=== PATIENT | female | born 1940 | race Caucasian/White ===

== ENCOUNTER → 2016-07-27 | Outpatient (CLI) | payer OTHER ==
[~2016-07-27] MED LIST: AMR2 PO; CHOL100010 PO; CYAN10002 IM; CYAN10005 PO; DICL1GEL28 TOP; GLC/500 PO; GLCSR500 PO; GLIM2TAB2 PO; INSDGI SC; INSDGIPEN SC; MULT-190 PO; SPIR25TA89 PO; VNTHFA/IN INH
[2016-07-27 13:37] LABS: BASO % 0.6 %; BASO ABS # 0.04 K/uL (0-0.2); COMPLETE YES; EOS % 1.6 %; HEMATOCRIT 38.7 % (37-47); IG% 0.1 %; LYMPH % 33.4 %; LYMPH ABS # 2.27 K/uL (1.2-3.4); MEAN CELL VOLUME 86.8 fL (80-100); MEAN CORPUSCULAR HEMOGLOBIN 29.1 pg (25-34); MEAN CORPUSCULAR HGB CONC 33.6 g/dl (32-36); MEAN PLATELET VOLUME 10.5 fL (7.4-10.4); MONO % 10.7 %; NEUT % 53.6 %; PLATELET COUNT 321 K/uL (130-400); RED BLOOD COUNT 4.46 M/uL (4.2-5.4)
[2016-07-27 14:13] LABS: ESTIMATED AVERAGE GLUCOSE 189 mg/dl; HA1C FLAG Normal (Normal)
[2016-07-27 17:47] LABS: BLOOD UREA NITROGEN 14 mg/dl (7-18); BUN/CREATININE RATIO 19.8 (10-20); CALCIUM 9.8 mg/dl (8.5-10.1); CARBON DIOXIDE 28 mmol/L (21-32); CHLORIDE 102 mmol/L (98-107); CREATININE 0.72 mg/dl (0.60-1.20); GLUCOSE 159 mg/dl (70-99); POTASSIUM 4.4 mmol/L (3.5-5.1); SODIUM 138 mmol/L (136-145)
[2016-07-27 18:03] LABS: ALB/GLOB RATIO 1.1 (0.9-2); ALKALINE PHOSPHATASE 77 U/L (45-117); ALT/SGPT 53 U/L (12-78); AST/SGOT 32 U/L (15-37); CHOLESTEROL 204 mg/dl (0-200); CHOLESTEROL/HDL RATIO 3.5; HDL CHOLESTEROL 59 mg/dl; LDL CHOLESTEROL CALCULATED 105 mg/dl; TRIGLYCERIDES 199 mg/dl (0-150); VERY LOW DENSITY LIPOPROT CALC 40 mg/dl
== END | disposition home or self-care (01) ==
LOC: C.LABBC 10:37
PROVIDERS: ATTEND Internal Medicine Geriatric Medicine
DX: I10 Essential (primary) hypertension (principal); E55.9 Vitamin D deficiency, unspecified; E78.5 Hyperlipidemia, unspecified; E11.9 Type 2 diabetes mellitus without complications; K74.60 Unspecified cirrhosis of liver; E53.8 Deficiency of other specified B group vitamins; E83.52 Hypercalcemia

== ENCOUNTER → 2016-09-18 | Outpatient (CLI) | payer OTHER | END | disposition home or self-care (01) | LOC: C.MAMM 10:38 | PROVIDERS: ATTEND Internal Medicine Geriatric Medicine | DX: M85.89 Other specified disorders of bone density and structure, multiple sites (principal) ==

== ENCOUNTER → 2016-11-30 | Outpatient (CLI) | payer OTHER ==
[2016-11-30 14:11] LABS: BLOOD UREA NITROGEN 7 mg/dl (7-18); BUN/CREATININE RATIO 11.1 (10-20); CALCIUM 9.3 mg/dl (8.5-10.1); CARBON DIOXIDE 28 mmol/L (21-32); CHLORIDE 107 mmol/L (98-107); CREATININE 0.64 mg/dl (0.60-1.20); GLUCOSE 150 mg/dl (70-99); POTASSIUM 4.6 mmol/L (3.5-5.1); SODIUM 141 mmol/L (136-145)
[2016-11-30 14:29] LABS: ESTIMATED AVERAGE GLUCOSE 209 mg/dl; HA1C FLAG Normal (Normal)
== END | disposition home or self-care (01) ==
LOC: C.LABBC 10:11
PROVIDERS: ATTEND Physician Assistant
DX: E11.9 Type 2 diabetes mellitus without complications (principal)

== ENCOUNTER → 2016-12-07 | Outpatient (CLI) | payer OTHER ==
[~2016-12-07] MED LIST changes: -AMR2 PO; -GLCSR500 PO; -INSDGIPEN SC
--- NOTE | 2016-12-07 14:07 | MAMMOGRAPHY REPORT ---
BILATERAL DIGITAL SCREENING MAMMOGRAM WITH CAD: 12/07/2016 CLINICAL HISTORY: Routine screening. Patient has no complaints. TECHNIQUE: Current study was also evaluated with a Computer Aided Detection (CAD) system. Bilatera l CC and MLO views were obtained. COMPARISON: Comparison is made to exams dated: 10/27/2014 mammogram, 05/21/2014 mammogram, 10/13/2013 mammogram, 10/07/2013 mammogram, 08/06/2012 mammogram, and 07/25/2011 mammogram - [facility]. BREAST COMPOSITION: There are scattered areas of fibroglandular density in both breasts. FINDINGS: No suspicious masses, calcifications, or areas of architectural distortion are noted in e ither breast. There has been no significant interval change compared to prior exams. A biopsy mar ker clip is again noted in the right upper outer quadrant. Scattered bilateral benign-appearing chloe cifications, predominantly rodlike secretory calcifications, are not significantly changed. Asymmet ry in the left superior breast on the MLO view is stable compared to prior exams including the 2011 and 2012 exams. IMPRESSION: ACR BI-RADS CATEGORY 2: BENIGN There is no mammographic evidence of malignancy. A 1 year screening mammogram is recommended. The p atient will receive written notification of the results. Approximately 10% of breast cancers are not detected with mammography. A negative mammographic repor t should not delay biopsy if a clinically suggestive mass is present. Harriet Rivero M.D. /:12/07/2016 13:29:23 Print Line Operator: Qian DIAZ(Gianna)(Angela), [facility] letter sent: Normal 1/2 BI-RADS Code: ACR BI-RADS Category 2: Benign
== END | disposition home or self-care (01) ==
LOC: C.MAMM 10:18
PROVIDERS: ATTEND Internal Medicine Geriatric Medicine
DX: Z12.31 Encounter for screening mammogram for malignant neoplasm of breast (principal)

== ENCOUNTER → 2016-12-08 | Day surgery (SDC) | payer OTHER ==
[2016-12-06 08:56] VITALS: Ht 167.6 cm; Wt 86.4 kg
[~2016-12-08] VITALS: Ht 167.6 cm; Wt 86.4 kg
[~2016-12-08] MED LIST changes: +LIDOCAINE HCL 2% 2 ML VIAL (20MG/ML) ONE; +MIDAZOLAM HCL 1 MG/ML 2ML VIAL ONE; +ONDANSETRON INJ 2 MG/ML 2 ML VIAL ONE; +PROPOFOL IV EMULSION 10 MG/ML 20 ML VIAL IV ONE; +SODIUM CHLORIDE 0.9% 500ML 500 ML IV ONE
[2016-12-08 10:46] VITALS: TEMP 36.9
--- NOTE | 2016-12-08 11:54 | Endo History and Physical ---
History & Physical Date of Service: December 08, 2016. Chief Complaint: screening,family history of colon cancer Referring Physician: Dr. Dylon Mcguire History of Present Illness 76 yo CF who presents for colonoscopy secondary to family history of colon cancer. Past Medical History Diabetes, Osteoporosis, High Cholesterol, Hypertension, Liver Disease Past Surgical History Hx Cardiac Surgery: No Hx Internal Defibrillator: No Hx Pacemaker: No Hx Abdominal Surgery: Yes (CHOLECYSTECTOMY, LIVER SHUNT FOR CIRRHOSIS) Hx of Implantable Prosthesis: No Hx Post-Op Nausea and Vomiting: No Hx Cancer Surgery: No Hx Thoracic Surgery: No Hx Orthopedic: No Hx Urinary Tract Surgery: No Family History Colon CA Social History Smoking Status: Former Smoker Hx Substance Use: No Hx Alcohol Use: Yes (HX ALCOHOL ABUSE) Allergies Coded Allergies: Penicillins (Verified Allergy, Unknown, GI UPSET, 12/06/16) Current Medications Reported Home Medications Medications Dose Route/Sig Max Daily Dose Days Date Category Dose Instructions Glimepiride 2 Mg Tab 1 Tab PO BID 12/06/16 Reported Lantus (Insulin Glargine) 100 Unit/Ml Inj 30 Units SC QAM 12/06/16 Reported Glucophage (Metformin Hcl) 500 Mg Tab 500 Mg PO BID 12/06/16 Reported Aldactone (Spironolactone) 25 Mg Tab 25 Mg PO BID 04/07/16 Reported Ventolin Hfa (Albuterol) 200 Puffs/36995 Mcg Aers 2 Puffs INH Q4H PRN 04/07/16 Reported Ocuvite Preservision (Multivitamins/Minerals) 1 Tab Tab 1 Tab PO QAM 01/05/16 Reported Voltaren 1% Top Gel (Diclofenac Sodium) Gel 1 Appln TOP UD 01/05/16 Reported APPLY AND RUB FOR ABOUT 2 MINUTES. Vitamin B-12 Inj (Cyanocobalamin) 1,000 Mcg/ Inj 1,000 Mcg IM MONTHLY 01/05/16 Reported Vitamin B-12 (Cyanocobalamin) 1,000 Mcg Tab 1,000 Mcg PO QAM 08/16/15 Reported Vitamin D (Cholecalciferol) 1,000 Inter.unit Tab 2,000 Inter.unit PO BID 08/16/15 Reported Vital Signs Weight (Kilograms): 86.36 Height (Feet): 5 Height (Inches): 6 Date Time Temp Pulse Resp B/P Pulse Ox O2 Delivery O2 Flow Rate FiO2 12/08/16 10:46 36.9 80 20 138/58 95 Room Air Physical Exam General Appearance: WD/WN, no apparent distress Respiratory/Chest: Auscultation: breath sounds normal Cardiovascular: Heart Auscultation: RRR Abdomen: Bowel Sounds: normal Inspection & Palpation: soft, non-distended, no tenderness, guarding & rebound Assessment and Plan Assessment: 76 yo CF who presents for colonoscopy secondary to family history of colon cancer. Plan: Proceed with colonoscopy.
--- NOTE | 2016-12-08 12:21 | Discharge Instructions ---
Endoscopy Patient Instructions Date / Procedure(s) Performed December 08, 2016. Colonoscopy Allergy Information Coded Allergies: Penicillins (Verified Allergy, Unknown, GI UPSET, 12/06/16) Discharge Date / Findings December 08, 2016. Diverticulosis Internal hemorrhoids Medication Instructions Stopped Medication(s): stopped Glimepiride,Lantus and Glucophage Sunday OK to resume all medications today as prescribed Reported Home Medications Medications Dose Route/Sig Max Daily Dose Days Date Category Dose Instructions Glimepiride 2 Mg Tab 1 Tab PO BID 12/06/16 Reported Lantus (Insulin Glargine) 100 Unit/Ml Inj 30 Units SC QAM 12/06/16 Reported Glucophage (Metformin Hcl) 500 Mg Tab 500 Mg PO BID 12/06/16 Reported Aldactone (Spironolactone) 25 Mg Tab 25 Mg PO BID 04/07/16 Reported Ventolin Hfa (Albuterol) 200 Puffs/92183 Mcg Aers 2 Puffs INH Q4H PRN 04/07/16 Reported Ocuvite Preservision (Multivitamins/Minerals) 1 Tab Tab 1 Tab PO QAM 01/05/16 Reported Voltaren 1% Top Gel (Diclofenac Sodium) Gel 1 Appln TOP UD 01/05/16 Reported APPLY AND RUB FOR ABOUT 2 MINUTES. Vitamin B-12 Inj (Cyanocobalamin) 1,000 Mcg/ Inj 1,000 Mcg IM MONTHLY 01/05/16 Reported Vitamin B-12 (Cyanocobalamin) 1,000 Mcg Tab 1,000 Mcg PO QAM 08/16/15 Reported Vitamin D (Cholecalciferol) 1,000 Inter.unit Tab 2,000 Inter.unit PO BID 08/16/15 Reported Provider Instructions Activity Restrictions - No exercising or heavy lifting for 24 hours. - Do not drink alcohol the day of the procedure. - Do not drive a car or operate machinery until the day after the procedure. - Do not make any important decisions or sign important papers in 24 hours after the procedure. Following Day: - Return to full activity which may include returning to work/school. Diet Start your diet with liquids and light foods (jello, soup, juice, toast). Then eat your usual diet if not nauseated. Treatment For Common After Affects For mild abdominal pain, bloating, or excessive gas: - Rest - Eat lightly - Lie on right side Follow-Up Information Follow-up with Dr. Dylon Mcguire as scheduled Anesthesia Information What You Should Know You have had a procedure that required some medicine to reduce anxiety and discomfort. This treatment is called moderate sedation. After receiving the treatment, you may be sleepy, but you will be able to breathe on your own. The effects of the treatment may last for several hours. Follow these instructions along with Activity/Diet recommendations noted above: * Do NOT do anything where dizziness or clumsiness would be dangerous. * Rest quietly at home today, then you can be up and about tomorrow. * Have a responsible person stay with you the rest of today. * You may have had an I.V. today. If so, you may take the dressing off later today. Recommendations Call your doctor if: * Trouble breathing * Continuous vomiting for more than 24 hours * Temperature above 101 degrees * Severe abdominal pain or bloating * Pain not relieved by pain medicine ordered * There is increased drainage or redness from any incision * A large amount of rectal bleeding greater than 2-3 tablespoons. (If you had a polyp/s removed or have hemorrhoids, a small amount of blood - from the rectum is to be expected.) * You have any unanswered questions or concerns. IN THE EVENT OF A SERIOUS EMERGENCY, GO TO THE NEAREST EMERGENCY ROOM Your discharge instructions were prepared by provider Jose Vences. Patient Instructions Signature Page Fred Lewis Patient (or Guardian) Signature/Date: I have read and understand the instructions given to me by my caregivers. Caregiver/RN/Doctor Signature/Date: The above-named patient and/or guardian has received patient instructions on this date. + Original Patient Signature Page (only) stays with chart. Please make copy for patient.
--- NOTE | 2016-12-08 12:24 | GI REPORT ---
Procedure Date: 12/08/2016 11:45 AM THIS REPORT HAS BEEN AMENDED Addendum Number: 1 Addendum Date: 12/25/2016 8:05:04 AM No specimens were collected during this exam, and therefore, no pathology is pending. Repeat colonoscopy in 5 years. Procedure: Colonoscopy Indications: Family history of colon cancer in a first-degree relative Medicines: Monitored Anesthesia Care Complications: No immediate complications. Estimated Blood Loss: Estimated blood loss: none. Procedure: Pre-Anesthesia Assessment: - Prior to the procedure, a History and Physical was performed, and patient medications and allergies were reviewed. The patient's tolerance of previous anesthesia was also reviewed. The risks and benefits of the procedure and the sedation options and risks were discussed with the patient. All questions were answered, and informed consent was obtained. Prior Anticoagulants: The patient has taken no previous anticoagulant or antiplatelet agents. ASA Grade Assessment: III - A patient with severe systemic disease. After reviewing the risks and benefits, the patient was deemed in satisfactory condition to undergo the procedure. After I obtained informed consent, the scope was passed under direct vision. Throughout the procedure, the patient's blood pressure, pulse, and oxygen saturations were monitored continuously. The scope was introduced through the anus and advanced to the terminal ileum. The colonoscopy was performed without difficulty. The patient tolerated the procedure well. The quality of the bowel preparation was good. The terminal ileum, ileocecal valve, appendiceal orifice, and rectum were photographed. Findings: Multiple small-mouthed diverticula were found in the sigmoid colon. Non-bleeding internal hemorrhoids were found during retroflexion. The hemorrhoids were small. Impression: - Diverticulosis in the sigmoid colon. - Non-bleeding internal hemorrhoids. - No specimens collected. Recommendation: - Resume previous diet. - Continue present medications. - Repeat colonoscopy for surveillance based on pathology results. - Return to primary care physician as previously scheduled. Jose Toño Vences, DO 12/08/2016 12:23:09 PM This report has been signed electronically. Note Initiated On: 12/08/2016 11:45 AM I attest to the content of the Intraoperative Record and orders documented therein, exceptions below Jose Lundberg Ru, DO 12/25/2016 8:06:09 AM This report has been signed electronically.
[2016-12-08 12:45] VITALS: BP 123/73; PULSE 78; O2SAT 94
--- NOTE | 2016-12-08 12:47 | Anesthesiology Progress Note ---
Anesthesia Post Op Note Date & Time December 08, 2016 at 12:47 Vital Signs Pain Intensity: 0 Vital Signs Past 12 Hours Date Time Temp Pulse Resp B/P Pulse Ox O2 Delivery O2 Flow Rate FiO2 12/08/16 12:45 78 20 123/73 94 Room Air 12/08/16 12:37 84 20 146/65 95 Room Air 12/08/16 12:30 87 20 121/71 94 Room Air 12/08/16 12:22 88 20 90/55 94 Room Air 12/08/16 10:46 36.9 80 20 138/58 95 Room Air Notes Mental Status: alert / awake / arousable, participated in evaluation Pt Amnestic to Procedure: Yes Nausea / Vomiting: adequately controlled Pain: adequately controlled Airway Patency, RR, SpO2: stable & adequate BP & HR: stable & adequate Hydration State: stable & adequate Anesthetic Complications: no major complications apparent
== END | disposition home or self-care (01) ==
LOC: C.GI 10:20
PROVIDERS: ATTEND Internal Medicine
DX: Z12.11 Encounter for screening for malignant neoplasm of colon (principal); K57.30 Diverticulosis of large intestine without perforation or abscess without bleeding; K64.8 Other hemorrhoids; I10 Essential (primary) hypertension; E11.9 Type 2 diabetes mellitus without complications; Z68.31 Body mass index [BMI] 31.0-31.9, adult; E66.9 Obesity, unspecified; Z88.0 Allergy status to penicillin; Z79.4 Long term (current) use of insulin; Z80.0 Family history of malignant neoplasm of digestive organs

== ENCOUNTER → 2017-03-07 | Outpatient (CLI) | payer OTHER ==
[~2017-03-07] MED LIST changes: -LIDOCAINE HCL 2% 2 ML VIAL (20MG/ML) ONE; -MIDAZOLAM HCL 1 MG/ML 2ML VIAL ONE; -ONDANSETRON INJ 2 MG/ML 2 ML VIAL ONE; -PROPOFOL IV EMULSION 10 MG/ML 20 ML VIAL IV ONE; -SODIUM CHLORIDE 0.9% 500ML 500 ML IV ONE
[2017-03-07 10:08] LABS: ESTIMATED AVERAGE GLUCOSE 235 mg/dl; HA1C FLAG Normal (Normal)
[2017-03-07 10:15] LABS: RATIO 25.5 mcg/mg (0-30.0)
== END | disposition home or self-care (01) ==
LOC: C.LAB1850 07:39
PROVIDERS: ATTEND Nurse Practitioner Family
DX: E11.9 Type 2 diabetes mellitus without complications (principal)

== ENCOUNTER → 2017-04-11 | Outpatient (CLI) | payer OTHER ==
--- NOTE | 2017-04-11 10:56 | DIAGNOSTIC IMAGING REPORT ---
(LIVER) ABDOMEN LIMITED HISTORY: 76 years-old Female K74.60 Hepatic [id number] cirrhosis follow-up study. COMPARISON: Ultrasound of the right upper quadrant 09/09/2015, CTA 04/04/2012 TECHNIQUE: Multiple real-time sonographic images of the abdominal right upper quadrant were obtained assessing grayscale appearance and color flow. FINDINGS: Pancreas appears somewhat heterogeneous with distal body and tail obscured by bowel gas. No focal pancreatic mass lesion identified. There is a hypoechoic complex irregular focus abutting the anterior capsule of the left hepatic lobe, 5.0 x 0.7 x 1.7 cm which appears unchanged from comparison ultrasound and CT suggesting chronic subcapsular collection. The hepatic parenchyma is heterogeneous with lobular margins. No focal hepatic mass lesions are identified. Liver measures up to 16 centimeters in length. The common bile duct measures 0.5 cm. Gallbladder is absent. Right kidney measures 4.5 cm in length and is unremarkable without hydronephrosis. IMPRESSION: 1. Cirrhotic appearance of the liver redemonstrated. 2. Prior cholecystectomy. No biliary ductal dilation. 3. Unchanged hypoechoic mildly heterogeneous focus abutting the anterior capsule of the left lobe of the liver without significant change from comparison studies suggests chronic subcapsular fluid collection. 4. Heterogeneous appearance of the pancreas. The above report was generated using voice recognition software. It may contain grammatical, syntax or spelling errors. Electronically signed by: Deangelo Blackwood M.D. 04/11/2017 10:54 AM Dictated Date/Time: 04/11/2017 10:50 AM
== END | disposition home or self-care (01) ==
LOC: C.ULTRBC 09:33
PROVIDERS: ATTEND Physician Assistant Medical
DX: K74.60 Unspecified cirrhosis of liver (principal)

== ENCOUNTER → 2017-06-06 | Outpatient (CLI) | payer OTHER ==
[2017-06-06 10:21] LABS: ESTIMATED AVERAGE GLUCOSE 235 mg/dl; HA1C FLAG Normal (Normal)
== END | disposition home or self-care (01) ==
LOC: C.LAB1850 07:26
PROVIDERS: ATTEND Nurse Practitioner Family
DX: E11.65 Type 2 diabetes mellitus with hyperglycemia (principal)

== ENCOUNTER → 2017-09-06 | Outpatient (CLI) | payer OTHER ==
[2017-09-06 10:17] LABS: BLOOD UREA NITROGEN 11 mg/dl (7-18); CALCIUM 9.5 mg/dl (8.5-10.1); CARBON DIOXIDE 27 mmol/L (21-32); CHOLESTEROL 166 mg/dl (0-200); CREATININE 0.65 mg/dl (0.60-1.20); GLUCOSE 220 mg/dl (70-99); SODIUM 136 mmol/L (136-145)
[2017-09-06 10:27] LABS: LDL CHOLESTEROL CALCULATED 103 mg/dl
[2017-09-06 12:15] LABS: HEMOGLOBIN A1C 10.8 % (4.5-5.6)
== END | disposition home or self-care (01) ==
LOC: C.LAB1850 08:52
PROVIDERS: ATTEND Nurse Practitioner Family
DX: E11.65 Type 2 diabetes mellitus with hyperglycemia (principal); I10 Essential (primary) hypertension; E83.52 Hypercalcemia

== ENCOUNTER → 2017-11-01 | Outpatient (CLI) | payer OTHER ==
--- NOTE | 2017-11-01 12:28 | DIAGNOSTIC IMAGING REPORT ---
CHEST 2 VIEWS ROUTINE CLINICAL HISTORY: R06.09 Exertional [id number] dyspnea COMPARISON STUDY: 12/08/2015 FINDINGS: Central catheter in superior vena cava. Heart top normal in terms of size. Lungs are clear. Mild emphysematous change with a chronic apical pleural and parenchymal fibrotic change. IMPRESSION: Chronic change. No acute process. The above report was generated using voice recognition software. It may contain grammatical, syntax or spelling errors. Electronically signed by: Sergio Johnson M.D. 11/01/2017 12:27 PM Dictated Date/Time: 11/01/2017 12:26 PM
== END | disposition home or self-care (01) ==
LOC: C.RADBC 10:22
PROVIDERS: ATTEND Physician Assistant Medical
DX: R06.09 Other forms of dyspnea (principal)

== ENCOUNTER → 2018-02-21 | Outpatient (CLI) | payer OTHER ==
[~2018-02-21] MED LIST changes: -CHOL100010 PO; +CHOL100027 PO; -CYAN10002 IM; -DICL1GEL28 TOP; +SPIR25TA5 PO; -SPIR25TA89 PO; +[UNRECOGNIZED DRUG - CODE] SQ
[2018-02-21 10:28] LABS: HEMOGLOBIN A1C 10.4 % (4.5-5.6)
[2018-02-21 10:40] LABS: CREATININE RANDOM URINE 95.3 mg/dl
== END | disposition home or self-care (01) ==
LOC: C.LAB1850 09:27
PROVIDERS: ATTEND Nurse Practitioner Family
DX: E11.65 Type 2 diabetes mellitus with hyperglycemia (principal)

== ENCOUNTER 2018-10-18 17:43 | Inpatient (IN) ==
[2018-10-18] MEDS ORDERED: ONDANSETRON INJ 2 MG/ML 2 ML VIAL IV STA (18:11)
[2018-10-18] MEDS ORDERED: SODIUM CHLORIDE 0.9% 1000ML 500 ML IV ONE (18:11)
[2018-10-18] MEDS ORDERED: KETOROLAC TROMETHAMINE 15 MG/ML VIAL IV STA (18:18)
[2018-10-18 18:50] LABS: Basophils # (auto) 0.01 K/uL (0-0.2); Basophils % (auto) 0.1 %; Hemoglobin 12.9 g/dL (12.0-16.0); Immature Granulocytes # (auto) 0.06 K/uL (0.00-0.02); Immature Granulocytes % (auto) 0.5 %; Lymphocytes # (auto) 0.23 K/uL (1.2-3.4); Lymphocytes % (auto) 1.7 %; Mean Corpuscular Hgb Conc 33.1 g/dL (32-36); Mean Corpuscular Volume 89.2 fL (80-100); Monocytes # (auto) 0.16 K/uL (0.11-0.59); Monocytes % (auto) 1.2 %; Neutrophils # (auto) 12.76 K/uL (1.4-6.5); Neutrophils % (auto) 96.5 %; Platelet Count 209 K/uL (130-400); RDW Coefficient of Variation 14.3 % (11.5-14.5); RDW Standard Deviation 47.1 fL (36.4-46.3); Red Blood Count 4.37 M/uL (4.2-5.4); White Blood Count 13.22 K/uL (4.8-10.8)
--- NOTE | 2018-10-18 18:55 | XRay Report ---
XR chest 1V portable CLINICAL HISTORY: 78 years-old Female presenting with Sepsis. TECHNIQUE: Portable upright AP view of the chest was obtained. COMPARISON: 05/07/2018. FINDINGS: Catheter projects in the region of the right internal jugular vein, possibly a tunneled catheter. Ath erosclerosis of aortic arch. Cardiac silhouette mildly enlarged. Mild pulmonary basilar prominence an d heterogeneity of lung parenchyma. No focal opacity. No large effusion or pneumothorax. Degenerative changes of the thoracic spine. IMPRESSION: 1. Mild cardiomegaly with mild volume overload. No eliane pulmonary edema. Electronically signed by: William Lira M.D. 10/18/2018 6:53 PM
[2018-10-18 19:06] LABS: Alanine Aminotransferase 50 U/L (12-78); Albumin Level 3.3 gm/dl (3.4-5.0); Aspartate Aminotransferase 46 U/L (15-37); BUN Creatinine Ratio 15.6 (10-20); Blood Urea Nitrogen 20 mg/dl (7-18); Calcium 9.7 mg/dl (8.5-10.1); Carbon Dioxide 22 mmol/L (21-32); Chloride 105 mmol/L (98-107); Creatinine Clr Calc Pharmacy 40.1 ml/min; Est GFR (African American) 46.6; Est GFR (Non-African American) 40.2; Glucose 139 mg/dl (70-99); Potassium 3.7 mmol/L (3.5-5.1); Sodium 137 mmol/L (136-145)
[2018-10-18 19:11] LABS: Albumin Globulin Ratio 0.8 (0.9-2); Alkaline Phosphatase 103 U/L (45-117); Bilirubin,Total 0.7 mg/dl (0.2-1); Creatine Kinase 507 U/L (26-192); Creatine Kinase MB 3.6 ng/ml (0.5-3.6); Globulin 4.1 gm/dl (2.5-4.0); Total Protein 7.4 gm/dl (6.4-8.2); Troponin I < 0.015 ng/ml (0-0.045)
[2018-10-18] MEDS ORDERED: LEVALBUTEROL HCL 1.25 MG/3 ML NEB NEB STA (19:14)
[2018-10-18] MEDS ORDERED: ACETAMINOPHEN 500 MG TAB PO STA (19:14)
[2018-10-18] MEDS ORDERED: IOVERSOL 100ml IV PRN (19:15)
[2018-10-18 19:25] LABS: Influenza A virus by PCR Neg for Influ A (Neg); Influenza B virus by PCR Neg for Influ B (Neg)
--- NOTE | 2018-10-18 19:29 | CT Scan Report ---
CT head/brain wo con CLINICAL HISTORY: 78 years-old Female presenting with Pt AMS. TECHNIQUE: Multidetector CT imaging of the head was performed without the use of intravenous contrast . IV contrast: None. One or more dose lowering techniques were used consistent with the principles of ALARA (as low as reasonably achievable), including automatic exposure control, mA or kV adjustment t o individual patient size, and/or use of iterative reconstruction. COMPARISON: None. CT DOSE (mGy.cm): The estimated cumulative dose is 1897.41. FINDINGS: Senior Actuarial Analyst topogram: Unremarkable. Proportional ventricular and sulcal prominence, likely age-related parenchymal volume loss. No hemorr gagandeep. Periventricular and subcortical white matter hypoattenuation, nonspecific but likely indicative of chronic small vessel ischemic change. No acute territorial infarct. No mass effect or midline deborah ft. No extra-axial fluid collection. Paranasal sinuses and mastoid air cells clear. Calvarium intact. IMPRESSION: 1. Chronic small vessel ischemic change. No acute intracranial abnormality. Electronically signed by: William Lira M.D. 10/18/2018 7:28 PM
--- NOTE | 2018-10-18 19:38 | CT Scan Report ---
CT abd pelvis IV con only CLINICAL HISTORY: 78 years-old Female presenting with Pt c/o N V D, history of breast cancer. TECHNIQUE: Multidetector CT of the abdomen and pelvis was performed after the administration of intra venous contrast. IV contrast: 94 mL of Optiray 320. One or more dose lowering techniques were used co nsistent with the principles of ALARA (as low as reasonably achievable), including automatic exposure control, mA or kV adjustment to individual patient size, and/or use of iterative reconstruction. COMPARISON: 05/10/2018. CT DOSE (mGy.cm): The estimated cumulative dose is 1897.41 mGy.cm. FINDINGS: Talk Show Host topogram: Unremarkable. Lung bases: Multichamber enlargement of the heart. Coronary artery calcification. No pericardial or p leural effusion. Minimal dependent changes likely atelectasis. Mosaic attenuation may suggest small a irways disease. Liver: Multinodular contour of the liver, which is also enlarged. Relative hypertrophy of the left he patic lobe and caudate with relative atrophy of the right hepatic lobe. No focal lesion allowing for the single phase of contrast. Patent hepatic vasculature. Trace perihepatic fluid along the inferior right hepatic lobe. Biliary: No intrahepatic or extrahepatic biliary ductal dilatation. Gallbladder surgically absent. Pancreas: Normal. Spleen: Multiple punctate calcifications suggest a history of granulomatous disease. Adrenal glands: Normal. Kidneys and ureters: Asymmetric delayed perfusion of the left kidney with moderate left perinephric f at infiltration asymmetric to the right. Mild left pelvocaliectasis. Obstructing 9 mm calculus at the left ureteropelvic junction. Left urothelial thickening. Several smaller nonobstructing lower pole l eft renal calculi. Exophytic simple left renal cyst. Right kidney normal. No right hydronephrosis. Ri ght ureter normal. Left ureter with periureteral fat infiltration along its course though no addition al calculus is evident. Bladder: Normal. Pelvic organs: Uterus and ovaries normal. Bowel: Diverticulosis of the sigmoid colon with mild wall thickening in the mid to distal portion wit hout pericolonic inflammatory change suggesting circular muscle hyperplasia/chronic diverticular dise ase. The appendix is not visualized. No bowel obstruction. Peritoneal cavity: Trace fluid in the retroperitoneum on the left. Trace fluid in the right abdomen. A catheter is noted in the right abdomen presumably a ventriculoperitoneal catheter. No free intraper itoneal gas. Lymph nodes: No enlarged lymph nodes in the abdomen or pelvis. Vasculature: Atherosclerosis of the normal caliber abdominal aorta. IVC patent. Abdominal wall: Diastasis of the rectus abdominis. Minimal infiltration of the anterior left mid abdo sabra wall, possibly related to medication administration. Musculoskeletal: Degenerative changes of the spine. 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 IMPRESSION: 1. Obstructing 9 mm left ureteropelvic junction calculus with resultant mild left hydronephrosis. Si gnificant urothelial thickening is presumably reactive to the presence of the calculus rather than a superimposed infection, which is significantly less likely. Multiple nonobstructing lower pole left r enal calculi also present. 2. Diverticulosis with chronic diverticular disease of the sigmoid colon. 3. Cirrhosis. No convincing evidence of portal hypertension at this time. 4. Right abdominal shunt, presumably a ventriculoperitoneal shunt in place. Electronically signed by: William Lira M.D. 10/18/2018 7:37 PM
[2018-10-18] MEDS ORDERED: AZTREONAM 2,000 MG in DEXTROSE 5% 100 ML IV STA (19:46)
[2018-10-18] MEDS ORDERED: LEVOFLOXACIN/D5W 750 MG/150 ML BAG IV STA (19:46)
[2018-10-18] MEDS ORDERED: DAPTOmycin 400 MG in SYRINGE 0 ML IV ONE (19:48)
--- NOTE | 2018-10-18 20:08 | Anesthesiology Consultation ---
Date of Service October 18, 2018 Assessment & Plan (1) Encounter for pre-operative examination: Chart Review Chart Review: Acceptable Risk for Surgery (emergent) and Patient NOT seen in Pre Admission Testing Consults Requested none ASA [id number] Proposed Anesthesia Anesthesia Type: General Risk / Benefits Reviewed With: PT / POA / Parent / Guardian, Accepts Plan and Informed Consent Obtained NPO Date Last Intake of Fluids: 10/18/18 Time Last Intake of Fluids: 19:00 Date Last Intake of Solids: 10/18/18 Time Last Intake of Solids: 15:00 History Surgery Operation Date: 10/18/18 21:00 Proposed Procedures p Left Ureteral Stent Insertion(Left) - Miko Knowles MD Height/Weight Height: 1.57 m Weight: 96.1 kg Allergies Allergy/AdvReac Type Severity Reaction Status Date / Time erythromycin base AdvReac Intermediate Nausea Verified 10/18/18 20:22 Penicillins AdvReac Mild GI UPSET Verified 10/18/18 20:22 Medications Home Medications Medication Instructions Recorded Confirmed Last Taken albuterol sulfate [Ventolin HFA] 2 puff INHALATION Q4 PRN 10/18/18 10/18/18 Unknown calcium carbonate-vitamin D3 1 cap PO DAILY 10/18/18 10/18/18 Unknown [Liquid Calcium with Vitamin D] cholecalciferol (vitamin D3) 2,000 unit PO BID 10/18/18 10/18/18 Unknown [Vitamin D3] cyanocobalamin (vitamin B-12) 1,000 mcg IM MONTHLY 10/18/18 10/18/18 Unknown cyanocobalamin (vitamin B-12) 1,000 mcg PO DAILY 10/18/18 10/18/18 Unknown [Vitamin B-12] dulaglutide [Trulicity] 1.5 mg SUBCUT WK 10/18/18 10/18/18 Unknown ezetimibe [Zetia] 10 mg PO DAILY 10/18/18 10/18/18 Unknown insulin asp prt-insulin aspart 60 unit SUBCUT AMPM 10/18/18 10/18/18 Unknown [Novolog Mix 70-30FlexPen U-100] insulin degludec [Tresiba 30 unit SUBCUT DAILY 10/18/18 10/18/18 Unknown FlexTouch U-100] letrozole [Femara] 2.5 mg PO DAILY 10/18/18 10/18/18 Unknown losartan [Cozaar] 25 mg PO DAILY 10/18/18 10/18/18 Unknown metformin [Glucophage] 1,000 mg PO BIDM 10/18/18 10/18/18 Unknown pioglitazone [Actos] 30 mg PO DAILY 10/18/18 10/18/18 Unknown spironolactone [Aldactone] 25 mg PO BID 10/18/18 10/18/18 Unknown vit A,C and K-uvvvjm-puvsnszw 1 tab PO DAILY 10/18/18 10/18/18 Unknown [I-[place]] Active Medications Generic Name Dose Route Start Last Admin Trade Name Freq PRN Reason Stop Dose Admin Levofloxacin/Dextrose 750 mg in 150 mls @ 100 mls/hr 10/18/18 19:46 10/18/18 20:06 Levaquin/D5w IV 10/18/18 21:15 100 mls/hr NOW STA Administration Ioversol 94 ml 10/18/18 19:15 10/18/18 19:16 Optiray 320 100ml IV 10/22/18 19:14 94 ml ONCE PRN Administration Interaction Checking Past Medical History Medical History Breast cancer Hypertension (Chronic) Atrial septal defect (Chronic) Mental retardation (Chronic) AMD (age related macular degeneration) (Acute) Elevated LFTs (Acute) Urinary incontinence (Acute) Asthma STABLE Cirrhosis HX ETOH ABUSE- "STABLE" Diabetes mellitus, type 2 IDDM Hyperlipidemia Hypertension Obesity Osteoarthritis No h/o hospitalization or intubation due asthma Past Family History Family History Mother , at a young age , not sure cause No problems noted. Father , age 109 / " old age " No problems noted. Sister , age 51 Breast cancer Sister , very young ,, hit by a truck Accident Sister No problems noted. Brother , age 55 Liver failure Brother , age 4-5 ys old , not sure cause No problems noted. Past Surgical History Surgical History S/P colonoscopy Status post left breast lumpectomy (Acute) surgery 05-15-2018 [place] with LMA #4 History of cholecystectomy gr I atraumatic History of surgery of liver HEPATIC PORT PLACEMENT 2/2 CIRRHOSIS Past Anesthesia History No Hx of Anesthesia Complications and No Family Hx of Anesthesia Complications History of PONV No Motion Sickness Screening History of Motion Sickness: Yes (Sometimes) Social History Smoking Status: Never smoker tobacco type: cigarettes Smoking cigarettes per day: QUIT SEVERAL YEARS AGO Do You Dip or Chew Tobacco: Yes Smoking End Date: Last chew in the afternoon Hx Alcohol Use: Yes (used to drink , " no alcohol for a long time ") Hx Substance Use: No substance use type: does not use Substance Use Type Other:: HX ETOH ABUSE- QUIT SEVERAL YEARS AGO Exercise / Class Metabolic Activity II 4-5 Yardwork/Stairs/Walk up hill Physical Exam Vital Signs Last Vital Signs Temp 39.5 C H 10/18/18 17:52 Pulse 115 H 10/18/18 19:40 Resp 18 10/18/18 19:40 BP 114/54 L 10/18/18 19:01 Pulse Ox 97 10/18/18 19:40 Constitutional + obese ENMT Mouth: + dentures (Full upper and lower) and + edentulous; no TMJ abnormality and no TMJ clicking Thyromental Distance: > or= 3.5 Finger Breadths Mallampati Class: II Neck normal visual inspection; neck extension not limited Respiratory Auscultation: lungs clear to auscultation bilaterally Cardiovascular Rate/Rhythm: regular rate and regular rhythm Musculoskeletal Spine: normal cervical ROM and no pain with cervical ROM Testing Electrocardiogram Date: 10/22/17 Findings: + NSR @ (77) Chest X-Ray Date: 10/18/18 FINDINGS: Catheter projects in the region of the right internal jugular vein, possibly a tunneled catheter. Atherosclerosis of aortic arch. Cardiac silhouette mildly enlarged. Mild pulmonary basilar prominence and heterogeneity of lung parenchyma. No focal opacity. No large effusion or pneumothorax. Degenerative changes of the thoracic spine. IMPRESSION: 1. Mild cardiomegaly with mild volume overload. No eliane pulmonary edema Laboratory Results 10/18/18 18:36 10/18/18 18:36 PT Cancelled 10/18/18 18:36 INR Cancelled 10/18/18 18:36 APTT Cancelled 10/18/18 18:36 Urine Color Yellow 10/18/18 20:30 Urine Appearance Clear (Clear) 10/18/18 20:30 Urine pH 5.0 (4.5-7.5) 10/18/18 20:30 Ur Specific [place] 1.022 (1.000-1.030) 10/18/18 20:30 Urine Protein 1+ (Negative) H 10/18/18 20:30 Urine Glucose (UA) Trace (Negative) H 10/18/18 20:30 Urine Ketones Trace (Negative) H 10/18/18 20:30 Urine Nitrite Positive (Negative) H 10/18/18 20:30 Ur Leukocyte Esterase 1+ (Negative) H 10/18/18 20:30 Urine WBC (Auto) 10-30 /hpf (0-5) H 10/18/18 20:30 Urine RBC (Auto) 0-4 /hpf (0-4) 10/18/18 20:30 U Hyaline Cast (Auto) 1-5 /lpf (0-5) 10/18/18 20:30 U Epithel Cells (Auto) 0-5 /lpf (0-5) 10/18/18 20:30 Urine Bacteria (Auto) Negative (Negative) 10/18/18 20:30 10/18/18 18:47 POC Glucose (other) 144 H
[2018-10-18] MEDS ORDERED: fentaNYL citrate 100 MCG/2 ML VIAL IV PRN ×2 (20:16→21:14)
[2018-10-18] MEDS ORDERED: HYDROmorphone INJ 1 MG/ML SYRINGE IV PRN ×2 (20:16→21:14)
[2018-10-18] MEDS ORDERED: PHENYLEPHRINE 100MCG/ML 5ML SYR IV PRN ×2 (20:16→21:14)
[2018-10-18] MEDS ORDERED: ONDANSETRON INJ 2 MG/ML 2 ML VIAL IV PRN ×3 (20:16→23:36)
[2018-10-18] MEDS ORDERED: ePHEDrine sulfate 50 MG/ML AMP IV PRN ×2 (20:16→21:14)
[2018-10-18] MEDS ORDERED: ATROPINE SULFATE 0.1 MG/ML 10ML SYR IV PRN ×2 (20:16→21:14)
[2018-10-18 20:40] LABS: Appearance Urine Clear (Clear); Bacteria Urine Automated Negative (Negative); Bilirubin Urine Negative (Negative); Blood Urine 2+ (Negative); Color Urine Yellow; Epithelial Cell Urine Auto 0-5 /lpf (0-5); Glucose Urine UA Trace (Negative); Ketones Urine Trace (Negative); Leukocyte Esterase Urine 1+ (Negative); Nitrite Urine Positive (Negative); Protein Urine 1+ (Negative); RBC Urine Automated 0-4 /hpf (0-4); Specific Gravity Urine 1.022 (1.000-1.030); Urobilinogen Urine Negative (Negative)
--- NOTE | 2018-10-18 20:53 | Urology Consultation ---
Date of Consultation October 18, 2018 78-year-old female with a distant history of stones and a history of mild cognitive impairment presents with several day history of flank pain nausea and vomiting. She has a recent diagnosis of breast cancer. She has a history of cirrhosis of the liver with hepatic port placement history of breast lumpectomy in the fall. She presented to the emergency room with emesis flank pain and had a CAT scan that showed a 7 8 mm left UPJ stone with some stranding. She had a temp of 39 5 in the emergency room and an elevated white blood cell count around 13,000. She is tachycardic and she was unable to give urine sample and has just been catheterized. The patient says she has been feeling quite ill for the past several days and she is just been given IV antibiotics and has been seen by the hospitalist is going to admit her. I explained to the patient that she needs to have a stent placed urgently on the left side and discussed the risk of not placing the stent in the risk of placing a stent which might include damage to the kidney or inability to place the stent. She understands these risks and agrees to proceed History of Present Illness Allergies Allergy/AdvReac Type Severity Reaction Status Date / Time erythromycin base AdvReac Intermediate Nausea Verified 10/18/18 20:22 Penicillins AdvReac Mild GI UPSET Verified 10/18/18 20:22 Home Medications Home Medications Medication Instructions Recorded Confirmed Type albuterol sulfate [Ventolin HFA] 2 puff INHALATION Q4 PRN 10/18/18 10/18/18 History calcium carbonate-vitamin D3 1 cap PO DAILY 10/18/18 10/18/18 History [Liquid Calcium with Vitamin D] cholecalciferol (vitamin D3) 2,000 unit PO BID 10/18/18 10/18/18 History [Vitamin D3] cyanocobalamin (vitamin B-12) 1,000 mcg IM MONTHLY 10/18/18 10/18/18 History cyanocobalamin (vitamin B-12) 1,000 mcg PO DAILY 10/18/18 10/18/18 History [Vitamin B-12] dulaglutide [Trulicity] 1.5 mg SUBCUT WK 10/18/18 10/18/18 History ezetimibe [Zetia] 10 mg PO DAILY 10/18/18 10/18/18 History insulin asp prt-insulin aspart 60 unit SUBCUT AMPM 10/18/18 10/18/18 History [Novolog Mix 70-30FlexPen U-100] insulin degludec [Tresiba 30 unit SUBCUT DAILY 10/18/18 10/18/18 History FlexTouch U-100] letrozole [Femara] 2.5 mg PO DAILY 10/18/18 10/18/18 History losartan [Cozaar] 25 mg PO DAILY 10/18/18 10/18/18 History metformin [Glucophage] 1,000 mg PO BIDM 10/18/18 10/18/18 History pioglitazone [Actos] 30 mg PO DAILY 10/18/18 10/18/18 History spironolactone [Aldactone] 25 mg PO BID 10/18/18 10/18/18 History vit A,C and R-myeift-yrogljgy 1 tab PO DAILY 10/18/18 10/18/18 History [I-[place]] Patient History Medical History Breast cancer Hypertension (Chronic) Atrial septal defect (Chronic) Mental retardation (Chronic) AMD (age related macular degeneration) (Acute) Elevated LFTs (Acute) Urinary incontinence (Acute) Asthma STABLE Cirrhosis HX ETOH ABUSE- "STABLE" Diabetes mellitus, type 2 IDDM Hyperlipidemia Hypertension Obesity Osteoarthritis Surgical History S/P colonoscopy Status post left breast lumpectomy (Acute) surgery 05-15-2018 [place] with LMA #4 History of cholecystectomy 2010- gr I atraumatic History of surgery of liver HEPATIC PORT PLACEMENT 2/2 CIRRHOSIS Family History Mother , at a young age , not sure cause No problems noted. Father , age 109 / " old age " No problems noted. Sister , age 51 Breast cancer Sister , very young ,, hit by a truck Accident Sister No problems noted. Brother , age 55 Liver failure Brother , age 4-5 ys old , not sure cause No problems noted. 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 Feels Safe at Home: Yes Smoking Status: Never smoker Hx Alcohol Use: Yes (used to drink , " no alcohol for a long time ") Hx Substance Use: No Physical Exam Vital Signs (Past 24 Hours): Last Vital Signs Temp 39.5 C H 10/18/18 17:52 Pulse 115 H 10/18/18 19:40 Resp 18 10/18/18 19:40 BP 114/54 L 10/18/18 19:01 Pulse Ox 97 10/18/18 19:40 Physical Exam: Patient is a slightly overweight female in mild distress HEENT is unremarkable No respiratory distress Left flank pain to percussion Abdomen protuberant but soft and nontender Extremities unremarkable Neurologically she is alert and oriented and responsive exams deferred at this time Results & Data Laboratory Results Patient has an elevated lactate at 3.8 White blood cell count is elevated at over 13 3 And creatinine is elevated at 1.29 Patient does have 10-20 white blood cells Diagnostic Findings CT scan shows nonobstructing ring stone in the left kidney and obstructing left UPJ stone with hydronephrosis and stranding Medications Administered Patient is receiving aztreonam and a quinolone Patient will be taken to the cystoscopy suite for left stent placement and the hospitalist have seen her and will be admitting her other to the PCU or to the floor pending her vital signs
[2018-10-18 21:01] LABS: iSTAT Creatinine 1.1 mg/dl (0.6-1.3); iSTAT Hemoglobin 13.9 g/dl (12.0-16.0); iSTAT Ionized Calcium 1.21 mmol/l (1.12-1.32); iSTAT Potassium 3.8 mEq/L (3.3-5.0)
[2018-10-18] MEDS ORDERED: IOTHALAMATE MEGLUMINE II 17.2% 250 ML VIAL ONE (21:02)
[2018-10-18] MEDS ORDERED: SUCCINYLCHOLINE CHLORIDE 20 MG/ML 10 ML VIAL ONE (21:24)
[2018-10-18] MEDS ORDERED: PROPOFOL IV EMULSION 10 MG/ML 20 ML VIAL IV ONE (21:24)
[2018-10-18] MEDS ORDERED: fentaNYL citrate 100 MCG/2 ML VIAL ONE (21:24)
[2018-10-18] MEDS ORDERED: LIDOCAINE HCL 2% 2 ML VIAL/AMP(20MG/ML) INFIL ONE ×2 (21:24)
[2018-10-18] MEDS ORDERED: ONDANSETRON INJ 2 MG/ML 2 ML VIAL ONE (21:36)
--- NOTE | 2018-10-18 21:53 | Post Operative Brief Note ---
Immediate Post Op Note v1 Date of Surgery October 18, 2018 Pre & Post Diagnosis Operation Date: 10/18/18 21:00 Pre-Op Diagnosis: Urosepsis, Left obstructing ureteral stone Post-Op Diagnosis: Urosepsis, Left obstructing ureteral stone Procedure Operation Date: 10/18/18 21:00 Actual Procedures p Cysto, Left Ureteral Stent Insertion(Left) - Miko Knowles MD Surgeon Miko Knowles MD Felt Hat Mellowing Machine Operator none Estimated Blood Loss 3 Findings See Below (pus from left ureter after stent) Drains Barnes Catheter ([address] Knowles intraoperatively)
--- NOTE | 2018-10-18 21:54 | Post Operative Brief Note ---
Immediate Post Op Note v1 Date of Surgery October 18, 2018 Pre & Post Diagnosis Operation Date: 10/18/18 21:00 Pre-Op Diagnosis: Urosepsis, Left obstructing ureteral stone Post-Op Diagnosis: Urosepsis, Left obstructing ureteral stone Procedure Operation Date: 10/18/18 21:00 Actual Procedures p Cysto, Left Ureteral Stent Insertion(Left) - Miko Knowles MD Surgeon Miko Knowles MD Molder Trimmer none Estimated Blood Loss 3 Findings Consistent with Post-Op Diagnosis Drains Barnes Catheter ([address] Knowles intraoperatively)
--- NOTE | 2018-10-18 22:39 | Fluoroscopy Report ---
[facility] CLINICAL HISTORY: 78 years-old Female presenting with STENT PLACEMENT. TECHNIQUE: 4 fluoroscopic image(s) recorded as part of an intraoperative procedure. COMPARISON: CT from earlier today. FINDINGS/IMPRESSION: The left urinary collecting system was opacified with contrast and a guidewire was introduced into an upper pole calyx. Subsequently a ureteral stent was placed. Please see surgical report for further details. Fluoroscopy dosage (mGy): 19.29. Fluoroscopy time: 36.7 seconds. Number or time of high level fluoroscopy (HLF), digital spot, or digital subtraction images: 0. Electronically signed by: William Lira M.D. 10/18/2018 10:37 PM
--- NOTE | 2018-10-18 22:48 | Anesthesiology Progress Note ---
Date of Service October 18, 2018 Anesthesia Post Procedure Vital Signs Vital Signs: Temp Pulse Pulse Pulse Resp BP BP 10/18/18 22:35 92 H 16 107/61 10/18/18 22:25 93 H 16 110/51 L 10/18/18 22:15 88 16 115/55 L 10/18/18 22:05 36.8 C 92 H 16 88/56 L 10/18/18 19:40 115 H 18 10/18/18 19:01 114/54 L 10/18/18 18:32 132 H 28 H 10/18/18 18:31 130 H 30 H 126/53 L 10/18/18 18:30 131 H 35 H 10/18/18 18:04 129 H 35 H 10/18/18 18:01 130 H 36 H 146/62 H 10/18/18 17:52 39.5 C H 135 H 22 162/67 H Pulse Ox 10/18/18 22:35 97 10/18/18 22:25 98 10/18/18 22:15 99 10/18/18 22:05 100 10/18/18 19:40 97 10/18/18 19:01 10/18/18 18:32 96 10/18/18 18:31 95 10/18/18 18:30 95 10/18/18 18:04 95 10/18/18 18:01 95 10/18/18 17:52 89 L Pain Intensity Bilateral Abdomen: Pain Intensity: 2 Notes Mental Status: alert / awake / arousable Patient Amnestic to Procedure: Yes Nausea / Vomiting: adequately controlled Pain: adequately controlled Airway Patency, RR, SpO2: stable & adequate BP & HR: stable & adequate Hydration State: stable & adequate Anesthetic Complications: no major complications apparent Notes: Awake, no complaints. VSS without pressors. BG improved to 175 after 1/2 amp of D50 and D5 bolus. Pt will be monitor in PCU post op.
[2018-10-18] MEDS ORDERED: DEXTROSE 50% 50 ML SYRINGE IV ONE (23:08)
--- NOTE | 2018-10-18 23:33 | History & Physical Report ---
Date of Service October 18, 2018 Assessment & Plan (1) Obstruction of left ureteropelvic junction (UPJ) due to stone: 9 mm left ureteropelvic junction kidney stone with obstruction/left hydronephrosis/status post ureteral stent placement/sepsis due to complicated UTI-- Patient upon presentation was tachycardic with heart rate 130, febrile with temperature 39.5C, had altered consciousness, had elevated lactic acid, drop in blood pressure that responded somewhat to IV fluids, and rhabdomyolysis. Admits to telemetry unit for close blood pressure monitoring. Patient received a aztreonam, levofloxacin and daptomycin IV in the ED. Continue aztreonam 1 g IV every 8 hours. Follow urine culture and sensitivity. She received 2 L normal saline IV fluid bolus while in the ED. Continue normal saline at 125 mL's per hour. Follow urine culture sensitivities, and blood culture and sensitivities. Consult urology Dr. Knowles. Present on Admission?: Yes (2) Hydronephrosis of left kidney: As above. Present on Admission?: Yes (3) Sepsis due to urinary tract infection: As above. Present on Admission?: Yes (4) Non-traumatic rhabdomyolysis: CK was elevated at 507. Creatinine was mildly increased from her baseline of 1.29. Follow serial CK, BMP and magnesium levels. Present on Admission?: Yes (5) Mental retardation: Patient has been able to give consent for all procedures Present on Admission?: Yes (6) Vitamin B12 deficiency: Continue oral supplement when patient is able to take after the procedure was completed. Present on Admission?: Yes (7) Insulin-requiring or dependent type II diabetes mellitus: Hold Trulicity, Metformin and Actos. Reduce Tresiba from 30 units to 20 units subcu daily due to Lantus adjustment and to decreased oral intake. Placed on Accu-Cheks before meals and at bedtime with NovoLog coverage for scale. Present on Admission?: Yes (8) Hyperlipidemia: Continue Zetia after procedure when patient is able to take p.o. Present on Admission?: Yes (9) Hypertension: Hold spironolactone and losartan. Present on Admission?: Yes (10) Malignant neoplasm of central portion of left breast in female, estrogen receptor positive: Patient reports last radiation therapy was 6 weeks ago. She has not had chemo for several months. Present on Admission?: Yes History of Present Illness Chief Complaint: The patient presented to the emergency department with symptoms of fevers and chills with nausea and vomiting that began earlier in the day today. Primary Care Provider: Rylee Trujillo PA-C The patient is a 78-year-old female found at [facility] covered in vomit. EMS was called, and brought patient to the emergency department for assessment. Patient has had over the past 24 hours fevers and chills, nausea with vomiting, and multiple episodes of loose stools. The patient is unaware of any sick exposures, and has not had any recent travels. She is a diabetic, and has been taking her medications as directed. Her glucose was noted to be 208 today by EMS. Workup in the emergency department included boratories and imaging studies, that revealed a 9 mm left ureteropelvic stone with mild hydronephrosis. The patient was taken emergently to the OR by urologist Dr. Knowles, a ureteral stent was successfully placed, and the patient is then to be admitted to telemetry for close blood pressure monitoring. Allergies Allergy/AdvReac Type Severity Reaction Status Date / Time erythromycin base AdvReac Intermediate Nausea Verified 10/18/18 20:22 Penicillins AdvReac Mild GI UPSET Verified 10/18/18 20:22 Home Medications Home Medications Medication Instructions Recorded Confirmed Type albuterol sulfate [Ventolin HFA] 2 puff INHALATION Q4 PRN 10/18/18 10/18/18 History calcium carbonate-vitamin D3 1 cap PO DAILY 10/18/18 10/18/18 History [Liquid Calcium with Vitamin D] cholecalciferol (vitamin D3) 2,000 unit PO BID 10/18/18 10/18/18 History [Vitamin D3] cyanocobalamin (vitamin B-12) 1,000 mcg IM MONTHLY 10/18/18 10/18/18 History cyanocobalamin (vitamin B-12) 1,000 mcg PO DAILY 10/18/18 10/18/18 History [Vitamin B-12] dulaglutide [Trulicity] 1.5 mg SUBCUT WK 10/18/18 10/18/18 History ezetimibe [Zetia] 10 mg PO DAILY 10/18/18 10/18/18 History insulin asp prt-insulin aspart 60 unit SUBCUT AMPM 10/18/18 10/18/18 History [Novolog Mix 70-30FlexPen U-100] insulin degludec [Tresiba 30 unit SUBCUT DAILY 10/18/18 10/18/18 History FlexTouch U-100] letrozole [Femara] 2.5 mg PO DAILY 10/18/18 10/18/18 History losartan [Cozaar] 25 mg PO DAILY 10/18/18 10/18/18 History metformin [Glucophage] 1,000 mg PO BIDM 10/18/18 10/18/18 History pioglitazone [Actos] 30 mg PO DAILY 10/18/18 10/18/18 History spironolactone [Aldactone] 25 mg PO BID 10/18/18 10/18/18 History vit A,C and H-ekndfs-wvcpjohw 1 tab PO DAILY 10/18/18 10/18/18 History [I-[place]] Past Med/Surg History Medical History Breast cancer Hypertension (Chronic) Atrial septal defect (Chronic) Mental retardation (Chronic) AMD (age related macular degeneration) (Acute) Elevated LFTs (Acute) Urinary incontinence (Acute) Asthma STABLE Cirrhosis HX ETOH ABUSE- "STABLE" Diabetes mellitus, type 2 IDDM Hyperlipidemia Hypertension Obesity Osteoarthritis Surgical History S/P colonoscopy Status post left breast lumpectomy (Acute) surgery 05-15-2018 [place] with LMA #4 History of cholecystectomy 2010- gr I atraumatic History of surgery of liver HEPATIC PORT PLACEMENT 2/2 CIRRHOSIS Family History Mother , at a young age , not sure cause No problems noted. Father , age 109 / " old age " No problems noted. Sister , age 51 Breast cancer Sister , very young ,, hit by a truck Accident Sister No problems noted. Brother , age 55 Liver failure Brother , age 4-5 ys old , not sure cause No problems noted. 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 Other Information That Helps Us Care for You: No Feels Safe at Home: Yes Safety Concerns: Feels Safe At This Time Smoking Status: Never smoker Hx Alcohol Use: No Hx Substance Use: No Review of Systems The patient denies chest pain, palpitations, shortness of breath, dyspnea on exertion, cough, lower extremity swelling, sore throat, chills, sweats, constipation, abdominal pain, pelvic pain, blood in urine or stool, dysuria, urinary frequency or urgency, lightheadedness, dizziness, headache, loss of consciousness, rash, abnormal bruising or bleeding, imbalance, focal weakness, numbness or tingling in arms or legs, generalized arthralgias or myalgias, back or neck pain, or night sweats. The review of systems is otherwise negative other than for that already noted above, and at least 10 systems have been reviewed. Physical Exam Vital Signs (Past 24 Hours): Last Vital Signs Temp 36.4 C L 10/18/18 22:45 Pulse 89 10/18/18 23:00 Resp 16 10/18/18 23:00 BP 115/56 L 10/18/18 23:00 Pulse Ox 97 10/18/18 23:00 Physical Exam: The patient is awake, alert and oriented 3, normocephalic and atraumatic, lying in bed and in no acute distress. HEENT--PERRL, EOMI, mucous membranes and oropharynx dry. Neck--supple. No JVD. No bruits. Thyroid normal, trachea midline, no adenopathy. Heart--normal S1 and S2. No murmurs, rubs or gallops. Lungs--clear bilaterally, no respiratory distress, no accessory muscle use. Abdomen--normal bowel sounds and soft. Mildly tender over left flank. Nondistended. Extremities--no cyanosis or clubbing. No edema. There are good distal pulses b/l. Dermatologic--normal skin turgor, normal color, no abnormal lymph nodes, no rash. Neurologic--cranial nerves II through XII grossly intact. Rheumatologic--normal range of motion. Psychiatric--normal affect. Results & Data Laboratory Results Laboratory Results WBC 13.22 K/uL (4.8-10.8) H 10/18/18 18:36 RBC 4.37 M/uL (4.2-5.4) 10/18/18 18:36 Hgb 12.9 g/dL (12.0-16.0) 10/18/18 18:36 POC Hgb 13.9 g/dl (12.0-16.0) 10/18/18 18:47 Hct 39.0 % (37-47) 10/18/18 18:36 POC Hct 41 % (37-47) 10/18/18 18:47 MCV 89.2 fL (80-100) 10/18/18 18:36 MCH 29.5 pg (25-34) 10/18/18 18:36 MCHC 33.1 g/dL (32-36) 10/18/18 18:36 RDW Std Deviation 47.1 fL (36.4-46.3) H 10/18/18 18:36 RDW Coeff of Vignesh 14.3 % (11.5-14.5) 10/18/18 18:36 Plt Count 209 K/uL (130-400) 10/18/18 18:36 MPV 10.0 fL (7.4-10.4) 10/18/18 18:36 Immature Gran % (Auto) 0.5 % 10/18/18 18:36 Neut % (Auto) 96.5 % 10/18/18 18:36 Lymph % (Auto) 1.7 % 10/18/18 18:36 [place] % (Auto) 1.2 % 10/18/18 18:36 Eos % (Auto) 0.0 % 10/18/18 18:36 Baso % (Auto) 0.1 % 10/18/18 18:36 Immature Gran # (Auto) 0.06 K/uL (0.00-0.02) H 10/18/18 18:36 Neut # (Auto) 12.76 K/uL (1.4-6.5) H 10/18/18 18:36 Lymph # (Auto) 0.23 K/uL (1.2-3.4) L 10/18/18 18:36 [place] # (Auto) 0.16 K/uL (0.11-0.59) 10/18/18 18:36 Eos # (Auto) 0.00 K/uL (0-0.5) 10/18/18 18:36 Baso # (Auto) 0.01 K/uL (0-0.2) 10/18/18 18:36 PT Cancelled 10/18/18 18:36 INR Cancelled 10/18/18 18:36 APTT Cancelled 10/18/18 18:36 PTT Ratio Cancelled 10/18/18 18:36 POC Sodium 138 mEq/L (135-144) 10/18/18 18:47 Sodium 137 mmol/L (136-145) 10/18/18 18:36 POC Potassium 3.8 mEq/L (3.3-5.0) 10/18/18 18:47 Potassium 3.7 mmol/L (3.5-5.1) 10/18/18 18:36 POC Chloride 101 mEq/L (101-112) 10/18/18 18:47 Chloride 105 mmol/L (98-107) 10/18/18 18:36 Carbon Dioxide 22 mmol/L (21-32) 10/18/18 18:36 POC Total CO2 21 mEq/l (24-31) L 10/18/18 18:47 Anion Gap 10.0 (3-11) 10/18/18 18:36 POC Anion Gap 20.0 mmol/L (16-25) 10/18/18 18:47 POC BUN 20 mg/dl (7-18) H 10/18/18 18:47 BUN 20 mg/dl (7-18) H 10/18/18 18:36 Creatinine 1.29 mg/dl (0.6-1.2) H 10/18/18 18:36 POC Creatinine 1.1 mg/dl (0.6-1.3) 10/18/18 18:47 Est Cr Clr Drug Dosing 40.1 ml/min 10/18/18 18:36 Est GFR ( Amer) 46.6 10/18/18 18:36 Est GFR (Non-Af Amer) 40.2 10/18/18 18:36 BUN/Creatinine Ratio 15.6 (10-20) 10/18/18 18:36 Glucose 139 mg/dl (70-99) H 10/18/18 18:36 POC Glucose 175 (70-99) H 10/18/18 22:41 POC Glucose (other) 144 mg/dl (70-99) H 10/18/18 18:47 Lactate 3.8 mmol/L (0.4-2.0) H* 10/18/18 18:36 Calcium 9.7 mg/dl (8.5-10.1) 10/18/18 18:36 POC Ioniz Calcium Kyle 1.21 mmol/l (1.12-1.32) 10/18/18 18:47 Total Bilirubin 0.7 mg/dl (0.2-1) 10/18/18 18:36 AST 46 U/L (15-37) H 10/18/18 18:36 ALT 50 U/L (12-78) 10/18/18 18:36 Alkaline Phosphatase 103 U/L (45-117) 10/18/18 18:36 Total Creatine Kinase 507 U/L (26-192) H 10/18/18 18:36 CK-MB (CK-2) 3.6 ng/ml (0.5-3.6) 10/18/18 18:36 CK/CKMB % Calc 0.7 (0-3.0) 10/18/18 18:36 Troponin I < 0.015 ng/ml (0-0.045) 10/18/18 18:36 Total Protein 7.4 gm/dl (6.4-8.2) 10/18/18 18:36 Albumin 3.3 gm/dl (3.4-5.0) L 10/18/18 18:36 Globulin 4.1 gm/dl (2.5-4.0) H 10/18/18 18:36 Albumin/Globulin Ratio 0.8 (0.9-2) L 10/18/18 18:36 Urine Color Yellow 10/18/18 20:30 Urine Appearance Clear (Clear) 10/18/18 20:30 Urine pH 5.0 (4.5-7.5) 10/18/18 20:30 Ur Specific [place] 1.022 (1.000-1.030) 10/18/18 20:30 Urine Protein 1+ (Negative) H 10/18/18 20:30 Urine Glucose (UA) Trace (Negative) H 10/18/18 20:30 Urine Ketones Trace (Negative) H 10/18/18 20:30 Urine Blood 2+ (Negative) H 10/18/18 20:30 Urine Nitrite Positive (Negative) H 10/18/18 20:30 Urine Bilirubin Negative (Negative) 10/18/18 20:30 Urine Urobilinogen Negative (Negative) 10/18/18 20:30 Ur Leukocyte Esterase 1+ (Negative) H 10/18/18 20:30 Urine WBC (Auto) 10-30 /hpf (0-5) H 10/18/18 20:30 Urine RBC (Auto) 0-4 /hpf (0-4) 10/18/18 20:30 U Hyaline Cast (Auto) 1-5 /lpf (0-5) 10/18/18 20:30 U Epithel Cells (Auto) 0-5 /lpf (0-5) 10/18/18 20:30 Urine Bacteria (Auto) Negative (Negative) 10/18/18 20:30 Influenza Type A (PCR) Neg for Influ A (Neg) 10/18/18 18:26 Influenza Type B (PCR) Neg for Influ B (Neg) 10/18/18 18:26 Diagnostic Findings [place], [place] [phone] XRay Report Patient: YADIRA SONI Date: 10/18/18 MR#: [id number]: [address] Acct ID:[id number]: Date: 1940[facility] Zip: [place] [address] Age: 78Location: ED Sex: F Room/Bed: Att Phy: Diagnosis: NAUSEA, VOMITING, DIARRHEA, FEVER Audra Phy: PCP,NO Service Date: 10/18/18 Fam Phy: Interpreting Phy: William Lira MD Admit Phy: Ordering Phy: Moris Snow MD cc: ~ XR chest 1V portable CLINICAL HISTORY: 78 years-old Female presenting with Sepsis. TECHNIQUE: Portable upright AP view of the chest was obtained. COMPARISON: 05/07/2018. FINDINGS: Catheter projects in the region of the right internal jugular vein, possibly a tunneled catheter. Atherosclerosis of aortic arch. Cardiac silhouette mildly enlarged. Mild pulmonary basilar prominence and heterogeneity of lung parenchyma. No focal opacity. No large effusion or pneumothorax. Degenerative changes of the thoracic spine. IMPRESSION: 1. Mild cardiomegaly with mild volume overload. No eliane pulmonary edema. Electronically signed by: William Lira M.D. 10/18/2018 6:53 PM Dictated: 10/18/181851 Transcribed: 10/18/181851 [facility] [phone] CT Scan Report Patient: YADIRA SONI Date: 10/18/18 MR#: [id number]: [address] Acct ID:[id number]: [facility] Zip: [place] [address] Age: 78Location: ED Sex: F Room/Bed: Att Phy: Diagnosis: NAUSEA, VOMITING, DIARRHEA, FEVER Audra Phy: Rylee Trujillo PA-CService Date: 10/18/18 Fam Phy: Interpreting Phy: William Lira MD Admit Phy: Ordering Phy: Moris Snow MD cc: ~ CT abd pelvis IV con only CLINICAL HISTORY: 78 years-old Female presenting with Pt c/o N V D, history of breast cancer. TECHNIQUE: Multidetector CT of the abdomen and pelvis was performed after the administration of intravenous contrast. IV contrast: 94 mL of Optiray 320. One or more dose lowering techniques were used consistent with the principles of ALARA (as low as reasonably achievable), including automatic exposure control, mA or kV adjustment to individual patient size, and/or use of iterative reconstruction. COMPARISON: 05/10/2018. CT DOSE (mGy.cm): The estimated cumulative dose is 1897.41 mGy.cm. FINDINGS: Ripening Room Hand topogram: Unremarkable. Lung bases: Multichamber enlargement of the heart. Coronary artery calcification. No pericardial or pleural effusion. Minimal dependent changes likely atelectasis. Mosaic attenuation may suggest small airways disease. Liver: Multinodular contour of the liver, which is also enlarged. Relative hypertrophy of the left hepatic lobe and caudate with relative atrophy of the right hepatic lobe. No focal lesion allowing for the single phase of contrast. Patent hepatic vasculature. Trace perihepatic fluid along the inferior right hepatic lobe. Biliary: No intrahepatic or extrahepatic biliary ductal dilatation. Gallbladder surgically absent. Pancreas: Normal. Spleen: Multiple punctate calcifications suggest a history of granulomatous disease. Adrenal glands: Normal. Kidneys and ureters: Asymmetric delayed perfusion of the left kidney with moderate left perinephric fat infiltration asymmetric to the right. Mild left pelvocaliectasis. Obstructing 9 mm calculus at the left ureteropelvic junction. Left urothelial thickening. Several smaller nonobstructing lower pole left renal calculi. Exophytic simple left renal cyst. Right kidney normal. No right hydronephrosis. Right ureter normal. Left ureter with periureteral fat infiltration along its course though no additional calculus is evident. Bladder: Normal. Pelvic organs: Uterus and ovaries normal. Bowel: Diverticulosis of the sigmoid colon with mild wall thickening in the mid to distal portion without pericolonic inflammatory change suggesting circular muscle hyperplasia/chronic diverticular disease. The appendix is not visualized. No bowel obstruction. Peritoneal cavity: Trace fluid in the retroperitoneum on the left. Trace fluid in the right abdomen. A catheter is noted in the right abdomen presumably a ventriculoperitoneal catheter. No free intraperitoneal gas. Lymph nodes: No enlarged lymph nodes in the abdomen or pelvis. Vasculature: Atherosclerosis of the normal caliber abdominal aorta. IVC patent. Abdominal wall: Diastasis of the rectus abdominis. Minimal infiltration of the anterior left mid abdominal wall, possibly related to medication administration. Musculoskeletal: Degenerative changes of the spine. Bilateral pars defects of L4 with grade 1 anterolisthesis of L4 on L5. IMPRESSION: 1. Obstructing 9 mm left ureteropelvic junction calculus with resultant mild left hydronephrosis. Significant urothelial thickening is presumably reactive to the presence of the calculus rather than a superimposed infection, which is significantly less likely. Multiple nonobstructing lower pole left renal calculi also present. 2. Diverticulosis with chronic diverticular disease of the sigmoid colon. 3. Cirrhosis. No convincing evidence of portal hypertension at this time. 4. Right abdominal shunt, presumably a ventriculoperitoneal shunt in place. Electronically signed by: William Lira M.D. 10/18/2018 7:37 PM Dictated: 10/18/181929 Transcribed: 10/18/181929 [place], [place] [phone] CT Scan Report Patient: YADIRA SONI Date: 10/18/18 MR#: [id number]: [address] [address] Acct ID:[id number]: Date: 1940[facility] Zip: [place] [address] Age: 78Location: ED Sex: F Room/Bed: Att Phy: Diagnosis: NAUSEA, VOMITING, DIARRHEA, FEVER Audra Phy: Rylee Trujillo, [place]-CService Date: 10/18/18 Fam Phy: Interpreting Phy: William Lira MD Admit Phy: Ordering Phy: Moris Snow MD cc: ~ CT head/brain wo con CLINICAL HISTORY: 78 years-old Female presenting with Pt AMS. TECHNIQUE: Multidetector CT imaging of the head was performed without the use of intravenous contrast. IV contrast: None. One or more dose lowering techniques were used consistent with the principles of ALARA (as low as reasonably achievable), including automatic exposure control, mA or kV adjustment to individual patient size, and/or use of iterative reconstruction. COMPARISON: None. CT DOSE (mGy.cm): The estimated cumulative dose is 1897.41. FINDINGS: Ripening Room Hand topogram: Unremarkable. Proportional ventricular and sulcal prominence, likely age-related parenchymal volume loss. No hemorrhage. Periventricular and subcortical white matter hypoattenuation, nonspecific but likely indicative of chronic small vessel ischemic change. No acute territorial infarct. No mass effect or midline shift. No extra-axial fluid collection. Paranasal sinuses and mastoid air cells clear. Calvarium intact. IMPRESSION: 1. Chronic small vessel ischemic change. No acute intracranial abnormality. Electronically signed by: William Lira M.D. 10/18/2018 7:28 PM Dictated: 10/18/181925 Transcribed: 10/18/181925 [facility], [place] [phone] Fluoroscopy Report Patient: YADIRA SONI Date: 10/18/18 MR#: [id number]: [address] [facility] [address] Acct ID:[id number]: Date: 1940[facility] Zip: [place] [address] Age: 78Location: ED Sex: F Room/Bed: Att Phy: Diagnosis: NAUSEA, VOMITING, DIARRHEA, FEVER Audra Phy: Rylee Trujillo PA-CService Date: 10/18/18 Fam Phy: Interpreting Phy: William Lira MD Admit Phy: Ordering Phy: Moris Snow MD cc: ~ MARILU [place]STON CLINICAL HISTORY: 78 years-old Female presenting with STENT PLACEMENT. TECHNIQUE: 4 fluoroscopic image(s) recorded as part of an intraoperative procedure. COMPARISON: CT from earlier today. FINDINGS/IMPRESSION: The left urinary collecting system was opacified with contrast and a guidewire was introduced into an upper pole calyx. Subsequently a ureteral stent was placed. Please see surgical report for further details. Fluoroscopy dosage (mGy): 19.29. Fluoroscopy time: 36.7 seconds. Number or time of high level fluoroscopy (HLF), digital spot, or digital subtraction images: 0. Electronically signed by: William Lira M.D. 10/18/2018 10:37 PM Code Status & VTE Plan Code Status Full code VTE Prophylaxis Plan VTE Prophylaxis will be ordered: Yes
[2018-10-18] MEDS ORDERED: GLUCAGON FOR INJ 1 MG VIAL SQ PRN (23:36)
[2018-10-18] MEDS ORDERED: GLUCOSE 10 TABS/TUBE PO PRN (23:36)
[2018-10-18] MEDS ORDERED: ALBUTEROL HFA 8 GM INHALER INH PRN (23:36)
[2018-10-18] MEDS ORDERED: CARBOHYDRATES FOR HYPOGLYCEMIA PO PRN (23:36)
[2018-10-18] MEDS ORDERED: MAGNESIUM HYDROXIDE SUSP 30 ML UDC PO PRN (23:36)
[2018-10-18] MEDS ORDERED: ALUMINUM/MAGNESIUM SUSP 30 ML UDC PO PRN (23:36)
[2018-10-18] MEDS ORDERED: ACETAMINOPHEN 325 MG TAB PO PRN (23:36)
[2018-10-18] MEDS ORDERED: DEXTROSE 50% 50 ML SYRINGE IV PRN (23:36)
[2018-10-18] MEDS ORDERED: POLYETHYLENE (MIRALAX) 17 GM PACK PO PRN (23:36)
[2018-10-18] MEDS ORDERED: GLUCOSE 40% GEL 15 GM TUBE PO PRN (23:36)
--- NOTE | 2018-10-19 00:43 | Emergency Department Note ---
Entered by Birdie Mccray acting as a scribe for Moris Snow MD History of Present Illness General Chief complaint: Illness Stated complaint: NAUSEA, VOMITING, DIARRHEA, FEVER Time Seen by Provider: 10/18/18 18:05 Source: patient and RN notes reviewed Mode of arrival: EMS Limitations: no limitations History of Present Illness Provider complaint: Nausea/vomiting Onset (ago): day(s) 1 Location: abdomen Severity: moderate Pain Consistency: + now resolved Associated symptoms: + denies other symptoms, + fever/chills (+fevers, - chills) and + nausea/vomiting; no shortness of breath Patient is a 78 year old female presenting to the ED with nausea and vomiting beginning today. Per nurse, patient was found at [facility] in [place] covered in vomit. Nurse also reports that patient has had multiple episodes of diarrhea since yesterday, as well as a fever. She shares patients blood sugar was 208 and patient does not wear oxygen while at home. Patient denies any current abd pain, SOB, CP, numbness or any other complaints or concerns at this time. Home Medications Home Medications Medication Instructions Recorded Confirmed Type albuterol sulfate [Ventolin HFA] 2 puff INHALATION Q4 PRN 10/18/18 10/18/18 History calcium carbonate-vitamin D3 1 cap PO DAILY 10/18/18 10/18/18 History [Liquid Calcium with Vitamin D] cholecalciferol (vitamin D3) 2,000 unit PO BID 10/18/18 10/18/18 History [Vitamin D3] cyanocobalamin (vitamin B-12) 1,000 mcg IM MONTHLY 10/18/18 10/18/18 History cyanocobalamin (vitamin B-12) 1,000 mcg PO DAILY 10/18/18 10/18/18 History [Vitamin B-12] dulaglutide [Trulicity] 1.5 mg SUBCUT WK 10/18/18 10/18/18 History ezetimibe [Zetia] 10 mg PO DAILY 10/18/18 10/18/18 History insulin asp prt-insulin aspart 60 unit SUBCUT AMPM 10/18/18 10/18/18 History [Novolog Mix 70-30FlexPen U-100] insulin degludec [Tresiba 30 unit SUBCUT DAILY 10/18/18 10/18/18 History FlexTouch U-100] letrozole [Femara] 2.5 mg PO DAILY 10/18/18 10/18/18 History losartan [Cozaar] 25 mg PO DAILY 10/18/18 10/18/18 History metformin [Glucophage] 1,000 mg PO BIDM 10/18/18 10/18/18 History pioglitazone [Actos] 30 mg PO DAILY 10/18/18 10/18/18 History spironolactone [Aldactone] 25 mg PO BID 10/18/18 10/18/18 History vit A,C and O-vohsew-feirhahp 1 tab PO DAILY 10/18/18 10/18/18 History [I-[place]yd[place]] Allergies Allergy/AdvReac Type Severity Reaction Status Date / Time erythromycin base AdvReac Intermediate Nausea Verified 10/18/18 20:22 Penicillins AdvReac Mild GI UPSET Verified 10/18/18 20:22 Past Med/Surg History Medical History Breast cancer Hypertension (Chronic) Atrial septal defect (Chronic) Mental retardation (Chronic) AMD (age related macular degeneration) (Acute) Elevated LFTs (Acute) Urinary incontinence (Acute) Asthma STABLE Cirrhosis HX ETOH ABUSE- "STABLE" Diabetes mellitus, type 2 IDDM Hyperlipidemia Hypertension Obesity Osteoarthritis Surgical History S/P colonoscopy Status post left breast lumpectomy (Acute) surgery 05-15-2018 GA with LMA #4 History of cholecystectomy 2010- gr I atraumatic History of surgery of liver HEPATIC PORT PLACEMENT 2/2 CIRRHOSIS Family History Mother , at a young age , not sure cause No problems noted. Father , age 109 / " old age " No problems noted. Sister , age 51 Breast cancer Sister , very young ,, hit by a truck Accident Sister No problems noted. Brother , age 55 Liver failure Brother , age 4-5 ys old , not sure cause No problems noted. 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 and A total of 10 systems reviewed and were otherwise negative Physical Exam Vital Signs Vital Signs - 24 hr 10/18/18 17:52 10/18/18 18:01 10/18/18 18:04 Temperature 39.5 C H Temperature Source Oral Sepsis Recent Fever Within 48 Hours Yes Sepsis Action Taken by Nursing No Action Required Pulse Rate 135 H 130 H 129 H Pulse Rate [Apical] Pulse Rate [Right Apical] Pulse Rate from SpO2 Sensor 130 H 129 H Pulse Rhythm [Apical] Respiratory Rate 22 36 H 35 H Respiratory Effort / Characteristics Non-Labored Respiratory Depth Normal Respiratory Pattern Blood Pressure 162/67 H 146/62 H Blood Pressure [Right Arm] Blood Pressure Mean 98 90 Blood Pressure Mean [Right Arm] Blood Pressure Position [Right Arm] Pulse Oximetry 89 L 95 95 Oxygen Delivery Method Room Air Nasal Cannula Oxygen Flow Rate 2 10/18/18 18:30 10/18/18 18:31 10/18/18 18:32 Temperature Temperature Source Sepsis Recent Fever Within 48 Hours Sepsis Action Taken by Nursing Pulse Rate 131 H 130 H 132 H Pulse Rate [Apical] Pulse Rate [Right Apical] Pulse Rate from SpO2 Sensor 131 H 130 H 132 H Pulse Rhythm [Apical] Respiratory Rate 35 H 30 H 28 H Respiratory Effort / Characteristics Respiratory Depth Respiratory Pattern Blood Pressure 126/53 L Blood Pressure [Right Arm] Blood Pressure Mean 77 Blood Pressure Mean [Right Arm] Blood Pressure Position [Right Arm] Pulse Oximetry 95 95 96 Oxygen Delivery Method Oxygen Flow Rate 10/18/18 19:01 10/18/18 19:40 10/18/18 22:05 Temperature 36.8 C Temperature Source Oral Sepsis Recent Fever Within 48 Hours Sepsis Action Taken by Nursing Pulse Rate Pulse Rate [Apical] 92 H Pulse Rate [Right Apical] 115 H Pulse Rate from SpO2 Sensor Pulse Rhythm [Apical] Regular Respiratory Rate 18 16 Respiratory Effort / Characteristics Non-Labored Spontaneous Non-Labored Spontaneous Respiratory Depth Normal Respiratory Pattern Regular Blood Pressure 114/54 L Blood Pressure [Right Arm] 88/56 L Blood Pressure Mean 74 Blood Pressure Mean [Right Arm] 66 Blood Pressure Position [Right Arm] Semi-fowlers Pulse Oximetry 97 100 Oxygen Delivery Method Nasal Cannula Oxymask Oxygen Flow Rate 3 10 10/18/18 22:15 10/18/18 22:25 10/18/18 22:35 Temperature Temperature Source Sepsis Recent Fever Within 48 Hours Sepsis Action Taken by Nursing Pulse Rate Pulse Rate [Apical] 88 93 H 92 H Pulse Rate [Right Apical] Pulse Rate from SpO2 Sensor Pulse Rhythm [Apical] Regular Regular Regular Respiratory Rate 16 16 16 Respiratory Effort / Characteristics Non-Labored Spontaneous Non-Labored Spontaneous Non-Labored Spontaneous Respiratory Depth Normal Normal Normal Respiratory Pattern Regular Regular Regular Blood Pressure Blood Pressure [Right Arm] 115/55 L 110/51 L 107/61 Blood Pressure Mean Blood Pressure Mean [Right Arm] 75 70 76 Blood Pressure Position [Right Arm] Semi-fowlers Semi-fowlers Pulse Oximetry 99 98 97 Oxygen Delivery Method Oxymask Oxymask Oxymask Oxygen Flow Rate 10 10 5 10/18/18 22:45 10/18/18 22:55 10/18/18 23:00 Temperature 36.4 C L Temperature Source Oral Sepsis Recent Fever Within 48 Hours Sepsis Action Taken by Nursing Pulse Rate Pulse Rate [Apical] 90 90 89 Pulse Rate [Right Apical] Pulse Rate from SpO2 Sensor Pulse Rhythm [Apical] Regular Regular Regular Respiratory Rate 16 16 16 Respiratory Effort / Characteristics Non-Labored Spontaneous Non-Labored Spontaneous Non-Labored Spontaneous Respiratory Depth Normal Normal Normal Respiratory Pattern Regular Regular Regular Blood Pressure Blood Pressure [Right Arm] 111/52 L 109/57 L 115/56 L Blood Pressure Mean Blood Pressure Mean [Right Arm] 71 74 75 Blood Pressure Position [Right Arm] Pulse Oximetry 98 97 97 Oxygen Delivery Method Nasal Cannula Nasal Cannula Nasal Cannula Oxygen Flow Rate 3 3 3 10/18/18 23:40 10/19/18 00:00 Temperature 36.4 C L 36.4 C L Temperature Source Oral Oral Sepsis Recent Fever Within 48 Hours Sepsis Action Taken by Nursing Pulse Rate Pulse Rate [Apical] 85 84 Pulse Rate [Right Apical] Pulse Rate from SpO2 Sensor Pulse Rhythm [Apical] Respiratory Rate 16 20 Respiratory Effort / Characteristics Non-Labored Spontaneous Respiratory Depth Normal Respiratory Pattern Regular Blood Pressure Blood Pressure [Right Arm] 106/56 L 130/67 Blood Pressure Mean Blood Pressure Mean [Right Arm] 72 88 Blood Pressure Position [Right Arm] Lying Lying Pulse Oximetry 98 98 Oxygen Delivery Method Nasal Cannula Nasal Cannula Oxygen Flow Rate 3 3 GENERAL: Patient is a healthy-appearing well-nourished HEAD: Normocephalic atraumatic EYES: Ocular movements intact pupils equal and react to light OROPHARYNX mucous membranes are moist no exudates present no erythema or edema present NECK: Supple no nuchal rigidity CHEST: Good equal expansion LUNGS: Clear and equal to auscultation CARDIAC: Normal S1 and S2 ABDOMEN: Soft nontender no guarding BACK: No CVA tenderness EXTREMITIES: No pain upon palpation normal muscle strength in all groups no clubbing cyanosis or edema NEURO: Patient is following commands is answering questions appropriately. Alert and oriented x3 Cranial Nerves 2-12 grossly intact Course 1805: The patient was evaluated in room A10, and a complete history and physical examination were performed. 1816: Caregiver updated on patient history of nausea and vomiting since yesterday. 1947: Discussed patient case with Dr. Knowles, urology 1954: Updated hospitalist, Dr. Charles, on patient case 2030: Dr. Knowles and Dr. Charles at the bedside. Patient will be admitted. Administered Medications Discontinued Medications Acetaminophen (Tylenol) 1,000 mg PO NOW STA Stop: 10/18/18 19:15 Last Admin: 10/18/18 19:28 Dose: 1,000 mg Documented by: [id number] Dextrose (Dextrose 50%) 25 ml IV NOW ONE Stop: 10/18/18 23:09 Last Admin: 10/18/18 22:17 Dose: 25 ml Documented by: [id number] Sodium Chloride (Nss 1000ml) 500 mls @ 999 mls/hr IV .Q31M ONE Stop: 10/18/18 18:41 Last Infusion: 10/18/18 19:24 Dose: 0 mls/hr Documented by: [id number] Admin: 10/18/18 18:41 Dose: 999 mls/hr Documented by: [id number] Aztreonam 2,000 mg/ Dextrose 110 mls @ 100 mls/hr IV NOW STA Stop: 10/18/18 20:51 Last Infusion: 10/19/18 00:03 Dose: 0 mls/hr Documented by: [id number] Admin: 10/18/18 20:12 Dose: 100 mls/hr Documented by: [id number] Levofloxacin/Dextrose (Levaquin/D5w) 750 mg in 150 mls @ 100 mls/hr IV NOW STA Stop: 10/18/18 21:15 Last Infusion: 10/19/18 00:03 Dose: 0 mls/hr Documented by: [id number] Admin: 10/18/18 20:06 Dose: 100 mls/hr Documented by: [id number] Daptomycin 400 mg/ Syringe 8 mls @ 4 mls/min IV NOW ONE Stop: 10/18/18 19:49 Last Admin: 10/18/18 20:12 Dose: 4 mls/min Documented by: [id number] Iothalamate Meglumine (Cysto-Conray Ii) Confirm Administered Dose 250 ml .ROUTE .STK-MED ONE Stop: 10/18/18 21:03 Last Admin: 10/18/18 21:50 Dose: 8 ml Documented by: [id number] Ioversol (Optiray 320 100ml) 94 ml IV ONCE PRN PRN Reason: Interaction Checking Stop: 10/22/18 19:14 Last Admin: 10/18/18 19:16 Dose: 94 ml Documented by: [id number] Ketorolac Tromethamine (Toradol) 15 mg IV NOW STA Stop: 10/18/18 18:19 Last Admin: 10/18/18 18:41 Dose: 15 mg Documented by: [id number] Levalbuterol HCl (Xopenex 1.25mg/3ml Neb) 1.25 mg NEB NOW STA Stop: 10/18/18 19:15 Last Admin: 10/18/18 19:39 Dose: 1.25 mg Documented by: [id number] Ondansetron HCl (Zofran) 4 mg IV NOW STA Stop: 10/18/18 18:12 Last Admin: 10/18/18 18:41 Dose: 4 mg Documented by: [id number] Medical Decision Making Differential Diagnosis Differential diagnosis: Etiologies such as sepsis, UTI, pneumonia, metabolic, electrolyte abnormalities, cardiac sources, intracerebral event, toxicologic, neurologic, as well as others were entertained. Medical Records Attestation: I reviewed the patient's medical records. Home Medications Current Medication List: was personally reviewed by me Laboratory Data Attestation: I reviewed the patient's lab results. Result diagrams: 10/18/18 18:36 04/05/19 18:36 Lab Results 10/18/18 10/18/18 10/18/18 Range/Units 18:26 18:36 18:36 WBC 13.22 H (4.8-10.8) K/uL RBC 4.37 (4.2-5.4) M/uL Hgb 12.9 (12.0-16.0) g/dL POC Hgb (12.0-16.0) g/dl Hct 39.0 (37-47) % POC Hct (37-47) % MCV 89.2 (80-100) fL MCH 29.5 (25-34) pg MCHC 33.1 (32-36) g/dL RDW Std Deviation 47.1 H (36.4-46.3) fL RDW Coeff of Vignesh 14.3 (11.5-14.5) % Plt Count 209 (130-400) K/uL MPV 10.0 (7.4-10.4) fL Immature Gran % (Auto) 0.5 % Neut % (Auto) 96.5 % Lymph % (Auto) 1.7 % Dickinson % (Auto) 1.2 % Eos % (Auto) 0.0 % Baso % (Auto) 0.1 % Immature Gran # (Auto) 0.06 H (0.00-0.02) K/uL Neut # (Auto) 12.76 H (1.4-6.5) K/uL Lymph # (Auto) 0.23 L (1.2-3.4) K/uL Dickinson # (Auto) 0.16 (0.11-0.59) K/uL Eos # (Auto) 0.00 (0-0.5) K/uL Baso # (Auto) 0.01 (0-0.2) K/uL PT Cancelled INR Cancelled APTT Cancelled PTT Ratio Cancelled POC Sodium (135-144) mEq/L Sodium (136-145) mmol/L POC Potassium (3.3-5.0) mEq/L Potassium (3.5-5.1) mmol/L POC Chloride (101-112) mEq/L Chloride (98-107) mmol/L Carbon Dioxide (21-32) mmol/L POC Total CO2 (24-31) mEq/l Anion Gap (3-11) POC Anion Gap (16-25) mmol/L POC BUN (7-18) mg/dl BUN (7-18) mg/dl Creatinine (0.6-1.2) mg/dl POC Creatinine (0.6-1.3) mg/dl Est Cr Clr Drug Dosing ml/min Est GFR ( Amer) Est GFR (Non-Af Amer) BUN/Creatinine Ratio (10-20) Glucose (70-99) mg/dl POC Glucose (70-99) POC Glucose (other) (70-99) mg/dl Lactate (0.4-2.0) mmol/L Calcium (8.5-10.1) mg/dl POC Ioniz Calcium Kyle (1.12-1.32) mmol/l Total Bilirubin (0.2-1) mg/dl AST (15-37) U/L ALT (12-78) U/L Alkaline Phosphatase (45-117) U/L Total Creatine Kinase (26-192) U/L CK-MB (CK-2) (0.5-3.6) ng/ml CK/CKMB % Calc (0-3.0) Troponin I (0-0.045) ng/ml Total Protein (6.4-8.2) gm/dl Albumin (3.4-5.0) gm/dl Globulin (2.5-4.0) gm/dl Albumin/Globulin Ratio (0.9-2) Urine Color Urine Appearance (Clear) Urine pH (4.5-7.5) Ur Specific [place] (1.000-1.030) Urine Protein (Negative) Urine Glucose (UA) (Negative) Urine Ketones (Negative) Urine Blood (Negative) Urine Nitrite (Negative) Urine Bilirubin (Negative) Urine Urobilinogen (Negative) Ur Leukocyte Esterase (Negative) Urine WBC (Auto) (0-5) /hpf Urine RBC (Auto) (0-4) /hpf U Hyaline Cast (Auto) (0-5) /lpf U Epithel Cells (Auto) (0-5) /lpf Urine Bacteria (Auto) (Negative) Influenza Type A (PCR) Neg for Influ A (Neg) Influenza Type B (PCR) Neg for Influ B (Neg) 10/18/18 10/18/18 10/18/18 Range/Units 18:36 18:36 18:47 WBC (4.8-10.8) K/uL RBC (4.2-5.4) M/uL Hgb (12.0-16.0) g/dL POC Hgb 13.9 (12.0-16.0) g/dl Hct (37-47) % POC Hct 41 (37-47) % MCV (80-100) fL MCH (25-34) pg MCHC (32-36) g/dL RDW Std Deviation (36.4-46.3) fL RDW Coeff of Vignesh (11.5-14.5) % Plt Count (130-400) K/uL MPV (7.4-10.4) fL Immature Gran % (Auto) % Neut % (Auto) % Lymph % (Auto) % Dickinson % (Auto) % Eos % (Auto) % Baso % (Auto) % Immature Gran # (Auto) (0.00-0.02) K/uL Neut # (Auto) (1.4-6.5) K/uL Lymph # (Auto) (1.2-3.4) K/uL Dickinson # (Auto) (0.11-0.59) K/uL Eos # (Auto) (0-0.5) K/uL Baso # (Auto) (0-0.2) K/uL PT INR APTT PTT Ratio POC Sodium 138 (135-144) mEq/L Sodium 137 (136-145) mmol/L POC Potassium 3.8 (3.3-5.0) mEq/L Potassium 3.7 (3.5-5.1) mmol/L POC Chloride 101 (101-112) mEq/L Chloride 105 (98-107) mmol/L Carbon Dioxide 22 (21-32) mmol/L POC Total CO2 21 L (24-31) mEq/l Anion Gap 10.0 (3-11) POC Anion Gap 20.0 (16-25) mmol/L POC BUN 20 H (7-18) mg/dl BUN 20 H (7-18) mg/dl Creatinine 1.29 H (0.6-1.2) mg/dl POC Creatinine 1.1 (0.6-1.3) mg/dl Est Cr Clr Drug Dosing 40.1 ml/min Est GFR ( Amer) 46.6 Est GFR (Non-Af Amer) 40.2 BUN/Creatinine Ratio 15.6 (10-20) Glucose 139 H (70-99) mg/dl POC Glucose (70-99) POC Glucose (other) 144 H (70-99) mg/dl Lactate 3.8 H* (0.4-2.0) mmol/L Calcium 9.7 (8.5-10.1) mg/dl POC Ioniz Calcium Kyle 1.21 (1.12-1.32) mmol/l Total Bilirubin 0.7 (0.2-1) mg/dl AST 46 H (15-37) U/L ALT 50 (12-78) U/L Alkaline Phosphatase 103 (45-117) U/L Total Creatine Kinase 507 H (26-192) U/L CK-MB (CK-2) 3.6 (0.5-3.6) ng/ml CK/CKMB % Calc 0.7 (0-3.0) Troponin I < 0.015 (0-0.045) ng/ml Total Protein 7.4 (6.4-8.2) gm/dl Albumin 3.3 L (3.4-5.0) gm/dl Globulin 4.1 H (2.5-4.0) gm/dl Albumin/Globulin Ratio 0.8 L (0.9-2) Urine Color Urine Appearance (Clear) Urine pH (4.5-7.5) Ur Specific [place] (1.000-1.030) Urine Protein (Negative) Urine Glucose (UA) (Negative) Urine Ketones (Negative) Urine Blood (Negative) Urine Nitrite (Negative) Urine Bilirubin (Negative) Urine Urobilinogen (Negative) Ur Leukocyte Esterase (Negative) Urine WBC (Auto) (0-5) /hpf Urine RBC (Auto) (0-4) /hpf U Hyaline Cast (Auto) (0-5) /lpf U Epithel Cells (Auto) (0-5) /lpf Urine Bacteria (Auto) (Negative) Influenza Type A (PCR) (Neg) Influenza Type B (PCR) (Neg) 10/18/18 10/18/18 10/18/18 Range/Units 20:30 22:09 22:12 WBC (4.8-10.8) K/uL RBC (4.2-5.4) M/uL Hgb (12.0-16.0) g/dL POC Hgb (12.0-16.0) g/dl Hct (37-47) % POC Hct (37-47) % MCV (80-100) fL MCH (25-34) pg MCHC (32-36) g/dL RDW Std Deviation (36.4-46.3) fL RDW Coeff of Vignesh (11.5-14.5) % Plt Count (130-400) K/uL MPV (7.4-10.4) fL Immature Gran % (Auto) % Neut % (Auto) % Lymph % (Auto) % Dickinson % (Auto) % Eos % (Auto) % Baso % (Auto) % Immature Gran # (Auto) (0.00-0.02) K/uL Neut # (Auto) (1.4-6.5) K/uL Lymph # (Auto) (1.2-3.4) K/uL Dickinson # (Auto) (0.11-0.59) K/uL Eos # (Auto) (0-0.5) K/uL Baso # (Auto) (0-0.2) K/uL PT INR APTT PTT Ratio POC Sodium (135-144) mEq/L Sodium (136-145) mmol/L POC Potassium (3.3-5.0) mEq/L Potassium (3.5-5.1) mmol/L POC Chloride (101-112) mEq/L Chloride (98-107) mmol/L Carbon Dioxide (21-32) mmol/L POC Total CO2 (24-31) mEq/l Anion Gap (3-11) POC Anion Gap (16-25) mmol/L POC BUN (7-18) mg/dl BUN (7-18) mg/dl Creatinine (0.6-1.2) mg/dl POC Creatinine (0.6-1.3) mg/dl Est Cr Clr Drug Dosing ml/min Est GFR ( Amer) Est GFR (Non-Af Amer) BUN/Creatinine Ratio (10-20) Glucose (70-99) mg/dl POC Glucose 38 L* 42 L* (70-99) POC Glucose (other) (70-99) mg/dl Lactate (0.4-2.0) mmol/L Calcium (8.5-10.1) mg/dl POC Ioniz Calcium Kyle (1.12-1.32) mmol/l Total Bilirubin (0.2-1) mg/dl AST (15-37) U/L ALT (12-78) U/L Alkaline Phosphatase (45-117) U/L Total Creatine Kinase (26-192) U/L CK-MB (CK-2) (0.5-3.6) ng/ml CK/CKMB % Calc (0-3.0) Troponin I (0-0.045) ng/ml Total Protein (6.4-8.2) gm/dl Albumin (3.4-5.0) gm/dl Globulin (2.5-4.0) gm/dl Albumin/Globulin Ratio (0.9-2) Urine Color Yellow Urine Appearance Clear (Clear) Urine pH 5.0 (4.5-7.5) Ur Specific [place] 1.022 (1.000-1.030) Urine Protein 1+ H (Negative) Urine Glucose (UA) Trace H (Negative) Urine Ketones Trace H (Negative) Urine Blood 2+ H (Negative) Urine Nitrite Positive H (Negative) Urine Bilirubin Negative (Negative) Urine Urobilinogen Negative (Negative) Ur Leukocyte Esterase 1+ H (Negative) Urine WBC (Auto) 10-30 H (0-5) /hpf Urine RBC (Auto) 0-4 (0-4) /hpf U Hyaline Cast (Auto) 1-5 (0-5) /lpf U Epithel Cells (Auto) 0-5 (0-5) /lpf Urine Bacteria (Auto) Negative (Negative) Influenza Type A (PCR) (Neg) Influenza Type B (PCR) (Neg) 10/18/18 Range/Units 22:41 WBC (4.8-10.8) K/uL RBC (4.2-5.4) M/uL Hgb (12.0-16.0) g/dL POC Hgb (12.0-16.0) g/dl Hct (37-47) % POC Hct (37-47) % MCV (80-100) fL MCH (25-34) pg MCHC (32-36) g/dL RDW Std Deviation (36.4-46.3) fL RDW Coeff of Vignesh (11.5-14.5) % Plt Count (130-400) K/uL MPV (7.4-10.4) fL Immature Gran % (Auto) % Neut % (Auto) % Lymph % (Auto) % Dickinson % (Auto) % Eos % (Auto) % Baso % (Auto) % Immature Gran # (Auto) (0.00-0.02) K/uL Neut # (Auto) (1.4-6.5) K/uL Lymph # (Auto) (1.2-3.4) K/uL Dickinson # (Auto) (0.11-0.59) K/uL Eos # (Auto) (0-0.5) K/uL Baso # (Auto) (0-0.2) K/uL PT INR APTT PTT Ratio POC Sodium (135-144) mEq/L Sodium (136-145) mmol/L POC Potassium (3.3-5.0) mEq/L Potassium (3.5-5.1) mmol/L POC Chloride (101-112) mEq/L Chloride (98-107) mmol/L Carbon Dioxide (21-32) mmol/L POC Total CO2 (24-31) mEq/l Anion Gap (3-11) POC Anion Gap (16-25) mmol/L POC BUN (7-18) mg/dl BUN (7-18) mg/dl Creatinine (0.6-1.2) mg/dl POC Creatinine (0.6-1.3) mg/dl Est Cr Clr Drug Dosing ml/min Est GFR ( Amer) Est GFR (Non-Af Amer) BUN/Creatinine Ratio (10-20) Glucose (70-99) mg/dl POC Glucose 175 H (70-99) POC Glucose (other) (70-99) mg/dl Lactate (0.4-2.0) mmol/L Calcium (8.5-10.1) mg/dl POC Ioniz Calcium Kyle (1.12-1.32) mmol/l Total Bilirubin (0.2-1) mg/dl AST (15-37) U/L ALT (12-78) U/L Alkaline Phosphatase (45-117) U/L Total Creatine Kinase (26-192) U/L CK-MB (CK-2) (0.5-3.6) ng/ml CK/CKMB % Calc (0-3.0) Troponin I (0-0.045) ng/ml Total Protein (6.4-8.2) gm/dl Albumin (3.4-5.0) gm/dl Globulin (2.5-4.0) gm/dl Albumin/Globulin Ratio (0.9-2) Urine Color Urine Appearance (Clear) Urine pH (4.5-7.5) Ur Specific [place] (1.000-1.030) Urine Protein (Negative) Urine Glucose (UA) (Negative) Urine Ketones (Negative) Urine Blood (Negative) Urine Nitrite (Negative) Urine Bilirubin (Negative) Urine Urobilinogen (Negative) Ur Leukocyte Esterase (Negative) Urine WBC (Auto) (0-5) /hpf Urine RBC (Auto) (0-4) /hpf U Hyaline Cast (Auto) (0-5) /lpf U Epithel Cells (Auto) (0-5) /lpf Urine Bacteria (Auto) (Negative) Influenza Type A (PCR) (Neg) Influenza Type B (PCR) (Neg) Imaging Data Radiologist's Impression: XR chest 1V portable CLINICAL HISTORY: 78 years-old Female presenting with Sepsis. TECHNIQUE: Portable upright AP view of the chest was obtained. COMPARISON: 05/07/2018. FINDINGS: Catheter projects in the region of the right internal jugular vein, possibly a tunneled catheter. Atherosclerosis of aortic arch. Cardiac silhouette mildly enlarged. Mild pulmonary basilar prominence and heterogeneity of lung parenchyma. No focal opacity. No large effusion or pneumothorax. Degenerative changes of the thoracic spine. IMPRESSION: 1. Mild cardiomegaly with mild volume overload. No eliane pulmonary edema. Electronically signed by: William Lira M.D. 10/18/2018 6:[address] head/brain wo con CLINICAL HISTORY: 78 years-old Female presenting with Pt AMS. TECHNIQUE: Multidetector CT imaging of the head was performed without the use of intravenous contrast. IV contrast: None. One or more dose lowering techniques were used consistent with the principles of ALARA (as low as reasonably achie vable), including automatic exposure control, mA or kV adjustment to individual patient size, and/or use of iterative reconstruction. COMPARISON: None. CT DOSE (mGy.cm): The estimated cumulative dose is 1897.41. 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 Proportional ventricular and sulcal prominence, likely age-related parenchymal volume loss. No hemorrhage. Periventricular and subcortical white matter hypoattenuation, nonspecific but likely indicative of chronic small vessel ischemic change. No acute territorial infarct. No mass effect or midline shift. No extra-axial fluid collection. Paranasal sinuses and mastoid air cells clear. Calvarium intact. IMPRESSION: 1. Chronic small vessel ischemic change. No acute intracranial abnormality. Electronically signed by: William Lira M.D. 10/18/2018 7:[address] abd pelvis IV con only CLINICAL HISTORY: 78 years-old Female presenting with Pt c/o N V D, history of breast cancer. TECHNIQUE: Multidetector CT of the abdomen and pelvis was performed after the administration of intravenous contrast. IV contrast: 94 mL of Optiray 320. One or more dose lowering techniques were used consistent with the principles of ALARA (as low as reasonably achievable), including automatic exposure control, mA or kV adjustment to individual patient size, and/or use of iterative reconstruction. COMPARISON: 05/10/2018. CT DOSE (mGy.cm): The estimated cumulative dose is 1897.41 mGy.cm. 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 Lung bases: Multichamber enlargement of the heart. Coronary artery calcification. No pericardial or pleural effusion. Minimal dependent changes likely atelectasis. Mosaic attenuation may suggest small airways disease. Liver: Multinodular contour of the liver, which is also enlarged. Relative hypertrophy of the left hepatic lobe and caudate with relative atrophy of the right hepatic lobe. No focal lesion allowing for the single phase of contrast. Patent hepatic vasculature. Trace perihepatic fluid along the inferior right hepatic lobe. Biliary: No intrahepatic or extrahepatic biliary ductal dilatation. Gallbladder surgically absent. Pancreas: Normal. Spleen: Multiple punctate calcifications suggest a history of granulomatous disease. Adrenal glands: Normal. Kidneys and ureters: Asymmetric delayed perfusion of the left kidney with moderate left perinephric fat infiltration asymmetric to the right. Mild left pelvocaliectasis. Obstructing 9 mm calculus at the left ureteropelvic junction. Left urothelial thickening. Several smaller nonobstructing lower pole left renal calculi. Exophytic simple left renal cyst. Right kidney normal. No right hydronephrosis. Right ureter normal. Left ureter with periureteral fat infiltration along its course though no additional calculus is evident. Bladder: Normal. Pelvic organs: Uterus and ovaries normal. Bowel: Diverticulosis of the sigmoid colon with mild wall thickening in the mid to distal portion without pericolonic inflammatory change suggesting circular muscle hyperplasia/chronic diverticular disease. The appendix is not visualized. No bowel obstruction. Peritoneal cavity: Trace fluid in the retroperitoneum on the left. Trace fluid in the right abdomen. A catheter is noted in the right abdomen presumably a ventriculoperitoneal catheter. No free intraperitoneal gas. Lymph nodes: No enlarged lymph nodes in the abdomen or pelvis. Vasculature: Atherosclerosis of the normal caliber abdominal aorta. IVC patent. Abdominal wall: Diastasis of the rectus abdominis. Minimal infiltration of the anterior left mid abdominal wall, possibly related to medication administration. Musculoskeletal: Degenerative changes of the spine. Bilateral pars defects of L4 with grade 1 anterolisthesis of L4 on L5. IMPRESSION: 1. Obstructing 9 mm left ureteropelvic junction calculus with resultant mild left hydronephrosis. Significant urothelial thickening is presumably reactive to the presence of the calculus rather than a superimposed infection, which is significantly less likely. Multiple nonobstructing lower pole left renal calculi also present. 2. Diverticulosis with chronic diverticular disease of the sigmoid colon. 3. Cirrhosis. No convincing evidence of portal hypertension at this time. 4. Right abdominal shunt, presumably a ventriculoperitoneal shunt in place. Electronically signed by: William Lira M.D. 10/18/2018 7:37 PM Blood Pressure Blood Pressure Findings: Elevated blood pressure Blood Pressure Disposition: further management by hospitalist [facility] Narrative This is a 78-year-old female who presents emergency department complaining of fever. The patient was complaining of nausea and vomiting. For this reason she was sent for a CAT scan of the abdomen pelvis. This is concerning for a 9 mm stone. The patient has an elevation in her white blood cell count as well as h er lactic acid. Due to the fever I did discuss the case with the urologist pss delivery professional who was kind enough to come in and see the patient. Patient was also discussed with the ICU as well as the hospitalist. She was given fluid boluses here in the emergency department and started on antibiotics. Cultures were also obtained. Impression & Plan Kidney stone, Fever Critical Care Time I have personally spent greater than 90 minutes of critical care time in the direct management of this patient. This includes bedside care, interpretation of diagnostic studies, and testing, discussion with consultants, patient, and family members, and other required patient management activities. This 90 minutes is in excess of all separately billable procedures. Critical Care Time: Yes Total Critical Care Time: 90 Discharge Plan Visit Data Chief Complaint: Illness Stated Complaint: NAUSEA, VOMITING, DIARRHEA, FEVER ED Provider: Moris Snow Discharge Problem: Kidney stone, Fever Discharge Problem: Fever Qualifiers: Fever type: unspecified Qualified Code(s): R50.9 - Fever, unspecified The scribe's documentation has been prepared under my direction and personally reviewed by me in its entirety. I confirm that the note above accurately reflects all work, treatment, procedures, and medical decision making performed by me.
[2018-10-19] MEDS: SODIUM CHLORIDE 0.9% 1000ML 1,000 ML IV SCH ×2 (00:52→07:58)
[2018-10-19] MEDS: AZTREONAM 1,000 MG in DEXTROSE 5% 100 ML IV SCH ×3 (03:32→20:48)
--- NOTE | 2018-10-19 04:25 | Operative Report ---
DATE OF OPERATION: 10/18/2018 PREOPERATIVE DIAGNOSES: Urosepsis and left ureteropelvic junction stone. POSTOPERATIVE DIAGNOSES: Urosepsis and left ureteropelvic junction stone.. PROCEDURES PERFORMED: Cystoscopy, left stent, left retrograde. SURGEON: Miko Knowles MD ANESTHESIA: General. INDICATIONS: The patient is a 78-year-old female several days of flank pain and vomiting who presents with a fever of 39.5 and an elevated white blood cell count with pyuria for stent placement. DESCRIPTION OF THE PROCEDURE: The patient was taken to cystoscopy suite, where she had been given preoperative antibiotics. She was given general anesthesia, placed in dorsal lithotomy position. Cystoscopy was performed and had to dilate the urethra to get in because it was narrowed. Once the catheter was in the bladder, there is no evidence of any tumor. I was able to do a retrograde on the left side and the stone appeared to be still at the UPJ. I passed a Dual-Flex guidewire beyond the stone into the left renal pelvis and then passed a #6 [place] 24 cm stent over the guidewire into the left renal pelvis, removed the wire. There was a good curl in the renal pelvis and a good curl in the bladder, placed a Barnes catheter and the patient was transferred to the recovery room in stable condition. I attest to the content of the Intraoperative Record and any orders documented therein. Any exception s are noted below.
[2018-10-19 06:28] LABS: INR 1.2 (0.9-1.1); Prothrombin Time 12.3 Seconds (9.0-12.0)
[2018-10-19 06:40] LABS: BUN Creatinine Ratio 21.1 (10-20); Calcium 8.5 mg/dl (8.5-10.1); Creatinine Clr Calc Pharmacy 57.2 ml/min; Est GFR (African American) 64.9
[2018-10-19] MEDS: INSULIN GLARGINE SOLOSTAR 100 UNITS/ML 3 ML PEN SQ SCH (07:57)
[2018-10-19] MEDS: INSULIN ASPART 100 UNITS/ML 3 ML PEN SC SCH ×4 (07:58→21:00)
[2018-10-19] MEDS: HEPARIN SOD 5,000 UNIT/0.5 ML VIAL SQ SCH ×2 (07:59→21:19)
[2018-10-19] MEDS: LETROZOLE 2.5 MG TAB PO SCH (08:00)
[2018-10-19] MEDS: CEROVITE ADV FORMULA TAB PO SCH (08:00)
[2018-10-19] MEDS: CYANOCOBALAMIN 500 MCG TABLET (VITAMIN B-12) PO SCH (08:00)
[2018-10-19] MEDS: EZETIMIBE 10 MG TABLET PO SCH (08:00)
[2018-10-19] MEDS: SPIRONOLACTONE 25 MG TAB PO SCH ×2 (08:00→17:36)
[2018-10-19] MEDS: CHOLECALCIFEROL 1,000 UNITS TAB PO SCH ×2 (08:00→21:00)
[2018-10-19] MEDS: LOSARTAN POTASSIUM 25 MG TAB PO SCH (08:00)
--- NOTE | 2018-10-19 08:22 | Hospitalist Progress Note ---
Date of Service October 19, 2018 Assessment & Plan (1) Obstruction of left ureteropelvic junction (UPJ) due to stone: 9 mm left ureteropelvic junction kidney stone with obstruction/left hydronephrosis/status post ureteral stent placement/sepsis due to complicated UTI-- SIRS on presentation, resolved after removal of the obstruction of the ureter and stenting of the ureter Aztreonam, levofloxacin and daptomycin IV in the ED. Continued aztreonam 1 g IV every 8 hours. Pending urine culture and sensitivity. Pending urine culture sensitivities, and blood culture and sensitivities. Consult urology Dr. Knowles. (2) Hydronephrosis of left kidney: Stenting to left ureter (3) Sepsis due to urinary tract infection: more likely SIRS as rapid reversal (4) Non-traumatic rhabdomyolysis: CK was elevated at 507. Creatinine was mildly increased from her baseline of 1.29. with hydration levels remained in good control (5) Mental retardation: Patient has been able to give consent for all procedures (6) Vitamin B12 deficiency: Continue oral supplement when patient is able to take after the procedure was completed. (7) Insulin-requiring or dependent type II diabetes mellitus: Holding Trulicity, Metformin and Actos. Reduced Tresiba from 30 units to 20 units subcu daily due to Lantus adjustment and to decreased oral intake. Placed on Accu-Cheks before meals and at bedtime with NovoLog coverage for scale. (8) Hyperlipidemia: Continue Zetia after procedure when patient is able to take p.o. (9) Hypertension: Holding spironolactone and losartan, blood pressure remains low 4/6. (10) Malignant neoplasm of central portion of left breast in female, estrogen receptor positive: Patient reports last radiation therapy was 6 weeks ago. She has not had chemo for several months. Subjective Patient feels much better after having her procedure. I explained her waiting on the culture results to determine best home antibiotic therapy. On physical exam she has some rales and IV fluids were stopped chest x-ray does not confirmed significant changes of fluid overload Review of Systems ROS: well nourished well developed. No double vision blurry vision No problems with speech or swallowing No palpitations, chest pain or pressure No Wheezing or breathing issues Minor abdominal pain without nausea vomiting diarrhea No burning urine urine frequency or changes in color No focal joint pain or muscle pain No skin rashes or oral lesions No unusual bruising or bleeding No focused back pain or numbness or loss of strength No changes in memory or confusion has baseline mental impairment Physical Exam Vital Signs (Past 24 Hours): Last Vital Signs Temp 37.2 C 10/19/18 07:02 Pulse 89 10/19/18 07:02 Resp 20 10/19/18 07:02 BP 108/57 L 10/19/18 07:02 Pulse Ox 97 10/19/18 07:02 The patient appeared well nourished and normally developed. Vital signs as documented. Head exam is unremarkable. normocephalic, atraumatic Neck is without jugular venous distension, thyromegaly, or lymphademopathy Lungs are rales at the base Cardiac exam reveals Rhythm is regular. First and second heart sounds normal. Abdominal exam reveals normal bowel sounds, no masses, no organomegaly Extremities are nonedematous and both pedal pulses are present Neurologic exam is A&Ox2, no focal deficits, strength is equal bilateral Psychologically seems neither anxious or depressed Skin is warm Dry without bruises or lesions
--- NOTE | 2018-10-19 10:53 | XRay Report ---
XR chest 1V portable HISTORY: 78 years-old Female eval for HF acute shortness of breath COMPARISON: Chest radiograph, CT abdomen and pelvis 10/18/2018 TECHNIQUE: Portable AP view the chest FINDINGS: Catheter about the right IJ is again noted, distal tip terminating within the region of the superior right atrium. Cardiomegaly. Mild pulmonary vascular congestion without overt pulmonary edema. Calcifi cation the thoracic aortic arch. No pneumothorax. No large pleural effusion. Subsegmental bibasilar o pacities suggest atelectasis. Degenerative changes of the shoulders and spine. IMPRESSION: 1. Cardiomegaly with mild pulmonary vascular congestion. No overt pulmonary edema. 2. Minimal subsegmental bibasilar opacities suggest atelectasis. The above report was generated using voice recognition software. It may contain grammatical, syntax o r spelling errors. Electronically signed by: Deangelo Blackwood M.D. 10/19/2018 10:50 AM
--- NOTE | 2018-10-19 14:09 | Urology Progress Note ---
Date of Service October 19, 2018 pt looks good and no complaints . Will order a kub to see if stone visible . She will need to f/u to schedule stone removal as outpatient . Physical Exam Vital Signs (Past 24 Hours): Last Vital Signs Temp 37.6 C H 10/19/18 10:37 Pulse 88 10/19/18 10:38 Resp 20 10/19/18 10:37 BP 127/71 10/19/18 10:37 Pulse Ox 100 10/19/18 10:38
--- NOTE | 2018-10-19 17:14 | XRay Report ---
KUB HISTORY: L up study in a patient with ureteral calculus ureteral stone COMPARISON: CT abdomen and pelvis 10/18/2018 FINDINGS: The bowel gas pattern is non-obstructive. There is no organomegaly. There is a 9 mm radiod ensity noted in the region of the left renal pelvis. A left ureteral stent appears to be in satisfact ory positioning. No definite additional renal or ureteral calculi. Pelvic basin calcifications are colindres ggestive of phleboliths. A catheter projects over the lateral right abdomen and right mid hemithorax. Cholecystectomy. Degenerative changes of the spine and hips. No pneumoperitoneum or pneumatosis. No fracture. IMPRESSION: 1. 9 mm radiodensity of the left upper abdomen suggests calculus within the region of the left renal pelvis. 2. Left ureteral stent appears to be in satisfactory positioning. 3. Nonobstructive bowel gas pattern. 4. Cholecystectomy. Electronically signed by: Deangelo Blackwood M.D. 10/19/2018 5:13 PM
[2018-10-20] MEDS: AZTREONAM 1,000 MG in DEXTROSE 5% 100 ML IV SCH ×3 (04:48→20:38)
[2018-10-20] MEDS: SPIRONOLACTONE 25 MG TAB PO SCH ×2 (08:27→18:00)
[2018-10-20] MEDS: CYANOCOBALAMIN 500 MCG TABLET (VITAMIN B-12) PO SCH (08:28)
[2018-10-20] MEDS: LETROZOLE 2.5 MG TAB PO SCH (08:28)
[2018-10-20] MEDS: CEROVITE ADV FORMULA TAB PO SCH (08:28)
[2018-10-20] MEDS: LOSARTAN POTASSIUM 25 MG TAB PO SCH (08:29)
[2018-10-20] MEDS: EZETIMIBE 10 MG TABLET PO SCH (08:29)
[2018-10-20] MEDS: CHOLECALCIFEROL 1,000 UNITS TAB PO SCH ×2 (08:29→20:40)
[2018-10-20] MEDS: INSULIN GLARGINE SOLOSTAR 100 UNITS/ML 3 ML PEN SQ SCH (08:30)
[2018-10-20] MEDS: HEPARIN SOD 5,000 UNIT/0.5 ML VIAL SQ SCH ×2 (08:30→20:39)
[2018-10-20] MEDS: INSULIN ASPART 100 UNITS/ML 3 ML PEN SC SCH ×4 (08:33→20:42)
--- NOTE | 2018-10-20 08:56 | Hospitalist Progress Note ---
Date of Service October 20, 2018 Assessment & Plan (1) Obstruction of left ureteropelvic junction (UPJ) due to stone: 9 mm left ureteropelvic junction kidney stone with obstruction/left hydronephrosis/status post ureteral stent placement/sepsis due to complicated UTI-- SIRS on presentation, resolved after removal of the obstruction of the ureter and stenting of the ureter Aztreonam, levofloxacin and daptomycin IV in the ED. Continued aztreonam 1 g IV every 8 hours, transition oral Cipro Pending urine culture and sensitivity. Urine cultures growing a pansensitive E. coli she will be changed to oral ciprofloxacin Consult urology Dr. Knowles. (2) Hydronephrosis of left kidney: Stenting to left ureter (3) Sepsis due to urinary tract infection: more likely SIRS as rapid reversal (4) Non-traumatic rhabdomyolysis: CK was elevated at 507. Creatinine was mildly increased from her baseline of 1.29. with hydration levels remained in good control (5) Mental retardation: Patient has been able to give consent for all procedures (6) Vitamin B12 deficiency: Continue oral supplement when patient is able to take after the procedure was completed. (7) Insulin-requiring or dependent type II diabetes mellitus: Holding Trulicity, Metformin and Actos. Reduced Tresiba from 30 units to 20 units subcu daily due to Lantus adjustment and to decreased oral intake. Placed on Accu-Cheks before meals and at bedtime with NovoLog coverage for scale. (8) Hyperlipidemia: Continue Zetia after procedure when patient is able to take p.o. (9) Hypertension: Holding spironolactone and losartan, restart 10/20 (10) Malignant neoplasm of central portion of left breast in female, estrogen receptor positive: Patient reports last radiation therapy was 6 weeks ago. She has not had chemo for several months. Subjective this pt is doing well, final cultures returned with zimmer sensitive E coli, she has no new complaints and urology wants to keep patient for additional observation of renal function Review of Systems ROS: well nourished well developed. No double vision blurry vision No problems with speech or swallowing No palpitations, chest pain or pressure No Wheezing or breathing issues No abdominal pain nausea vomiting diarrhea changes in appetite or weight No burning urine urine frequency is of some darkening of urine over the last 24 hours and is encouraged to drink more No focal joint pain or muscle pain No skin rashes or oral lesions No unusual bruising or bleeding No focused back pain or numbness or loss of strength No changes in memory or confusion Physical Exam Vital Signs (Past 24 Hours): Last Vital Signs Temp 37.5 C 10/20/18 07:22 Pulse 95 H 10/20/18 07:22 Resp 18 10/20/18 07:22 BP 149/74 H 10/20/18 07:22 Pulse Ox 92 10/20/18 07:22 The patient appeared well nourished and normally developed. Vital signs as documented. Head exam is unremarkable. normocephalic, atraumatic Neck is without jugular venous distension, thyromegaly, or lymphademopathy Lungs are clear to auscultation and percussion. Cardiac exam reveals Rhythm is regular. First and second heart sounds normal. Abdominal exam reveals normal bowel sounds, no masses, no organomegaly Extremities are nonedematous and both pedal pulses are present Neurologic exam is A&Ox3, no focal deficits, strength is equal bilateral Psychologically seems neither anxious or depressed , does have intellect impairment Skin is warm Dry without bruises or lesions
--- NOTE | 2018-10-20 12:36 | Urology Progress Note ---
Date of Service October 20, 2018 Patient sitting up having no significant complaints. Post slightly elevated temp is currently 37 5. Urine appears to be iced tea color consistent with old blood. Urine culture came back pansensitive E. coli. Will start Cipro today but would continue aztreonam overnight. When patient appears afebrile and stable could be discharged home on Cipro will need to follow-up in the next week to schedule a follow on procedure for her renal stone. The stone appears to have been pushed from the UPJ back into the kidney. Physical Exam Vital Signs (Past 24 Hours): Last Vital Signs Temp 37.5 C 10/20/18 07:22 Pulse 95 H 10/20/18 07:22 Resp 18 10/20/18 07:22 BP 149/74 H 10/20/18 07:22 Pulse Ox 92 10/20/18 07:22
[2018-10-20] MEDS: CIPROFLOXACIN 500 MG TAB PO SCH (20:40)
[2018-10-21] MEDS: AZTREONAM 1,000 MG in DEXTROSE 5% 100 ML IV SCH ×3 (04:37→20:50)
[2018-10-21] MEDS: EZETIMIBE 10 MG TABLET PO SCH (08:50)
[2018-10-21] MEDS: CYANOCOBALAMIN 500 MCG TABLET (VITAMIN B-12) PO SCH (08:50)
[2018-10-21] MEDS: CHOLECALCIFEROL 1,000 UNITS TAB PO SCH ×2 (08:50→20:37)
[2018-10-21] MEDS: SPIRONOLACTONE 25 MG TAB PO SCH ×2 (08:50→18:13)
[2018-10-21] MEDS: LOSARTAN POTASSIUM 25 MG TAB PO SCH (08:50)
[2018-10-21] MEDS: CIPROFLOXACIN 500 MG TAB PO SCH ×2 (08:50→20:36)
[2018-10-21] MEDS: LETROZOLE 2.5 MG TAB PO SCH (08:50)
[2018-10-21] MEDS: CEROVITE ADV FORMULA TAB PO SCH (08:50)
[2018-10-21] MEDS: HEPARIN SOD 5,000 UNIT/0.5 ML VIAL SQ SCH ×2 (08:52→20:38)
[2018-10-21] MEDS: INSULIN ASPART 100 UNITS/ML 3 ML PEN SC SCH ×4 (08:56→20:40)
[2018-10-21] MEDS: INSULIN GLARGINE SOLOSTAR 100 UNITS/ML 3 ML PEN SQ SCH (09:00)
[2018-10-21 10:11] LABS: BUN Creatinine Ratio 16.8 (10-20); Calcium 9.6 mg/dl (8.5-10.1); Est GFR (African American) 85.6; Est GFR (Non-African American) 73.8; Magnesium 2.3 mg/dl (1.8-2.4); Potassium 4.3 mmol/L (3.5-5.1)
--- NOTE | 2018-10-21 17:43 | Hospitalist Progress Note ---
Date of Service October 21, 2018 Assessment & Plan (1) Obstruction of left ureteropelvic junction (UPJ) due to stone: 78-year-old white female admitted on October 18, 2018 with left kidney stone 9 mm left ureteropelvic junction kidney stone with obstruction/left hydronephrosis status post ureteral stent placement/sepsis due to complicated UTI- SIRS on presentation, resolved after removal of the obstruction of the ureter and stenting of the ureter Was started aztreonam, levofloxacin and daptomycin IV in the ED. Has been continued aztreonam 1 g IV every 8 hours, transition oral Cipro Urine cultures growing a pansensitive E. coli she will be changed to oral ciprofloxacin Consulted urology Dr. Knowles. Urology service, Barnes catheter should be continue until in the follow-up visit Patient required residential placement, and she is agreeable, because she has limited help at home so she need to continue Barnes catheter until be seen by urologist (2) Hydronephrosis of left kidney: Stenting to left ureter (3) Sepsis due to urinary tract infection: more likely SIRS as rapid reversal, and resolved (4) Non-traumatic rhabdomyolysis: CK was elevated at 507. Creatinine was mildly increased from her baseline of 1.29. with hydration levels remained in good control (5) Mental retardation: Patient has been able to give consent for all procedures (6) Vitamin B12 deficiency: Continue oral supplement when patient is able to take after the procedure was completed. (7) Insulin-requiring or dependent type II diabetes mellitus: Holding Trulicity, Metformin and Actos. We will continue 20 units subcu daily due to Lantus adjustment and to decreased oral intake. Placed on Accu-Cheks before meals and at bedtime with NovoLog coverage for scale. We will continue adjust as needed (8) Hyperlipidemia: Continue Zetia after procedure when patient is able to take p.o. (9) Hypertension: Holding spironolactone and losartan, restart 10/20 (10) Malignant neoplasm of central portion of left breast in female, estrogen receptor positive: Patient reports last radiation therapy was 6 weeks ago. She has not had chemo for several months. Subjective Sitting on chair, pleasant, conversational, denies fever chills denies dysuria urgency and frequency's, Barnes catheter in place, Review of Systems Constitutional: Positive weakness, or fatigue Respiratory: no cough, sputum, wheezing, or dyspnea on exertion Cardiac: No chest pain, No orthopnea, No PND, No claudication, No palpitations, Abdomen: No pain, No nausea, No vomiting, No diarrhea, No constipation, No GI bleeding Musculoskeletal: No joint pain, No muscle pain, No swelling, No calf pain, No problem reported : See above, no hematuria, Neurologic: No paralysis, No weakness, No numbness/tingling, No vertigo, No balance problems Psychiatric: No depression symptoms, Heme: No abnormal bleeding/bruising, No clotting problems, No swollen lymph nodes, No night sweats Skin: No rash, No itch, No new/changing skin lesions, No color change, No bleeding Physical Exam Vital Signs (Past 24 Hours): Last Vital Signs Temp 37.5 C 10/21/18 15:21 Pulse 77 10/21/18 15:21 Resp 18 10/21/18 15:21 BP 133/74 10/21/18 15:21 Pulse Ox 94 10/21/18 15:21 Physical Exam: General Appearance: WD/WN, no apparent distress, pleasant, conversational, Eyes: normal inspection, PERRL, EOMI, sclerae normal ENT: normal ENT inspection, hearing grossly normal, pharynx normal Neck: supple, no adenopathy, thyroid normal, no JVD, no carotid bruits, trachea midline Respiratory/Chest: chest non-tender, normal breath sounds, no respiratory distress, Cardiovascular: regular rate, rhythm, no JVD, no murmur Abdomen: normal bowel sounds, non tender, soft, no organomegaly, Barnes catheter in place with normal urine Extremities: normal range of motion, non-tender, normal inspection, no pedal edema, no calf tenderness 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, no motor/sensory deficits, alert, normal mood/affect, oriented x 3 Skin: normal color, warm/dry, no rash Lymphatic: no adenopathy Results & Data Laboratory Results Laboratory Results - last 24 hr 10/20/18 10/21/18 10/21/18 20:10 07:49 09:26 Sodium 139 Potassium 4.3 Chloride 106 Carbon Dioxide 26 Anion Gap 7.0 BUN 13 Creatinine 0.78 Est Cr Clr Drug Dosing 72.0 Est GFR ( Amer) 85.6 Est GFR (Non-Af Amer) 73.8 BUN/Creatinine Ratio 16.8 Glucose 233 H POC Glucose 189 H 138 H Calcium 9.6 Magnesium 2.3 10/21/18 10/21/18 11:32 16:11 Sodium Potassium Chloride Carbon Dioxide Anion Gap BUN Creatinine Est Cr Clr Drug Dosing Est GFR ( Amer) Est GFR (Non-Af Amer) BUN/Creatinine Ratio Glucose POC Glucose 198 H 161 H Calcium Magnesium
--- NOTE | 2018-10-21 20:59 | Urology Progress Note ---
Date of Service October 21, 2018 Appreciate hospitalist care . Do not feel patient reqires indwelling barnett from Urology pov . She does however need af/u appt this week or next with urology Physical Exam Vital Signs (Past 24 Hours): Last Vital Signs Temp 37.5 C 10/21/18 15:21 Pulse 77 10/21/18 15:21 Resp 18 10/21/18 15:21 BP 133/74 10/21/18 15:21 Pulse Ox 94 10/21/18 15:21
[2018-10-22] MEDS: AZTREONAM 1,000 MG in DEXTROSE 5% 100 ML IV SCH (03:56)
[2018-10-22 07:10] LABS: Hematocrit (blood only) 38.9 % (37-47); Hemoglobin 12.8 g/dL (12.0-16.0); Mean Corpuscular Hgb Conc 32.9 g/dL (32-36); Mean Corpuscular Volume 88.6 fL (80-100); Platelet Count 257 K/uL (130-400); RDW Coefficient of Variation 14.2 % (11.5-14.5); RDW Standard Deviation 46.3 fL (36.4-46.3); Red Blood Count 4.39 M/uL (4.2-5.4); White Blood Count 6.66 K/uL (4.8-10.8)
[2018-10-22 07:29] LABS: BUN Creatinine Ratio 16.9 (10-20); Calcium 9.9 mg/dl (8.5-10.1); Creatinine Clr Calc Pharmacy 83.9 ml/min; Est GFR (Non-African American) 85.4; Potassium 4.5 mmol/L (3.5-5.1)
[2018-10-22 08:03] VITALS: TEMP 98.2; O2SAT 93
[2018-10-22 08:05] VITALS: BP 115/67
[2018-10-22] MEDS: EZETIMIBE 10 MG TABLET PO SCH (08:06)
[2018-10-22] MEDS: CYANOCOBALAMIN 500 MCG TABLET (VITAMIN B-12) PO SCH (08:06)
[2018-10-22] MEDS: SPIRONOLACTONE 25 MG TAB PO SCH (08:06)
[2018-10-22] MEDS: CHOLECALCIFEROL 1,000 UNITS TAB PO SCH (08:06)
[2018-10-22] MEDS: LETROZOLE 2.5 MG TAB PO SCH (08:06)
[2018-10-22] MEDS: LOSARTAN POTASSIUM 25 MG TAB PO SCH (08:06)
[2018-10-22] MEDS: CEROVITE ADV FORMULA TAB PO SCH (08:06)
[2018-10-22] MEDS: CIPROFLOXACIN 500 MG TAB PO SCH (08:07)
[2018-10-22] MEDS: HEPARIN SOD 5,000 UNIT/0.5 ML VIAL SQ SCH (08:42)
[2018-10-22] MEDS: INSULIN GLARGINE SOLOSTAR 100 UNITS/ML 3 ML PEN SQ SCH (08:43)
[2018-10-22] MEDS: INSULIN ASPART 100 UNITS/ML 3 ML PEN SC SCH ×2 (08:46→13:05)
[2018-10-22 13:18] VITALS: PULSE 95
--- NOTE | 2018-10-22 18:00 | Discharge Summary ---
Date of Service October 22, 2018 Admission HPI Per Admitting Provider The patient is a 78-year-old female found at [facility] covered in vomit. EMS was called, and brought patient to the emergency department for assessment. Patient has had over the past 24 hours fevers and chills, nausea with vomiting, and multiple episodes of loose stools. The patient is unaware of any sick exposures, and has not had any recent travels. She is a diabetic, and has been taking her medications as directed. Her glucose was noted to be 208 today by EMS. Workup in the emergency department included boratories and imaging studies, that revealed a 9 mm left ureteropelvic stone with mild hydronephrosis. The patient was taken emergently to the OR by urologist Dr. Knowles, a ureteral stent was successfully placed, and the patient is then to be admitted to telemetry for close blood pressure monitoring. Principal Diagnosis no Discharge Data Allergies Allergy/AdvReac Type Severity Reaction Status Date / Time erythromycin base AdvReac Intermediate Nausea Verified 10/18/18 20:22 Penicillins AdvReac Mild GI UPSET Verified 10/18/18 20:22 Consultations 10/18/18 19:48 Consult Urology Stat 10/18/18 19:52 ED Decision to Admit Stat 10/18/18 23:36 Consult Case Management - Discharge Planning Routine Consult Urology Routine Procedures Performed Operation Date: 10/18/18 21:00 Actual Procedures p Cysto, Left Ureteral Stent Insertion(Left) - Miko Knowles MD Ordered Studies 10/18/18 18:11 CT abd pelvis IV con only Stat CT head/brain wo con Stat 10/18/18 21:00 FL KUB Routine FL fluoroscopy <1hr Routine Hospital Course (1) Obstruction of left ureteropelvic junction (UPJ) due to stone: 78-year-old white female admitted on October 18, 2018 with left kidney stone 9 mm left ureteropelvic junction kidney stone with obstruction/left hydronephrosis status post ureteral stent placement/sepsis due to complicated UTI- SIRS on presentation, resolved after removal of the obstruction of the ureter and stenting of the ureter Was started aztreonam, levofloxacin and daptomycin IV in the ED. Has been continued aztreonam 1 g IV every 8 hours, transition oral Cipro Urine cultures growing a pansensitive E. coli she will be changed to oral ciprofloxacin, Consulted urology Dr. Knowles. Urology service, initially per instruction Barnes catheter should be continue until in the follow-up visit, later Dr. Knowles saw the patient, feel Barnes catheter okay can be removed upon discharge, double checked with urology office, and we are in the same page, therefore Barnes catheter was removed and patient was discharged home today Patient required no halfway placement Physical exam upon discharge General Appearance: Sitting in general, pleasant, WD/WN, no apparent distress, Eyes: normal inspection, PERRL, EOMI, sclerae normal ENT: normal ENT inspection, hearing grossly normal, pharynx normal Neck: supple, no adenopathy, thyroid normal, no JVD, no carotid bruits, trachea midline Respiratory/Chest: chest non-tender, normal breath sounds, no respiratory distress, Cardiovascular: regular rate, rhythm, no JVD, no murmur Abdomen: normal bowel sounds, non tender, soft, no organomegaly, Extremities: normal range of motion, non-tender, normal inspection, joint has no limited range of motion, capillary refill is normal, no cyanosis clubbing 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 Creatinine was mildly increased from her baseline of 1.29. with hydration levels remained in good control (5) Mental retardation: Patient has been able to give consent for all procedures (6) Vitamin B12 deficiency: Continue oral supplement when patient is able to take after the procedure was completed. (7) Insulin-requiring or dependent type II diabetes mellitus: Holding Trulicity, Metformin and Actos. We will continue 20 units subcu daily due to Lantus adjustment and to decreased oral intake. Placed on Accu-Cheks before meals and at bedtime with NovoLog coverage for scale. We will continue adjust as needed (8) Hyperlipidemia: Continue Zetia after procedure when patient is able to take p.o. (9) Hypertension: Holding spironolactone and losartan, restart 10/20 (10) Malignant neoplasm of central portion of left breast in female, estrogen receptor positive: Patient reports last radiation therapy was 6 weeks ago. She has not had chemo for several months. Total Time Total Time Spent Total Time Spent (In Minutes): 35 Total Time Includes: Examination of the Patient, Discharge Planning, Medication Reconciliation and Communication With Other Providers Discharge Plan Discharge Items Patient Disposition: Home - Self-Care Reason For Visit: SEPSIS DUE TO UTI KIDNEY STONE Discharge Diagnosis: Obstruction of left ureteropelvic junction due to stone: status post ureteral stent placement sepsis due to complicated UTI Condition: Fair Discharge Goals: Decrease discomfort, Diagnostic testing, Improve disease control, Improve function, Increase independence and Improve nutritional status Activity: Resume your previous activity Non-emergency contact: Primary Care Provider and Urologist Call non-emergency contact if: you have any medication questions Follow-up/Referrals: Rylee Trujillo PA-C [Primary Care Provider] - 10/28/18 11:00 am (Please, follow up with Rylee Trujillo PA-C on SundayOctober 28 at 11:00 am. *If you need to change this appointment, call the office at [phone].) Diet: Carb Consistent or DM2, Heart Healthy and Low Sodium (2gm) Addtl Provider Instructions: you have Obstruction of left ureteropelvic junction due to stone: status post ureteral stent placement you had sepsis due to complicated UTI- you need to continue oral ciprofloxacin for 10 days more you need to [place] appointment with urology Dr. Knowles as instructed . you need to follow up with your primary care physician in 1 week, - take medication as instructed, never overdose or any misuse, or take with alcohol, because misuse of medicine may cause organ damage or , call me, or your primary care physician if have questions of discharge medicaitons. - call your primary care physician, or go to local emergency room if has any fever/chill, chest pain, shortness of breathing, nausea/vomiting/abdominal pain, facial droop/slurry speech/local weakness, or if has any questions. - fall precaution - diet as instructed - you need to follow up with your subspecialist, such as Dr. Knowles Prescriptions: New ciprofloxacin HCl 500 mg Tablet 500 mg PO BID 10 Days Qty: 20 RF: 0 Continued cyanocobalamin (vitamin B-12) [Vitamin B-12] 1,000 mcg Tablet 1,000 mcg PO DAILY RF: 0 spironolactone [Aldactone] 25 mg tablet 25 mg PO BID RF: 0 cyanocobalamin (vitamin B-12) 1,000 mcg/mL Solution 1,000 mcg IM MONTHLY RF: 0 metformin [Glucophage] 1,000 mg tablet 1,000 mg PO BIDM RF: 0 losartan [Cozaar] 25 mg tablet 25 mg PO DAILY RF: 0 letrozole [Femara] 2.5 mg tablet 2.5 mg PO DAILY RF: 0 albuterol sulfate [Ventolin HFA] 90 mcg/actuation HFA aerosol inhaler 2 puff inhalation Q4 PRN (Reason: Shortness Of Breath Or Wheezing) RF: 0 pioglitazone [Actos] 30 mg tablet 30 mg PO DAILY RF: 0 Novolog Mix 70-30FlexPen U-100 100 unit/mL (70-30) insulin pen 60 unit subcut AMPM RF: 0 ezetimibe [Zetia] 10 mg tablet 10 mg PO DAILY RF: 0 Liquid Calcium with Vitamin D 600 mg calcium- 200 unit Capsule 1 cap PO DAILY RF: 0 I-[place] 1,000 unit-200 mg-60 unit-2 mg Tablet 1 tab PO DAILY RF: 0 cholecalciferol (vitamin D3) [Vitamin D3] 1,000 unit Tablet 2,000 unit PO BID RF: 0 Tresiba FlexTouch U-100 100 unit/mL (3 mL) insulin pen 30 unit subcut DAILY RF: 0 Trulicity 1.5 mg/0.5 mL pen injector 1.5 mg subcut WK RF: 0 Stand-Alone Forms: [facility] Discharge Orders: Discharge Order (Routine); Ordered 10/22/18 Ordered By: Gamaliel Tony Admission Data Admit Date/Time: 10/18/18 22:26 Attending Provider: Gamaliel Tony Admit Provider: Partha Charles Primary Care Provider: Rylee Trujillo Other Providers: Miko Knowles ; Partha Charles ; Ramon Burton Service: Telemetry Other Interventions: Discharge Summary Assessment (RN) Last Done: 10/22/18 13:13 DC Date/Time DO NOT enter until pt leaves facility: 10/22/18 16:10
== END 2018-10-22 16:10 | disposition home or self-care (01) | DRG 854 ==
LOC: ED 17:43 → 2E 22:26 → SUATTDRO 22:26 → 4W 10-19 14:58

== ENCOUNTER 2022-08-08 16:40 | Inpatient (IN) ==
--- NOTE | 2022-08-08 17:12 | Emergency Department Note ---
Impression & Plan Fall, Non-ST elevation NV (NSTEMI), Hyperglycemia, Weakness ED Provider Note HISTORY OF PRESENT ILLNESS: Patient is a 81-year-old female presenting with left upper quadrant abdominal pain and left-sided chest wall pain after a fall. Patient reports that she accidentally rolled out of bed earlier this morning and laid on the ground for around 2 hours before someone in her family was able to help her out. She reports left upper quadrant abdominal pain and left-sided chest wall pain secondary to the fall. She denies striking her head or loss of consciousness. She is not on any anticoagulation. She also reports that she tried to get up multiple times but was unsuccessful secondary to weakness. Tetanus is up-to-date. ROS: as above PHYSICAL EXAM: Constitutional: Patient appears in no acute distress. HENT: Head: Normocephalic and atraumatic. Eyes: EOMI, PERRL Mouth/Throat: Mucous membranes moist. Neck: Trachea midline. Neck supple. No midline cervical spine tenderness to palpation. Cardiovascular: RRR, No murmurs, rubs or gallops. Intact distal pulses. Pulmonary/Chest: No respiratory distress. Breath sounds clear and equal bilaterally. No wheezes or rales. Left lower chest wall tender to palpation. No overlying ecchymosis or rashes. No evidence of flail chest Abdominal: BS +. Abdomen soft, no rebound or guarding. LUQ TTP. Back: No midline spinal tenderness, no paraspinal tenderness, no CVA tenderness. Musculoskeletal: Patient has multiple abrasions and erythema to the bilateral elbows and bilateral knees. Patient is able to actively flex and extend at all 4 joints without significant difficulty Skin: Warm and dry. Psychiatric: Appropriate mood and affect for situation. Neurological: Alert and keenly responsive. CN II-XII grossly intact. MDM: - Vitals signs showed hypertension and borderline tachycardia. - History obtained via patient. Patient presents with left upper quadrant abdominal pain and left-sided chest wall pain, as well as bilateral elbow and knee pain. Patient reports that earlier this morning she rolled out of bed and was unable to get up off the floor by herself. She was too weak to get up off of the floor after her fall and laid down for a few hours - Chronic conditions affecting care: DM-2; HTN; HLD; left breast cancer - Differential diagnoses include, but are not limited to: Gastric ulcer; gastritis; myocardial infarction; pancreatitis; left lower lobe pneumonia; splenic rupture/distension; trauma - Order placed for continuous cardiac monitoring. At this time, monitor showed rate of 103 bpm with normal sinus rhythm, per my interpretation. - External medical records reviewed. Patient was seen in pulmonology clinic in June 2022. - Laboratory workup interpreted by myself showed leukocytosis (WBC 18.61); stable hemoglobin; normal electrolytes; hyperglycemia (glucose 315); elevated troponin (1314.8); elevated CK (19,234); elevated procalcitonin (4.39) - COVID negative -EKG per my interpretation shows normal sinus rhythm. Rate 80 bpm. No acute ischemic changes. QTc 459. Normal intervals. No significant changes as compared to EKG from 04/08/2016. - UA shows evidence of infection. - Bilateral knee xrays negative for fracture or dislocation, per my interpretation. - CXR shows some old left-sided rib fractures, per my interpretation. - CT abdomen/pelvis with IV contrast show hypodensities in the lateral aspect of the spleen and liver which may represent hematomas or artifact. - Discussion was had with 7th grade social studies teacher about patient's case and need for admission. - Hospitalist, Dr. Cole, consulted for admission. [facility] 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 related macular degeneration) Asthma Atrial septal defect Bilateral nephrolithiasis Calcium nephrolithiasis Cirrhosis Diabetes mellitus, type 2 Dyspnea on exertion Ex-smoker Hx of sepsis Hydronephrosis of left kidney Hyperlipidemia Hypertension Hypoxia Lower extremity edema Malignant neoplasm of central portion of left breast in female, estrogen receptor positive (04/18/18) Mental retardation Morbid obesity due to excess calories Multiple pulmonary nodules determined by computed tomography of lung Nephrolithiasis Osteoarthritis Osteopenia Solitary pulmonary nodule Urinary incontinence Varicose vein of leg Vitamin B12 deficiency Vitamin D deficiency Surgical History History of cholecystectomy History of lithotripsy History of surgery of liver S/P colonoscopy S/P ureteral stent placement Status post left breast lumpectomy Family History Mother , at a young age , not sure cause No problems noted. Father , age 109 / " old age " No problems noted. Sister , age 51 Breast cancer Sister , very young ,, hit by a truck Accident Sister No problems noted. Brother , age 55 Liver failure Brother , age 4-5 ys old , not sure cause Colon cancer Unknown Breast cancer Other Asthma Cancer Diabetes Denies family history of Heart disease Lung disease Social History Smoking Status: Never smoker Tobacco Type: Cigarettes Age Started Using Tobacco: 22; Age Quit Using Tobacco: 52; packs per day: 1; Second Hand Exposure: No; Do You Dip or Chew Tobacco: Yes; Tobacco Cessation Education Requested by Patient: No Hx Alcohol Use: No Hx Substance Use: No Preferred Language: Vietnamese Communication Ability: Effective Visual Impairment: Limited Hearing Ability: Normal 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: No Beliefs That Will Affect Care: None marital status: / Current Living Situation: Alone Current Living Situation Comment: [facility] involved with care; 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 occupational 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 How many Children do You have: 3 Other Information That Helps Us Care for You: No Feels Safe at Home: Yes Safety Concerns: Feels Safe At This Time Childhood Exposure to Second-Hand Smoke: Yes caffeine: Yes (drinks coffee tea and soda) Dental Care, Regularly: Yes Physical Activity Frequency: 3-4 Times per Week Physical Activity Frequency Comment: walks throughout the week Seatbelt Use: always Sunscreen Use: Yes Assistive Devices: Cane Allergies Allergies Allergy/AdvReac Type Severity Reaction Status Date / Time erythromycin base AdvReac Intermediate Nausea Verified 08/08/22 20:33 Penicillins AdvReac Mild GI UPSET Verified 08/08/22 20:33 Home Meds Home Medications Medication Instructions Recorded Confirmed cyanocobalamin (vitamin B-12) 1,000 mcg PO DAILY 10/18/18 08/08/22 1,000 mcg tablet (Vitamin B-12) syringe with needle 3 mL 25 x 5/8" #1 ea 01/21/19 06/28/22 Lactobacills gasseri-Bifidobac 1 cap PO QAM 05/02/19 08/08/22 bifidum,longum 1.5 billion cell capsule (Actito) cranberry 500 mg capsule 1,500 mg PO BID 05/02/19 08/08/22 letrozole 2.5 mg tablet 2.5 mg PO QAM 05/02/19 08/08/22 denosumab 60 mg/mL subcutaneous 60 mg subcut .Q 6 months 05/11/21 08/08/22 syringe (Prolia) cholecalciferol (vitamin D3) 25 2,000 unit PO BID 06/28/21 08/08/22 mcg (1,000 unit) tablet (Vitamin D3) blood-glucose meter,continuous 03/08/22 08/08/22 ([employer]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 degludec 200 unit/mL (3 22 unit subcut .DAILY AT NOON 05/10/22 08/08/22 mL) subcutaneous pen (Tresiba FlexTouch U-200 insulin) insulin aspar prot-insulin aspart 120 unit subcut UD 06/15/22 08/08/22 100 unit/mL (70-30) subcutaneous pen (Novolog Mix 70-30FlexPen U-100) ammonium lactate 12 % topical cream 1 applic topical DAILY 08/08/22 08/08/22 cyanocobalamin (vitamin B-12) 1,000 mcg subcut MONTHLY 08/08/22 08/08/22 1,000 mcg/mL injection solution ezetimibe 10 mg tablet (Zetia) 10 mg PO HS 08/08/22 08/08/22 losartan 25 mg tablet (Cozaar) 25 mg PO QPM 08/08/22 08/08/22 metformin 1,000 mg tablet,extended 1,000 mg PO BIDM 08/08/22 08/08/22 release 24hr oxybutynin chloride 10 mg 10 mg PO QPM 08/08/22 08/08/22 tablet,extended release 24 hr vitamins A,C,Q-vpbj-ibfqbw 2,148 1 tab PO QPM 08/08/22 08/08/22 mcg-113 mg-45 mg-17.4 mg tablet Previous Rx's Medication Instructions Recorded Lite Touch Insulin Pen [place] 31 #300 ea 07/22/20 gauge x 3/16" (pen needle, diabetic) albuterol sulfate 90 mcg/actuation 2 puff inhalation Q4 PRN Shortness 08/12/20 aerosol inhaler (Ventolin HFA) Of Breath Or Wheezing #1 ea Oxygen Home #2 L 05/13/21 Portable Oxygen #1 ea 05/25/21 spironolactone 25 mg tablet 25 mg PO BID #180 tabs 09/01/21 (Aldactone) methenamine hippurate 1 gram tablet 1 g PO Q12H #180 tabs 10/05/21 umeclidinium 62.5 mcg-vilanterol 1 inh inhalation DAILY #60 ea 01/30/22 25 mcg/actuation powdr for inhalation (Anoro Ellipta) dulaglutide 4.5 mg/0.5 mL 4.5 mg (0.5 mL) subcut Q7D #2 mL 03/08/22 subcutaneous pen injector Results & Data (ED) Vital Signs Vital Signs - 24 hr 08/08/22 16:50 08/08/22 19:30 08/08/22 20:00 Temperature 37.4 C Temperature Source Oral Pulse Rate 93 H 92 H 92 H Pulse Rhythm Regular Pulse Strength Normal Respiratory Rate 20 27 H 28 H Respiratory Effort / Characteristics Non-Labored Spontaneous Respiratory Depth Normal Respiratory Pattern Regular Blood Pressure 176/100 H 167/83 H 175/73 H Blood Pressure Mean 125 111 107 Blood Pressure Position Lying Pulse Oximetry 93 94 Oxygen Delivery Method Room Air Sepsis Recent Fever Within 48 Hours No Sepsis New/Unexplained Change in Mental Status No Sepsis Action Taken by Nursing No Action Required Laboratory Data 08/08/22 16:56 08/08/22 16:56 Lab Results 08/08/22 08/08/22 08/08/22 Range/Units 16:56 16:56 16:56 WBC 18.61 H (4.8-10.8) K/ul RBC 4.50 (3.93-5.22) M/uL Hgb 13.6 (12.0-16.0) g/dl Hct 40.6 (34.1-44.9) % MCV 90.2 (80.0-100.0) fL MCH 30.2 (25.0-34.0) pg MCHC 33.5 (32.0-36.0) g/dL RDW Std Deviation 45.4 (36.4-46.3) fL RDW Coeff of Vignesh 13.7 (11.5-14.5) % Plt Count 214 (130-400) K/uL MPV 11.1 (9.4-12.3) fL Immature Gran % (Auto) 0.8 % Neut % (Auto) 86.1 % Lymph % (Auto) 6.5 % [place] % (Auto) 6.4 % Eos % (Auto) 0.0 % Baso % (Auto) 0.2 % Neut # (Auto) 16.03 H (1.4-6.5) K/uL Lymph # (Auto) 1.21 (1.2-3.4) K/uL [place] # (Auto) 1.19 H (0.24-0.82) K/uL Eos # (Auto) 0.00 (0-0.50) K/uL Baso # (Auto) 0.04 (0-0.2) K/uL Immature Gran # (Auto) 0.14 H (0.00-0.02) K/uL Sodium 134 L (136-145) mmol/L Potassium 4.6 (3.5-5.1) mmol/L Chloride 100 (98-107) mmol/L Carbon Dioxide 23 (21-32) mmol/L Anion Gap 11 (3-11) BUN 34 H (6-23) mg/dl Creatinine 1.05 (0.6-1.2) mg/dl Est Cr Clr Drug Dosing 47.9 ml/min Est GFR ( Amer) 58.5 ml/min Est GFR (Non-Af Amer) 50.5 ml/min BUN/Creatinine Ratio 32.4 H (10-20) Glucose 315 H* (70-99(Fasting)) mg/dl Calcium 10.4 H (8.5-10.1) mg/dl Total Bilirubin 1.1 H (0.2-1.0) mg/dl AST 251 H (13-39) U/L ALT 59 H (7-52) U/L Alkaline Phosphatase 60 (34-104) U/L Total Creatine Kinase 30397 H (26-192) U/L Troponin I High Sens 1314.8 H* (0-14) pg/ml Total Protein 7.7 (6.0-8.3) gm/dl Albumin 4.0 (3.4-5.0) gm/dl Globulin 3.7 (2.5-4.0) gm/dl Albumin/Globulin Ratio 1.1 (0.9-2) Procalcitonin 4.39 H (0-0.5) ng/ml Administered Medications Sodium Chloride (Nss 1000ml) 1,000 mls @ 100 mls/hr IV .Q10H [facility] Stop: 08/09/22 17:29 Last Admin: 08/08/22 22:23 Dose: 100 mls/hr Documented By: ALEJANDRA Cefepime HCl 1,000 mg/ Syringe 10 mls @ 5 mls/min IV Q12H [facility]; Protocol Stop: 08/18/22 21:59 Last Admin: 08/08/22 22:24 Dose: 5 mls/min Documented By: ALEJANDRA Insulin Aspart (Insulin Aspart Per Unit) 0 units SC ACHS [facility] Stop: 09/07/22 20:59 Last Admin: 08/08/22 22:23 Dose: 2 units Documented By: ALEJANDRA Co-signed By: RSL Morphine Sulfate (Morphine Sulfate 2 Mg/Ml Carp) 1 mg IV Q6H PRN PRN Reason: Pain (4,5,6+) Stop: 08/22/22 21:33 Last Admin: 08/08/22 22:31 Dose: 1 mg Documented By: ALEJANDRA Mupirocin (Mupirocin 2% Oint 22 Gm Tube) 1 appln EXT BID [facility] Stop: 09/07/22 20:59 Last Admin: 08/08/22 22:32 Dose: 1 appln Documented By: ALEJANDRA Discontinued Medications Lactated Ringer's (Lr) 1,000 mls @ 999 mls/hr IV .Q1H1M ONE Stop: 08/08/22 21:09 Last Infusion: 08/08/22 21:40 Dose: 0 mls/hr Documented By: Admin: 08/08/22 20:15 Dose: 999 mls/hr Documented By: ALEJANDRA Ioversol (Optiray 350 100ml) 82 ml IV ONCE ONE Stop: 08/08/22 18:32 Last Admin: 08/08/22 18:31 Dose: 82 ml Documented By: RONNIE Imaging Data Radiologist's Impression: Chest X-Ray 08/08/22 17:07 XR chest 1V portable CLINICAL HISTORY: left chest wall pain s/p fall from standing COMPARISON STUDY: Chest CT June 22, 2022. FINDINGS: No pneumothorax or pleural effusion is noted. Several old left-sided rib fractures are present. There is mild enlargement of the cardiac silhouette. No evidence for pulmonary edema. Left upper lobe density is unchanged and favor scarring. Right internal jugular central venous catheter remains in place. IMPRESSION: No acute cardiopulmonary findings. ACT 112: Negative or not required by law. Electronically signed by: Grupo Castro M.D. 08/08/2022 5:41 PM Elbow X-Ray 08/08/22 17:07 XR elbow LT min 3V routine, XR elbow RT min 3V routine CLINICAL HISTORY: elbow pain s/p fall TECHNIQUE: 3 views of the bilateral elbows were obtained. Comparison: None available at the time of this dictation. FINDINGS: There is no evidence of an acute fracture. Joint spaces are well-preserved. There is mild prominence of the right fat pad which may represent a small joint effusion. No soft tissue abnormality is seen. IMPRESSION: Possible small left joint effusion without radiographically evident fracture. An occult fracture cannot be excluded and if there is clinical concern, CT or follow-up radiograph in a few days can be performed. The right elbow is unremarkable. ACT 112: Negative or not required by law. Electronically signed by: Tyron Dhillon M.D. 08/08/2022 5:46 PM Elbow X-Ray 08/08/22 17:07 XR elbow LT min 3V routine, XR elbow RT min 3V routine CLINICAL HISTORY: elbow pain s/p fall TECHNIQUE: 3 views of the bilateral elbows were obtained. Comparison: None available at the time of this dictation. FINDINGS: There is no evidence of an acute fracture. Joint spaces are well-preserved. There is mild prominence of the right fat pad which may represent a small joint effusion. No soft tissue abnormality is seen. IMPRESSION: Possible small left joint effusion without radiographically evident fracture. An occult fracture cannot be excluded and if there is clinical concern, CT or follow-up radiograph in a few days can be performed. The right elbow is unremarkable. ACT 112: Negative or not required by law. Electronically signed by: Tyron Dhillon M.D. 08/08/2022 5:46 PM Knee X-Ray 08/08/22 17:07 XR knee RT 1 or 2V routine, XR knee LT 1 or 2V routine CLINICAL HISTORY: knee pain s/p fall TECHNIQUE: 2 views of the bilateral knees were obtained. Comparison: None available at the time of this dictation. FINDINGS: There is no evidence of an acute fracture. Chondrocalcinosis is noted. Is seen. No joint effusion is seen. Vascular calcifications are noted. IMPRESSION: No evidence of acute osseous injury. ACT 112: Negative or not required by law. Electronically signed by: Tyron Dhillon M.D. 08/08/2022 5:42 PM Knee X-Ray 08/08/22 17:07 XR knee RT 1 or 2V routine, XR knee LT 1 or 2V routine CLINICAL HISTORY: knee pain s/p fall TECHNIQUE: 2 views of the bilateral knees were obtained. Comparison: None available at the time of this dictation. FINDINGS: There is no evidence of an acute fracture. Chondrocalcinosis is noted. Is seen. No joint effusion is seen. Vascular calcifications are noted. IMPRESSION: No evidence of acute osseous injury. ACT 112: Negative or not required by law. Electronically signed by: Tyron Dhillon M.D. 08/08/2022 5:42 PM Abdomen/Pelvis CT 08/08/22 17:12 CT abd pelvis IV con only CLINICAL HISTORY: LUQ abdominal pain; trauma TECHNIQUE: Helical axial images of the abdomen and pelvis were obtained and displayed. Automated dose lowering techniques and/or adjustment according to patient size were utilized for this exam. This exam was performed with intravenous contrast. CT DOSE: 1160.90 mGycm COMPARISON: Comparison is made to CT abdomen pelvis 04/01/2020 FINDINGS: Lower chest: Biatrial enlargement is seen. Liver: Caudate enlargement is seen. Nodular contour of the liver is noted. There is a hypodensity in the right lower capsule measuring approximately 42 x 9 mm. Gallbladder and biliary tree: Patient is status post cholecystectomy. No intra- or extrahepatic biliary ductal dilation. Pancreas: Unremarkable, no focal lesions. Spleen: Splenic calcifications are seen. There is questionable lateral peripheral hypodensity measuring approximately 32 x 5 mm. Adrenals: Unremarkable. Kidneys and ureters: There is a large left renal cyst measuring 67 mm in diameter. Bladder: Unremarkable. Reproductive organs: Possible tiny uterine fibroid. Bowel: Diverticulosis is seen without evidence of diverticulitis. There is a small hiatal hernia. Lymph nodes Retroperitoneal: Unremarkable. Pelvic: Unremarkable. Mesenteric: Unremarkable. Peritoneum: Normal. Vessels: Atherosclerotic calcifications are seen. Abdominal wall: No contusions are seen in the left upper quadrant. Redemonstration of right lower quadrant shunt catheter. Bones: Degenerative changes in the visualized spine. Pars defects and grade 1 anterolisthesis are seen at L4-L5. Old healed rib fractures are noted. IMPRESSION: 1. There is hyperdensities in the lateral aspect of the spleen and liver. These may represent grade 1 hematomas or represent artifact secondary to patient motion. No abdominal wall contusions are seen. 2. Cirrhotic morphology of the liver without ascites. ACT 112: Negative or not required by law. Electronically signed by: Tyron Dhillon M.D. 08/08/2022 6:56 PM Discharge Plan Visit Data Chief Complaint: Fall Stated Complaint: FALL ED Provider: Mayelin Wilson Discharge Problem: Fall, Non-ST elevation NV (NSTEMI), Hyperglycemia, Weakness Patient Disposition: Admitted As Inpatient Discharge Instructions Interventions: ED Discharge Assessment Last Done: 08/08/22 22:48
[2022-08-08 17:31] LABS: Hematocrit (blood only) 40.6 % (34.1-44.9); Hemoglobin 13.6 g/dl (12.0-16.0); White Blood Count 18.61 K/ul (4.8-10.8)
[2022-08-08 17:32] LABS: Basophils # (auto) 0.04 K/uL (0-0.2); Basophils % (auto) 0.2 %; Immature Granulocytes # (auto) 0.14 K/uL (0.00-0.02); Immature Granulocytes % (auto) 0.8 %; Lymphocytes # (auto) 1.21 K/uL (1.2-3.4); Lymphocytes % (auto) 6.5 %; Mean Corpuscular Hemoglobin 30.2 pg (25.0-34.0); Mean Corpuscular Hgb Conc 33.5 g/dL (32.0-36.0); Mean Corpuscular Volume 90.2 fL (80.0-100.0); Mean Platelet Volume 11.1 fL (9.4-12.3); Monocytes # (auto) 1.19 K/uL (0.24-0.82); Monocytes % (auto) 6.4 %; Neutrophils # (auto) 16.03 K/uL (1.4-6.5); Neutrophils % (auto) 86.1 %; Platelet Count 214 K/uL (130-400); RDW Coefficient of Variation 13.7 % (11.5-14.5); RDW Standard Deviation 45.4 fL (36.4-46.3)
--- NOTE | 2022-08-08 17:43 | XRay Report ---
XR chest 1V portable CLINICAL HISTORY: left chest wall pain s/p fall from standing COMPARISON STUDY: Chest CT June 22, 2022. FINDINGS: No pneumothorax or pleural effusion is noted. Several old left-sided rib fractures are pres ent. There is mild enlargement of the cardiac silhouette. No evidence for pulmonary edema. Left upper lobe density is unchanged and favor scarring. Right internal jugular central venous catheter remains in place. IMPRESSION: No acute cardiopulmonary findings. ACT 112: Negative or not required by law. Electronically signed by: Grupo Castro M.D. 08/08/2022 5:41 PM
--- NOTE | 2022-08-08 17:43 | XRay Report ---
XR knee RT 1 or 2V routine, XR knee LT 1 or 2V routine CLINICAL HISTORY: knee pain s/p fall TECHNIQUE: 2 views of the bilateral knees were obtained. Comparison: None available at the time of this dictation. FINDINGS: There is no evidence of an acute fracture. Chondrocalcinosis is noted. Is seen. No joint effusion is seen. Vascular calcifications are noted. IMPRESSION: No evidence of acute osseous injury. ACT 112: Negative or not required by law. Electronically signed by: Tryon Dhillon M.D. 08/08/2022 5:42 PM
--- NOTE | 2022-08-08 17:48 | XRay Report ---
XR elbow LT min 3V routine, XR elbow RT min 3V routine CLINICAL HISTORY: elbow pain s/p fall TECHNIQUE: 3 views of the bilateral elbows were obtained. Comparison: None available at the time of this dictation. FINDINGS: There is no evidence of an acute fracture. Joint spaces are well-preserved. There is mild prominence of the right fat pad which may represent a small joint effusion. No soft tissue abnormality is seen. IMPRESSION: Possible small left joint effusion without radiographically evident fracture. An occult fracture saroj ot be excluded and if there is clinical concern, CT or follow-up radiograph in a few days can be perf ormed. The right elbow is unremarkable. ACT 112: Negative or not required by law. Electronically signed by: Tyron Dhillon M.D. 08/08/2022 5:46 PM
[2022-08-08 18:02] LABS: Albumin Globulin Ratio 1.1 (0.9-2); BUN Creatinine Ratio 32.4 (10-20); Bilirubin,Total 1.1 mg/dl (0.2-1.0); Calcium 10.4 mg/dl (8.5-10.1); Creatinine Clr Calc Pharmacy 47.9 ml/min; Est GFR (African American) 58.5 ml/min; Est GFR (Non-African American) 50.5 ml/min; Globulin 3.7 gm/dl (2.5-4.0); Potassium 4.6 mmol/L (3.5-5.1); Total Protein 7.7 gm/dl (6.0-8.3); Troponin I High Sensitivity 1314.8 pg/ml (0-14)
[2022-08-08] MEDS ORDERED: OPTIRAY 350 100ml IV ONE (18:31)
--- NOTE | 2022-08-08 18:58 | CT Scan Report ---
CT abd pelvis IV con only CLINICAL HISTORY: LUQ abdominal pain; trauma TECHNIQUE: Helical axial images of the abdomen and pelvis were obtained and displayed. Automated dose lowering techniques and/or adjustment according to patient size were utilized for this exam. This e xam was performed with intravenous contrast. CT DOSE: 1160.90 mGycm COMPARISON: Comparison is made to CT abdomen pelvis 04/01/2020 FINDINGS: Lower chest: Biatrial enlargement is seen. Liver: Caudate enlargement is seen. Nodular contour of the liver is noted. There is a hypodensity in the right lower capsule measuring approximately 42 x 9 mm. Gallbladder and biliary tree: Patient is status post cholecystectomy. No intra- or extrahepatic bilia ry ductal dilation. Pancreas: Unremarkable, no focal lesions. Spleen: Splenic calcifications are seen. There is questionable lateral peripheral hypodensity measuri ng approximately 32 x 5 mm. Adrenals: Unremarkable. Kidneys and ureters: There is a large left renal cyst measuring 67 mm in diameter. Bladder: Unremarkable. Reproductive organs: Possible tiny uterine fibroid. Bowel: Diverticulosis is seen without evidence of diverticulitis. There is a small hiatal hernia. Lymph nodes Retroperitoneal: Unremarkable. Pelvic: Unremarkable. Mesenteric: Unremarkable. Peritoneum: Normal. Vessels: Atherosclerotic calcifications are seen. Abdominal wall: No contusions are seen in the left upper quadrant. Redemonstration of right lower mitchell drant shunt catheter. Bones: Degenerative changes in the visualized spine. Pars defects and grade 1 anterolisthesis are see n at L4-L5. Old healed rib fractures are noted. IMPRESSION: 1. There is hyperdensities in the lateral aspect of the spleen and liver. These may represent grade 1 hematomas or represent artifact secondary to patient motion. No abdominal wall contusions are seen. 2. Cirrhotic morphology of the liver without ascites. ACT 112: Negative or not required by law. Electronically signed by: Tyron Dhillon M.D. 08/08/2022 6:56 PM
[2022-08-08] MEDS ORDERED: LACTATED RINGER'S 1,000 ML IV ONE (20:09)
--- NOTE | 2022-08-08 20:12 | History & Physical Report ---
Date of Service August 08, 2022 Assessment & Plan (1) Fall: Plan: -Admit to the PCU/tele -Patient fell out of bed early this am and was on the ground for an unknown period of time -Besides the skin abrasions and BL elbow contusions she is without acute musculoskeletal trauma -Did not hit her head or lose consciousness -Ct of the abd/pelvis w/contrast shows "hyperdensities in the lateral aspect of the spleen and liver. These may represent grade 1 hematomas or represent artifact secondary to patient motion." She is without signs of bleeding on inspection of her abdomen. -Will get repeat CT of the abdomen/pelvis in the am for follow-up -Pain control for now with prn tylenol (max dose of 2 gm) and 1 mg IV morphine q4h prn for severe pain -Will start with BL SCDs and hold chemical DVT PPX for now with her recent trauma -If her left elbow pain worsens then would consider CT for further evaluation -Wound consult placed for large skin abrasions and ordered BID mupirocin for now (2) Rhabdomyolysis: Plan: -Initial Ck elevated at 19,000, Cr is currently at 1.05, baseline appears to be 0.5-0.6, AG is WNL and no signs of acidosis at this time -Will order 1L LR bolus STAT and then continue maintenance fluid overnight with NSS at 100 mL/hr x 2 bags as the patient appears very dehydrated -Placing a barnett for close urine output -Will continue to trend CK until it begins to trend down -Hold nephrotoxic agents -Monitor AM CMP for electrolytes and renal function (3) UTI (urinary tract infection): Plan: -Patient found to have significant leukocytosis, left shift, and elevated procal -UA is positive for UTI, no other signs of infection on her infectious workup at this time -Blood cultures ordered prior to starting antibiotics -Per review of her previous urine cultures, the patient has grown e.coli resistant to fluoroquinolones, Enterobacter resistant to ceftriaxone, and Coag neg staph not saprophytic resistant to bactrim and oxacillin -Will start the patient on Cefepime -Follow urine and blood cultures and tailor abx to their results (4) Elevated troponin: Plan: -Initial trop elevated at 1314, patient is asymptomatic as her left lower chest/rib pain is reproducible on palpation, she is also without acute ST segment or T-wave changes ECG -Likely multifactorial including demand from being down for multiple hours, her acute illness, and current Rhabdo -STAT repeat in process, will continue to trend q6h until it begins to trend down -Monitor on tele and pulse oximetry (5) Hyperglycemia: Plan: -Noted to be in the 300's on presentation to the ED -Starting the patient on lantus, 8 units BID, correction factor of 50, and carb ratio of 15 -Monitor BSG q6h for now, goal BSG is 110-160 -Adjust regimen as needed -Hold metformin (6) Hypertension: Plan: -Stable -Hold Losartan and spironolactone for now with EBENEZER and Rhabdo -If needed, will need to start another antihypertensive until her kidney function is stable (7) Diabetes mellitus, type 2: Plan: -See hyperglycemia (8) Dyspnea on exertion: Plan: -Patient has a history of mixed lung disease, on HS 2L NC -Currently stable on RA -Continue HS 2L NC -Continue home breathing treatments -Incentive spirometry, flutter therapy, PRN duonebs, (9) Cirrhosis: Plan: -Cirrhotic morphology of the liver noted on CT today -ALT is at AST at 251 -Would trend CMP for now (10) Intellectual disability: Plan: -Patient is a resident at the [facility] in [place] -Alert and oriented X 3 Plan The patient was discussed with Dr. 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 In the ED the patient was found to be afebrile, hypertensive at 167/83, and stable on 2L NC. Labs were remarkable for a leukocytosis of 18.61 with left shift of 16, stable Hgb and platelets, cr of 1.0 (baseline appears 0.58-1.0), glucose of 315, corrected sodium of 137, calcium of 10.4, otherwise stable e lectrolytes, total bili of 1.1, AST of 251, ALT of 59, alk phos of 60, [place] [address], initial high sensitivity trop of 1314, procal of 4.39, covid negative, Chest xray was read as "No acute cardiopulmonary findings.". CT of the abdomen/pelvis with IV contrast was read as "There is hyperdensities in the lateral aspect of the spleen and liver. These may represent grade 1 hematomas or represent artifact secondary to patient motion. No abdominal wall contusions are seen. 2. Cirrhotic morphology of the liver without ascites.". Xrays of the BL elbows were read as "Possible small left joint effusion without radiographically evident fracture. An occult fracture cannot be excluded and if there is clinical concern, CT or follow-up radiograph in a few days can be performed. The right e lbow is unremarkable.". Xrays of the BL knees were read as "No evidence of acute osseous injury". Prior to admission the patient was given no medications or IV fluids. At the time of the exam the patient was resting comfortably in bed in no acute distress with a loan representative from her assisted living facility ([facility]) sitting bedside, history was obtained from both but due to her baseline intellectual disability the patient is not the most reliable historian. They state that the patient fell out of her bed after rolling the wrong direction at approximately 0200 this morning. The patient states that she remembers falling out of bed and she denies hitting her head or losing consciousness. She is unsure of how long she was on the ground for but she was able to eventually get herself back into bed. When the staff saw her in later in the day they suggested she come to the ED to be evaluated and she was in agreement. She denies any pain on her face, head, neck, or back. She is currently experiencing pain in her LUQ/left lower ribs, she states that the pain is worse with movement and deep breaths, she denies any other abdominal pain or chest pain. She does not think that she has been experiencing dysuria/hematuria but she does have a history of recurrent UTI's and her caregiver at [facility] states that she was recently treated for a UTI. She has pain in her BL elbows and knees but was able to successfully ambulate to the bathroom prior to my arrival. She denies any recent fevers, chills, cough, increased SOB, or other recent trauma. I spoke to the patient regarding code status as her Facility Confirmed that she has the power to make her own medical decisions. The patient states that she does NOT want CPR or defibrillation in the event of cardiac arrest. In the event of respiratory failure she would want a trial of intubation. Her son would make decisions for her if she could not make them herself. After examination of her mouth I asked if she was still using chewing tobacco, she states that she still is. Please refer to Dr. Cole's attestation for any changes to the treatment plan Allergies Allergy/AdvReac Type Severity Reaction Status Date / Time erythromycin base AdvReac Intermediate Nausea Verified 08/08/22 20:33 Penicillins AdvReac Mild GI UPSET Verified 08/08/22 20:33 Home Medications Medication Instructions Recorded Confirmed Type cyanocobalamin (vitamin B-12) 1,000 mcg PO DAILY 10/18/18 08/08/22 History 1,000 mcg tablet (Vitamin B-12) syringe with needle 3 mL 25 x 5/8" #1 ea 01/21/19 06/28/22 History Lactobacills gasseri-Bifidobac 1 cap PO QAM 05/02/19 08/08/22 History bifidum,longum 1.5 billion cell capsule (Inbenta) cranberry 500 mg capsule 1,500 mg PO BID 05/02/19 08/08/22 History letrozole 2.5 mg tablet 2.5 mg PO QAM 05/02/19 08/08/22 History Lite Touch Insulin Pen Roff 31 #300 ea 07/22/20 06/28/22 Rx gauge x 3/16" (pen needle, diabetic) albuterol sulfate 90 mcg/actuation 2 puff inhalation Q4 PRN Shortness 08/12/20 08/08/22 Rx aerosol inhaler (Ventolin HFA) Of Breath Or Wheezing #1 ea denosumab 60 mg/mL subcutaneous 60 mg subcut .Q 6 months 05/11/21 08/08/22 History syringe (Prolia) Oxygen Home #2 L 05/13/21 06/28/22 Rx Portable Oxygen #1 ea 05/25/21 06/28/22 Rx cholecalciferol (vitamin D3) 25 2,000 unit PO BID 06/28/21 08/08/22 History mcg (1,000 unit) tablet (Vitamin D3) spironolactone 25 mg tablet 25 mg PO BID #180 tabs 09/01/21 08/08/22 Rx (Aldactone) methenamine hippurate 1 gram tablet 1 g PO Q12H #180 tabs 10/05/21 08/08/22 Rx umeclidinium 62.5 mcg-vilanterol 1 inh inhalation DAILY #60 ea 01/30/22 08/08/22 Rx 25 mcg/actuation powdr for inhalation (Anoro Ellipta) blood-glucose meter,continuous 03/08/22 08/08/22 History (Dexcom G6 Analysis Mgr) dulaglutide 4.5 mg/0.5 mL 4.5 mg (0.5 mL) subcut Q7D #2 mL 03/08/22 08/08/22 Rx subcutaneous pen injector insulin degludec 200 unit/mL (3 22 unit subcut .DAILY AT NOON 05/10/22 08/08/22 History mL) subcutaneous pen (Tresiba FlexTouch U-200 insulin) insulin aspar prot-insulin aspart 120 unit subcut UD 06/15/22 08/08/22 History 100 unit/mL (70-30) subcutaneous pen (Novolog Mix 70-30FlexPen U-100) ammonium lactate 12 % topical cream 1 applic topical DAILY 08/08/22 08/08/22 History cyanocobalamin (vitamin B-12) 1,000 mcg subcut MONTHLY 08/08/22 08/08/22 History 1,000 mcg/mL injection solution ezetimibe 10 mg tablet (Zetia) 10 mg PO HS 08/08/22 08/08/22 History losartan 25 mg tablet (Cozaar) 25 mg PO QPM 08/08/22 08/08/22 History metformin 1,000 mg tablet,extended 1,000 mg PO BIDM 08/08/22 08/08/22 History release 24hr oxybutynin chloride 10 mg 10 mg PO QPM 08/08/22 08/08/22 History tablet,extended release 24 hr vitamins A,C,D-eons-itxxsl 2,148 1 tab PO QPM 08/08/22 08/08/22 History mcg-113 mg-45 mg-17.4 mg tablet Past Med/Surg History Medical History AMD (age related macular degeneration) Asthma Atrial septal defect Bilateral nephrolithiasis Calcium nephrolithiasis Cirrhosis Diabetes mellitus, type 2 Dyspnea on exertion Ex-smoker Hx of sepsis Hydronephrosis of left kidney Hyperlipidemia Hypertension Hypoxia Lower extremity edema Malignant neoplasm of central portion of left breast in female, estrogen receptor positive (04/18/18) Mental retardation Morbid obesity due to excess calories Multiple pulmonary nodules determined by computed tomography of lung Nephrolithiasis Osteoarthritis Osteopenia Solitary pulmonary nodule Urinary incontinence Varicose vein of leg Vitamin B12 deficiency Vitamin D deficiency Surgical History History of cholecystectomy History of lithotripsy History of surgery of liver S/P colonoscopy S/P ureteral stent placement Status post left breast lumpectomy Family History Mother , at a young age , not sure cause No problems noted. Father , age 109 / " old age " No problems noted. Sister , age 51 Breast cancer Sister , very young ,, hit by a truck Accident Sister No problems noted. Brother , age 55 Liver failure Brother , age 4-5 ys old , not sure cause Colon cancer Unknown Breast cancer Other Asthma Cancer Diabetes Denies family history of Heart disease Lung disease Social History Smoking Status: Never smoker Tobacco Type: Cigarettes Age Started Using Tobacco: 22; Age Quit Using Tobacco: 52; packs per day: 1; Second Hand Exposure: Yes; Hx Alcohol Use: No Hx Substance Use: No Preferred Language: Frisian Communication Ability: Effective Visual Impairment: Limited Hearing Ability: Normal Rock Crusher Required: No Beliefs That Will Affect Care: None marital status: / Current Living Situation: Alone current occupational 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 How many Children do You have: 3 Feels Safe at Home: Yes Childhood Exposure to Second-Hand Smoke: Yes caffeine: Yes (drinks coffee tea and soda) Dental Care, Regularly: Yes Physical Activity Frequency: 3-4 Times per Week Physical Activity Frequency Comment: walks throughout the week Seatbelt Use: always Sunscreen Use: Yes Assistive Devices: Denture - Upper, Denture - Lower and Glasses Review of Systems Review of Systems: Denies current fever, chills, headache, changes in vision, hearing, taste, and smell, cough, nausea, diarrhea, hematemesis, melena, All systems have been reviewed and are otherwise negative. Physical Exam Physical Exam: Physical Exam: General: In no acute distress, stated age, chronicaly ill appearing, non- toxic appearing HEENT: Normocephalic, atraumatic, no scleral icterus, pupils around round, symmetrical, and reactive to light, previous right corneal discoloration noted, poor oral hygiene with remanence of chewing tobacco and dry mucus membranes trachea midline, no thyromegaly Chest/Pulm: No respiratory distress, symmetrical chest expansion, expiratory wheezing noted throughout Cardiac: RRR, no murmurs noted Abdomen: Negative for ascites, patient with blood glucose monitoring censor located in the LUQ, small bruise from sub-Q insulin at home noted in the central abdomen, normoactive bowel sounds, soft, mildly tender to palpation in the LUQ but non-tender in all other abdominal regions Musculoskeletal: Patient without acute trauma on the head, face, or neck, no tenderness to palpation over the cervical spine, patient with intact ROM of the BL shoulders/elbows but with increased swelling and pain in the left elbow compared to the right, patient without signs of bruising on the BL chest but with reproducible tenderness to palpation over the left chest, patient with large skin abrasions over the knees without signs of active bleeding, no other acute trauma noted on the lower extremities Extremities: Radial, dorsalis pedis, and posterior tibial pulses are intact and symmetrical, no edema noted in the BL LE's Skin: As described above Neuro: Alert and oriented to person, place, month, year, no focal defects, CN II-XII tested and intact, finger to nose test negative, no tremors noted Psych: No acute distress, calm and cooperative during the exam Results & Data Results & Data ([facility]) Vital Signs (Past 12 Hours) Vital Signs Temp Pulse Resp BP Pulse Ox O2 Del Method 08/08/22 16:50 37.4 C 93 H 20 176/100 H 93 Room Air Laboratory Results Abnormal lab results 0108/08/22 08/08/22 Range/Units 16:56 16:56 16:56 WBC 18.61 H (4.8-10.8) K/ul Neut # (Auto) 16.03 H (1.4-6.5) K/uL [place] # (Auto) 1.19 H (0.24-0.82) K/uL Immature Gran # (Auto) 0.14 H (0.00-0.02) K/uL Sodium 134 L (136-145) mmol/L BUN 34 H (6-23) mg/dl BUN/Creatinine Ratio 32.4 H (10-20) Glucose 315 H* (70-99(Fasting)) mg/dl POC Glucose (70-99) mg/dl Calcium 10.4 H (8.5-10.1) mg/dl Total Bilirubin 1.1 H (0.2-1.0) mg/dl AST 251 H (13-39) U/L ALT 59 H (7-52) U/L Total Creatine Kinase 87709 H (26-192) U/L Troponin I High Sens 1314.8 H* (0-14) pg/ml Procalcitonin 4.39 H (0-0.5) ng/ml Urine Appearance (Clear) Ur Specific [place] (1.000-1.030) Urine Protein (Negative) Urine Glucose (UA) (Negative) Urine Blood (Negative) Urine Nitrite (Negative) Ur Leukocyte Esterase (Negative) Urine WBC (Auto) (0-5) /hpf Urine RBC (Auto) (0-4) /hpf U Hyaline Cast (Auto) (0-5) /lpf U Epithel Cells (Auto) (0-5) /lpf Urine Bacteria (Auto) (Negative) Granular Casts (0) /lpf 08/08/22 08/08/22 Range/Units 20:27 20:29 WBC (4.8-10.8) K/ul Neut # (Auto) (1.4-6.5) K/uL [place] # (Auto) (0.24-0.82) K/uL Immature Gran # (Auto) (0.00-0.02) K/uL Sodium (136-145) mmol/L BUN (6-23) mg/dl BUN/Creatinine Ratio (10-20) Glucose (70-99(Fasting)) mg/dl POC Glucose 221 H (70-99) mg/dl Calcium (8.5-10.1) mg/dl Total Bilirubin (0.2-1.0) mg/dl AST (13-39) U/L ALT (7-52) U/L Total Creatine Kinase (26-192) U/L Troponin I High Sens (0-14) pg/ml Procalcitonin (0-0.5) ng/ml Urine Appearance Turbid A (Clear) Ur Specific [place] > 1.045 H (1.000-1.030) Urine Protein 2+ H (Negative) Urine Glucose (UA) 1+ H (Negative) Urine Blood 3+ H (Negative) Urine Nitrite Positive A (Negative) Ur Leukocyte Esterase 1+ H (Negative) Urine WBC (Auto) >30 H (0-5) /hpf Urine RBC (Auto) 10-30 H (0-4) /hpf U Hyaline Cast (Auto) >30 H (0-5) /lpf U Epithel Cells (Auto) >30 H (0-5) /lpf Urine Bacteria (Auto) 3+ H (Negative) Granular Casts >30 H (0) /lpf Diagnostic Findings Chest X-Ray 08/08/22 17:07 XR chest 1V portable CLINICAL HISTORY: left chest wall pain s/p fall from standing COMPARISON STUDY: Chest CT June 22, 2022. FINDINGS: No pneumothorax or pleural effusion is noted. Several old left-sided rib fractures are present. There is mild enlargement of the cardiac silhouette. No evidence for pulmonary edema. Left upper lobe density is unchanged and favor scarring. Right internal jugular central venous catheter remains in place. IMPRESSION: No acute cardiopulmonary findings. ACT 112: Negative or not required by law. Electronically signed by: Grupo Castro M.D. 08/08/2022 5:41 PM Elbow X-Ray 08/08/22 17:07 XR elbow LT min 3V routine, XR elbow RT min 3V routine CLINICAL HISTORY: elbow pain s/p fall TECHNIQUE: 3 views of the bilateral elbows were obtained. Comparison: None available at the time of this dictation. FINDINGS: There is no evidence of an acute fracture. Joint spaces are well-preserved. There is mild prominence of the right fat pad which may represent a small joint effusion. No soft tissue abnormality is seen. IMPRESSION: Possible small left joint effusion without radiographically evident fracture. An occult fracture cannot be excluded and if there is clinical concern, CT or fo llow-up radiograph in a few days can be performed. The right elbow is unremarkable. ACT 112: Negative or not required by law. Electronically signed by: Tyron Dhillon M.D. 08/08/2022 5:46 PM Elbow X-Ray 08/08/22 17:07 XR elbow LT min 3V routine, XR elbow RT min 3V routine CLINICAL HISTORY: elbow pain s/p fall TECHNIQUE: 3 views of the bilateral elbows were obtained. Comparison: None available at the time of this dictation. FINDINGS: There is no evidence of an acute fracture. Joint spaces are well-preserved. There is mild prominence of the right fat pad which may represent a small joint effusion. No soft tissue abnormality is seen. IMPRESSION: Possible small left joint effusion without radiographically evident fracture. An occult fracture cannot be excluded and if there is clinical concern, CT or follow-up radiograph in a few days can be performed. The right elbow is unremarkable. ACT 112: Negative or not required by law. Electronically signed by: Tyron Dhillon M.D. 08/08/2022 5:46 PM Knee X-Ray 08/08/22 17:07 XR knee RT 1 or 2V routine, XR knee LT 1 or 2V routine CLINICAL HISTORY: knee pain s/p fall TECHNIQUE: 2 views of the bilateral knees were obtained. Comparison: None available at the time of this dictation. FINDINGS: There is no evidence of an acute fracture. Chondrocalcinosis is noted. Is seen. No joint effusion is seen. Vascular calcifications are noted. IMPRESSION: No evidence of acute osseous injury. ACT 112: Negative or not required by law. Electronically signed by: Tyron Dhillon M.D. 08/08/2022 5:42 PM Knee X-Ray 08/08/22 17:07 XR knee RT 1 or 2V routine, XR knee LT 1 or 2V routine CLINICAL HISTORY: knee pain s/p fall TECHNIQUE: 2 views of the bilateral knees were obtained. Comparison: None available at the time of this dictation. FINDINGS: There is no evidence of an acute fracture. Chondrocalcinosis is noted. Is seen. No joint effusion is seen. Vascular calcifications are noted. IMPRESSION: No evidence of acute osseous injury. ACT 112: Negative or not required by law. Electronically signed by: Tyron Dhillon M.D. 08/08/2022 5:42 PM Abdomen/Pelvis CT 08/08/22 17:12 CT abd pelvis IV con only CLINICAL HISTORY: LUQ abdominal pain; trauma TECHNIQUE: Helical axial images of the abdomen and pelvis were obtained and displayed. Automated dose lowering techniques and/or adjustment according to patient size were utilized for this exam. This exam was performed with in travenous contrast. CT DOSE: 1160.90 mGycm COMPARISON: Comparison is made to CT abdomen pelvis 04/01/2020 FINDINGS: Lower chest: Biatrial enlargement is seen. Liver: Caudate enlargement is seen. Nodular contour of the liver is noted. There is a hypodensity in the right lower capsule measuring approximately 42 x 9 mm. Gallbladder and biliary tree: Patient is status post cholecystectomy. No intra- or extrahepatic biliary ductal dilation. Pancreas: Unremarkable, no focal lesions. Spleen: Splenic calcifications are seen. There is questionable lateral peripheral hypodensity measuring approximately 32 x 5 mm. Adrenals: Unremarkable. Kidneys and ureters: There is a large left renal cyst measuring 67 mm in diameter. Bladder: Unremarkable. Reproductive organs: Possible tiny uterine fibroid. Bowel: Diverticulosis is seen without evidence of diverticulitis. There is a small hiatal hernia. Lymph nodes Retroperitoneal: Unremarkable. Pelvic: Unremarkable. Mesenteric: Unremarkable. Peritoneum: Normal. Vessels: Atherosclerotic calcifications are seen. Abdominal wall: No contusions are seen in the left upper quadrant. Redemonstration of right lower quadrant shunt catheter. Bones: Degenerative changes in the visualized spine. Pars defects and grade 1 anterolisthesis are seen at L4-L5. Old healed rib fractures are noted. IMPRESSION: 1. There is hyperdensities in the lateral aspect of the spleen and liver. These may represent grade 1 hematomas or represent artifact secondary to patient motion. No abdominal wall contusions are seen. 2. Cirrhotic morphology of the liver without ascites. ACT 112: Negative or not required by law. Electronically signed by: Tyron Dhillon M.D. 08/08/2022 6:56 PM ECG Additional Comments: Normal sinus rhythm Minimal voltage criteria for LVH, may be normal variant Borderline ECG When compared with ECG of 08-AUG-2022 16:49, (unconfirmed) No significant change was found Code Status & VTE Plan Code Status Conditional code; patient would NOT want CPR or defibrillation; would want a trial of intubation if needed VTE Prophylaxis Plan VTE Prophylaxis will be ordered: Yes Supervising Physician Co-Signing Physician Notes Patient seen and examined, chart reviewed, case discussed with ZENOBIA Jenkins and I agree with the assessment and plan as documented above. In brief, patient is a 81-year-old female with history of asthma, hypertension, breast cancer status post left partial mastectomy, diabetes, cirrhosis, hyperlipidemia and developmen charito delay presenting after a fall with unknown downtime. Patient reports rolling out of bed at approximately 0200 this morning. She is complaining of pain in her left upper quadrant which is worse with movement and deep breaths. No additional complaints at this time. On exam she is afebrile, hypertensive, tachycardic, no respiratory distress Skinabrasions and skin tears noted on bilateral knees. No active bleeding or evidence of secondary infection HEENTnormocephalic/atraumatic, pupils equal round and reactive, no scleral icterus, dry mucous membranes, poor oral hygiene Heart+ S1, S2, regular, no murmur/rub/gallops, pain with palpation of the left chest, no crepitus, normal chest wall mechanics Lungsequal breath sounds bilaterally with no rales, rhonchi, scattered end expiratory wheezes appreciated bilaterally Abdomen+ bowel sounds, soft, nondistended, some tenderness with palpation of the left upper quadrant without rebound or guarding. Extremitiesswelling of bilateral knees and elbows Neurogrossly no deficits Labs and images reviewed. Significant for WBC = 18.61 with neutrophil predominance and bands, sodium = 134, BUN = 34, glucose initially 315 with repeat of 221. Calcium = 10.4 total bilirubin = 1.1, AST = 251, ALT = 59, total CK elevated at 19,016. Initial troponin elevated at 1314.8 UA with specific gravity of greater than 1.045, suggestive of infection as well Image results as above. Most notable for hyperdensities in the lateral aspect of the spleen and liver which may represent grade 1 hematomas versus artifact. Also with cirrhotic morphology of the liver X-ray of the elbow with possible small left joint effusion. An occult fracture cannot be excluded EKG with normal sinus rhythm at 90 bpm, no acute ischemic changes Assessment/plan: 81-year-old female presenting with a fall from bed this morning with unknown downtime. Labs with rhabdomyolysis, marked elevation of troponin as well as UTI. Patient presently mildly tachycardic and hypertensive, otherwise stable. Will provide IV fluid, 1 L LR ordered followed by maintenance normal saline x2 additional liters. Repeat CK in the morning Trend troponin, telemetry monitoring Repeat CT of the abdomen in the morning to assess for splenic hematoma Trend troponin Will check 2D echo although patient not complaining of chest pain. No ischemic changes on EKG Follow urinary cultures, provide cefepime for now PG Care Time/CCT Total # of Minutes Spent Total Time Spent with Patient: Total time spent is greater than 50% in coordination of care (as documented) at patient's floor/unit and/or counseling patient: [place] [address] INT INP/OBS CARE 3/75MIN Patient Type Established Medical Decision Making High Complexity Diagnoses Fall W19.XXXA Rhabdomyolysis M62.82 UTI (urinary tract infection) N39.0 Elevated troponin R77.8 Hyperglycemia R73.9 Hypertension I10 Diabetes mellitus, type 2 E11.9 Dyspnea on exertion R06.00 Cirrhosis K74.60 Intellectual disability F79
[2022-08-08] MEDS ORDERED: GLUCOSE 10 TAB/TUBE PO PRN (20:16)
[2022-08-08] MEDS ORDERED: CARBOHYDRATES FOR HYPOGLYCEMIA PO PRN (20:16)
[2022-08-08] MEDS ORDERED: DEXTROSE 50% 50 ML SYRINGE IV PRN (20:16)
[2022-08-08] MEDS ORDERED: GLUCAGON FOR INJ 1 MG VIAL SQ PRN (20:16)
[2022-08-08] MEDS ORDERED: GLUCOSE 40% GEL 15 GM TUBE PO PRN (20:16)
[2022-08-08 20:46] LABS: Appearance Urine Turbid (Clear); Bacteria Urine Automated 3+ (Negative); Bilirubin Urine Negative (Negative); Blood Urine 3+ (Negative); Color Urine Orange; Epithelial Cell Urine Auto >30 /lpf (0-5); Glucose Urine UA 1+ (Negative); Ketones Urine Negative (Negative); Leukocyte Esterase Urine 1+ (Negative); Nitrite Urine Positive (Negative); Protein Urine 2+ (Negative); Specific Gravity Urine > 1.045 (1.000-1.030); Urobilinogen Urine Negative (Negative); WBC Urine Automated >30 /hpf (0-5)
[2022-08-08 21:03] LABS: Cast Urine Automated >30 /lpf (0-5); Granular Casts Urine >30 /lpf (0)
[2022-08-08] MEDS ORDERED: NITROFURANTOIN MONOHYDRATE 100 MG CAP PO SCH (22:00)
[2022-08-08] MEDS ORDERED: ALBUT/IPRATROP 3MG/0.5MG NEB 3 ML VIAL NEB PRN (22:18)
[2022-08-08] MEDS: INSULIN ASPART PER UNIT SC SCH (22:23)
[2022-08-08] MEDS: SODIUM CHLORIDE 0.9% 1000ML 1,000 ML IV SCH (22:23)
[2022-08-08] MEDS: CEFEPIME 1,000 MG in SYRINGE 0 ML IV SCH (22:24)
[2022-08-08] MEDS: MoRPHine SULFATE 2 MG/ML CARP IV PRN (22:31)
[2022-08-08] MEDS: MUPIROCIN 2% OINT 22 GM TUBE EXT SCH (22:32)
[2022-08-09] MEDS: LANTUS PER UNIT CHARGE SQ SCH ×3 (01:52→15:29)
[2022-08-09 06:16] LABS: Hematocrit (blood only) 40.5 % (34.1-44.9); Hemoglobin 13.5 g/dl (12.0-16.0); Mean Corpuscular Hemoglobin 30.1 pg (25.0-34.0); Mean Corpuscular Hgb Conc 33.3 g/dL (32.0-36.0); Mean Corpuscular Volume 90.4 fL (80.0-100.0); Mean Platelet Volume 10.6 fL (9.4-12.3); Platelet Count 187 K/uL (130-400); RDW Coefficient of Variation 13.8 % (11.5-14.5); RDW Standard Deviation 45.5 fL (36.4-46.3); Red Blood Count 4.48 M/uL (3.93-5.22); White Blood Count 13.01 K/ul (4.8-10.8)
[2022-08-09] MEDS: ALBUT/IPRATROP 3MG/0.5MG NEB 3 ML VIAL NEB SCH ×4 (07:44→19:19)
[2022-08-09] MEDS: INSULIN ASPART PER UNIT SC SCH ×4 (11:04→20:15)
[2022-08-09] MEDS: SODIUM CHLORIDE 0.9% 1000ML 1,000 ML IV SCH (11:04)
[2022-08-09] MEDS: LETROZOLE 2.5 MG TAB PO SCH (11:05)
[2022-08-09] MEDS: UMECLIDINIUM/VILANTEROL 62.5/25MCG 7 PUFFS/INHALER INH SCH (11:05)
[2022-08-09] MEDS: MUPIROCIN 2% OINT 22 GM TUBE EXT SCH ×2 (11:05→19:25)
[2022-08-09] MEDS: CEFEPIME 1,000 MG in SYRINGE 0 ML IV SCH ×2 (11:05→22:20)
--- NOTE | 2022-08-09 11:19 | XCELERA ---
[id number]}___[id number]
[2022-08-09 12:13] LABS: Estimated Average Glucose 174 mg/dl; Hemoglobin A1C 7.7 % (4.5-5.6)
--- NOTE | 2022-08-09 12:16 | CT Scan Report ---
CT abd pelvis wo con CLINICAL HISTORY: follow-up on hyperdensities on the spleen/liver TECHNIQUE: Helical axial images of the abdomen and pelvis were obtained. Automated dose lowering tech niques and/or adjustment according to patient size were utilized for this exam. This exam was perfor med without intravenous contrast. CT DOSE: 1370.87 mGy.cm COMPARISON: Comparison is made to CT abdomen pelvis 08/08/2022 FINDINGS: Lower chest: Cardiomegaly is seen with biatrial enlargement. Small bilateral pleural effusions are n ew from prior exam. Liver: Cirrhosis with prominent caudate enlargement is seen. There is a subcapsular collection measur ing 36 x 9 mm, similar in appearance to prior exam. Gallbladder and biliary tree: Patient is status post cholecystectomy. No intra- or extrahepatic bilia ry ductal dilation. Pancreas: Unremarkable, no focal lesions. Spleen: Calcifications are noted in the spleen compatible with prior granulomatous disease. Previousl y noted questionable hypodensity is less evident although evaluation is limited by motion artifact. Adrenals: Thickening of the bilateral adrenal glands is seen. Kidneys and ureters: Perinephric stranding is noted bilaterally. Bladder: Barnes catheter is seen. Reproductive organs: Unremarkable. Bowel: Diverticulosis is seen without evidence of diverticulitis. A hiatal hernia is seen. Lymph nodes Retroperitoneal: Unremarkable. Pelvic: Unremarkable. Mesenteric: Unremarkable. Peritoneum: Normal. Vessels: Atherosclerotic calcifications are seen. Abdominal wall: Minimal minimal soft tissue stranding is in the left upper quadrant abdominal wall. R edemonstration of a right lower quadrant shunt catheter. Bones: Degenerative changes in the visualized spine. Grade 1 anterolisthesis is seen at L4-L5 with as sociated pars defects. Old healed rib fractures are seen. IMPRESSION: 1. Previously noted right hepatic grade 1 contusion is unchanged in size. Evaluation for previously suggested splenic contusion is limited by patient motion, however no contusions definitely seen. No n ew or enlarged organ injury or intraperitoneal hemorrhage is seen. 2. Redemonstration of cirrhosis. ACT 112: Negative or not required by law. Electronically signed by: Tyron Dhillon M.D. 08/09/2022 12:14 PM
--- NOTE | 2022-08-09 12:34 | Hospitalist Progress Note ---
Date of Service August 09, 2022 Assessment & Plan (1) Fall: Plan: Fell at assisted living facility, unclear duration, some say 2hours, possibly up to 8hrs (wears O2 at night, this was also reported to be off when found) Denies LOC/trauma to head No fractures on imaging, possible occult fracture to L elbow not excluded however Wound RN consulted for multiple skin issues -- see imaging/documentation CTAP w/ concerns given "hyperdensities in the lateral aspect of the spleen and liver. These may represent grade 1 hematomas or represent artifact secondary to patient motion." She is without signs of bleeding on inspection of her abdomen. Pain control -- tylenol/morphine ordered. Asked RN to admin oxycodone x 1, ordered q4h prn as well Repeat CTAP today unchanged however hgb stable on continuous IVF for rhabdo as below Will add LFTs to AM labs-- BMP from this morning pending to eval kidney function (prior LFTs reasonably normal, AST 43, however TB 1.1/AST 251, ALT 59 on labs yesterday) Continue bedrest,will consult general surgery given findings WBC trending down w/ treatment of UTI as below, afebrile PT/OT consulted, possible need for rehab pending eval but will need to wait until mobility able to be advanced for now (2) Rhabdomyolysis: Plan: CK 19k, Cr 1.05, No anion gap (baseline Cr 0.5-0.7 however of note) CK improved to 14k 1L LR in ER, continues x 2L NSS -- additional 1L and increased rate to increase UOP Avoid nephrotoxic agents, renal dose meds as able Monitor Cr/CK on repeat (3) UTI (urinary tract infection): Plan: WBC elevation on admit, falls Blood cultures pending -- obtained prior to abx (procal 4.39) On cefepime for suspected UTI (hx e.coli resistant to fluoroquinolones, Enterobacter resistant to ceftriaxone, and Coag neg staph not saprophytic resistant to bactrim and oxacillin) -- continue (day 2) Monitor urine cx WBC trending down, afebrile (4) Elevated troponin: Plan: Initial trop elevated at 1314, patient is asymptomatic as her left lower chest/rib pain is reproducible on palpation, she is also without acute ST segment or T-wave changes ECG Likely multifactorial including demand from being down for multiple hours, her acute illness, and current Rhabdo Repeat EKG unchanged NSR/sinus tach on monitor (related to pain, suspected) Trop 1314--> 1078--> 828--> 549--> 255 Cards consulted ECHO w/o wall motion abnormality Suspect demand from acute illness/UTI/rhabdo Monitor on tele (5) Diabetes mellitus, type 2: Plan: Noted to be in the 300's on presentation to the ED A1c 7.7 On dulaglutide weekly, metformin 1gm BID outpatient -- held while inpatient Started on lantus 8u BID, will increase to 10mg BID Also, tightened CF/CR Monitor BSGs (6) Hypertension: Plan: BP elevations felt 2nd to pain reported -- medications ordered for pain control Holding losartan (on 25mg daily) and spironolactone (25mg BID) given rhabdo BMP from AM pending Hydralazine prn Consider adding metoprolol for BP control if needed, continue the spironolactone given hx cirrhosis as well (not on lasix) (7) Dyspnea on exertion: Plan: Patient has a history of mixed lung disease, on HS 2L NC On supplemental O2 when sleeping Continue IS, flutter valve, duonebs Titrate O2 as able to maintain sats (8) Cirrhosis: Plan: Cirrhotic morphology of the liver noted on CT -ALT is at AST at 251 LFTs added to AM labs (9) Intellectual disability: Plan: -Patient is a resident at the [facility] -Alert and oriented X 3 (10) Breast cancer: Plan: Hx L breast lumpectomy 2018 On letrozole 2.5mg daily Mammogram most recently completed Jul 2022, no evidence for malignancy Plan continued inpatient stay IVF/abx General surgery consulted, continue bedrest for now PT/OT consulted following eval Admission and Anticipated Discharge Date Admission Date: August 08, 2022 Supervising Physician Co-Signing Physician Notes RAMIRO Supervision Note: I did not personally see or examine the patient today, but I verified all mccarty points of RAMIRO Gonzalez's assessment and plan with the following exceptions/additions: None Subjective eval this morning, states doing alright urine output in barnett still concentrated/darkened and IVF increased. States breathing stable, on 2L at home. Discussed UTI/abx use, and monitoring cultures. She notes she needs something for pain -- having discomfort to her left upper abdomen currently, awaiting CTAP repeat (does have dexcom monitor at site as well) for eval possible hematoma from her falls. After imaging, may alter activity recommendations. No fever/chills. Denies chest pain or shortness of breath, chronic cough. Review of Systems Review of Systems: All systems reviewed & are unremarkable except as noted in HPI & below Physical Exam Physical Exam: General: WD/obese female sitting on her right side in bed, NAD but reporting discomfort/pain to her left upper abdomen HEENT: head normocephalic, atraumatic, trachea midline RESP: coarse breath sounds bilaterally, no wheezing, on 2L NC CV: tachycardic (rates 110), regular, no m/r/g, trace pedal edema GI: +BS, tenderness to palpation left upper quadrant, no rebound/guarding dexcom noted to LUQ : barnett with concentrated darkened urine draining MSK/Neuro/Skin: moves all extremities, no focal deficit scattered ecchymosis/bruising (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) Psych: alert to person, knows she is in the hospital, intermittent confusion at times/whifty Results & Data Results & Data ([facility]) Vital Signs (Past 12 Hours) Vital Signs Temp Pulse Pulse Resp BP BP Pulse Ox 08/09/22 08:08 37.5 C 104 H 18 138/64 94 08/09/22 07:44 94 H 18 94 08/09/22 01:59 08/09/22 01:42 106 H 08/09/22 01:30 36.7 C 106 H 20 144/81 H 95 08/09/22 01:00 107 H 15 148/85 H 96 08/09/22 00:05 112 H 17 148/85 H 92 08/08/22 23:30 103 H 27 H 188/71 H O2 Del Method O2 Flow Rate 08/09/22 08:08 Nasal Cannula 2 08/09/22 07:44 Nasal Cannula 2 08/09/22 01:59 Room Air 08/09/22 01:42 08/09/22 01:30 Nasal Cannula 2 08/09/22 01:00 Nasal Cannula 2 08/09/22 00:05 08/08/22 23:30 Laboratory Results 08/09/22 08/09/22 08/09/22 Range/Units 12:48 12:48 12:03 WBC (4.8-10.8) K/ul RBC (3.93-5.22) M/uL Hgb (12.0-16.0) g/dl Hct (34.1-44.9) % MCV (80.0-100.0) fL MCH (25.0-34.0) pg MCHC (32.0-36.0) g/dL RDW Std Deviation (36.4-46.3) fL RDW Coeff of Vignesh (11.5-14.5) % Plt Count (130-400) K/uL MPV (9.4-12.3) fL Immature Gran % (Auto) % Neut % (Auto) % Lymph % (Auto) % Bonner % (Auto) % Eos % (Auto) % Baso % (Auto) % Neut # (Auto) (1.4-6.5) K/uL Lymph # (Auto) (1.2-3.4) K/uL Bonner # (Auto) (0.24-0.82) K/uL Eos # (Auto) (0-0.50) K/uL Baso # (Auto) (0-0.2) K/uL Immature Gran # (Auto) (0.00-0.02) K/uL Sodium (136-145) mmol/L Potassium (3.5-5.1) mmol/L Chloride (98-107) mmol/L Carbon Dioxide (21-32) mmol/L Anion Gap (3-11) BUN (6-23) mg/dl Creatinine (0.6-1.2) mg/dl Est Cr Clr Drug Dosing ml/min Est GFR ( Amer) ml/min Est GFR (Non-Af Amer) ml/min BUN/Creatinine Ratio (10-20) Glucose (70-99(Fasting)) mg/dl POC Glucose 324 H* (70-99) mg/dl Estimat Average Glucose mg/dl Hemoglobin A1c (4.5-5.6) % Calcium (8.5-10.1) mg/dl Magnesium Total Bilirubin (0.2-1.0) mg/dl AST (13-39) U/L ALT (7-52) U/L Alkaline Phosphatase (34-104) U/L Total Creatine Kinase (26-192) U/L Troponin I High Sens (0-14) pg/ml Total Protein (6.0-8.3) gm/dl Albumin (3.4-5.0) gm/dl Globulin (2.5-4.0) gm/dl Albumin/Globulin Ratio (0.9-2) 25-OH Vitamin D Total Pending Procalcitonin (0-0.5) ng/ml TSH Pending Urine Color Urine Appearance (Clear) Urine pH (4.5-7.5) Ur Specific [place] (1.000-1.030) Urine Protein (Negative) Urine Glucose (UA) (Negative) Urine Ketones (Negative) Urine Blood (Negative) Urine Nitrite (Negative) Urine Bilirubin (Negative) Urine Urobilinogen (Negative) Ur Leukocyte Esterase (Negative) Urine WBC (Auto) (0-5) /hpf Urine RBC (Auto) (0-4) /hpf U Hyaline Cast (Auto) (0-5) /lpf U Epithel Cells (Auto) (0-5) /lpf Urine Bacteria (Auto) (Negative) Granular Casts (0) /lpf SARS-CoV-2, RNA, NAAT (NEGATIVE) 08/09/22 08/09/22 08/09/22 Range/Units 12:02 12:01 11:33 WBC (4.8-10.8) K/ul RBC (3.93-5.22) M/uL Hgb (12.0-16.0) g/dl Hct (34.1-44.9) % MCV (80.0-100.0) fL MCH (25.0-34.0) pg MCHC (32.0-36.0) g/dL RDW Std Deviation (36.4-46.3) fL RDW Coeff of Vignesh (11.5-14.5) % Plt Count (130-400) K/uL MPV (9.4-12.3) fL Immature Gran % (Auto) % Neut % (Auto) % Lymph % (Auto) % Bonner % (Auto) % Eos % (Auto) % Baso % (Auto) % Neut # (Auto) (1.4-6.5) K/uL Lymph # (Auto) (1.2-3.4) K/uL Bonner # (Auto) (0.24-0.82) K/uL Eos # (Auto) (0-0.50) K/uL Baso # (Auto) (0-0.2) K/uL Immature Gran # (Auto) (0.00-0.02) K/uL Sodium Pending (136-145) mmol/L Potassium Pending (3.5-5.1) mmol/L Chloride Pending (98-107) mmol/L Carbon Dioxide Pending (21-32) mmol/L Anion Gap Pending (3-11) BUN Pending (6-23) mg/dl Creatinine Pending (0.6-1.2) mg/dl Est Cr Clr Drug Dosing Pending ml/min Est GFR ( Amer) Pending ml/min Est GFR (Non-Af Amer) Pending ml/min BUN/Creatinine Ratio Pending (10-20) Glucose Pending (70-99(Fasting)) mg/dl POC Glucose 301 H* 339 H* (70-99) mg/dl Estimat Average Glucose mg/dl Hemoglobin A1c (4.5-5.6) % Calcium Pending (8.5-10.1) mg/dl Magnesium Pending Total Bilirubin (0.2-1.0) mg/dl AST (13-39) U/L ALT (7-52) U/L Alkaline Phosphatase (34-104) U/L Total Creatine Kinase (26-192) U/L Troponin I High Sens 255.0 H* D (0-14) pg/ml Total Protein (6.0-8.3) gm/dl Albumin (3.4-5.0) gm/dl Globulin (2.5-4.0) gm/dl Albumin/Globulin Ratio (0.9-2) 25-OH Vitamin D Total Procalcitonin (0-0.5) ng/ml TSH Urine Color Urine Appearance (Clear) Urine pH (4.5-7.5) Ur Specific [place] (1.000-1.030) Urine Protein (Negative) Urine Glucose (UA) (Negative) Urine Ketones (Negative) Urine Blood (Negative) Urine Nitrite (Negative) Urine Bilirubin (Negative) Urine Urobilinogen (Negative) Ur Leukocyte Esterase (Negative) Urine WBC (Auto) (0-5) /hpf Urine RBC (Auto) (0-4) /hpf U Hyaline Cast (Auto) (0-5) /lpf U Epithel Cells (Auto) (0-5) /lpf Urine Bacteria (Auto) (Negative) Granular Casts (0) /lpf SARS-CoV-2, RNA, NAAT (NEGATIVE) 08/09/22 08/09/22 08/09/22 Range/Units 11:33 07:45 05:42 WBC (4.8-10.8) K/ul RBC (3.93-5.22) M/uL Hgb (12.0-16.0) g/dl Hct (34.1-44.9) % MCV (80.0-100.0) fL MCH (25.0-34.0) pg MCHC (32.0-36.0) g/dL RDW Std Deviation (36.4-46.3) fL RDW Coeff of Vignesh (11.5-14.5) % Plt Count (130-400) K/uL MPV (9.4-12.3) fL Immature Gran % (Auto) % Neut % (Auto) % Lymph % (Auto) % Bonner % (Auto) % Eos % (Auto) % Baso % (Auto) % Neut # (Auto) (1.4-6.5) K/uL Lymph # (Auto) (1.2-3.4) K/uL Bonner # (Auto) (0.24-0.82) K/uL Eos # (Auto) (0-0.50) K/uL Baso # (Auto) (0-0.2) K/uL Immature Gran # (Auto) (0.00-0.02) K/uL Sodium (136-145) mmol/L Potassium (3.5-5.1) mmol/L Chloride (98-107) mmol/L Carbon Dioxide (21-32) mmol/L Anion Gap (3-11) BUN (6-23) mg/dl Creatinine (0.6-1.2) mg/dl Est Cr Clr Drug Dosing ml/min Est GFR ( Amer) ml/min Est GFR (Non-Af Amer) ml/min BUN/Creatinine Ratio (10-20) Glucose (70-99(Fasting)) mg/dl POC Glucose 216 H (70-99) mg/dl Estimat Average Glucose mg/dl Hemoglobin A1c (4.5-5.6) % Calcium (8.5-10.1) mg/dl Magnesium Total Bilirubin (0.2-1.0) mg/dl AST (13-39) U/L ALT (7-52) U/L Alkaline Phosphatase (34-104) U/L Total Creatine Kinase 28454 H (26-192) U/L Troponin I High Sens 549.3 H* D (0-14) pg/ml Total Protein (6.0-8.3) gm/dl Albumin (3.4-5.0) gm/dl Globulin (2.5-4.0) gm/dl Albumin/Globulin Ratio (0.9-2) 25-OH Vitamin D Total Procalcitonin (0-0.5) ng/ml TSH Urine Color Urine Appearance (Clear) Urine pH (4.5-7.5) Ur Specific [place] (1.000-1.030) Urine Protein (Negative) Urine Glucose (UA) (Negative) Urine Ketones (Negative) Urine Blood (Negative) Urine Nitrite (Negative) Urine Bilirubin (Negative) Urine Urobilinogen (Negative) Ur Leukocyte Esterase (Negative) Urine WBC (Auto) (0-5) /hpf Urine RBC (Auto) (0-4) /hpf U Hyaline Cast (Auto) (0-5) /lpf U Epithel Cells (Auto) (0-5) /lpf Urine Bacteria (Auto) (Negative) Granular Casts (0) /lpf SARS-CoV-2, RNA, NAAT (NEGATIVE) 08/09/22 08/09/22 08/09/22 Range/Units 05:42 05:42 01:48 WBC 13.01 H (4.8-10.8) K/ul RBC 4.48 (3.93-5.22) M/uL Hgb 13.5 (12.0-16.0) g/dl Hct 40.5 (34.1-44.9) % MCV 90.4 (80.0-100.0) fL MCH 30.1 (25.0-34.0) pg MCHC 33.3 (32.0-36.0) g/dL RDW Std Deviation 45.5 (36.4-46.3) fL RDW Coeff of Vignesh 13.8 (11.5-14.5) % Plt Count 187 (130-400) K/uL MPV 10.6 (9.4-12.3) fL Immature Gran % (Auto) % Neut % (Auto) % Lymph % (Auto) % Bonner % (Auto) % Eos % (Auto) % Baso % (Auto) % Neut # (Auto) (1.4-6.5) K/uL Lymph # (Auto) (1.2-3.4) K/uL Bonner # (Auto) (0.24-0.82) K/uL Eos # (Auto) (0-0.50) K/uL Baso # (Auto) (0-0.2) K/uL Immature Gran # (Auto) (0.00-0.02) K/uL Sodium (136-145) mmol/L Potassium (3.5-5.1) mmol/L Chloride (98-107) mmol/L Carbon Dioxide (21-32) mmol/L Anion Gap (3-11) BUN (6-23) mg/dl Creatinine (0.6-1.2) mg/dl Est Cr Clr Drug Dosing ml/min Est GFR ( Amer) ml/min Est GFR (Non-Af Amer) ml/min BUN/Creatinine Ratio (10-20) Glucose (70-99(Fasting)) mg/dl POC Glucose 169 H (70-99) mg/dl Estimat Average Glucose 174 mg/dl Hemoglobin A1c 7.7 H (4.5-5.6) % Calcium (8.5-10.1) mg/dl Magnesium Total Bilirubin (0.2-1.0) mg/dl AST (13-39) U/L ALT (7-52) U/L Alkaline Phosphatase (34-104) U/L Total Creatine Kinase (26-192) U/L Troponin I High Sens (0-14) pg/ml Total Protein (6.0-8.3) gm/dl Albumin (3.4-5.0) gm/dl Globulin (2.5-4.0) gm/dl Albumin/Globulin Ratio (0.9-2) 25-OH Vitamin D Total Procalcitonin (0-0.5) ng/ml TSH Urine Color Urine Appearance (Clear) Urine pH (4.5-7.5) Ur Specific [place] (1.000-1.030) Urine Protein (Negative) Urine Glucose (UA) (Negative) Urine Ketones (Negative) Urine Blood (Negative) Urine Nitrite (Negative) Urine Bilirubin (Negative) Urine Urobilinogen (Negative) Ur Leukocyte Esterase (Negative) Urine WBC (Auto) (0-5) /hpf Urine RBC (Auto) (0-4) /hpf U Hyaline Cast (Auto) (0-5) /lpf U Epithel Cells (Auto) (0-5) /lpf Urine Bacteria (Auto) (Negative) Granular Casts (0) /lpf SARS-CoV-2, RNA, NAAT (NEGATIVE) 08/09/22 08/09/22 08/08/22 Range/Units 01:43 01:43 Unknown WBC (4.8-10.8) K/ul RBC (3.93-5.22) M/uL Hgb (12.0-16.0) g/dl Hct (34.1-44.9) % MCV (80.0-100.0) fL MCH (25.0-34.0) pg MCHC (32.0-36.0) g/dL RDW Std Deviation (36.4-46.3) fL RDW Coeff of Vignesh (11.5-14.5) % Plt Count (130-400) K/uL MPV (9.4-12.3) fL Immature Gran % (Auto) % Neut % (Auto) % Lymph % (Auto) % Bonner % (Auto) % Eos % (Auto) % Baso % (Auto) % Neut # (Auto) (1.4-6.5) K/uL Lymph # (Auto) (1.2-3.4) K/uL Bonner # (Auto) (0.24-0.82) K/uL Eos # (Auto) (0-0.50) K/uL Baso # (Auto) (0-0.2) K/uL Immature Gran # (Auto) (0.00-0.02) K/uL Sodium (136-145) mmol/L Potassium (3.5-5.1) mmol/L Chloride (98-107) mmol/L Carbon Dioxide (21-32) mmol/L Anion Gap (3-11) BUN (6-23) mg/dl Creatinine (0.6-1.2) mg/dl Est Cr Clr Drug Dosing ml/min Est GFR ( Amer) ml/min Est GFR (Non-Af Amer) ml/min BUN/Creatinine Ratio (10-20) Glucose (70-99(Fasting)) mg/dl POC Glucose (70-99) mg/dl Estimat Average Glucose mg/dl Hemoglobin A1c (4.5-5.6) % Calcium (8.5-10.1) mg/dl Magnesium Total Bilirubin (0.2-1.0) mg/dl AST (13-39) U/L ALT (7-52) U/L Alkaline Phosphatase (34-104) U/L Total Creatine Kinase 47782 H (26-192) U/L Troponin I High Sens 828.0 H* D (0-14) pg/ml Total Protein (6.0-8.3) gm/dl Albumin (3.4-5.0) gm/dl Globulin (2.5-4.0) gm/dl Albumin/Globulin Ratio (0.9-2) 25-OH Vitamin D Total Procalcitonin (0-0.5) ng/ml TSH Urine Color Urine Appearance (Clear) Urine pH (4.5-7.5) Ur Specific [place] (1.000-1.030) Urine Protein (Negative) Urine Glucose (UA) (Negative) Urine Ketones (Negative) Urine Blood (Negative) Urine Nitrite (Negative) Urine Bilirubin (Negative) Urine Urobilinogen (Negative) Ur Leukocyte Esterase (Negative) Urine WBC (Auto) (0-5) /hpf Urine RBC (Auto) (0-4) /hpf U Hyaline Cast (Auto) (0-5) /lpf U Epithel Cells (Auto) (0-5) /lpf Urine Bacteria (Auto) (Negative) Granular Casts (0) /lpf SARS-CoV-2, RNA, NAAT NEGATIVE (NEGATIVE) 08/08/22 08/08/22 08/08/22 Range/Units 22:32 22:32 20:29 WBC (4.8-10.8) K/ul RBC (3.93-5.22) M/uL Hgb (12.0-16.0) g/dl Hct (34.1-44.9) % MCV (80.0-100.0) fL MCH (25.0-34.0) pg MCHC (32.0-36.0) g/dL RDW Std Deviation (36.4-46.3) fL RDW Coeff of Vignesh (11.5-14.5) % Plt Count (130-400) K/uL MPV (9.4-12.3) fL Immature Gran % (Auto) % Neut % (Auto) % Lymph % (Auto) % Bonner % (Auto) % Eos % (Auto) % Baso % (Auto) % Neut # (Auto) (1.4-6.5) K/uL Lymph # (Auto) (1.2-3.4) K/uL Bonner # (Auto) (0.24-0.82) K/uL Eos # (Auto) (0-0.50) K/uL Baso # (Auto) (0-0.2) K/uL Immature Gran # (Auto) (0.00-0.02) K/uL Sodium (136-145) mmol/L Potassium (3.5-5.1) mmol/L Chloride (98-107) mmol/L Carbon Dioxide (21-32) mmol/L Anion Gap (3-11) BUN (6-23) mg/dl Creatinine (0.6-1.2) mg/dl Est Cr Clr Drug Dosing ml/min Est GFR ( Amer) ml/min Est GFR (Non-Af Amer) ml/min BUN/Creatinine Ratio (10-20) Glucose (70-99(Fasting)) mg/dl POC Glucose 221 H (70-99) mg/dl Estimat Average Glucose mg/dl Hemoglobin A1c (4.5-5.6) % Calcium (8.5-10.1) mg/dl Magnesium Total Bilirubin (0.2-1.0) mg/dl AST (13-39) U/L ALT (7-52) U/L Alkaline Phosphatase (34-104) U/L Total Creatine Kinase 47405 H (26-192) U/L Troponin I High Sens 1073.8 H* (0-14) pg/ml Total Protein (6.0-8.3) gm/dl Albumin (3.4-5.0) gm/dl Globulin (2.5-4.0) gm/dl Albumin/Globulin Ratio (0.9-2) 25-OH Vitamin D Total Procalcitonin (0-0.5) ng/ml TSH Urine Color Urine Appearance (Clear) Urine pH (4.5-7.5) Ur Specific [place] (1.000-1.030) Urine Protein (Negative) Urine Glucose (UA) (Negative) Urine Ketones (Negative) Urine Blood (Negative) Urine Nitrite (Negative) Urine Bilirubin (Negative) Urine Urobilinogen (Negative) Ur Leukocyte Esterase (Negative) Urine WBC (Auto) (0-5) /hpf Urine RBC (Auto) (0-4) /hpf U Hyaline Cast (Auto) (0-5) /lpf U Epithel Cells (Auto) (0-5) /lpf Urine Bacteria (Auto) (Negative) Granular Casts (0) /lpf SARS-CoV-2, RNA, NAAT (NEGATIVE) 08/08/22 08/08/22 08/08/22 Range/Units 20:27 16:56 16:56 WBC (4.8-10.8) K/ul RBC (3.93-5.22) M/uL Hgb (12.0-16.0) g/dl Hct (34.1-44.9) % MCV (80.0-100.0) fL MCH (25.0-34.0) pg MCHC (32.0-36.0) g/dL RDW Std Deviation (36.4-46.3) fL RDW Coeff of Vignesh (11.5-14.5) % Plt Count (130-400) K/uL MPV (9.4-12.3) fL Immature Gran % (Auto) % Neut % (Auto) % Lymph % (Auto) % Bonner % (Auto) % Eos % (Auto) % Baso % (Auto) % Neut # (Auto) (1.4-6.5) K/uL Lymph # (Auto) (1.2-3.4) K/uL Bonner # (Auto) (0.24-0.82) K/uL Eos # (Auto) (0-0.50) K/uL Baso # (Auto) (0-0.2) K/uL Immature Gran # (Auto) (0.00-0.02) K/uL Sodium 134 L (136-145) mmol/L Potassium 4.6 (3.5-5.1) mmol/L Chloride 100 (98-107) mmol/L Carbon Dioxide 23 (21-32) mmol/L Anion Gap 11 (3-11) BUN 34 H (6-23) mg/dl Creatinine 1.05 (0.6-1.2) mg/dl Est Cr Clr Drug Dosing 47.9 ml/min Est GFR ( Amer) 58.5 ml/min Est GFR (Non-Af Amer) 50.5 ml/min BUN/Creatinine Ratio 32.4 H (10-20) Glucose 315 H* (70-99(Fasting)) mg/dl POC Glucose (70-99) mg/dl Estimat Average Glucose mg/dl Hemoglobin A1c (4.5-5.6) % Calcium 10.4 H (8.5-10.1) mg/dl Magnesium Total Bilirubin 1.1 H (0.2-1.0) mg/dl AST 251 H (13-39) U/L ALT 59 H (7-52) U/L Alkaline Phosphatase 60 (34-104) U/L Total Creatine Kinase 12484 H (26-192) U/L Troponin I High Sens 1314.8 H* (0-14) pg/ml Total Protein 7.7 (6.0-8.3) gm/dl Albumin 4.0 (3.4-5.0) gm/dl Globulin 3.7 (2.5-4.0) gm/dl Albumin/Globulin Ratio 1.1 (0.9-2) 25-OH Vitamin D Total Procalcitonin 4.39 H (0-0.5) ng/ml TSH Urine Color [place] Urine Appearance Turbid A (Clear) Urine pH 5.0 (4.5-7.5) Ur Specific [place] > 1.045 H (1.000-1.030) Urine Protein 2+ H (Negative) Urine Glucose (UA) 1+ H (Negative) Urine Ketones Negative (Negative) Urine Blood 3+ H (Negative) Urine Nitrite Positive A (Negative) Urine Bilirubin Negative (Negative) Urine Urobilinogen Negative (Negative) Ur Leukocyte Esterase 1+ H (Negative) Urine WBC (Auto) >30 H (0-5) /hpf Urine RBC (Auto) 10-30 H (0-4) /hpf U Hyaline Cast (Auto) >30 H (0-5) /lpf U Epithel Cells (Auto) >30 H (0-5) /lpf Urine Bacteria (Auto) 3+ H (Negative) Granular Casts >30 H (0) /lpf SARS-CoV-2, RNA, NAAT (NEGATIVE) 08/08/22 Range/Units 16:56 WBC 18.61 H (4.8-10.8) K/ul RBC 4.50 (3.93-5.22) M/uL Hgb 13.6 (12.0-16.0) g/dl Hct 40.6 (34.1-44.9) % MCV 90.2 (80.0-100.0) fL MCH 30.2 (25.0-34.0) pg MCHC 33.5 (32.0-36.0) g/dL RDW Std Deviation 45.4 (36.4-46.3) fL RDW Coeff of Vignesh 13.7 (11.5-14.5) % Plt Count 214 (130-400) K/uL MPV 11.1 (9.4-12.3) fL Immature Gran % (Auto) 0.8 % Neut % (Auto) 86.1 % Lymph % (Auto) 6.5 % Bonner % (Auto) 6.4 % Eos % (Auto) 0.0 % Baso % (Auto) 0.2 % Neut # (Auto) 16.03 H (1.4-6.5) K/uL Lymph # (Auto) 1.21 (1.2-3.4) K/uL Bonner # (Auto) 1.19 H (0.24-0.82) K/uL Eos # (Auto) 0.00 (0-0.50) K/uL Baso # (Auto) 0.04 (0-0.2) K/uL Immature Gran # (Auto) 0.14 H (0.00-0.02) K/uL Sodium (136-145) mmol/L Potassium (3.5-5.1) mmol/L Chloride (98-107) mmol/L Carbon Dioxide (21-32) mmol/L Anion Gap (3-11) BUN (6-23) mg/dl Creatinine (0.6-1.2) mg/dl Est Cr Clr Drug Dosing ml/min Est GFR ( Amer) ml/min Est GFR (Non-Af Amer) ml/min BUN/Creatinine Ratio (10-20) Glucose (70-99(Fasting)) mg/dl POC Glucose (70-99) mg/dl Estimat Average Glucose mg/dl Hemoglobin A1c (4.5-5.6) % Calcium (8.5-10.1) mg/dl Magnesium Total Bilirubin (0.2-1.0) mg/dl AST (13-39) U/L ALT (7-52) U/L Alkaline Phosphatase (34-104) U/L Total Creatine Kinase (26-192) U/L Troponin I High Sens (0-14) pg/ml Total Protein (6.0-8.3) gm/dl Albumin (3.4-5.0) gm/dl Globulin (2.5-4.0) gm/dl Albumin/Globulin Ratio (0.9-2) 25-OH Vitamin D Total Procalcitonin (0-0.5) ng/ml TSH Urine Color Urine Appearance (Clear) Urine pH (4.5-7.5) Ur Specific [place] (1.000-1.030) Urine Protein (Negative) Urine Glucose (UA) (Negative) Urine Ketones (Negative) Urine Blood (Negative) Urine Nitrite (Negative) Urine Bilirubin (Negative) Urine Urobilinogen (Negative) Ur Leukocyte Esterase (Negative) Urine WBC (Auto) (0-5) /hpf Urine RBC (Auto) (0-4) /hpf U Hyaline Cast (Auto) (0-5) /lpf U Epithel Cells (Auto) (0-5) /lpf Urine Bacteria (Auto) (Negative) Granular Casts (0) /lpf SARS-CoV-2, RNA, NAAT (NEGATIVE) Diagnostic Findings Chest X-Ray 08/08/22 17:07 XR chest 1V portable CLINICAL HISTORY: left chest wall pain s/p fall from standing COMPARISON STUDY: Chest CT June 22, 2022. FINDINGS: No pneumothorax or pleural effusion is noted. Several old left-sided rib fractures are present. There is mild enlargement of the cardiac silhouette. No evidence for pulmonary edema. Left upper lobe density is unchanged and favor scarring. Right internal jugular central venous catheter remains in place. IMPRESSION: No acute cardiopulmonary findings. ACT 112: Negative or not required by law. Electronically signed by: Grupo Castro M.D. 08/08/2022 5:41 PM Elbow X-Ray 08/08/22 17:07 XR elbow LT min 3V routine, XR elbow RT min 3V routine CLINICAL HISTORY: elbow pain s/p fall TECHNIQUE: 3 views of the bilateral elbows were obtained. Comparison: None available at the time of this dictation. FINDINGS: There is no evidence of an acute fracture. Joint spaces are well-preserved. There is mild prominence of the right fat pad which may represent a small joint effusion. No soft tissue abnormality is seen. IMPRESSION: Possible small left joint effusion without radiographically evident fracture. An occult fracture cannot be excluded and if there is clinical concern, CT or follow-up radiograph in a few days can be performed. The right elbow is unremarkable. ACT 112: Negative or not required by law. Electronically signed by: Tyron Dhillon M.D. 08/08/2022 5:46 PM Elbow X-Ray 08/08/22 17:07 XR elbow LT min 3V routine, XR elbow RT min 3V routine CLINICAL HISTORY: elbow pain s/p fall TECHNIQUE: 3 views of the bilateral elbows were obtained. Comparison: None available at the time of this dictation. FINDINGS: There is no evidence of an acute fracture. Joint spaces are well-preserved. There is mild prominence of the right fat pad which may represent a small joint effusion. No soft tissue abnormality is seen. IMPRESSION: Possible small left joint effusion without radiographically evident fracture. An occult fracture cannot be excluded and if there is clinical concern, CT or follow-up radiograph in a few days can be performed. The right elbow is unremarkable. ACT 112: Negative or not required by law. Electronically signed by: Tyron Dhillon M.D. 08/08/2022 5:46 PM Knee X-Ray 08/08/22 17:07 XR knee RT 1 or 2V routine, XR knee LT 1 or 2V routine CLINICAL HISTORY: knee pain s/p fall TECHNIQUE: 2 views of the bilateral knees were obtained. Comparison: None available at the time of this dictation. FINDINGS: There is no evidence of an acute fracture. Chondrocalcinosis is noted. Is seen. No joint effusion is seen. Vascular calcifications are noted. IMPRESSION: No evidence of acute osseous injury. ACT 112: Negative or not required by law. Electronically signed by: Tyron Dhillon M.D. 08/08/2022 5:42 PM Knee X-Ray 08/08/22 17:07 XR knee RT 1 or 2V routine, XR knee LT 1 or 2V routine CLINICAL HISTORY: knee pain s/p fall TECHNIQUE: 2 views of the bilateral knees were obtained. Comparison: None available at the time of this dictation. FINDINGS: There is no evidence of an acute fracture. Chondrocalcinosis is noted. Is seen. No joint effusion is seen. Vascular calcifications are noted. IMPRESSION: No evidence of acute osseous injury. ACT 112: Negative or not required by law. Electronically signed by: Tyron Dhillon M.D. 08/08/2022 5:42 PM Abdomen/Pelvis CT 08/08/22 17:12 CT abd pelvis IV con only CLINICAL HISTORY: LUQ abdominal pain; trauma TECHNIQUE: Helical axial images of the abdomen and pelvis were obtained and displayed. Automated dose lowering techniques and/or adjustment according to patient size were utilized for this exam. This exam was performed with intravenous contrast. CT DOSE: 1160.90 mGycm COMPARISON: Comparison is made to CT abdomen pelvis 04/01/2020 FINDINGS: Lower chest: Biatrial enlargement is seen. Liver: Caudate enlargement is seen. Nodular contour of the liver is noted. There is a hypodensity in the right lower capsule measuring approximately 42 x 9 mm. Gallbladder and biliary tree: Patient is status post cholecystectomy. No intra- or extrahepatic biliary ductal dilation. Pancreas: Unremarkable, no focal lesions. Spleen: Splenic calcifications are seen. There is questionable lateral peripheral hypodensity measuring approximately 32 x 5 mm. Adrenals: Unremarkable. Kidneys and ureters: There is a large left renal cyst measuring 67 mm in diameter. Bladder: Unremarkable. Reproductive organs: Possible tiny uterine fibroid. Bowel: Diverticulosis is seen without evidence of diverticulitis. There is a small hiatal hernia. Lymph nodes Retroperitoneal: Unremarkable. Pelvic: Unremarkable. Mesenteric: Unremarkable. Peritoneum: Normal. Vessels: Atherosclerotic calcifications are seen. Abdominal wall: No contusions are seen in the left upper quadrant. Redemonstration of right lower quadrant shunt catheter. Bones: Degenerative changes in the visualized spine. Pars defects and grade 1 anterolisthesis are seen at L4-L5. Old healed rib fractures are noted. IMPRESSION: 1. There is hyperdensities in the lateral aspect of the spleen and liver. These may represent grade 1 hematomas or represent artifact secondary to patient motion. No abdominal wall contusions are seen. 2. Cirrhotic morphology of the liver without ascites. ACT 112: Negative or not required by law. Electronically signed by: Tyron Dhillon M.D. 08/08/2022 6:56 PM Abdomen/Pelvis CT 08/09/22 07:00 CT abd pelvis wo con CLINICAL HISTORY: follow-up on hyperdensities on the spleen/liver TECHNIQUE: Helical axial images of the abdomen and pelvis were obtained. Automated dose lowering techniques and/or adjustment according to patient size were utilized for this exam. This exam was performed without intravenous contrast. CT DOSE: 1370.87 mGy.cm COMPARISON: Comparison is made to CT abdomen pelvis 08/08/2022 FINDINGS: Lower chest: Cardiomegaly is seen with biatrial enlargement. Small bilateral pleural effusions are new from prior exam. Liver: Cirrhosis with prominent caudate enlargement is seen. There is a subcapsular collection measuring 36 x 9 mm, similar in appearance to prior exam. Gallbladder and biliary tree: Patient is status post cholecystectomy. No intra- or extrahepatic biliary ductal dilation. Pancreas: Unremarkable, no focal lesions. Spleen: Calcifications are noted in the spleen compatible with prior granulomatous disease. Previously noted questionable hypodensity is less evident although evaluation is limited by motion artifact. Adrenals: Thickening of the bilateral adrenal glands is seen. Kidneys and ureters: Perinephric stranding is noted bilaterally. Bladder: Barnett catheter is seen. Reproductive organs: Unremarkable. Bowel: Diverticulosis is seen without evidence of diverticulitis. A hiatal hernia is seen. Lymph nodes Retroperitoneal: Unremarkable. Pelvic: Unremarkable. Mesenteric: Unremarkable. Peritoneum: Normal. Vessels: Atherosclerotic calcifications are seen. Abdominal wall: Minimal minimal soft tissue stranding is in the left upper quadrant abdominal wall. Redemonstration of a right lower quadrant shunt catheter. Bones: Degenerative changes in the visualized spine. Grade 1 anterolisthesis is seen at L4-L5 with associated pars defects. Old healed rib fractures are seen. IMPRESSION: 1. Previously noted right hepatic grade 1 contusion is unchanged in size. Evaluation for previously suggested splenic contusion is limited by patient motion, however no contusions definitely seen. No new or enlarged organ injury or intraperitoneal hemorrhage is seen. 2. Redemonstration of cirrhosis. ACT 112: Negative or not required by law. Electronically signed by: Tyron Dhillon M.D. 08/09/2022 12:14 PM PG Care Time/CCT Total # of Minutes Spent Total Time Spent with Patient: Total time spent is greater than 50% in coordination of care (as documented) at patient's floor/unit and/or counseling patient: Coding Level of Care Code 33812 SUB INP/OBS CARE 3/50MIN Diagnoses Fall W19.XXXA Rhabdomyolysis M62.82 UTI (urinary tract infection) N39.0 Elevated troponin R77.8 Diabetes mellitus, type 2 E11.9 Hypertension I10 Dyspnea on exertion R06.00 Cirrhosis K74.60 Intellectual disability F79 Breast cancer C50.919
[2022-08-09] MEDS ORDERED: oxyCODONE HCL IR 5 MG TAB (IMMEDIATE RELEASE) PO STA (12:43)
--- NOTE | 2022-08-09 13:22 | Cardiology Consultation ---
Date of Consultation August 09, 2022 Assessment & Plan (1) Elevated troponin: Plan 1. Elevated troponin: I think this is likely secondary to her fall and resultant metabolic abnormalities. She was likely on the ground for an extended period based on her elevated creatinine kinase. She also uses supplemental oxygen at nighttime and could have suffered a period of hypoxemia. I do not believe the mechanism for her troponin elevation was likely an acute coronary syndrome. No symptoms currently or leading up to the events suggestive of ischemia or coronary insufficiency. Normal LV systolic function wall motion on her echocardiogram. I would not pursue any additional cardiac testing in the absence of new symptoms or objective findings. I would agree with continuing supportive care. History of Present Illness Reason for Consultation: Abnormal troponin Requesting Physician: Lisa Attending Physician: Tania Bernard MD History of Present Illness The patient is a 81-year-old woman without a known history of cardiac disease who suffers from a developmental delay. She has a variety of other comorbidities and lives at an assisted living facility. By report she fell out of bed and was discovered on the floor. The patient feels that she was on the floor for a couple of hours. She does not recall any symptoms leading up to her fall. She claims to have been rolling around in bed and fell out by accident. She typically wears supplemental oxygen at nighttime and when she fell out of bed was not wearing oxygen for at least a couple of hours. She denies any sense of palpitation. She did not recall any specific breathing difficulty. She did not report chest pain until after her fall. Currently experiencing some left sided chest discomfort presumably at the site of her injury. She was brought to the emergency room for evaluation and cardiac biomarkers were obtained presumably over concerns that an acute coronary syndrome caused her to fall out of bed. Her biomarkers were elevated and she was admitted to telemetry for evaluation. Also noted to have significantly elevated creatinine kinase. Currently the patient reports left-sided chest discomfort at the site of her fall. She denies any other recent symptoms such as fevers or chills. She claims to be ambulatory with a cane. Allergies Allergy/AdvReac Type Severity Reaction Status Date / Time erythromycin base AdvReac Intermediate Nausea Verified 08/08/22 20:33 Penicillins AdvReac Mild GI UPSET Verified 08/08/22 20:33 Home Medications Medication Instructions Recorded Confirmed Type cyanocobalamin (vitamin B-12) 1,000 mcg PO DAILY 10/18/18 08/08/22 History 1,000 mcg tablet (Vitamin B-12) syringe with needle 3 mL 25 x 5/8" #1 ea 01/21/19 06/28/22 History Lactobacills gasseri-Bifidobac 1 cap PO QAM 05/02/19 08/08/22 History bifidum,longum 1.5 billion cell capsule (FOUNDD) cranberry 500 mg capsule 1,500 mg PO BID 05/02/19 08/08/22 History letrozole 2.5 mg tablet 2.5 mg PO QAM 05/02/19 08/08/22 History Lite Touch Insulin Pen [place] 31 #300 ea 07/22/20 06/28/22 Rx gauge x 3/16" (pen needle, diabetic) albuterol sulfate 90 mcg/actuation 2 puff inhalation Q4 PRN Shortness 08/12/20 08/08/22 Rx aerosol inhaler (Ventolin HFA) Of Breath Or Wheezing #1 ea denosumab 60 mg/mL subcutaneous 60 mg subcut .Q 6 months 05/11/21 08/08/22 History syringe (Prolia) Oxygen Home #2 L 05/13/21 06/28/22 Rx Portable Oxygen #1 ea 05/25/21 06/28/22 Rx cholecalciferol (vitamin D3) 25 2,000 unit PO BID 06/28/21 08/08/22 History mcg (1,000 unit) tablet (Vitamin D3) spironolactone 25 mg tablet 25 mg PO BID #180 tabs 09/01/21 08/08/22 Rx (Aldactone) methenamine hippurate 1 gram tablet 1 g PO Q12H #180 tabs 10/05/21 08/08/22 Rx umeclidinium 62.5 mcg-vilanterol 1 inh inhalation DAILY #60 ea 01/30/22 08/08/22 Rx 25 mcg/actuation powdr for inhalation (Anoro Ellipta) blood-glucose meter,continuous 03/08/22 08/08/22 History (Dexcom G6 [employer]) insulin degludec 200 unit/mL (3 22 unit subcut .DAILY AT NOON 05/10/22 08/08/22 History mL) subcutaneous pen (Tresiba FlexTouch U-200 insulin) insulin aspar prot-insulin aspart 120 unit subcut UD 06/15/22 08/08/22 History 100 unit/mL (70-30) subcutaneous pen (Novolog Mix 70-30FlexPen U-100) ammonium lactate 12 % topical cream 1 applic topical DAILY 08/08/22 08/08/22 History cyanocobalamin (vitamin B-12) 1,000 mcg subcut MONTHLY 08/08/22 08/08/22 History 1,000 mcg/mL injection solution ezetimibe 10 mg tablet (Zetia) 10 mg PO HS 08/08/22 08/08/22 History losartan 25 mg tablet (Cozaar) 25 mg PO QPM 08/08/22 08/08/22 History metformin 1,000 mg tablet,extended 1,000 mg PO BIDM 08/08/22 08/08/22 History release 24hr oxybutynin chloride 10 mg 10 mg PO QPM 08/08/22 08/08/22 History tablet,extended release 24 hr vitamins A,C,A-pwqa-ieqnzy 2,148 1 tab PO QPM 08/08/22 08/08/22 History mcg-113 mg-45 mg-17.4 mg tablet dulaglutide 3 mg/0.5 mL 3 mg (0.5 mL) subcut Q7D #2 mL 08/09/22 Rx subcutaneous pen injector Patient History Medical History AMD (age related macular degeneration) Asthma STABLE Atrial septal defect Bilateral nephrolithiasis Calcium nephrolithiasis Cirrhosis HX ETOH ABUSE- "STABLE" Diabetes mellitus, type 2 Followed by Endo Dyspnea on exertion Ex-smoker Hx of sepsis Hydronephrosis of left kidney Hyperlipidemia Hypertension Hypoxia Lower extremity edema Malignant neoplasm of central portion of left breast in female, estrogen receptor positive (04/18/18) Mental retardation Morbid obesity due to excess calories Multiple pulmonary nodules determined by computed tomography of lung Nephrolithiasis Osteoarthritis Osteopenia Solitary pulmonary nodule last Ct 11/2018,03/2020 1 yr Urinary incontinence Varicose vein of leg Vitamin B12 deficiency Vitamin D deficiency Surgical History History of cholecystectomy 2010- gr I atraumatic History of lithotripsy History of surgery of liver HEPATIC PORT PLACEMENT 2/2 CIRRHOSIS S/P colonoscopy S/P ureteral stent placement Status post left breast lumpectomy surgery 05-15-2018 GA with LMA #4 Family History Mother , at a young age , not sure cause No problems noted. Father , age 109 / " old age " No problems noted. Sister , age 51 Breast cancer Sister , very young ,, hit by a truck Accident Sister No problems noted. Brother , age 55 Liver failure Brother , age 4-5 ys old , not sure cause Colon cancer Unknown Breast cancer Other Asthma Cancer Diabetes Denies family history of Heart disease Lung disease Social History Smoking Status: Never smoker Tobacco Type: Cigarettes Age Started Using Tobacco: 22; Age Quit Using Tobacco: 52; packs per day: 1; Second Hand Exposure: No; Do You Dip or Chew Tobacco: Yes; Tobacco Cessation Education Requested by Patient: No Hx Alcohol Use: No Hx Substance Use: No Preferred Language: Indian Communication Ability: Effective Visual Impairment: Limited Hearing Ability: Normal Hogshead Weigher Required: No Beliefs That Will Affect Care: None marital status: / Current Living Situation: Alone Current Living Situation Comment: [facility] is involved with care; 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 occupational 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 Mood affect appear normal. She answered all questions appropriately. HEENT: Sclerae are anicteric. Pupils are equal and reactive to light and accommodation. Extraocular movements were intact. Neuro: Cranial nerves intact Lungs: Difficult cooperate with the exam due to discomfort. Normal respiratory effort. No expiratory wheezing. Cardiac: The rhythm was regular. S1 and S2 were normal. There are no murmurs on examination. The PMI was not markedly displaced on palpation. Abdomen: Obese Extremities: Patient has bilateral radial pulses that are equal in intensity. There is no evidence cyanosis or clubbing. There was no evidence of significant peripheral edema bilaterally. Skin: There are no rashes noted on examination today. Results & Data ([facility]) Vital Signs (Past 12 Hours) Vital Signs Temp Pulse Pulse Resp BP Pulse Ox O2 Del Method 08/09/22 12:11 36.6 C 121 H 18 183/91 H 91 Nasal Cannula 08/09/22 08:00 Room Air 08/09/22 08:08 37.5 C 104 H 18 138/64 94 Nasal Cannula 08/09/22 07:44 94 H 18 94 Nasal Cannula 08/09/22 01:59 Room Air 08/09/22 01:42 106 H 08/09/22 01:30 36.7 C 106 H 20 144/81 H 95 Nasal Cannula O2 Flow Rate 08/09/22 12:11 2 08/09/22 08:00 08/09/22 08:08 2 08/09/22 07:44 2 08/09/22 01:59 08/09/22 01:42 08/09/22 01:30 2 Laboratory Results Abnormal Lab Results 08/08/22 08/08/22 08/08/22 16:56 16:56 16:56 WBC 18.61 H RBC 4.50 Hgb 13.6 Hct 40.6 MCV 90.2 MCH 30.2 MCHC 33.5 RDW Std Deviation 45.4 RDW Coeff of Vignesh 13.7 Plt Count 214 MPV 11.1 Immature Gran % (Auto) 0.8 Neut % (Auto) 86.1 Lymph % (Auto) 6.5 [place] % (Auto) 6.4 Eos % (Auto) 0.0 Baso % (Auto) 0.2 Neut # (Auto) 16.03 H Lymph # (Auto) 1.21 [place] # (Auto) 1.19 H Eos # (Auto) 0.00 Baso # (Auto) 0.04 Immature Gran # (Auto) 0.14 H Sodium 134 L Potassium 4.6 Chloride 100 Carbon Dioxide 23 Anion Gap 11 BUN 34 H Creatinine 1.05 Est Cr Clr Drug Dosing 47.9 Est GFR ( Amer) 58.5 Est GFR (Non-Af Amer) 50.5 BUN/Creatinine Ratio 32.4 H Glucose 315 H* POC Glucose Estimat Average Glucose Hemoglobin A1c Calcium 10.4 H Total Bilirubin 1.1 H AST 251 H ALT 59 H Alkaline Phosphatase 60 Total Creatine Kinase 93304 H Troponin I High Sens 1314.8 H* Total Protein 7.7 Albumin 4.0 Globulin 3.7 Albumin/Globulin Ratio 1.1 Procalcitonin 4.39 H Urine Color Urine Appearance Urine pH Ur Specific [place] Urine Protein Urine Glucose (UA) Urine Ketones Urine Blood Urine Nitrite Urine Bilirubin Urine Urobilinogen Ur Leukocyte Esterase Urine WBC (Auto) Urine RBC (Auto) U Hyaline Cast (Auto) U Epithel Cells (Auto) Urine Bacteria (Auto) Granular Casts SARS-CoV-2, RNA, NAAT 08/08/22 08/08/22 08/08/22 20:27 20:29 22:32 WBC RBC Hgb Hct MCV MCH MCHC RDW Std Deviation RDW Coeff of Vignesh Plt Count MPV Immature Gran % (Auto) Neut % (Auto) Lymph % (Auto) [place] % (Auto) Eos % (Auto) Baso % (Auto) Neut # (Auto) Lymph # (Auto) [place] # (Auto) Eos # (Auto) Baso # (Auto) Immature Gran # (Auto) Sodium Potassium Chloride Carbon Dioxide Anion Gap BUN Creatinine Est Cr Clr Drug Dosing Est GFR ( Amer) Est GFR (Non-Af Amer) BUN/Creatinine Ratio Glucose POC Glucose 221 H Estimat Average Glucose Hemoglobin A1c Calcium Total Bilirubin AST ALT Alkaline Phosphatase Total Creatine Kinase Troponin I High Sens 1073.8 H* Total Protein Albumin Globulin Albumin/Globulin Ratio Procalcitonin Urine Color Wise Urine Appearance Turbid A Urine pH 5.0 Ur Specific [place] > 1.045 H Urine Protein 2+ H Urine Glucose (UA) 1+ H Urine Ketones Negative Urine Blood 3+ H Urine Nitrite Positive A Urine Bilirubin Negative Urine Urobilinogen Negative Ur Leukocyte Esterase 1+ H Urine WBC (Auto) >30 H Urine RBC (Auto) 10-30 H U Hyaline Cast (Auto) >30 H U Epithel Cells (Auto) >30 H Urine Bacteria (Auto) 3+ H Granular Casts >30 H SARS-CoV-2, RNA, NAAT 08/08/22 08/08/22 08/09/22 22:32 Unknown 01:43 WBC RBC Hgb Hct MCV MCH MCHC RDW Std Deviation RDW Coeff of Vignesh Plt Count MPV Immature Gran % (Auto) Neut % (Auto) Lymph % (Auto) [place] % (Auto) Eos % (Auto) Baso % (Auto) Neut # (Auto) Lymph # (Auto) [place] # (Auto) Eos # (Auto) Baso # (Auto) Immature Gran # (Auto) Sodium Potassium Chloride Carbon Dioxide Anion Gap BUN Creatinine Est Cr Clr Drug Dosing Est GFR ( Amer) Est GFR (Non-Af Amer) BUN/Creatinine Ratio Glucose POC Glucose Estimat Average Glucose Hemoglobin A1c Calcium Total Bilirubin AST ALT Alkaline Phosphatase Total Creatine Kinase 10116 H Troponin I High Sens 828.0 H* D Total Protein Albumin Globulin Albumin/Globulin Ratio Procalcitonin Urine Color Urine Appearance Urine pH Ur Specific [place] Urine Protein Urine Glucose (UA) Urine Ketones Urine Blood Urine Nitrite Urine Bilirubin Urine Urobilinogen Ur Leukocyte Esterase Urine WBC (Auto) Urine RBC (Auto) U Hyaline Cast (Auto) U Epithel Cells (Auto) Urine Bacteria (Auto) Granular Casts SARS-CoV-2, RNA, NAAT NEGATIVE 08/09/22 08/09/22 08/09/22 01:43 01:48 05:42 WBC 13.01 H RBC 4.48 Hgb 13.5 Hct 40.5 MCV 90.4 MCH 30.1 MCHC 33.3 RDW Std Deviation 45.5 RDW Coeff of Vignesh 13.8 Plt Count 187 MPV 10.6 Immature Gran % (Auto) Neut % (Auto) Lymph % (Auto) [place] % (Auto) Eos % (Auto) Baso % (Auto) Neut # (Auto) Lymph # (Auto) [place] # (Auto) Eos # (Auto) Baso # (Auto) Immature Gran # (Auto) Sodium Potassium Chloride Carbon Dioxide Anion Gap BUN Creatinine Est Cr Clr Drug Dosing Est GFR ( Amer) Est GFR (Non-Af Amer) BUN/Creatinine Ratio Glucose POC Glucose 169 H Estimat Average Glucose Hemoglobin A1c Calcium Total Bilirubin AST ALT Alkaline Phosphatase Total Creatine Kinase 81878 H Troponin I High Sens Total Protein Albumin Globulin Albumin/Globulin Ratio Procalcitonin Urine Color Urine Appearance Urine pH Ur Specific [place] Urine Protein Urine Glucose (UA) Urine Ketones Urine Blood Urine Nitrite Urine Bilirubin Urine Urobilinogen Ur Leukocyte Esterase Urine WBC (Auto) Urine RBC (Auto) U Hyaline Cast (Auto) U Epithel Cells (Auto) Urine Bacteria (Auto) Granular Casts SARS-CoV-2, RNA, NAAT 08/09/22 08/09/22 08/09/22 05:42 05:42 07:45 WBC RBC Hgb Hct MCV MCH MCHC RDW Std Deviation RDW Coeff of Vignesh Plt Count MPV Immature Gran % (Auto) Neut % (Auto) Lymph % (Auto) [place] % (Auto) Eos % (Auto) Baso % (Auto) Neut # (Auto) Lymph # (Auto) [place] # (Auto) Eos # (Auto) Baso # (Auto) Immature Gran # (Auto) Sodium Potassium Chloride Carbon Dioxide Anion Gap BUN Creatinine Est Cr Clr Drug Dosing Est GFR ( Amer) Est GFR (Non-Af Amer) BUN/Creatinine Ratio Glucose POC Glucose 216 H Estimat Average Glucose 174 Hemoglobin A1c 7.7 H Calcium Total Bilirubin AST ALT Alkaline Phosphatase Total Creatine Kinase Troponin I High Sens 549.3 H* D Total Protein Albumin Globulin Albumin/Globulin Ratio Procalcitonin Urine Color Urine Appearance Urine pH Ur Specific [place] Urine Protein Urine Glucose (UA) Urine Ketones Urine Blood Urine Nitrite Urine Bilirubin Urine Urobilinogen Ur Leukocyte Esterase Urine WBC (Auto) Urine RBC (Auto) U Hyaline Cast (Auto) U Epithel Cells (Auto) Urine Bacteria (Auto) Granular Casts SARS-CoV-2, RNA, NAAT 08/09/22 08/09/22 08/09/22 11:33 11:33 12:01 WBC RBC Hgb Hct MCV MCH MCHC RDW Std Deviation RDW Coeff of Vignesh Plt Count MPV Immature Gran % (Auto) Neut % (Auto) Lymph % (Auto) [place] % (Auto) Eos % (Auto) Baso % (Auto) Neut # (Auto) Lymph # (Auto) [place] # (Auto) Eos # (Auto) Baso # (Auto) Immature Gran # (Auto) Sodium Potassium Chloride Carbon Dioxide Anion Gap BUN Creatinine Est Cr Clr Drug Dosing Est GFR ( Amer) Est GFR (Non-Af Amer) BUN/Creatinine Ratio Glucose POC Glucose 339 H* Estimat Average Glucose Hemoglobin A1c Calcium Total Bilirubin AST ALT Alkaline Phosphatase Total Creatine Kinase 34436 H Troponin I High Sens 255.0 H* D Total Protein Albumin Globulin Albumin/Globulin Ratio Procalcitonin Urine Color Urine Appearance Urine pH Ur Specific [place] Urine Protein Urine Glucose (UA) Urine Ketones Urine Blood Urine Nitrite Urine Bilirubin Urine Urobilinogen Ur Leukocyte Esterase Urine WBC (Auto) Urine RBC (Auto) U Hyaline Cast (Auto) U Epithel Cells (Auto) Urine Bacteria (Auto) Granular Casts SARS-CoV-2, RNA, NAAT 08/09/22 08/09/22 12:02 12:03 WBC RBC Hgb Hct MCV MCH MCHC RDW Std Deviation RDW Coeff of Vignesh Plt Count MPV Immature Gran % (Auto) Neut % (Auto) Lymph % (Auto) [place] % (Auto) Eos % (Auto) Baso % (Auto) Neut # (Auto) Lymph # (Auto) [place] # (Auto) Eos # (Auto) Baso # (Auto) Immature Gran # (Auto) Sodium Potassium Chloride Carbon Dioxide Anion Gap BUN Creatinine Est Cr Clr Drug Dosing Est GFR ( Amer) Est GFR (Non-Af Amer) BUN/Creatinine Ratio Glucose POC Glucose 301 H* 324 H* Estimat Average Glucose Hemoglobin A1c Calcium Total Bilirubin AST ALT Alkaline Phosphatase Total Creatine Kinase Troponin I High Sens Total Protein Albumin Globulin Albumin/Globulin Ratio Procalcitonin Urine Color Urine Appearance Urine pH Ur Specific [place] Urine Protein Urine Glucose (UA) Urine Ketones Urine Blood Urine Nitrite Urine Bilirubin Urine Urobilinogen Ur Leukocyte Esterase Urine WBC (Auto) Urine RBC (Auto) U Hyaline Cast (Auto) U Epithel Cells (Auto) Urine Bacteria (Auto) Granular Casts SARS-CoV-2, RNA, NAAT Diagnostic Findings Echocardiogram obtained today revealed preserved LV systolic function with normal regional wall motion. The remainder of the study was difficult to interpret due to suboptimal imaging. CT scanning revealed cirrhosis with possible hepatic and splenic contusion. No definite fracture. ECG Additional Comments: EKG obtained the time admission revealed sinus rhythm PG Care Time/CCT Total # of Minutes Spent Total Time Spent with Patient: Total time spent is greater than 50% in coordination of care (as documented) at patient's floor/unit and/or counseling patient: Coding Level of Care Code 55101 INT INP/OBS CARE 3/75MIN Diagnoses Elevated troponin R77.8
[2022-08-09] MEDS ORDERED: hydrALAZINE HCL 20 MG/ML VIAL IV PRN (13:48)
--- NOTE | 2022-08-09 13:51 | Surgery Consultation ---
Date of Consultation August 09, 2022 Assessment & Plan (1) Liver hematoma: This is a 81yF with a PMH of HLD, morbid obesity, DM2, cirrhosis, breast ca s/p partial left mastectomy, developmental delay who resides at an assisted living facility who presented to the [facility] ED on 08/08/22 with complaints of left sided abdominal pain after a fall from her bed yesterday. Initial CT a/p showed hyperdensities in the lateral aspect of the spleen and liver. These may represent grade 1 hematomas or represent artifact secondary to patient motion. No abdominal wall contusions are seen. Today a repeat CT a/p was obtained for ongoing observation which revealed stable findings. Hbg is stable from yesterday at 13. Vitals show she is tachycardic from 90-110s and cardiology is currently consulted for elevated troponins. On exam abdomen is soft, mildly distended, with discomfort elicited along the left upper/mid abdomen. She otherwise is doing okay, tolerating a diet, no n/v. Given stability of CT and Hbg I believe we can continue to monitor the patient and treat with non operative management and supportive care. If she were to decompensate she may benefit from tertiary center with IR and trauma capabilities. No plans for acute surgical intervention at this time, will follow. Supervising Physician Co-Signing Physician Notes I personally saw and evaluated the patient with Lora Canales PA-C and agree with the assessment and plan. 81-year-old female with questionable traumatic liver and splenic injuries, grade [address] images from 08/08 and 08/09 personally viewed by myself She has had stable findings on CT as well as a stable hemoglobin since admission No plans for any surgical intervention Surgery will sign off at this time, please call with any questions or concerns History of Present Illness Attending Physician: Tania Bernard MD History of Present Illness This is a 81yF with a PMH of HLD, morbid obesity, DM2, cirrhosis, breast ca s/p partial left mastectomy, developmental delay who resides at an assisted living facility who presented to the [facility] ED on 08/08/22 with complaints of left sided abdominal pain after a fall. Apparently patient fell out of her bed yesterday morning and was found down on the floor after a few hours. She was brought into the ER and a CT a/p showed hyperdensities in the lateral aspect of the spleen and liver. These may represent grade 1 hematomas or represent artifact secondary to patient motion. No abdominal wall contusions are seen. We have been consulted regarding these findings. Patient denies any fevers/chills, nausea/vomiting, change in bowel habits or issue with eating. Past abdominal surgical history includes cholecystectomy. Patient is not on any blood thinners. Allergies Allergy/AdvReac Type Severity Reaction Status Date / Time erythromycin base AdvReac Intermediate Nausea Verified 08/08/22 20:33 Penicillins AdvReac Mild GI UPSET Verified 08/08/22 20:33 Home Medications Medication Instructions Recorded Confirmed Type cyanocobalamin (vitamin B-12) 1,000 mcg PO DAILY 10/18/18 08/08/22 History 1,000 mcg tablet (Vitamin B-12) syringe with needle 3 mL 25 x 5/8" #1 ea 01/21/19 06/28/22 History Lactobacills gasseri-Bifidobac 1 cap PO QAM 05/02/19 08/08/22 History bifidum,longum 1.5 billion cell capsule ([employer] cranberry 500 mg capsule 1,500 mg PO BID 05/02/19 08/08/22 History letrozole 2.5 mg tablet 2.5 mg PO QAM 05/02/19 08/08/22 History Lite Touch Insulin Pen Coy 31 #300 ea 07/22/20 06/28/22 Rx gauge x 3/16" (pen needle, diabetic) albuterol sulfate 90 mcg/actuation 2 puff inhalation Q4 PRN Shortness 08/12/20 08/08/22 Rx aerosol inhaler (Ventolin HFA) Of Breath Or Wheezing #1 ea denosumab 60 mg/mL subcutaneous 60 mg subcut .Q 6 months 05/11/21 08/08/22 History syringe (Prolia) Oxygen Home #2 L 05/13/21 06/28/22 Rx Portable Oxygen #1 ea 05/25/21 06/28/22 Rx cholecalciferol (vitamin D3) 25 2,000 unit PO BID 06/28/21 08/08/22 History mcg (1,000 unit) tablet (Vitamin D3) spironolactone 25 mg tablet 25 mg PO BID #180 tabs 09/01/21 08/08/22 Rx (Aldactone) methenamine hippurate 1 gram tablet 1 g PO Q12H #180 tabs 10/05/21 08/08/22 Rx umeclidinium 62.5 mcg-vilanterol 1 inh inhalation DAILY #60 ea 01/30/22 08/08/22 Rx 25 mcg/actuation powdr for inhalation (Anoro Ellipta) blood-glucose meter,continuous 03/08/22 08/08/22 History (Dexcom G6 Knot Tier) insulin degludec 200 unit/mL (3 22 unit subcut .DAILY AT NOON 05/10/22 08/08/22 History mL) subcutaneous pen (Tresiba FlexTouch U-200 insulin) insulin aspar prot-insulin aspart 120 unit subcut UD 06/15/22 08/08/22 History 100 unit/mL (70-30) subcutaneous pen (Novolog Mix 70-30FlexPen U-100) ammonium lactate 12 % topical cream 1 applic topical DAILY 08/08/22 08/08/22 History cyanocobalamin (vitamin B-12) 1,000 mcg subcut MONTHLY 08/08/22 08/08/22 History 1,000 mcg/mL injection solution ezetimibe 10 mg tablet (Zetia) 10 mg PO HS 08/08/22 08/08/22 History losartan 25 mg tablet (Cozaar) 25 mg PO QPM 08/08/22 08/08/22 History metformin 1,000 mg tablet,extended 1,000 mg PO BIDM 08/08/22 08/08/22 History release 24hr oxybutynin chloride 10 mg 10 mg PO QPM 08/08/22 08/08/22 History tablet,extended release 24 hr vitamins A,C,M-idrj-trjmtq 2,148 1 tab PO QPM 08/08/22 08/08/22 History mcg-113 mg-45 mg-17.4 mg tablet dulaglutide 3 mg/0.5 mL 3 mg (0.5 mL) subcut Q7D #2 mL 08/09/22 Rx subcutaneous pen injector Patient History Medical History AMD (age related macular degeneration) Asthma STABLE Atrial septal defect Bilateral nephrolithiasis Calcium nephrolithiasis Cirrhosis HX ETOH ABUSE- "STABLE" Diabetes mellitus, type 2 Followed by Endo Dyspnea on exertion Ex-smoker Hx of sepsis Hydronephrosis of left kidney Hyperlipidemia Hypertension Hypoxia Lower extremity edema Malignant neoplasm of central portion of left breast in female, estrogen receptor positive (04/18/18) Mental retardation Morbid obesity due to excess calories Multiple pulmonary nodules determined by computed tomography of lung Nephrolithiasis Osteoarthritis Osteopenia Solitary pulmonary nodule last Ct 11/2018,03/2020 1 yr Urinary incontinence Varicose vein of leg Vitamin B12 deficiency Vitamin D deficiency Surgical History History of cholecystectomy 2010- gr I atraumatic History of lithotripsy History of surgery of liver HEPATIC PORT PLACEMENT / CIRRHOSIS S/P colonoscopy S/P ureteral stent placement Status post left breast lumpectomy surgery 05-15-2018 [place] with LMA #4 Family History Mother , at a young age , not sure cause No problems noted. Father , age 109 / " old age " No problems noted. Sister , age 51 Breast cancer Sister , very young ,, hit by a truck Accident Sister No problems noted. Brother , age 55 Liver failure Brother , age 4-5 ys old , not sure cause Colon cancer Unknown Breast cancer Other Asthma Cancer Diabetes Denies family history of Heart disease Lung disease Social History Smoking Status: Never smoker Tobacco Type: Cigarettes Age Started Using Tobacco: 22; Age Quit Using Tobacco: 52; packs per day: 1; Second Hand Exposure: No; Do You Dip or Chew Tobacco: Yes; Tobacco Cessation Education Requested by Patient: No Hx Alcohol Use: No Hx Substance Use: No Preferred Language: Monegasque Communication Ability: Effective Visual Impairment: Limited Hearing Ability: Normal Bellman Driver Required: No Beliefs That Will Affect Care: None marital status: / Current Living Situation: Alone Current Living Situation Comment: [facility] involved with care; 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 occupational 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 How many Children do You have: 3 Other Information That Helps Us Care for You: No Feels Safe at Home: Yes Safety Concerns: Feels Safe At This Time Childhood Exposure to Second-Hand Smoke: Yes caffeine: Yes (drinks coffee tea and soda) Dental Care, Regularly: Yes Physical Activity Frequency: 3-4 Times per Week Physical Activity Frequency Comment: walks throughout the week Seatbelt Use: always Sunscreen Use: Yes Assistive Devices: Contacts, Oxygen - at Night and Walker Review of Systems Constitutional: no fever and no chills Respiratory: no dyspnea Gastrointestinal: + abdominal pain (left sided); no nausea, no vomiting and no change in bowel habits Physical Exam Physical Exam: awake, lying in bed Respiratory: on 2L nasal cannula Gastrointestinal (Abdomen): Percussion/Palpation: + abdomen tender (in left upper/mid abdomen ) and abdomen soft Skin: multiple abrasions noted on bilateral knees with dressings in place Results & Data ([facility]) Vital Signs (Past 12 Hours) Vital Signs Temp Pulse Resp BP Pulse Ox O2 Del Method O2 Flow Rate 08/09/22 12:11 36.6 C 121 H 18 183/91 H 91 Nasal Cannula 2 08/09/22 08:00 Room Air 08/09/22 08:08 37.5 C 104 H 18 138/64 94 Nasal Cannula 2 08/09/22 07:44 94 H 18 94 Nasal Cannula 2 08/09/22 01:59 Room Air Diagnostic Findings CT abd pelvis IV con only CLINICAL HISTORY: LUQ abdominal pain; trauma TECHNIQUE: Helical axial images of the abdomen and pelvis were obtained and displayed. Automated dose lowering techniques and/or adjustment according to patient size were utilized for this exam. This exam was performed with intravenous contrast. CT DOSE: 1160.90 mGycm COMPARISON: Comparison is made to CT abdomen pelvis 04/01/2020 FINDINGS: Lower chest: Biatrial enlargement is seen. Liver: Caudate enlargement is seen. Nodular contour of the liver is noted. There is a hypodensity in the right lower capsule measuring approximately 42 x 9 mm. Gallbladder and biliary tree: Patient is status post cholecystectomy. No intra- or extrahepatic biliary ductal dilation. Pancreas: Unremarkable, no focal lesions. Spleen: Splenic calcifications are seen. There is questionable lateral peripheral hypodensity measuring approximately 32 x 5 mm. Adrenals: Unremarkable. Kidneys and ureters: There is a large left renal cyst measuring 67 mm in diameter. Bladder: Unremarkable. Reproductive organs: Possible tiny uterine fibroid. Bowel: Diverticulosis is seen without evidence of diverticulitis. There is a small hiatal hernia. Lymph nodes Retroperitoneal: Unremarkable. Pelvic: Unremarkable. Mesenteric: Unremarkable. Peritoneum: Normal. Vessels: Atherosclerotic calcifications are seen. Abdominal wall: No contusions are seen in the left upper quadrant. Redemonstration of right lower quadrant shunt catheter. Bones: Degenerative changes in the visualized spine. Pars defects and grade 1 anterolisthesis are seen at L4-L5. Old healed rib fractures are noted. IMPRESSION: 1. There is hyperdensities in the lateral aspect of the spleen and liver. These may represent grade 1 hematomas or represent artifact secondary to patient motion. No abdominal wall contusions are seen. 2. Cirrhotic morphology of the liver without ascites. ACT 112: Negative or not required by law. Electronically signed by: Tyron Dhillon M.D. 08/08/2022 6:[address] abd pelvis wo con CLINICAL HISTORY: follow-up on hyperdensities on the spleen/liver TECHNIQUE: Helical axial images of the abdomen and pelvis were obtained. Automated dose lowering techniques and/or adjustment according to patient size were utilized for this exam. This exam was performed without intravenous contrast. CT DOSE: 1370.87 mGy.cm COMPARISON: Comparison is made to CT abdomen pelvis 08/08/2022 FINDINGS: Lower chest: Cardiomegaly is seen with biatrial enlargement. Small bilateral pleural effusions are new from prior exam. Liver: Cirrhosis with prominent caudate enlargement is seen. There is a subcapsular collection measuring 36 x 9 mm, similar in appearance to prior exam. Gallbladder and biliary tree: Patient is status post cholecystectomy. No intra- or extrahepatic biliary ductal dilation. Pancreas: Unremarkable, no focal lesions. Spleen: Calcifications are noted in the spleen compatible with prior granulomatous disease. Previously noted questionable hypodensity is less evident although evaluation is limited by motion artifact. Adrenals: Thickening of the bilateral adrenal glands is seen. Kidneys and ureters: Perinephric stranding is noted bilaterally. Bladder: Barnes catheter is seen. Reproductive organs: Unremarkable. Bowel: Diverticulosis is seen without evidence of diverticulitis. A hiatal hernia is seen. Lymph nodes Retroperitoneal: Unremarkable. Pelvic: Unremarkable. Mesenteric: Unremarkable. Peritoneum: Normal. Vessels: Atherosclerotic calcifications are seen. Abdominal wall: Minimal minimal soft tissue stranding is in the left upper quadrant abdominal wall. Redemonstration of a right lower quadrant shunt catheter. Bones: Degenerative changes in the visualized spine. Grade 1 anterolisthesis is seen at L4-L5 with associated pars defects. Old healed rib fractures are seen. IMPRESSION: 1. Previously noted right hepatic grade 1 contusion is unchanged in size. Evaluation for previously suggested splenic contusion is limited by patient motion, however no contusions definitely seen. No new or enlarged organ injury or intraperitoneal hemorrhage is seen. 2. Redemonstration of cirrhosis. ACT 112: Negative or not required by law. Electronically signed by: Tyron Dhillon M.D. 08/09/2022 12:14 PM PG Care Time/CCT Total # of Minutes Spent Total Time Spent with Patient: Total time spent is greater than 50% in coordination of care (as documented) at patient's floor/unit and/or counseling patient: Coding Level of Care Code 69072 INT INP/OBS CARE 140MIN Diagnoses Liver hematoma S36.112A
[2022-08-09 14:06] LABS: BUN Creatinine Ratio 32.9 (10-20); Calcium 9.6 mg/dl (8.5-10.1); Creatinine Clr Calc Pharmacy 59.2 ml/min; Est GFR (African American) 75.5 ml/min; Est GFR (Non-African American) 65.2 ml/min; Magnesium 2.2 mg/dl (1.7-2.4); Potassium 4.8 mmol/L (3.5-5.1)
--- NOTE | 2022-08-09 14:11 | Electrocardiogram Report ---
Test Reason : Blood Pressure : / mmHG Vent. Rate : 094 BPM Atrial Rate : 094 BPM P-R Int : 182 ms QRS Dur : 088 ms QT Int : 370 ms P-R-T Axes : 031 -07 067 degrees QTc Int : 462 ms Normal sinus rhythm Normal ECG When compared with ECG of 16-JAN-2019 04:55, No significant change was found Confirmed by Tito Chris ([id number]) on 08/09/2022 11:17:42 AM Referred By: REFERRED SELF Confirmed By:Noé Chris
--- NOTE | 2022-08-09 14:11 | Electrocardiogram Report ---
Test Reason : Blood Pressure : / mmHG Vent. Rate : 090 BPM Atrial Rate : 090 BPM P-R Int : 184 ms QRS Dur : 086 ms QT Int : 376 ms P-R-T Axes : 030 -10 060 degrees QTc Int : 459 ms Normal sinus rhythm Minimal voltage criteria for LVH, may be normal variant Borderline ECG When compared with ECG of 08-AUG-2022 16:49, (unconfirmed) No significant change was found Confirmed by Tito Chris ([id number]) on 08/09/2022 11:18:41 AM Referred By: REFERRED SELF Confirmed By:Noé Chris
[2022-08-09] MEDS ORDERED: PHARMACY GLYCEMIC MGMT CONSULT PRN (14:34)
[2022-08-09] MEDS ORDERED: INSULIN ASPART PER UNIT SC ONE (14:50)
--- NOTE | 2022-08-09 14:56 | Pharmacy Report ---
Pharmacy Glycemic Short Note 2 - Date of Service August 09, 2022 - Glycemic Short BSG Results (Last 24 hours): 08/08/22 08/08/22 08/09/22 16:56 20:29 01:48 Glucose 315 H* POC Glucose 221 H 169 H 08/09/22 08/09/22 08/09/22 07:45 11:33 12:01 Glucose 360 H* POC Glucose 216 H 339 H* 08/09/22 08/09/22 12:02 12:03 Glucose POC Glucose 301 H* 324 H* OUTPATIENT ANTIDIABETIC REGIMEN: * Dulaglutide 4.5mg SQ weekly * Metformin 1g PO BID * Tresiba 22 units daily at 1200 * Aspart 55 units with breakfast, 50 units with dinner ASSESSMENT: * 81 yo female, PMH of HLD, morbid obesity, DM2, cirrhosis, breast ca s/p partial left mastectomy, developmental delay who resides at an assisted living facility, s/p fall, UTI, hyperglycemic. Patient maintained on multiple DM meds including insulin at home, has had minimal insulin so far since admission, resulting in hyperglycemia. * Extra accucheck now at 1450 to give extra SQ insulin, then resume ACHS checks, tighten CF/CR and increase basal to home dose starting now. PLAN FOR INPATIENT GLYCEMIC CONTROL: * Hold outpatient diabetes medications * Basal insulin * Lantus 22 units SQ daily at 1200, start now * Bolus insulin * NovoLog per scale ACHS or Q6hrs while NPO * Goal Range: Low 110 mg/dL - High 140 mg/dL * Correction Factor: 20 mg/dL/unit * Nutritional / Prandial insulin per carb ratio of 1 unit per 7 grams CHO consumed
[2022-08-09 15:33] LABS: Albumin Level 3.7 gm/dl (3.4-5.0); Bilirubin Direct 0.2 mg/dl (0-0.2); Bilirubin,Total 0.9 mg/dl (0.2-1.0); Total Protein 6.8 gm/dl (6.0-8.3)
[2022-08-09] MEDS: ACETAMINOPHEN 325 MG TAB PO PRN (19:24)
[2022-08-09] MEDS: OXYBUTYNIN CHLORIDE XL 5 MG TABCR PO SCH (19:25)
[2022-08-09] MEDS: MICONAZOLE NITRATE POWDER 85 GM EXT SCH (19:26)
[2022-08-09] MEDS ORDERED: LANTUS PER UNIT CHARGE SQ SCH (21:00)
[2022-08-10] MEDS ORDERED: FUROSEMIDE INJ 20 MG/2 ML VIAL IV ONE ×2 (01:04→20:35)
[2022-08-10] MEDS: MoRPHine SULFATE 2 MG/ML CARP IV PRN (01:26)
--- NOTE | 2022-08-10 01:42 | Communication Note ---
Date of Service: August 10, 2022 At approximately 11 PM on 08/09/2022, was notified by nurse about patient's critical EWS score (RR 24, HR 118). She reported that the patient was asymptom atic. I went to assess the patient, noting bibasilar crackles and wheezing on exam, without pedal edema. Patient was awake and reported some distress, but attributed it to her back pain. BP was elevated in the 180s over 90s. Instructed nurse to slow down patient's IV maintenance fluids to 80 mL/h, and to give patient's as needed DuoNeb treatment, which she then received. Checked in with nurse an hour laterpatient's breathing had improved (no wheeze on exam), and pressure had improved to 140/60, with HR 104. Was notified by the nurse about an hour later that the patient was now reporting shortness of breath. Went to assess the patient second time, noting only the aforementioned bibasilar crackles on lung exam. No wheeze was heard. Stopped IVF, ordered a stat CXR and IV Lasix 20 mg. Per my read, CXR showed unchanged cardiomegaly and worsening edema on the left, compared to last CXR from 08/08/2022. After IV Lasix was given, recommended that nursing elevate HOB. 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
[2022-08-10] MEDS: ALBUT/IPRATROP 3MG/0.5MG NEB 3 ML VIAL NEB SCH ×4 (06:52→19:35)
[2022-08-10 08:20] LABS: INR 1.1 (0.9-1.1); Prothrombin Time 11.5 Seconds (9.0-12.0)
[2022-08-10] MEDS: MICONAZOLE NITRATE POWDER 85 GM EXT SCH ×3 (08:33→21:06)
[2022-08-10] MEDS: UMECLIDINIUM/VILANTEROL 62.5/25MCG 7 PUFFS/INHALER INH SCH (08:33)
[2022-08-10] MEDS: MUPIROCIN 2% OINT 22 GM TUBE EXT SCH ×2 (08:33→21:05)
[2022-08-10 08:35] LABS: Albumin Globulin Ratio 1.1 (0.9-2); Albumin Level 3.4 gm/dl (3.4-5.0); BUN Creatinine Ratio 33.3 (10-20); Bilirubin,Total 0.7 mg/dl (0.2-1.0); Calcium 8.9 mg/dl (8.5-10.1); Creatinine Clr Calc Pharmacy 93.3 ml/min; Est GFR (African American) 100.5 ml/min; Est GFR (Non-African American) 86.7 ml/min; Globulin 3.1 gm/dl (2.5-4.0); Magnesium 1.9 mg/dl (1.7-2.4); Potassium 4.2 mmol/L (3.5-5.1); Total Protein 6.5 gm/dl (6.0-8.3)
--- NOTE | 2022-08-10 08:40 | Hospitalist Progress Note ---
Date of Service August 10, 2022 Assessment & Plan (1) Fall: Plan: Fell at assisted living facility, unclear duration, some say 2hours, possibly up to 8hrs (wears O2 at night, this was also reported to be off when found) Denies LOC/trauma to head No fractures on imaging, possible occult fracture to L elbow not excluded however Wound RN consulted for multiple skin issues -- see imaging/documentation CTAP w/ concerns given "hyperdensities in the lateral aspect of the spleen and liver. These may represent grade 1 hematomas or represent artifact secondary to patient motion." She is without signs of bleeding on inspection of her abdomen. Repeat CTAP 08/09 unchanged however hgb stable on continuous IVF for rhabdo as below Discussed w/ surgery, can get up/ambulate as tolerated, should improve over time/supportive care Overnight 08/09 became increasingly short of breath and concerns for volume overload, IVF was stopped and patient provided dose of IV lasix Stable on 2L currently -- uses HS, titrate as able Tx of UTI -- switched to Cefdinir given Ecoli resistant to FLQ WBC stable 8k, afebrile Pain control -- Tylenol/morphine ordered. Asked RN to admin oxycodone x 1, ordered q4h prn as well. Senna/docusate added to help get her bowels moving. Good bowel sounds on exam PT/OT consulted, possible need for rehab pending eval but will need to wait until mobility able to be advanced for now (2) Rhabdomyolysis: Plan: CK 19k, Cr 1.05, No anion gap (baseline Cr 0.5-0.7 however of note) 1L in ER, additional 2L NSS provided and was on continuous IVF and developed worsening pulm edema/shortness of breath and Lasix IV provided CK currently 13k however urine in barnett clearer today and pushing oral fluids Avoid nephrotoxic agents, renal dose meds as able LFT elevation could also be from the rhabdo itself, but as above w/ concerns hepatic hematoma -- per discussion w/ general surgery, can be d/c from their standpoint Monitor labs on repeat (3) UTI (urinary tract infection): Plan: WBC elevation on admit, falls Blood cultures NGTD x 24 hours (procal was 4.39 on admit) Cefepime continued for UTI -- ecoli on cx -- switching to cefdinir for today for coverage, planning 10 day course WBC stable, afebrile UOP improved/PO intake -- monitor (4) Elevated troponin: Plan: Initial trop elevated at 1314, patient is asymptomatic as her left lower chest/rib pain is reproducible on palpation, she is also without acute ST segment or T-wave changes ECG Likely multifactorial including demand from being down for multiple hours, her acute illness, and current Rhabdo Repeat EKG unchanged NSR/sinus tach on monitor (suspect aspect of pain, given her pain to LUQ/chest, reproducible to palpation, contributing) Trop 1314--> 1078--> 828--> 549--> 255 Cards consulted -- does not feel cardiac in nature ECHO w/o wall motion abnormality Suspect demand ischemia from acute illness/UTI/rhabdo Monitor on tele -- has been NSR/sinus tach Starting low dose metoprolol 12.5mg, monitor response (5) Diabetes mellitus, type 2: Plan: Noted to be in the 300's on presentation to the ED A1c 7.7 On dulaglutide weekly, metformin 1gm BID outpatient -- held while inpatient BSGs to 300s yesterday during downtime, late administration of insulin Had increased lantus dosing, contacted pharmacy for additional assistance --22u yesterday at lunch provided, additional 22 u this afternoon and evening dosing based on BSG BSGs 163-206 today, monitor (6) Hypertension: Plan: BP elevations felt 2nd to pain reported -- medications ordered for pain control, had improvement but had only gotten tylenol this AM and asked RN to provide oxycodone x 1 Holding losartan (on 25mg daily) and spironolactone (25mg BID) given rhabdo -- o f note, cirrhotic morphology of liver on imaging w/o ascites Added low dose metoprolol 12.5mg Hydralazine available prn Continue to monitor (7) Dyspnea on exertion: Plan: Patient has a history of mixed lung disease, on HS 2L NC On supplemental O2 when sleeping Continue IS, flutter valve, duonebs Titrate O2 as able to maintain sats (8) Cirrhosis: Plan: Cirrhotic morphology of the liver noted on CT LFT elevation could also be from Rhabdo as above 2nd to fall LFTs slightly worse AST 313/ALT79 from 286/71 NO RUQ pain -- her pain is LUQ in nature Continue to monitor labs (9) Intellectual disability: Plan: -Patient is a resident at the senior living in [place] -Alert and oriented X 3 , intellectual disability noted (10) Breast cancer: Plan: Hx L breast lumpectomy 2018 On letrozole 2.5mg daily Mammogram most recently completed Jul 2022, no evidence for malignancy Plan switched abx to PO Per general surgery, no issues w/ CT findings, can sign off/dc PT/OT consult, likely will need inpatient rehab --> SNF recommended. Will need to f/u CM tomorrow Admission and Anticipated Discharge Date Admission Date: August 08, 2022 Supervising Physician Co-Signing Physician Notes PA Supervision Note: I did not personally see or examine the patient today, but I verified all mccarty points of RAMIRO Gonzalez's assessment and plan with the following exceptions/additions: Pt with pain in left upper quadrant--> personally reviewed CT abd/pel and I can visualize rib fractures on left. No PTX on CXR from overnight Pain control of rib fractures, diurese further Subjective eval this afternoon, doing alright. states breathing stable but short of breath with activity/repositioning at times. ate breakfast alright but not much of an appetite currently. +cough, but unable to produce any sputum. Feels like it's stuck in her throat. Urine in barnett clearer but still pink tinge/concentrated. Encouraged to push oral fluids, she agreed. Discussed UTI --she states she gets these frequently. No fever/chills. No chest pain. Does have pain to her LUQ/L flank, requesting something for pain. +BS on exam, but denies moving her bowels. Discussed adding bowel regimen, and that we will also ask therapy to get her up/moving around as well. Review of Systems Review of Systems: All systems reviewed & are unremarkable except as noted in HPI & below Physical Exam Physical Exam: General: WD/obese female sitting on her right side in bed, NAD but reporting discomfort/pain to her left upper abdomen HEENT: head normocephalic, atraumatic, trachea midline RESP: coarse breath sounds bilaterally, no wheezing, on 2L NC CV: tachycardic (rates 100-110), regular, no m/r/g, trace pedal edema GI: +BS, tenderness to palpation left upper quadrant/ribs, no rebound/guarding : barnett with less concentrated urine, however still concentrated MSK/Neuro/Skin: moves all extremities, no focal deficit, generalized weakness 3- 4/5 throughout scattered ecchymosis/bruising (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) Psych: alert to person, knows she is in the hospital, intermittent confusion at times/whiffy Results & Data Results & Data ([facility]) Vital Signs (Past 12 Hours) Vital Signs Temp Pulse Pulse Resp BP Pulse Ox O2 Del Method 08/10/22 07:19 37.3 C 96 H 17 147/69 H 95 Nasal Cannula 08/10/22 06:52 104 H 16 88 L Room Air 08/10/22 05:54 100 H 24 155/66 H 91 Nasal Cannula 08/10/22 03:20 37.1 C 104 H 22 179/76 H 93 Nasal Cannula 08/10/22 01:34 107 H 08/10/22 00:15 104 H 24 140/60 08/09/22 23:00 101 H 08/09/22 23:07 97 H 22 95 Nasal Cannula 08/09/22 22:36 36.6 C 119 H 23 173/79 H 90 Nasal Cannula O2 Flow Rate 08/10/22 07:19 2 08/10/22 06:52 08/10/22 05:54 2 08/10/22 03:20 2 08/10/22 01:34 08/10/22 00:15 08/09/22 23:00 08/09/22 23:07 2 08/09/22 22:36 2 Laboratory Results 08/10/22 08/10/22 08/10/22 Range/Units 11:07 07:13 06:50 WBC (4.8-10.8) K/ul RBC (4.20-5.40) M/uL Hgb (12.0-16.0) g/dl Hct (37.0-47.0) % MCV (80.0-100.0) fL MCH (25.0-34.0) pg MCHC (32.0-36.0) g/dL RDW Std Deviation (36.4-46.3) fL RDW Coeff of Vignesh (11.5-14.5) % Plt Count (130-400) K/uL MPV (9.4-12.4) fL PT 11.5 (9.0-12.0) Seconds INR 1.1 (0.9-1.1) Sodium (136-145) mmol/L Potassium (3.5-5.1) mmol/L Chloride (98-107) mmol/L Carbon Dioxide (21-32) mmol/L Anion Gap (3-11) BUN (6-23) mg/dl Creatinine (0.6-1.2) mg/dl Est Cr Clr Drug Dosing ml/min Est GFR ( Amer) ml/min Est GFR (Non-Af Amer) ml/min BUN/Creatinine Ratio (10-20) Glucose (70-99(Fasting)) mg/dl POC Glucose 192 H 206 H (70-99) mg/dl Calcium (8.5-10.1) mg/dl Magnesium (1.7-2.4) mg/dl Total Bilirubin Direct Bilirubin AST ALT Alkaline Phosphatase Total Creatine Kinase (26-192) U/L Total Protein Albumin Globulin (2.5-4.0) gm/dl Albumin/Globulin Ratio (0.9-2) 25-OH Vitamin D Total (30-100) ng/ml TSH (0.300-4.500) uIu/ml 08/10/22 08/10/22 08/09/22 Range/Units 06:50 06:50 19:57 WBC 8.05 (4.8-10.8) K/ul RBC 4.18 L (4.20-5.40) M/uL Hgb 12.4 (12.0-16.0) g/dl Hct 37.8 (37.0-47.0) % MCV 90.4 (80.0-100.0) fL MCH 29.7 (25.0-34.0) pg MCHC 32.8 (32.0-36.0) g/dL RDW Std Deviation 45.3 (36.4-46.3) fL RDW Coeff of Vignesh 13.6 (11.5-14.5) % Plt Count 186 (130-400) K/uL MPV 11.1 (9.4-12.4) fL PT (9.0-12.0) Seconds INR (0.9-1.1) Sodium 135 L (136-145) mmol/L Potassium 4.2 (3.5-5.1) mmol/L Chloride 101 (98-107) mmol/L Carbon Dioxide 28 (21-32) mmol/L Anion Gap 6 (3-11) BUN 20 (6-23) mg/dl Creatinine 0.60 (0.6-1.2) mg/dl Est Cr Clr Drug Dosing 93.3 ml/min Est GFR ( Amer) 100.5 ml/min Est GFR (Non-Af Amer) 86.7 ml/min BUN/Creatinine Ratio 33.3 H (10-20) Glucose 218 H (70-99(Fasting)) mg/dl POC Glucose 167 H (70-99) mg/dl Calcium 8.9 (8.5-10.1) mg/dl Magnesium 1.9 (1.7-2.4) mg/dl Total Bilirubin 0.7 Direct Bilirubin AST 313 H ALT 79 H Alkaline Phosphatase 58 Total Creatine Kinase 66420 H (26-192) U/L Total Protein 6.5 Albumin 3.4 Globulin 3.1 (2.5-4.0) gm/dl Albumin/Globulin Ratio 1.1 (0.9-2) 25-OH Vitamin D Total (30-100) ng/ml TSH (0.300-4.500) uIu/ml 08/09/22 08/09/22 08/09/22 Range/Units 16:49 15:00 14:59 WBC (4.8-10.8) K/ul RBC (4.20-5.40) M/uL Hgb (12.0-16.0) g/dl Hct (37.0-47.0) % MCV (80.0-100.0) fL MCH (25.0-34.0) pg MCHC (32.0-36.0) g/dL RDW Std Deviation (36.4-46.3) fL RDW Coeff of Vignesh (11.5-14.5) % Plt Count (130-400) K/uL MPV (9.4-12.4) fL PT (9.0-12.0) Seconds INR (0.9-1.1) Sodium (136-145) mmol/L Potassium (3.5-5.1) mmol/L Chloride (98-107) mmol/L Carbon Dioxide (21-32) mmol/L Anion Gap (3-11) BUN (6-23) mg/dl Creatinine (0.6-1.2) mg/dl Est Cr Clr Drug Dosing ml/min Est GFR ( Amer) ml/min Est GFR (Non-Af Amer) ml/min BUN/Creatinine Ratio (10-20) Glucose (70-99(Fasting)) mg/dl POC Glucose 276 H 293 H (70-99) mg/dl Calcium (8.5-10.1) mg/dl Magnesium (1.7-2.4) mg/dl Total Bilirubin 0.9 Direct Bilirubin 0.2 AST 286 H ALT 71 H Alkaline Phosphatase 66 Total Creatine Kinase (26-192) U/L Total Protein 6.8 Albumin 3.7 Globulin (2.5-4.0) gm/dl Albumin/Globulin Ratio (0.9-2) 25-OH Vitamin D Total (30-100) ng/ml TSH (0.300-4.500) uIu/ml 08/09/22 08/09/22 08/09/22 Range/Units 14:57 12:48 12:48 WBC (4.8-10.8) K/ul RBC (4.20-5.40) M/uL Hgb (12.0-16.0) g/dl Hct (37.0-47.0) % MCV (80.0-100.0) fL MCH (25.0-34.0) pg MCHC (32.0-36.0) g/dL RDW Std Deviation (36.4-46.3) fL RDW Coeff of Vignesh (11.5-14.5) % Plt Count (130-400) K/uL MPV (9.4-12.4) fL PT (9.0-12.0) Seconds INR (0.9-1.1) Sodium (136-145) mmol/L Potassium (3.5-5.1) mmol/L Chloride (98-107) mmol/L Carbon Dioxide (21-32) mmol/L Anion Gap (3-11) BUN (6-23) mg/dl Creatinine (0.6-1.2) mg/dl Est Cr Clr Drug Dosing ml/min Est GFR ( Amer) ml/min Est GFR (Non-Af Amer) ml/min BUN/Creatinine Ratio (10-20) Glucose (70-99(Fasting)) mg/dl POC Glucose 326 H* (70-99) mg/dl Calcium (8.5-10.1) mg/dl Magnesium (1.7-2.4) mg/dl Total Bilirubin Direct Bilirubin AST ALT Alkaline Phosphatase Total Creatine Kinase (26-192) U/L Total Protein Albumin Globulin (2.5-4.0) gm/dl Albumin/Globulin Ratio (0.9-2) 25-OH Vitamin D Total 77.3 (30-100) ng/ml TSH 1.141 (0.300-4.500) uIu/ml 08/09/22 Range/Units 11:33 WBC (4.8-10.8) K/ul RBC (4.20-5.40) M/uL Hgb (12.0-16.0) g/dl Hct (37.0-47.0) % MCV (80.0-100.0) fL MCH (25.0-34.0) pg MCHC (32.0-36.0) g/dL RDW Std Deviation (36.4-46.3) fL RDW Coeff of Vignesh (11.5-14.5) % Plt Count (130-400) K/uL MPV (9.4-12.4) fL PT (9.0-12.0) Seconds INR (0.9-1.1) Sodium 134 L (136-145) mmol/L Potassium 4.8 (3.5-5.1) mmol/L Chloride 102 (98-107) mmol/L Carbon Dioxide 19 L (21-32) mmol/L Anion Gap 13 H (3-11) BUN 28 H (6-23) mg/dl Creatinine 0.85 (0.6-1.2) mg/dl Est Cr Clr Drug Dosing 59.2 ml/min Est GFR ( Amer) 75.5 ml/min Est GFR (Non-Af Amer) 65.2 ml/min BUN/Creatinine Ratio 32.9 H (10-20) Glucose 360 H* (70-99(Fasting)) mg/dl POC Glucose (70-99) mg/dl Calcium 9.6 (8.5-10.1) mg/dl Magnesium 2.2 (1.7-2.4) mg/dl Total Bilirubin Cancelled Direct Bilirubin Cancelled AST Cancelled ALT Cancelled Alkaline Phosphatase Cancelled Total Creatine Kinase (26-192) U/L Total Protein Cancelled Albumin Cancelled Globulin (2.5-4.0) gm/dl Albumin/Globulin Ratio (0.9-2) 25-OH Vitamin D Total (30-100) ng/ml TSH (0.300-4.500) uIu/ml Diagnostic Findings Chest X-Ray 08/10/22 01:04 XR chest 1V portable CLINICAL HISTORY: Shortness of breath COMPARISON STUDY: Chest CT June 22, 2022. Chest radiograph August 08, 2022. FINDINGS: Right internal jugular central venous catheter remains in place. Cardiomegaly is unchanged. There is no evidence for pulmonary edema. No consolidation is identified to suggest pneumonia. Opacity at the right cardiophrenic angle favors epicardial fat pad. Left upper lobe density is unchanged and favors scarring. IMPRESSION: No acute cardiopulmonary findings. No significant change in appearance of the chest. ACT 112: Negative or not required by law. Electronically signed by: Grupo Castro M.D. 08/10/2022 7:17 AM PG Care Time/CCT Total # of Minutes Spent Total Time Spent with Patient: Total time spent is greater than 50% in coordination of care (as documented) at patient's floor/unit and/or counseling patient: Coding Level of Care Code 65331 SUB INP/OBS CARE 2/35MIN Diagnoses Fall W19.XXXA Rhabdomyolysis M62.82 UTI (urinary tract infection) N39.0 Elevated troponin R77.8 Diabetes mellitus, type 2 E11.9 Hypertension I10 Dyspnea on exertion R06.00 Cirrhosis K74.60 Intellectual disability F79 Breast cancer C50.919
[2022-08-10] MEDS: LETROZOLE 2.5 MG TAB PO SCH (09:13)
[2022-08-10] MEDS: INSULIN ASPART PER UNIT SC SCH ×4 (09:13→20:26)
[2022-08-10 09:28] LABS: Hematocrit (blood only) 37.8 % (37.0-47.0); Hemoglobin 12.4 g/dl (12.0-16.0); Mean Corpuscular Hemoglobin 29.7 pg (25.0-34.0); Mean Corpuscular Hgb Conc 32.8 g/dL (32.0-36.0); Mean Corpuscular Volume 90.4 fL (80.0-100.0); Mean Platelet Volume 11.1 fL (9.4-12.4); Platelet Count 186 K/uL (130-400); RDW Coefficient of Variation 13.6 % (11.5-14.5); RDW Standard Deviation 45.3 fL (36.4-46.3); Red Blood Count 4.18 M/uL (4.20-5.40); White Blood Count 8.05 K/ul (4.8-10.8)
--- NOTE | 2022-08-10 09:58 | XRay Report ---
XR chest 1V portable CLINICAL HISTORY: Shortness of breath COMPARISON STUDY: Chest CT June 22, 2022. Chest radiograph August 08, 2022. FINDINGS: Right internal jugular central venous catheter remains in place. Cardiomegaly is unchanged. There is no evidence for pulmonary edema. No consolidation is identified to suggest pneumonia. Opaci ty at the right cardiophrenic angle favors epicardial fat pad. Left upper lobe density is unchanged a nd favors scarring. IMPRESSION: No acute cardiopulmonary findings. No significant change in appearance of the chest. ACT 112: Negative or not required by law. Electronically signed by: Grupo Castro M.D. 08/10/2022 7:17 AM
[2022-08-10] MEDS: CEFEPIME 1,000 MG in SYRINGE 0 ML IV SCH (10:47)
[2022-08-10] MEDS: LANTUS PER UNIT CHARGE SQ SCH (12:43)
[2022-08-10] MEDS: oxyCODONE HCL IR 5 MG TAB (IMMEDIATE RELEASE) PO PRN (12:53)
[2022-08-10] MEDS: DOCUSATE SODIUM/SENNA 50/8.6MG TAB PO SCH (13:37)
[2022-08-10] MEDS ORDERED: LANTUS PER UNIT CHARGE SQ SCH (21:00)
[2022-08-10] MEDS: ACETAMINOPHEN 325 MG TAB PO PRN (21:01)
[2022-08-10] MEDS: METOPROLOL TARTRATE 25 MG TAB PO SCH (21:03)
[2022-08-10] MEDS: CEFDINIR 300 MG CAP PO SCH (21:04)
[2022-08-10] MEDS: guaiFENesin 600 MG TABCR PO SCH (21:04)
[2022-08-10] MEDS: OXYBUTYNIN CHLORIDE XL 5 MG TABCR PO SCH (21:05)
[2022-08-11] MEDS: MoRPHine SULFATE 2 MG/ML CARP IV PRN
[2022-08-11] MEDS: oxyCODONE HCL IR 5 MG TAB (IMMEDIATE RELEASE) PO PRN ×3 (05:23→20:54)
[2022-08-11 06:27] LABS: Hematocrit (blood only) 37.6 % (37.0-47.0); Hemoglobin 12.8 g/dl (12.0-16.0); Mean Corpuscular Hemoglobin 30.1 pg (25.0-34.0); Mean Corpuscular Volume 88.5 fL (80.0-100.0); Mean Platelet Volume 10.7 fL (9.4-12.4); Platelet Count 217 K/uL (130-400); RDW Coefficient of Variation 13.5 % (11.5-14.5); RDW Standard Deviation 43.9 fL (36.4-46.3); Red Blood Count 4.25 M/uL (4.20-5.40)
[2022-08-11 06:50] LABS: Albumin Level 3.3 gm/dl (3.4-5.0); Bilirubin,Total 0.7 mg/dl (0.2-1.0); Calcium 8.9 mg/dl (8.5-10.1)
[2022-08-11] MEDS: ALBUT/IPRATROP 3MG/0.5MG NEB 3 ML VIAL NEB SCH ×4 (06:51→19:43)
[2022-08-11 06:56] LABS: BUN Creatinine Ratio 32.1 (10-20); Creatinine Clr Calc Pharmacy 99.9 ml/min; Est GFR (African American) 102.8 ml/min; Est GFR (Non-African American) 88.7 ml/min
[2022-08-11 06:59] LABS: Albumin Globulin Ratio 1.1 (0.9-2); Globulin 3.1 gm/dl (2.5-4.0); Total Protein 6.4 gm/dl (6.0-8.3)
[2022-08-11] MEDS: INSULIN ASPART PER UNIT SC SCH ×4 (07:57→20:20)
[2022-08-11] MEDS: DOCUSATE SODIUM/SENNA 50/8.6MG TAB PO SCH (07:59)
[2022-08-11] MEDS: LETROZOLE 2.5 MG TAB PO SCH (07:59)
[2022-08-11] MEDS: METOPROLOL TARTRATE 25 MG TAB PO SCH (07:59)
[2022-08-11] MEDS: guaiFENesin 600 MG TABCR PO SCH ×2 (07:59→20:59)
[2022-08-11] MEDS: MUPIROCIN 2% OINT 22 GM TUBE EXT SCH ×2 (08:00→20:55)
[2022-08-11] MEDS: LIDOCAINE 5% 1 PATCH TD SCH (08:00)
[2022-08-11] MEDS: MICONAZOLE NITRATE POWDER 85 GM EXT SCH ×3 (08:01→20:55)
[2022-08-11] MEDS: CEFDINIR 300 MG CAP PO SCH ×2 (08:01→20:57)
[2022-08-11] MEDS: UMECLIDINIUM/VILANTEROL 62.5/25MCG 7 PUFFS/INHALER INH SCH (08:01)
--- NOTE | 2022-08-11 08:45 | Hospitalist Progress Note ---
Date of Service August 11, 2022 Assessment & Plan (1) Fall: Plan: Fell at assisted living facility, unclear duration, some say 2hours, possibly up to 8hrs (wears O2 at night, this was also reported to be off when found) Denies LOC/trauma to head No fractures on imaging, possible occult fracture to L elbow not excluded however Wound RN consulted for multiple skin issues -- see imaging/documentation CTAP w/ concerns given "hyperdensities in the lateral aspect of the spleen and liver. These may represent grade 1 hematomas or represent artifact secondary to patient motion." She is without signs of bleeding on inspection of her abdomen. Repeat CTAP 08/09 unchanged however hgb stable on continuous IVF for rhabdo as below Discussed w/ surgery, can get up/ambulate as tolerated, should improve over time/supportive care Overnight 08/09 became increasingly short of breath and concerns for volume overload, IVF was stopped and patient provided dose of IV lasix -- additional 20mg IV lasix ordered last evening 08/11 and BUN/Cr 20/.6--> 18/0.56 Additional dose of lasix for this morning Titrated to Room air -- uses O2 HS CK continues to trend down, push oral fluids Tx of UTI -- switched to Cefdinir given Ecoli resistant to FLQ -- complete course cefdinir x 10 days WBC stable 6.9k, afebrile (temp 38.3 initially overnight on admit -- blood cultures NGTD after 48hrs) Pain control -- Tylenol/morphine ordered, oxycodone ordered for moderate pain, also lidocaine patch for rib fractures, no PTX on CXR-- Rib fractures 5-8 acute/subacute as discussed w/ radiology last evening, lidocaine patch ordered, oral options also available for pain control Bowel regimen -- asked RN to administer suppository. Monitor for any issues, continue regimen colace BID, senna HS, fleets enema for tonight if no BM PT/OT consulted -- possible [facility] over the weekend (2) Rhabdomyolysis: Plan: CK 19k, Cr 1.05, No anion gap (baseline Cr 0.5-0.7 however of note) 1L in ER, additional 2L NSS provided and was on continuous IVF and developed worsening pulm edema/shortness of breath and Lasix IV provided CK currently 7396, continued urine output LFT elevation could be from rhabdo itself rather than hepatic hematoma, general surgery ok for d/c from surgical standpoint Lasix IV again this AM, will monitor labs on repeat Avoid nephrotoxic agents, renal dose meds as able (3) UTI (urinary tract infection): Plan: WBC elevation on admit, falls Blood cultures NGTD x 48 hours (procal was 4.39 on admit) Cefepime continued for UTI -- ecoli on cx -- switching to cefdinir 08/10 for coverage, planning 10 day course WBC stable, afebrile UOP acceptable (4) Elevated troponin: Plan: Initial trop elevated at 1314, patient is asymptomatic as her left lower chest/rib pain is reproducible on palpation, she is also without acute ST segment or T-wave changes ECG Likely multifactorial including demand from being down for multiple hours, her acute illness, and current Rhabdo Repeat EKG unchanged NSR/sinus tach on monitor (suspect aspect of pain, given her pain to LUQ/chest, reproducible to palpation, contributing -- RIB FRACTURES ABOVE) Trop 1314--> 1078--> 828--> 549--> 255 Cards consulted -- does not feel cardiac in nature ECHO w/o wall motion abnormality Suspect demand ischemia from acute illness/UTI/rhabdo Starting low dose metoprolol 12.5mg, monitor response -- HRs improved, will continue and monitor on tele (5) Diabetes mellitus, type 2: Plan: Noted to be in the 300's on presentation to the ED A1c 7.7 On dulaglutide weekly, metformin 1gm BID outpatient -- held while inpatient BSGs to 300s 08/09 during downtime, late administration of insulin Had increased lantus dosing, contacted pharmacy for additional assistance BSGs 163-228, monitor Appreciate glycemic management (6) Hypertension: Plan: BP elevations felt 2nd to pain reported -- medications ordered for pain control, had improvement but had only gotten Tylenol this AM and asked RN to provide oxycodone x 1 Holding losartan (on 25mg daily) and spironolactone (25mg BID) given rhabdo -- of note, cirrhotic morphology of liver on imaging w/o ascites Added low dose metoprolol 12.5mg BPs 150/68 Hydralazine available prn Continue to monitor (7) Dyspnea on exertion: Plan: Patient has a history of mixed lung disease, on HS 2L NC On supplemental O2 when sleeping Continue IS, flutter valve, duonebs Titrate O2 as able to maintain sats -- on ROOM air, SOB w/ exertion improving (8) Cirrhosis: Plan: Cirrhotic morphology of the liver noted on CT LFT elevation could also be from Rhabdo as above 2nd to fall AST improving, ALT 89 from 71 NO RUQ pain -- her pain is LUQ in nature -- 2nd to rib fractures Continue to monitor labs (9) Intellectual disability: Plan: -Patient is a resident at the [facility] in [place] -Alert and oriented X 3 , intellectual disability noted (10) Breast cancer: Plan: Hx L breast lumpectomy 2017 On letrozole 2.5mg daily Mammogram most recently completed Jul 2022, no evidence for malignancy (11) Ribs, multiple fractures: Plan: reviewed on CTAP w/ supervising provider, contacted radiology evening 08/10, confirmed acute/subacute rib fractures 5-8 on the LEFT Lidocaine patch, pain control -- reports improving No PTX on imaging Encouraged continued use of incentive spirometer, added turn/cough/deep breathing- not great effort at taking deep breath Plan continued inpatient stay continue oral abx for UTI -- complete 10d course w/ cefdinir at d/c lasix 20mg IV x 1 this morning working on bowel regimen PT/OT rec rehab, [facility] to possibly take over the weekend Admission and Anticipated Discharge Date Admission Date: August 08, 2022 Supervising Physician Co-Signing Physician Notes The patient was not seen by me. Chart reviewed. Case discussed with RAMIRO Zaragoza. Agree with assessment and plan Subjective eval this morning, sitting up in the chair. appears to be doing better. encouraged incentive spirometer use and discussed rib fractures -- states would like an oxycodone for pain but that the lidocaine patch is helping. On oral abx for completion of treatment of UTI. Barnett concentrated, but less than day prior. CK improving. Will give another dose of 20mg IV lasix for today and monitor. Not passing much gas, but no abdominal pain reported. Agreeable to try suppository. Review of Systems Review of Systems: All systems reviewed & are unremarkable except as noted in HPI & below Physical Exam Physical Exam: General: WD/obese female sitting on her right side in bed, NAD but reporting discomfort/pain to her left upper abdomen HEENT: head normocephalic, atraumatic, trachea midline chest: L anterior/lateral tenderness to palpation, improved w/ lidocaine patch RESP: bibasilar crackles, no wheezing, on room air, occasional cough CV: sinus tach on monitor (rates 100-110s), trace pedal edema almost resolved, calves nontender GI: +slightly hypoactive BS, nontender (except in region of rib fractures), slightly distended, no rebound/guarding : barnett with less concentrated urine, however still darker in color MSK/Neuro/Skin: moves all extremities, no focal deficit, generalized weakness 3- 4/5 throughout scattered ecchymosis/bruising (see wound claim benefit specialist) Psych: alert to person, place, events, intellectual disability at baseline but pleasant and cooperative with care Results & Data Results & Data ([facility]) Vital Signs (Past 12 Hours) Vital Signs Temp Pulse Pulse Resp BP Pulse Ox O2 Del Method 08/11/22 08:00 93 H 08/11/22 08:00 Room Air 08/11/22 06:51 82 16 93 Room Air 08/11/22 06:48 36.6 C 94 H 18 109/68 91 Nasal Cannula 08/10/22 23:00 82 08/11/22 03:49 36.7 C 87 18 139/70 92 Nasal Cannula 08/10/22 22:54 36.6 C 85 18 148/73 H 100 Room Air Laboratory Results 08/11/22 08/11/22 08/11/22 Range/Units 11:16 07:19 06:09 WBC (4.8-10.8) K/ul RBC (4.20-5.40) M/uL Hgb (12.0-16.0) g/dl Hct (37.0-47.0) % MCV (80.0-100.0) fL MCH (25.0-34.0) pg MCHC (32.0-36.0) g/dL RDW Std Deviation (36.4-46.3) fL RDW Coeff of Vignesh (11.5-14.5) % Plt Count (130-400) K/uL MPV (9.4-12.4) fL Sodium 136 (136-145) mmol/L Potassium 4.0 (3.5-5.1) mmol/L Chloride 100 (98-107) mmol/L Carbon Dioxide 31 (21-32) mmol/L Anion Gap 5 (3-11) BUN 18 (6-23) mg/dl Creatinine 0.56 L (0.6-1.2) mg/dl Est Cr Clr Drug Dosing 99.9 ml/min Est GFR ( Amer) 102.8 ml/min Est GFR (Non-Af Amer) 88.7 ml/min BUN/Creatinine Ratio 32.1 H (10-20) Glucose 170 H (70-99(Fasting)) mg/dl POC Glucose 228 H 188 H (70-99) mg/dl Calcium 8.9 (8.5-10.1) mg/dl Magnesium 2.0 (1.7-2.4) mg/dl Total Bilirubin 0.7 (0.2-1.0) mg/dl AST 293 H (13-39) U/L ALT 89 H (7-52) U/L Alkaline Phosphatase 56 (34-104) U/L Total Creatine Kinase 7396 H (26-192) U/L Total Protein 6.4 (6.0-8.3) gm/dl Albumin 3.3 L (3.4-5.0) gm/dl Globulin 3.1 (2.5-4.0) gm/dl Albumin/Globulin Ratio 1.1 (0.9-2) 08/11/22 08/10/22 08/10/22 Range/Units 06:09 20:20 16:17 WBC 6.90 (4.8-10.8) K/ul RBC 4.25 (4.20-5.40) M/uL Hgb 12.8 (12.0-16.0) g/dl Hct 37.6 (37.0-47.0) % MCV 88.5 (80.0-100.0) fL MCH 30.1 (25.0-34.0) pg MCHC 34.0 (32.0-36.0) g/dL RDW Std Deviation 43.9 (36.4-46.3) fL RDW Coeff of Vignesh 13.5 (11.5-14.5) % Plt Count 217 (130-400) K/uL MPV 10.7 (9.4-12.4) fL Sodium (136-145) mmol/L Potassium (3.5-5.1) mmol/L Chloride (98-107) mmol/L Carbon Dioxide (21-32) mmol/L Anion Gap (3-11) BUN (6-23) mg/dl Creatinine (0.6-1.2) mg/dl Est Cr Clr Drug Dosing ml/min Est GFR ( Amer) ml/min Est GFR (Non-Af Amer) ml/min BUN/Creatinine Ratio (10-20) Glucose (70-99(Fasting)) mg/dl POC Glucose 197 H 163 H (70-99) mg/dl Calcium (8.5-10.1) mg/dl Magnesium (1.7-2.4) mg/dl Total Bilirubin (0.2-1.0) mg/dl AST (13-39) U/L ALT (7-52) U/L Alkaline Phosphatase (34-104) U/L Total Creatine Kinase (26-192) U/L Total Protein (6.0-8.3) gm/dl Albumin (3.4-5.0) gm/dl Globulin (2.5-4.0) gm/dl Albumin/Globulin Ratio (0.9-2) PG Care Time/CCT Total # of Minutes Spent Total Time Spent with Patient: Total time spent is greater than 50% in coordination of care (as documented) at patient's floor/unit and/or counseling patient: Coding Level of Care Code 47026 SUB INP/OBS CARE 3/50MIN Diagnoses Fall W19.XXXA Rhabdomyolysis M62.82 UTI (urinary tract infection) N39.0 Elevated troponin R77.8 Diabetes mellitus, type 2 E11.9 Hypertension I10 Dyspnea on exertion R06.00 Cirrhosis K74.60 Intellectual disability F79 Breast cancer C50.919 Ribs, multiple fractures S22.49XA
[2022-08-11] MEDS ORDERED: bisacodyL 10 MG SUPP PR STA (09:55)
[2022-08-11] MEDS ORDERED: FUROSEMIDE INJ 20 MG/2 ML VIAL IV ONE (10:15)
[2022-08-11] MEDS: FAMOTIDINE 20 MG TAB PO SCH (11:03)
--- NOTE | 2022-08-11 11:05 | Pharmacy Report ---
Pharmacy Glycemic Short Note 2 - Date of Service August 11, 2022 - Glycemic Short BSG Results (Last 24 hours): 08/10/22 08/10/22 08/10/22 11:07 16:17 20:20 Glucose POC Glucose 192 H 163 H 197 H 08/11/22 08/11/22 06:09 07:19 Glucose 170 H POC Glucose 188 H OUTPATIENT ANTIDIABETIC REGIMEN: * Dulaglutide 4.5mg SQ weekly * Metformin 1g PO BID * Tresiba 22 units daily at 1200 * Aspart 55 units with breakfast, 50 units with dinner ASSESSMENT: 08/11 * Patient received total of 45 units of insulin yesterday, of which 22 units were basal * Fasting 170-180s - will titrate up basal slightly today ~15% to 26 units * No change to CF/CR for now 08/10 * 81 yo female, PMH of HLD, morbid obesity, DM2, cirrhosis, breast ca s/p partial left mastectomy, developmental delay who resides at an assisted living facility, s/p fall, UTI, hyperglycemic. Patient maintained on multiple DM meds including insulin at home, has had minimal insulin so far since admission, resulting in hyperglycemia. * Extra accucheck now at 1450 to give extra SQ insulin, then resume ACHS checks, tighten CF/CR and increase basal to home dose starting now. PLAN FOR INPATIENT GLYCEMIC CONTROL: * Hold outpatient diabetes medications * Basal insulin * Lantus 26 units SQ daily at 1200 * Bolus insulin * NovoLog per scale ACHS or Q6hrs while NPO * Goal Range: Low 110 mg/dL - High 140 mg/dL * Correction Factor: 15 mg/dL/unit * Nutritional / Prandial insulin per carb ratio of 1 unit per 7 grams CHO consumed
[2022-08-11] MEDS ORDERED: LANTUS PER UNIT CHARGE SQ SCH (12:00)
[2022-08-11] MEDS ORDERED: SOD PHOSPHATE/SOD BIPHOSPHATE ENEMA 132 ML BTL PR ONE (20:00)
[2022-08-11] MEDS: DOCUSATE SODIUM 100 MG CAP PO SCH (20:55)
[2022-08-11] MEDS: OXYBUTYNIN CHLORIDE XL 5 MG TABCR PO SCH (20:59)
[2022-08-12] MEDS: ALBUT/IPRATROP 3MG/0.5MG NEB 3 ML VIAL NEB SCH ×4 (05:35→18:26)
[2022-08-12 06:27] LABS: Basophils # (auto) 0.07 K/uL (0-0.2); Eosinophils # (auto) 0.04 K/uL (0-0.50); Eosinophils % (auto) 0.6 %; Hematocrit (blood only) 39.4 % (37.0-47.0); Hemoglobin 12.9 g/dl (12.0-16.0); Immature Granulocytes # (auto) 0.15 K/uL (0.01-0.20); Immature Granulocytes % (auto) 2.1 %; Lymphocytes # (auto) 1.38 K/uL (1.2-3.4); Lymphocytes % (auto) 19.6 %; Mean Corpuscular Hemoglobin 29.6 pg (25.0-34.0); Mean Corpuscular Hgb Conc 32.7 g/dL (32.0-36.0); Mean Corpuscular Volume 90.4 fL (80.0-100.0); Mean Platelet Volume 11.1 fL (9.4-12.4); Monocytes # (auto) 0.95 K/uL (0.11-0.59); Monocytes % (auto) 13.5 %; Neutrophils # (auto) 4.44 K/uL (1.40-6.50); Neutrophils % (auto) 63.2 %; Platelet Count 218 K/uL (130-400); RDW Coefficient of Variation 13.5 % (11.5-14.5); RDW Standard Deviation 44.8 fL (36.4-46.3); Red Blood Count 4.36 M/uL (4.20-5.40); White Blood Count 7.03 K/ul (4.8-10.8)
[2022-08-12 06:48] LABS: Albumin Level 3.3 gm/dl (3.4-5.0); Bilirubin Direct 0.1 mg/dl (0-0.2); Bilirubin,Total 0.7 mg/dl (0.2-1.0); Calcium 8.8 mg/dl (8.5-10.1); Potassium 3.8 mmol/L (3.5-5.1)
[2022-08-12 06:54] LABS: Creatinine Clr Calc Pharmacy 103.6 ml/min; Est GFR (Non-African American) 89.8 ml/min; Total Protein 6.4 gm/dl (6.0-8.3)
[2022-08-12] MEDS: CEFDINIR 300 MG CAP PO SCH ×2 (08:18→20:22)
[2022-08-12] MEDS: SENNA 8.6 MG TAB PO SCH (08:18)
[2022-08-12] MEDS: FAMOTIDINE 20 MG TAB PO SCH (08:18)
[2022-08-12] MEDS: METOPROLOL TARTRATE 25 MG TAB PO SCH (08:18)
[2022-08-12] MEDS: guaiFENesin 600 MG TABCR PO SCH ×2 (08:18→20:22)
[2022-08-12] MEDS: LETROZOLE 2.5 MG TAB PO SCH (08:19)
[2022-08-12] MEDS: MICONAZOLE NITRATE POWDER 85 GM EXT SCH ×3 (08:19→20:23)
[2022-08-12] MEDS: UMECLIDINIUM/VILANTEROL 62.5/25MCG 7 PUFFS/INHALER INH SCH (08:19)
[2022-08-12] MEDS: MUPIROCIN 2% OINT 22 GM TUBE EXT SCH ×2 (08:20→20:22)
[2022-08-12] MEDS: LIDOCAINE 5% 1 PATCH TD SCH (08:20)
[2022-08-12] MEDS: DOCUSATE SODIUM 100 MG CAP PO SCH ×2 (08:23→20:22)
[2022-08-12] MEDS: INSULIN ASPART PER UNIT SC SCH ×4 (08:24→20:12)
--- NOTE | 2022-08-12 08:24 | Hospitalist Progress Note ---
Date of Service August 12, 2022 Assessment & Plan (1) Fall: Plan: Fell at assisted living facility, unclear duration, some say 2hours, possibly up to 8hrs (wears O2 at night, this was also reported to be off when found) Denies LOC/trauma to head No fractures on imaging, possible occult fracture to L elbow not excluded however Wound RN consulted for multiple skin issues -- see imaging/documentation CTAP w/ concerns given "hyperdensities in the lateral aspect of the spleen and liver. These may represent grade 1 hematomas or represent artifact secondary to patient motion." She is without signs of bleeding on inspection of her abdomen. Repeat CTAP 08/09 unchanged however hgb stable on continuous IVF for rhabdo as below Discussed w/ surgery, can get up/ambulate as tolerated, should improve over time/supportive care Overnight 08/09 became increasingly short of breath and concerns for volume overload, IVF was stopped and patient provided dose of IV lasix -- additional 20mg IV lasix ordered last evening 08/11 and BUN/Cr 20/.6--> 18/0.56 Additional dose of lasix for this morning Titrated to Room air -- uses O2 HS CK continues to trend down, push oral fluids Tx of UTI -- switched to Cefdinir given Ecoli resistant to FLQ -- complete course cefdinir x 10 days WBC stable 7k afebrile (temp 38.3 initially overnight on admit -- blood cultures NGTD after 48hrs) Pain control -- Tylenol/morphine ordered, oxycodone ordered for moderate pain, also lidocai ne patch for rib fractures, no PTX on CXR- Rib fractures 5-8 acute/subacute as discussed w/ radiology evening 08/10, lidocaine patch ordered, oral options also available for pain control Bowel regimen -- +BM overnight, continue bowel regimen PT/OT consulted -- possible [facility] over the weekend, hopefully tomorrow (2) Rhabdomyolysis: Plan: CK 19k, Cr 1.05, No anion gap (baseline Cr 0.5-0.7 however of note). TSH wnl 1L in ER, additional 2L NSS provided and was on continuous IVF and developed worsening pulm edema/shortness of breath and Lasix IV provided CK currently 2573, continued urine output, planning to d/c barnett later today LFT elevation could be from rhabdo itself rather than hepatic hematoma, general surgery ok for d/c from surgical standpoint Lasix IV again this AM, will monitor labs on repeat Avoid nephrotoxic agents, renal dose meds as able (3) UTI (urinary tract infection): Plan: WBC elevation on admit, falls Blood cultures NGTD x 48 hours (procal was 4.39 on admit) Cefepime for UTI Cx w/ ecoli resistant to FLQ -- switching to cefdinir 08/10 for coverage, planning 10 day course (4) Ribs, multiple fractures: Plan: reviewed on CTAP w/ supervising provider, contacted radiology evening 08/10, confirmed acute/subacute rib fractures 5-8 on the LEFT Lidocaine patch, pain control -- reports improving No PTX on imaging Back on 2L today, lasix provided, however CXR notes opacity/possible pneumonia on exam, improved w/ deep cough. Continued encouragement to do such to prevent pneumonia Encouraged continued use of incentive spirometer, added turn/cough/deep breathing- not great effort at taking deep breath at times given pillow 08/12 to use to brace and encouraged coughing (5) Elevated troponin: Plan: Initial trop elevated at 1314, patient is asymptomatic as her left lower chest/rib pain is reproducible on palpation, she is also without acute ST segment or T-wave changes ECG Likely multifactorial including demand from being down for multiple hours, her acute illness, and current Rhabdo Repeat EKG unchanged NSR/sinus tach on monitor (suspect aspect of pain, given her pain to LUQ/chest, reproducible to palpation, contributing -- RIB FRACTURES ABOVE) Trop 1314--> 1078--> 828--> 549--> 255 Cards consulted -- does not feel cardiac in nature ECHO w/o wall motion abnormality Suspect demand ischemia from acute illness/UTI/rhabdo Started low dose metoprolol 12.5mg, monitor response -- HRs improved, will continue and monitor on tele (6) Diabetes mellitus, type 2: Plan: Noted to be in the 300's on presentation to the ED A1c 7.7 On dulaglutide weekly, metformin 1gm BID outpatient -- held while inpatient BSGs to 300s 08/09 during downtime, late administration of insulin Had increased lantus dosing, contacted pharmacy for additional assistance BSGs 163-228, monitor Appreciate glycemic management (7) Hypertension: Plan: BP elevations felt 2nd to pain reported -- medications ordered for pain control, had improvement but had only gotten Tylenol this AM and asked RN to provide oxycodone x 1 Held losartan (on 25mg daily) and spironolactone (25mg BID) given rhabdo -- of note, cirrhotic morphology of liver on imaging w/o ascites Added low dose metoprolol 12.5mg Resumed spironolactone 25mg daily, given lasix as above -- consider BID tomorrow if BPs improved and will remain off losartan for now Monitor (8) Dyspnea on exertion: Plan: Patient has a history of mixed lung disease, on HS 2L NC RIB FRACTURES ABOVE On supplemental O2 when sleeping Continue IS, flutter valve, duonebs Titrate O2 as able to maintain sats -- on ROOM air, SOB w/ exertion improving (9) Cirrhosis: Plan: Cirrhotic morphology of the liver noted on CT LFT elevation could also be from Rhabdo as above 2nd to fall AST 293--> 212, AST 79. INR 1.1 on 08/10 NO RUQ pain -- her pain is LUQ in nature -- 2nd to rib fractures Continue to monitor labs on repeat (10) Intellectual disability: Plan: -Patient is a resident at the [facility] in [place] -Alert and oriented X 3 , intellectual disability noted (11) Breast cancer: Plan: Hx L breast lumpectomy 2017 On letrozole 2.5mg daily Mammogram most recently completed Jul 2022, no evidence for malignancy Plan continued inpatient stay, hopefully able to d/c to [facility] tomorrow Admission and Anticipated Discharge Date Admission Date: August 08, 2022 Supervising Physician Co-Signing Physician Notes The patient was not seen by me. Chart reviewed. Case discussed with January Gonzalez, physicians roofer assistant. Agree with assessment and plan Subjective eval this morning, sitting up in chair. on 2L NC, additional lasix ordered Discussed cough/deep breathing. Poor effort can lead to pneumonia. lung sounds improved after provided pillow and asked to cough. Encouraged continued use of incentive spirometer. She would like something for pain. 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 day prior MSK/Neuro/Skin: moves all extremities, no focal deficit, generalized weakness 4/5 throughout scattered ecchymosis/bruising (see wound dinkey engine mechanic) Psych: alert to person, place, events, intellectual disability at baseline but pleasant and cooperative with care Results & Data Results & Data ([facility]) Vital Signs (Past 12 Hours) Vital Signs Temp Pulse Pulse Resp BP BP Pulse Ox 08/12/22 07:34 36.7 C 104 H 20 150/63 H 91 08/12/22 05:35 18 90 08/12/22 02:48 36.7 C 89 18 138/74 90 08/11/22 23:58 90 08/11/22 22:30 36.6 C 94 H 18 142/70 H 90 O2 Del Method 08/12/22 07:34 Room Air 08/12/22 05:35 Room Air 08/12/22 02:48 Room Air 08/11/22 23:58 08/11/22 22:30 Room Air Laboratory Results 08/12/22 08/12/22 08/12/22 Range/Units 07:36 05:31 05:31 WBC 7.03 (4.8-10.8) K/ul RBC 4.36 (4.20-5.40) M/uL Hgb 12.9 (12.0-16.0) g/dl Hct 39.4 (37.0-47.0) % MCV 90.4 (80.0-100.0) fL MCH 29.6 (25.0-34.0) pg MCHC 32.7 (32.0-36.0) g/dL RDW Std Deviation 44.8 (36.4-46.3) fL RDW Coeff of Vignesh 13.5 (11.5-14.5) % Plt Count 218 (130-400) K/uL MPV 11.1 (9.4-12.4) fL Immature Gran % (Auto) 2.1 % Neut % (Auto) 63.2 % Lymph % (Auto) 19.6 % [place] % (Auto) 13.5 % Eos % (Auto) 0.6 % Baso % (Auto) 1.0 % Neut # (Auto) 4.44 (1.40-6.50) K/uL Lymph # (Auto) 1.38 (1.2-3.4) K/uL [place] # (Auto) 0.95 H (0.11-0.59) K/uL Eos # (Auto) 0.04 (0-0.50) K/uL Baso # (Auto) 0.07 (0-0.2) K/uL Immature Gran # (Auto) 0.15 (0.01-0.20) K/uL Sodium 136 (136-145) mmol/L Potassium 3.8 (3.5-5.1) mmol/L Chloride 100 (98-107) mmol/L Carbon Dioxide 31 (21-32) mmol/L Anion Gap 5 (3-11) BUN 20 (6-23) mg/dl Creatinine 0.54 L (0.6-1.2) mg/dl Est Cr Clr Drug Dosing 103.6 ml/min Est GFR ( Amer) 104.0 ml/min Est GFR (Non-Af Amer) 89.8 ml/min BUN/Creatinine Ratio 37.0 H (10-20) Glucose 161 H (70-99(Fasting)) mg/dl POC Glucose 226 H (70-99) mg/dl Calcium 8.8 (8.5-10.1) mg/dl Total Bilirubin 0.7 (0.2-1.0) mg/dl Direct Bilirubin 0.1 (0-0.2) mg/dl AST 212 H (13-39) U/L ALT 79 H (7-52) U/L Alkaline Phosphatase 60 (34-104) U/L Total Protein 6.4 (6.0-8.3) gm/dl Albumin 3.3 L (3.4-5.0) gm/dl 08/11/22 08/11/22 08/11/22 Range/Units 19:58 16:15 11:16 WBC (4.8-10.8) K/ul RBC (4.20-5.40) M/uL Hgb (12.0-16.0) g/dl Hct (37.0-47.0) % MCV (80.0-100.0) fL MCH (25.0-34.0) pg MCHC (32.0-36.0) g/dL RDW Std Deviation (36.4-46.3) fL RDW Coeff of Vignesh (11.5-14.5) % Plt Count (130-400) K/uL MPV (9.4-12.4) fL Immature Gran % (Auto) % Neut % (Auto) % Lymph % (Auto) % [place] % (Auto) % Eos % (Auto) % Baso % (Auto) % Neut # (Auto) (1.40-6.50) K/uL Lymph # (Auto) (1.2-3.4) K/uL [place] # (Auto) (0.11-0.59) K/uL Eos # (Auto) (0-0.50) K/uL Baso # (Auto) (0-0.2) K/uL Immature Gran # (Auto) (0.01-0.20) K/uL Sodium (136-145) mmol/L Potassium (3.5-5.1) mmol/L Chloride (98-107) mmol/L Carbon Dioxide (21-32) mmol/L Anion Gap (3-11) BUN (6-23) mg/dl Creatinine (0.6-1.2) mg/dl Est Cr Clr Drug Dosing ml/min Est GFR ( Amer) ml/min Est GFR (Non-Af Amer) ml/min BUN/Creatinine Ratio (10-20) Glucose (70-99(Fasting)) mg/dl POC Glucose 188 H 174 H 228 H (70-99) mg/dl Calcium (8.5-10.1) mg/dl Total Bilirubin (0.2-1.0) mg/dl Direct Bilirubin (0-0.2) mg/dl AST (13-39) U/L ALT (7-52) U/L Alkaline Phosphatase (34-104) U/L Total Protein (6.0-8.3) gm/dl Albumin (3.4-5.0) gm/dl Diagnostic Findings Chest X-Ray 08/12/22 12:11 XR chest 1V portable HISTORY: hypoxia, eval overload COMPARISON: Chest 08/10/2022. FINDINGS: Right jugular central venous catheter terminates at the distal SVC. This remains unchanged. No pneumothorax. Small left pleural effusion and patchy left basilar densities have progressed. Stable small left apical density remains stable and may represent scarring. This is better appreciated on a prior chest CT. The heart remains enlarged. No evidence for pulmonary edema. IMPRESSION: 1. Interval progression of a small left pleural effusion and left base airspace opacities. This may represent a pneumonia. 2. Stable cardiomegaly. ACT 112: Negative or not required by law. Electronically signed by: Jatin Barbour M.D. 08/12/2022 12:42 PM PG Care Time/CCT Total # of Minutes Spent Total Time Spent with Patient: Total time spent is greater than 50% in coordination of care (as documented) at patient's floor/unit and/or counseling patient: Coding Level of Care Code 00394 SUB INP/OBS CARE 3/50MIN Diagnoses Fall W19.XXXA Rhabdomyolysis M62.82 UTI (urinary tract infection) N39.0 Ribs, multiple fractures S22.49XA Elevated troponin R77.8 Diabetes mellitus, type 2 E11.9 Hypertension I10 Dyspnea on exertion R06.00 Cirrhosis K74.60 Intellectual disability F79 Breast cancer C50.919
[2022-08-12] MEDS: oxyCODONE HCL IR 5 MG TAB (IMMEDIATE RELEASE) PO PRN ×3 (08:29→20:22)
[2022-08-12] MEDS ORDERED: SPIRONOLACTONE 25 MG TAB PO SCH (09:00)
[2022-08-12] MEDS ORDERED: LANTUS PER UNIT CHARGE SQ SCH (12:00)
--- NOTE | 2022-08-12 12:44 | XRay Report ---
XR chest 1V portable HISTORY: hypoxia, eval overload COMPARISON: Chest 08/10/2022. FINDINGS: Right jugular central venous catheter terminates at the distal SVC. This remains unchanged. No pneumothorax. Small left pleural effusion and patchy left basilar densities have progressed. Stab le small left apical density remains stable and may represent scarring. This is better appreciated on a prior chest CT. The heart remains enlarged. No evidence for pulmonary edema. IMPRESSION: 1. Interval progression of a small left pleural effusion and left base airspace opacities. This may r epresent a pneumonia. 2. Stable cardiomegaly. ACT 112: Negative or not required by law. Electronically signed by: Jatin Barbour M.D. 08/12/2022 12:42 PM
[2022-08-12] MEDS ORDERED: FUROSEMIDE INJ 20 MG/2 ML VIAL IV ONE (12:48)
[2022-08-12] MEDS: OXYBUTYNIN CHLORIDE XL 5 MG TABCR PO SCH (20:22)
[2022-08-13] MEDS: ACETAMINOPHEN 325 MG TAB PO PRN (01:16)
[2022-08-13] MEDS: ALBUT/IPRATROP 3MG/0.5MG NEB 3 ML VIAL NEB SCH ×4 (05:55→19:24)
[2022-08-13 06:38] LABS: INR 1.1 (0.9-1.1); Prothrombin Time 11.4 Seconds (9.0-12.0)
[2022-08-13 06:50] LABS: Albumin Level 3.2 gm/dl (3.4-5.0); Bilirubin Direct 0.2 mg/dl (0-0.2); Bilirubin,Total 0.7 mg/dl (0.2-1.0); Calcium 9.1 mg/dl (8.5-10.1); Potassium 3.8 mmol/L (3.5-5.1)
[2022-08-13 06:56] LABS: BUN Creatinine Ratio 32.8 (10-20); Creatinine Clr Calc Pharmacy 96.3 ml/min; Est GFR (African American) 101.6 ml/min; Est GFR (Non-African American) 87.7 ml/min; Total Protein 6.4 gm/dl (6.0-8.3)
[2022-08-13] MEDS ORDERED: FUROSEMIDE INJ 20 MG/2 ML VIAL IV ONE ×2 (08:23→10:38)
--- NOTE | 2022-08-13 08:23 | Hospitalist Progress Note ---
Date of Service August 13, 2022 Assessment & Plan (1) Fall: Plan: Fell at assisted living facility, unclear duration, some say 2hours, possibly up to 8hrs (wears O2 at night, this was also reported to be off when found) Denies LOC/trauma to head No fractures on imaging, possible occult fracture to L elbow not excluded however Wound RN consulted for multiple skin issues -- see imaging/documentation CTAP w/ concerns given "hyperdensities in the lateral aspect of the spleen and liver. These may represent grade 1 hematomas or represent artifact secondary to patient motion." She is without signs of bleeding on inspection of her abdomen. Repeat CTAP 08/09 unchanged however hgb stable on continuous IVF for rhabdo as below Discussed w/ surgery, can get up/ambulate as tolerated, should improve over time/supportive care Overnight 08/09 became increasingly short of breath and concerns for volume overload, IVF was stopped and patient provided dose of IV lasix -- additional 20mg IV lasix ordered last evening 08/11 and BUN/Cr 20/.6--> 18/0.56 Additional dose of lasix for AM 08/12, and total 40mg IV lasix AM 08/13 given mild pulmonary edema on CXR/O2 requirement. CK continues to trend down, push oral fluids Tx of UTI -- switched to Cefdinir given Ecoli resistant to FLQ -- complete course cefdinir x 10 days (day 11/22, to be completed after dosing 2/3) WBC stable 7k afebrile (temp 38.3 initially on admit -- blood cultures NGTD after 48hrs) Pain control -- Tylenol/morphine ordered, oxycodone ordered for moderate pain, also lidocaine patch for rib fractures, no PTX on CXR- Rib fractures 5-8 acute/subacute as discussed w/ radiology evening 08/10, lidoc maury patch ordered, oral options also available for pain control Bowel regimen -- +BM reported, continue regimen PT/OT consulted -- possible [facility] over the weekend but wasn't able to accept today. Will continue w/ diuresis and incentive spirometer and hopefully will be able to discharge tomorrow (2) Rhabdomyolysis: Plan: CK 19k on admit with Cr 1.05, No anion gap (baseline Cr 0.5-0.7 however of note). TSH wnl 1L in ER, additional 2L NSS provided and was on continuous IVF and developed worsening pulm edema/shortness of breath and Lasix IV provided CK currently 878, continued urine output, planning to d/c [facility] later today vs in AM LFT elevation could be from rhabdo itself rather than hepatic hematoma, general surgery ok for d/c from surgical standpoint Lasix IV again AM 08/13, will monitor labs on repeat Avoid nephrotoxic agents, renal dose meds as able CK/BMP in AM (3) UTI (urinary tract infection): Plan: WBC elevation on admit, falls Blood cultures NGTD x 48 hours (procal was 4.39 on admit) Cefepime for UTI Cx w/ ecoli resistant to FLQ -- switched to cefdinir 08/10 for coverage, planning 10 day course (day 5 of therapy) (4) Ribs, multiple fractures: Plan: reviewed on CTAP w/ supervising provider, contacted radiology evening 08/10, confirmed acute/subacute rib fractures 5-8 on the LEFT Lidocaine patch, pain control -- reports improving No PTX on imaging 2L with sleep/ambulation at baseline per pulm noted Breathing improved w/ lasix. Resumed her spironolactone as well CXR notes opacity/possible PNA, however on exam, improved w/ deep cough. Encouraged continued use of incentive spirometer, added turn/cough/deep breathing- not great effort at taking deep breath at times. Given pillow 08/12 to use to brace and encouraged coughing Improvement in use w/ IS but difficult at times w/ her intellectual disability and continued encouragement recommended Repeat imaging to ensure ribs healing in 3-4 weeks, sooner if issues (5) Elevated troponin: Plan: Initial trop elevated at 1314, patient is asymptomatic as her left lower chest/rib pain is reproducible on palpation, she is also without acute ST segment or T-wave changes ECG Likely multifactorial including demand from being down for multiple hours, her acute illness, and current Rhabdo Repeat EKG unchanged NSR/sinus tach on monitor (suspect aspect of pain, given her pain to LUQ/chest, reproducible to palpation, contributing -- RIB FRACTURES ABOVE) Trop 1314--> 1078--> 828--> 549--> 255 Cards consulted -- does not feel cardiac in nature ECHO w/o wall motion abnormality Suspect demand ischemia from acute illness/UTI/rhabdo Started low dose metoprolol 12.5mg, monitor response -- HRs improved, will continue and monitor on tele (6) Diabetes mellitus, type 2: Plan: Noted to be in the 300's on presentation to the ED A1c 7.7 On dulaglutide weekly, metformin 1gm BID outpatient -- held while inpatient BSGs to 300s 08/09 during downtime, late administration of insulin and had increased lantus dosing, contacted pharmacy for additional assistance BSGs improved/stable Appreciate glycemic management (7) Hypertension: Plan: BP elevations felt 2nd to pain reported -- medications ordered for pain control, had improvement but had only gotten Tylenol this AM and asked RN to provide oxycodone x 1 Held losartan (on 25mg daily) and spironolactone (25mg BID) given rhabdo -- of note, cirrhotic morphology of liver on imaging w/o ascites Added low dose metoprolol 12.5 for HR -- would continue at d/c Resumed spironolactone 25mg daily, increased to BID as taking at home Losartan resumed as well Monitor (8) Dyspnea on exertion: Plan: Patient has a history of mixed lung disease, on HS 2L NC RIB FRACTURES ABOVE On supplemental O2 when sleeping Continue IS, flutter valve, duonebs Titrate O2 as able to maintain sats -- does appear per pulm notes uses 2L not only HS but w/ ambulation. Diuretics as above for pulm congestion/edema on CXR (9) Cirrhosis: Plan: Cirrhotic morphology of the liver noted on CT LFT elevation could also be from Rhabdo as above 2nd to fall AST 293--> 212, AST 79. INR 1.1 on 08/10 NO RUQ pain -- her pain is LUQ in nature -- 2nd to rib fractures Resumed spironolactone BID, given dosing of lasix. Monitor BMP in AM, may benefit from addition of low dose lasix at discharge given pulm edema on CXR and to prevent hyperkalemia given sprironolactone BID and losartan use (10) Intellectual disability: Plan: Patient is a resident at the [facility] in [place] Alert and oriented X 3 , intellectual disability noted (11) Breast cancer: Plan: Hx L breast lumpectomy 2017 On letrozole 2.5mg daily Mammogram most recently completed Jul 2022, no evidence for malignancy Plan continued inpatient stay, hopefully able to d/c to [facility] tomorrow suspect d/c w/ low dose lasix 20-40mg PO for prevention of fluid accumulation/wo rsening SOB w/ exertion. Will check BNP w/ AM labs as not previously checked Admission and Anticipated Discharge Date Admission Date: August 08, 2022 Supervising Physician Co-Signing Physician Notes The patient was not seen by me. Chart reviewed. Case discussed with RAMIRO Zaragoza. Agree with assessment and plan Subjective Eval this morning, doing alright. SOB w/ volume overload, lasix to be provided. Encouraged continued use of incentive spirometer. Barnett w/ yellow urine draining. Good appetitie, wondering where "her son's maryana is" and discussed to stay away from this. Confirmed son brought 2 cans, locked in cabinet, will return to patient prior to discharge. Pain in site of rib but controlled with ordered medications. Was going to go to [facility] today but they are unable to take her and will plan for discharge tomorrow. Review of Systems Review of Systems: All systems reviewed & are unremarkable except as noted in HPI & below Physical Exam Physical Exam: General: WD/obese female sitting up in chair, NAD but reporting some pain/shortness of breath HEENT: head normocephalic, atraumatic, trachea midline chest: L anterior/lateral chest tenderness to palpation in site of rib fractures, no flail chest, no crepitus , pain reported improved w/ lidocaine patch RESP: bibasilar crackles (improved w/ cough), expiratory wheezing, +cough, on 2L CV: sinus on tele, rates 80-90s, trace pedal edema , calves nontender GI: +BS, distension but soft, nontender : barnett with concentrated but yellow urine, 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 than day prior MSK/Neuro/Skin: moves all extremities, no focal deficit, generalized weakness 4/5 throughout scattered ecchymosis/bruising (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) Psych: alert to person, place, events, intellectual disability at baseline but pleasant and cooperative with care Results & Data Results & Data ([facility]) Vital Signs (Past 12 Hours) Vital Signs Temp Pulse Pulse Pulse Resp BP Pulse Ox 08/13/22 07:30 37 C 105 H 22 152/67 H 99 08/13/22 03:35 36.7 C 100 H 18 142/70 H 93 08/13/22 05:56 98 H 18 81 L 08/12/22 23:02 104 H 08/12/22 22:46 37 C 108 H 18 131/64 91 O2 Del Method O2 Flow Rate 08/13/22 07:30 Nasal Cannula 2 08/13/22 03:35 Nasal Cannula 08/13/22 05:56 Room Air 08/12/22 23:02 08/12/22 22:46 Nasal Cannula Laboratory Results 08/13/22 08/13/22 08/13/22 Range/Units 07:00 05:24 05:24 PT 11.4 (9.0-12.0) Seconds INR 1.1 (0.9-1.1) Sodium 138 (136-145) mmol/L Potassium 3.8 (3.5-5.1) mmol/L Chloride 101 (98-107) mmol/L Carbon Dioxide 29 (21-32) mmol/L Anion Gap 8 (3-11) BUN 19 (6-23) mg/dl Creatinine 0.58 L (0.6-1.2) mg/dl Est Cr Clr Drug Dosing 96.3 ml/min Est GFR ( Amer) 101.6 ml/min Est GFR (Non-Af Amer) 87.7 ml/min BUN/Creatinine Ratio 32.8 H (10-20) Glucose 191 H (70-99(Fasting)) mg/dl POC Glucose 219 H (70-99) mg/dl Calcium 9.1 (8.5-10.1) mg/dl Total Bilirubin 0.7 (0.2-1.0) mg/dl Direct Bilirubin 0.2 (0-0.2) mg/dl AST 141 H (13-39) U/L ALT 74 H (7-52) U/L Alkaline Phosphatase 65 (34-104) U/L Total Creatine Kinase 878 H (26-192) U/L Total Protein 6.4 (6.0-8.3) gm/dl Albumin 3.2 L (3.4-5.0) gm/dl Procalcitonin (0-0.5) ng/ml 08/12/22 08/12/22 08/12/22 Range/Units 19:47 16:17 13:08 PT (9.0-12.0) Seconds INR (0.9-1.1) Sodium (136-145) mmol/L Potassium (3.5-5.1) mmol/L Chloride (98-107) mmol/L Carbon Dioxide (21-32) mmol/L Anion Gap (3-11) BUN (6-23) mg/dl Creatinine (0.6-1.2) mg/dl Est Cr Clr Drug Dosing ml/min Est GFR ( Amer) ml/min Est GFR (Non-Af Amer) ml/min BUN/Creatinine Ratio (10-20) Glucose (70-99(Fasting)) mg/dl POC Glucose 254 H 213 H (70-99) mg/dl Calcium (8.5-10.1) mg/dl Total Bilirubin (0.2-1.0) mg/dl Direct Bilirubin (0-0.2) mg/dl AST (13-39) U/L ALT (7-52) U/L Alkaline Phosphatase (34-104) U/L Total Creatine Kinase (26-192) U/L Total Protein (6.0-8.3) gm/dl Albumin (3.4-5.0) gm/dl Procalcitonin 0.74 H (0-0.5) ng/ml 08/12/22 08/12/22 Range/Units 11:38 05:31 PT (9.0-12.0) Seconds INR (0.9-1.1) Sodium (136-145) mmol/L Potassium (3.5-5.1) mmol/L Chloride (98-107) mmol/L Carbon Dioxide (21-32) mmol/L Anion Gap (3-11) BUN (6-23) mg/dl Creatinine (0.6-1.2) mg/dl Est Cr Clr Drug Dosing ml/min Est GFR ( Amer) ml/min Est GFR (Non-Af Amer) ml/min BUN/Creatinine Ratio (10-20) Glucose (70-99(Fasting)) mg/dl POC Glucose 192 H (70-99) mg/dl Calcium (8.5-10.1) mg/dl Total Bilirubin (0.2-1.0) mg/dl Direct Bilirubin (0-0.2) mg/dl AST (13-39) U/L ALT (7-52) U/L Alkaline Phosphatase (34-104) U/L Total Creatine Kinase 2573 H (26-192) U/L Total Protein (6.0-8.3) gm/dl Albumin (3.4-5.0) gm/dl Procalcitonin (0-0.5) ng/ml Diagnostic Findings Chest X-Ray 08/13/22 08:16 XR chest 2V PA/lateral CLINICAL HISTORY: f/u L opacity COMPARISON STUDY: Chest CT June 22, 2022. Chest radiograph August 12, 2022. FINDINGS: There is no pneumothorax. A small left pleural effusion has slightly increased. Left basilar opacity is again noted. Several displaced left lower rib fractures are present. There is pulmonary vascular congestion with suspected mild pulmonary edema. Cardiomegaly is unchanged. IMPRESSION: 1. Persistent left basilar opacity which could reflect atelectasis or pneumonia. Slight increase in a small left pleural effusion. 2. Several displaced acute to subacute left lower rib fractures. No pneumothorax. 3. Mild pulmonary edema. ACT 112: Negative or not required by law. Electronically signed by: Grupo Castro M.D. 08/13/2022 10:19 AM PG Care Time/CCT Total # of Minutes Spent Total Time Spent with Patient: Total time spent is greater than 50% in coordination of care (as documented) at patient's floor/unit and/or counseling patient: Coding Level of Care Code 50943 SUB INP/OBS CARE 3/50MIN Diagnoses Fall W19.XXXA Rhabdomyolysis M62.82 UTI (urinary tract infection) N39.0 Ribs, multiple fractures S22.49XA Elevated troponin R77.8 Diabetes mellitus, type 2 E11.9 Hypertension I10 Dyspnea on exertion R06.00 Cirrhosis K74.60 Intellectual disability F79 Breast cancer C50.919
[2022-08-13] MEDS: INSULIN ASPART PER UNIT SC SCH ×4 (08:50→20:46)
[2022-08-13] MEDS: DOCUSATE SODIUM 100 MG CAP PO SCH ×2 (09:01→20:53)
[2022-08-13] MEDS: SPIRONOLACTONE 25 MG TAB PO SCH ×2 (09:01→20:55)
[2022-08-13] MEDS: LIDOCAINE 5% 1 PATCH TD SCH (09:01)
[2022-08-13] MEDS: FAMOTIDINE 20 MG TAB PO SCH (09:02)
[2022-08-13] MEDS: guaiFENesin 600 MG TABCR PO SCH ×2 (09:02→20:54)
[2022-08-13] MEDS: CEFDINIR 300 MG CAP PO SCH ×2 (09:02→20:53)
[2022-08-13] MEDS: METOPROLOL TARTRATE 25 MG TAB PO SCH (09:02)
[2022-08-13] MEDS: SENNA 8.6 MG TAB PO SCH (09:02)
[2022-08-13] MEDS: MICONAZOLE NITRATE POWDER 85 GM EXT SCH ×3 (09:03→20:55)
[2022-08-13] MEDS: OXYBUTYNIN CHLORIDE XL 5 MG TABCR PO SCH (09:03)
[2022-08-13] MEDS: UMECLIDINIUM/VILANTEROL 62.5/25MCG 7 PUFFS/INHALER INH SCH (09:03)
[2022-08-13] MEDS: MUPIROCIN 2% OINT 22 GM TUBE EXT SCH ×2 (09:03→20:53)
[2022-08-13] MEDS: LETROZOLE 2.5 MG TAB PO SCH (09:10)
--- NOTE | 2022-08-13 10:21 | XRay Report ---
XR chest 2V PA/lateral CLINICAL HISTORY: f/u L opacity COMPARISON STUDY: Chest CT June 22, 2022. Chest radiograph August 12, 2022. FINDINGS: There is no pneumothorax. A small left pleural effusion has slightly increased. Left basila r opacity is again noted. Several displaced left lower rib fractures are present. There is pulmonary vascular congestion with suspected mild pulmonary edema. Cardiomegaly is unchanged. IMPRESSION: 1. Persistent left basilar opacity which could reflect atelectasis or pneumonia. Slight increase in a small left pleural effusion. 2. Several displaced acute to subacute left lower rib fractures. No pneumothorax. 3. Mild pulmonary edema. ACT 112: Negative or not required by law. Electronically signed by: Grupo Castro M.D. 08/13/2022 10:19 AM
[2022-08-13] MEDS ORDERED: FUROSEMIDE 40 MG/4 ML VIAL IV ONE (10:31)
--- NOTE | 2022-08-13 10:43 | Pharmacy Report ---
Pharmacy Glycemic Short Note 2 - Date of Service August 13, 2022 - Glycemic Short BSG Results (Last 24 hours): 08/12/22 08/12/22 08/12/22 11:38 16:17 19:47 Glucose POC Glucose 192 H 213 H 254 H 08/13/22 08/13/22 05:24 07:00 Glucose 191 H POC Glucose 219 H OUTPATIENT ANTIDIABETIC REGIMEN: * Dulaglutide 4.5mg SQ weekly * Metformin 1g PO BID * Tresiba 22 units daily at 1200 * Aspart 55 units with breakfast, 50 units with dinner ASSESSMENT: 08/13/22 * BSGs yesterday were [phone] mg/dL. Patient received 72 units of insulin (30 units of basal and 42 units of bolus). * Fasting today is 219 mg/dL which is still above goal range. Increase basal by 20% to 35 units. * Tighten Novolog since BSGs trended upwards. 08/11 * Patient received total of 45 units of insulin yesterday, of which 22 units were basal * Fasting 170-180s - will titrate up basal slightly today ~15% to 26 units * No change to CF/CR for now 08/10 * 81 yo female, PMH of HLD, morbid obesity, DM2, cirrhosis, breast ca s/p partial left mastectomy, developmental delay who resides at an assisted living facility, s/p fall, UTI, hyperglycemic. Patient maintained on multiple DM meds including insulin at home, has had minimal insulin so far since admission, resulting in hyperglycemia. * Extra accucheck now at 1450 to give extra SQ insulin, then resume ACHS checks, tighten CF/CR and increase basal to home dose starting now. PLAN FOR INPATIENT GLYCEMIC CONTROL: * Hold outpatient diabetes medications * Basal insulin * Lantus 35 units SQ daily at 1200 * Bolus insulin * NovoLog per scale ACHS or Q6hrs while NPO * Goal Range: Low 110 mg/dL - High 140 mg/dL * Correction Factor: 15 mg/dL/unit * Nutritional / Prandial insulin per carb ratio of 1 unit per 5 grams CHO consumed
[2022-08-13] MEDS: LANTUS PER UNIT CHARGE SQ SCH (12:15)
[2022-08-13] MEDS: oxyCODONE HCL IR 5 MG TAB (IMMEDIATE RELEASE) PO PRN ×2 (14:36→20:53)
[2022-08-13] MEDS: metFORMIN HCL 500 MG TAB PO SCH (17:00)
[2022-08-13] MEDS ORDERED: LOSARTAN POTASSIUM 25 MG TAB PO SCH (21:00)
[2022-08-14] MEDS: ACETAMINOPHEN 325 MG TAB PO PRN (01:10)
[2022-08-14] MEDS: oxyCODONE HCL IR 5 MG TAB (IMMEDIATE RELEASE) PO PRN (03:46)
[2022-08-14 06:52] LABS: Hematocrit (blood only) 37.5 % (37.0-47.0); Hemoglobin 12.6 g/dl (12.0-16.0); Mean Corpuscular Hemoglobin 29.9 pg (25.0-34.0); Mean Corpuscular Hgb Conc 33.6 g/dL (32.0-36.0); Mean Corpuscular Volume 88.9 fL (80.0-100.0); Mean Platelet Volume 10.7 fL (9.4-12.4); Platelet Count 271 K/uL (130-400); RDW Coefficient of Variation 13.3 % (11.5-14.5); RDW Standard Deviation 43.7 fL (36.4-46.3); Red Blood Count 4.22 M/uL (4.20-5.40); White Blood Count 8.68 K/ul (4.8-10.8)
[2022-08-14] MEDS: ALBUT/IPRATROP 3MG/0.5MG NEB 3 ML VIAL NEB SCH ×3 (07:14→14:49)
[2022-08-14 07:44] LABS: Calcium 9.4 mg/dl (8.5-10.1); Potassium 3.7 mmol/L (3.5-5.1)
[2022-08-14 07:50] LABS: BUN Creatinine Ratio 29.2 (10-20); Creatinine Clr Calc Pharmacy 85.8 ml/min; Est GFR (African American) 97.9 ml/min; Est GFR (Non-African American) 84.4 ml/min
--- NOTE | 2022-08-14 08:18 | Hospitalist Progress Note ---
Date of Service August 14, 2022 Assessment & Plan Admission and Anticipated Discharge Date Admission Date: August 08, 2022 Subjective eval this morning, reported feeling better pain controlled. breathing stable planning to [facility] today wanting something cold to drink Results & Data Results & Data ([facility]) Vital Signs (Past 12 Hours) Vital Signs Temp Pulse Pulse Resp BP Pulse Ox O2 Del Method 08/14/22 07:42 36.7 C 98 H 20 144/77 H 93 Nasal Cannula 08/14/22 07:14 88 19 94 Nasal Cannula 08/13/22 23:00 107 H 08/14/22 02:40 36.9 C 94 H 18 133/66 94 Nasal Cannula 08/13/22 22:55 36.8 C 106 H 20 122/51 L 92 Nasal Cannula O2 Flow Rate 08/14/22 07:42 08/14/22 07:14 3 08/13/22 23:00 08/14/22 02:40 2 08/13/22 22:55 2.0 PG Care Time/CCT Total # of Minutes Spent Total Time Spent with Patient: Total time spent is greater than 50% in coordination of care (as documented) at patient's floor/unit and/or counseling patient: Coding
[2022-08-14] MEDS: INSULIN ASPART PER UNIT SC SCH ×2 (08:19→11:58)
[2022-08-14] MEDS: LIDOCAINE 5% 1 PATCH TD SCH (08:28)
[2022-08-14] MEDS: FAMOTIDINE 20 MG TAB PO SCH (08:28)
[2022-08-14] MEDS: SPIRONOLACTONE 25 MG TAB PO SCH (08:28)
[2022-08-14] MEDS: DOCUSATE SODIUM 100 MG CAP PO SCH (08:28)
[2022-08-14] MEDS: guaiFENesin 600 MG TABCR PO SCH (08:28)
[2022-08-14] MEDS: CEFDINIR 300 MG CAP PO SCH (08:28)
[2022-08-14] MEDS: MICONAZOLE NITRATE POWDER 85 GM EXT SCH (08:29)
[2022-08-14] MEDS: SENNA 8.6 MG TAB PO SCH (08:29)
[2022-08-14] MEDS: METOPROLOL TARTRATE 25 MG TAB PO SCH (08:29)
[2022-08-14] MEDS: metFORMIN HCL 500 MG TAB PO SCH (08:29)
[2022-08-14] MEDS: UMECLIDINIUM/VILANTEROL 62.5/25MCG 7 PUFFS/INHALER INH SCH (08:30)
[2022-08-14] MEDS: MUPIROCIN 2% OINT 22 GM TUBE EXT SCH (08:30)
[2022-08-14] MEDS: LETROZOLE 2.5 MG TAB PO SCH (08:37)
--- NOTE | 2022-08-14 10:10 | XRay Report ---
XR chest 1V portable HISTORY: Shortness of breath. f/u overload COMPARISON: Chest 08/13/2022. FINDINGS: No pneumothorax. Small left pleural effusion and left basilar densities persist. Left sided rib fractures are again noted. There is mild central pulmonary vascular congestion without overt leonora ma. This has improved. The heart remains mildly enlarged. A right jugular central venous catheter ter minates at the distal SVC. IMPRESSION: 1. No change in the small left pleural effusion and left basilar densities. 2. Left lower rib fractures again noted. No pneumothorax. 3. Mild pulmonary vascular congestion has slightly improved. ACT 112: Negative or not required by law. Electronically signed by: Jatin Barbour M.D. 08/14/2022 10:09 AM
[2022-08-14] MEDS ORDERED: FUROSEMIDE 40 MG/4 ML VIAL IV ONE (10:26)
--- NOTE | 2022-08-14 10:34 | Discharge Summary ---
Date of Service August 14, 2022 Admission HPI Per Admitting Provider Fred is a 81 year old female with a PMH significant for Asthma, HTN, grade I diastolic dysfunction, breast cancer S/P left partial mastectomy in 2018 followed by adjuvant letrozole and S/P radiation therapy, DMII, Cirrhosis, hyperlipidemia, morbid obesity, anemia, developmental delay, previous tobacco use, combined restrictive/obstructive lung disease with chronic hypoxia on supplemental oxygen, and obesity who presented to the [facility] ED on 08/08/22 due to a fall. In the ED the patient was found to be afebrile, hypertensive at 167/83, and stable on 2L NC. Labs were remarkable for a leukocytosis of 18.61 with left shift of 16, stable Hgb and platelets, cr of 1.0 (baseline appears 0.58-1.0), glucose of 315, corrected sodium of 137, calcium of 10.4, otherwise stable electrolytes, total bili of 1.1, AST of 251, ALT of 59, alk [place]os [place] 60[place] [address], initial high sensitivity trop of 1314, procal of 4.39, covid negative, Chest xray was read as "No acute cardiopulmonary findings.". CT of the abdomen/pelvis with IV contrast was read as "There is hyperdensities in the lateral aspect of the spleen and liver. These may represent grade 1 hematomas or represent artifact secondary to patient motion. No abdominal wall contusions are seen. 2. Cirrhotic morphology of the liver without ascites.". Xrays of the BL elbows were read as "Possible small left joint effusion without radiographically evident fracture. An occult fracture cannot be excluded and if there is clinical concern, CT or follow-up radiograph in a few days can be performed. The right elbow is unremarkable.". Xrays of the BL knees were read as "No evidence of acute osseous injury". Prior to admission the patient was given no medications or IV fluids. At the time of the exam the patient was resting comfortably in bed in no acute distress with a volunteer patient representative from her assisted living facility ([facility]) sitting bedside, history was obtained from both but due to her baseline intellectual disability the patient is not the most reliable historian. They state that the patient fell out of her bed after rolling the wrong direction at approximately 0200 this morning. The patient states that she remembers falling out of bed and she denies hitting her head or losing consciousness. She is unsure of how long she was on the ground for but she was able to eventually get herself back into bed. When the staff saw her in later in the day they suggested she come to the ED to be evaluated and she was in agreement. She denies any pain on her face, head, neck, or back. She is currently experiencing pain in her LUQ/left lower ribs, she states that the pain is worse with movement and deep breaths, she denies any other abdominal pain or chest pain. She does not think that she has been experiencing dysuria/hematuria but she does have a history of recurrent UTI's and her caregiver at besides states that she was recently treated for a UTI. She has pain in her BL elbows and knees but was able to successfully ambulate to the bathroom prior to my arrival. She denies any recent fevers, chills, cough, increased SOB, or other recent trauma. I spoke to the patient regarding code status as her Facility Confirmed that she has the power to make her own medical decisions. The patient states that she does NOT want CPR or defibrillation in the event of cardiac arrest. In the event of respiratory failure she would want a trial of intubation. Her son would make decisions for her if she could not make them herself. After examination of her mouth I asked if she was still using chewing tobacco, she states that she still is. Please refer to Dr. Cole's attestation for any changes to the treatment plan Admission Exam Per Admitting Provider Physical Exam: General:In no acute distress, stated age, chronicaly ill appearing, non- toxic appearing HEENT:Normocephalic, atraumatic, no scleral icterus, pupils around round, symmetrical, and reactive to light, previous right corneal discoloration noted, poor oral hygiene with remanence of chewing tobacco and dry mucus membranes trachea midline, no thyromegaly Chest/Pulm:No respiratory distress, symmetrical chest expansion, expiratory wheezing noted throughout Cardiac:RRR, no murmurs noted Abdomen:Negative for ascites, patient with blood glucose monitoring censor located in the LUQ, small bruise from sub-Q insulin at home noted in the central abdomen, normoactive bowel sounds, soft, mildly tender to palpation in the LUQ but non-tender in all other abdominal regions Musculoskeletal:Patient without acute trauma on the head, face, or neck, no tenderness to palpation over the cervical spine, patient with intact ROM of the BL shoulders/elbows but with increased swelling and pain in the left elbow compared to the right, patient without signs of bruising on the BL chest but with reproducible tenderness to palpation over the left chest, patient with large skin abrasions over the BL knees without signs of active bleeding, no other acute trauma noted on the BL lower extremities Extremities:Radial, dorsalis pedis, and posterior tibial pulses are intact and symmetrical, no edema noted in the BL LE's Skin:As described above Neuro:Alert and oriented to person, place, month, year, no focal defects, CN II-XII tested and intact, finger to nose test negative, no tremors noted Psych:No acute distress, calm and cooperative during the exam Principal Diagnosis Fall, Rhabdo, UTI, Rib Fractures Discharge Exam General: WD/obese female sitting up in chair, NAD but reporting some pain /shortness of breath HEENT: head normocephalic, atraumatic, trachea midline chest: L anterior/lateral chest tenderness to palpation in site of rib fractures, no flail chest, no crepitus , pain reported improved w/ lidocaine patch RESP: bibasilar crackles (improved w/ cough), expiratory wheezing decreased, less cough, no tachypnea +cough, on room air - 2L as needed (at home 2L prn) CV: sinus on tele, rates 80-90s, trace pedal edema , calves nontender GI: +BS, less distension but soft, nontender : barnett with concentrated but yellow urine MSK/Neuro/Skin: moves all extremities, no focal deficit, generalized weakness 4/5 throughout scattered ecchymosis/bruising (see wound cuff setter) Psych: alert to person, place, events, intellectual disability at baseline but pleasant and cooperative with care Discharge Data Allergies Allergy/AdvReac Type Severity Reaction Status Date / Time erythromycin base AdvReac Intermediate Nausea Verified 08/08/22 20:33 Penicillins AdvReac Mild GI UPSET Verified 08/08/22 20:33 Consultations 08/08/22 19:43 ED Decision to Admit Stat 08/09/22 11:03 Consult Cardiology Routine 08/09/22 13:26 Consult General Surgery Routine Ordered Studies Chest X-Ray 08/08/22 17:07 XR chest 1V portable CLINICAL HISTORY: left chest wall pain s/p fall from standing COMPARISON STUDY: Chest CT June 22, 2022. FINDINGS: No pneumothorax or pleural effusion is noted. Several old left-sided rib fractures are present. There is mild enlargement of the cardiac silhouette. No evidence for pulmonary edema. Left upper lobe density is unchanged and favor scarring. Right internal jugular central venous catheter remains in place. IMPRESSION: No acute cardiopulmonary findings. ACT 112: Negative or not required by law. Electronically signed by: Grupo Castro M.D. 08/08/2022 5:41 PM Elbow X-Ray 08/08/22 17:07 XR elbow LT min 3V routine, XR elbow RT min 3V routine CLINICAL HISTORY: elbow pain s/p fall TECHNIQUE: 3 views of the bilateral elbows were obtained. Comparison: None available at the time of this dictation. FINDINGS: There is no evidence of an acute fracture. Joint spaces are well-preserved. There is mild prominence of the right fat pad which may represent a small joint effusion. No soft tissue abnormality is seen. IMPRESSION: Possible small left joint effusion without radiographically evident fracture. An occult fracture cannot be excluded and if there is clinical concern, CT or follow-up radiograph in a few days can be performed. The right elbow is unre markable. ACT 112: Negative or not required by law. Electronically signed by: Tyron Dhillon M.D. 08/08/2022 5:46 PM Elbow X-Ray 08/08/22 17:07 XR elbow LT min 3V routine, XR elbow RT min 3V routine CLINICAL HISTORY: elbow pain s/p fall TECHNIQUE: 3 views of the bilateral elbows were obtained. Comparison: None available at the time of this dictation. FINDINGS: There is no evidence of an acute fracture. Joint spaces are well-preserved. There is mild prominence of the right fat pad which may represent a small joint effusion. No soft tissue abnormality is seen. IMPRESSION: Possible small left joint effusion without radiographically evident fracture. An occult fracture cannot be excluded and if there is clinical concern, CT or follow-up radiograph in a few days can be performed. The right elbow is unremarkable. ACT 112: Negative or not required by law. Electronically signed by: Tyron Dhillon M.D. 08/08/2022 5:46 PM Knee X-Ray 08/08/22 17:07 XR knee RT 1 or 2V routine, XR knee LT 1 or 2V routine CLINICAL HISTORY: knee pain s/p fall TECHNIQUE: 2 views of the bilateral knees were obtained. Comparison: None available at the time of this dictation. FINDINGS: There is no evidence of an acute fracture. Chondrocalcinosis is noted. Is seen. No joint effusion is seen. Vascular calcifications are noted. IMPRESSION: No evidence of acute osseous injury. ACT 112: Negative or not required by law. Electronically signed by: Tyron Dhillon M.D. 08/08/2022 5:42 PM Knee X-Ray 08/08/22 17:07 XR knee RT 1 or 2V routine, XR knee LT 1 or 2V routine CLINICAL HISTORY: knee pain s/p fall TECHNIQUE: 2 views of the bilateral knees were obtained. Comparison: None available at the time of this dictation. FINDINGS: There is no evidence of an acute fracture. Chondrocalcinosis is noted. Is seen. No joint effusion is seen. Vascular calcifications are noted. IMPRESSION: No evidence of acute osseous injury. ACT 112: Negative or not required by law. Electronically signed by: Tyron Dhillon M.D. 08/08/2022 5:42 PM Abdomen/Pelvis CT 08/08/22 17:12 CT abd pelvis IV con only CLINICAL HISTORY: LUQ abdominal pain; trauma TECHNIQUE: Helical axial images of the abdomen and pelvis were obtained and displayed. Automated dose lowering techniques and/or adjustment according to patient size were utilized for this exam. This exam was performed with intravenous contrast. CT DOSE: 1160.90 mGycm COMPARISON: Comparison is made to CT abdomen pelvis 04/01/2020 FINDINGS: Lower chest: Biatrial enlargement is seen. Liver: Caudate enlargement is seen. Nodular contour of the liver is noted. There is a hypodensity in the right lower capsule measuring approximately 42 x 9 mm. Gallbladder and biliary tree: Patient is status post cholecystectomy. No intra- or extrahepatic biliary ductal dilation. Pancreas: Unremarkable, no focal lesions. Spleen: Splenic calcifications are seen. There is questionable lateral peripheral hypodensity measuring approximately 32 x 5 mm. Adrenals: Unremarkable. Kidneys and ureters: There is a large left renal cyst measuring 67 mm in diameter. Bladder: Unremarkable. Reproductive organs: Possible tiny uterine fibroid. Bowel: Diverticulosis is seen without evidence of diverticulitis. There is a small hiatal hernia. Lymph nodes Retroperitoneal: Unremarkable. Pelvic: Unremarkable. Mesenteric: Unremarkable. Peritoneum: Normal. Vessels: Atherosclerotic calcifications are seen. Abdominal wall: No contusions are seen in the left upper quadrant. Redemonstration of right lower quadrant shunt catheter. Bones: Degenerative changes in the visualized spine. Pars defects and grade 1 anterolisthesis are seen at L4-L5. Old healed rib fractures are noted. IMPRESSION: 1. There is hyperdensities in the lateral aspect of the spleen and liver. These may represent grade 1 hematomas or represent artifact secondary to patient motion. No abdominal wall contusions are seen. 2. Cirrhotic morphology of the liver without ascites. ACT 112: Negative or not required by law. Electronically signed by: Tyron Dhillon M.D. 08/08/2022 6:56 PM Abdomen/Pelvis CT 08/09/22 07:00 CT abd pelvis wo con CLINICAL HISTORY: follow-up on hyperdensities on the spleen/liver TECHNIQUE: Helical axial images of the abdomen and pelvis were obtained. Automated dose lowering techniques and/or adjustment according to patient size were utilized for this exam. This exam was performed without intravenous contrast. CT DOSE: 1370.87 mGy.cm COMPARISON: Comparison is made to CT abdomen pelvis 08/08/2022 FINDINGS: Lower chest: Cardiomegaly is seen with biatrial enlargement. Small bilateral pleural effusions are new from prior exam. Liver: Cirrhosis with prominent caudate enlargement is seen. There is a subcapsular collection measuring 36 x 9 mm, similar in appearance to prior exam. Gallbladder and biliary tree: Patient is status post cholecystectomy. No intra- or extrahepatic biliary ductal dilation. Pancreas: Unremarkable, no focal lesions. Spleen: Calcifications are noted in the spleen compatible with prior granulomatous disease. Previously noted questionable hypodensity is less evident although evaluation is limited by motion artifact. Adrenals: Thickening of the bilateral adrenal glands is seen. Kidneys and ureters: Perinephric stranding is noted bilaterally. Bladder: Barnett catheter is seen. Reproductive organs: Unremarkable. Bowel: Diverticulosis is seen without evidence of diverticulitis. A hiatal hernia is seen. Lymph nodes Retroperitoneal: Unremarkable. Pelvic: Unremarkable. Mesenteric: Unremarkable. Peritoneum: Normal. Vessels: Atherosclerotic calcifications are seen. Abdominal wall: Minimal minimal soft tissue stranding is in the left upper quadrant abdominal wall. Redemonstration of a right lower quadrant shunt catheter. Bones: Degenerative changes in the visualized spine. Grade 1 anterolisthesis is seen at L4-L5 with associated pars defects. Old healed rib fractures are seen. IMPRESSION: 1. Previously noted right hepatic grade 1 contusion is unchanged in size. Evaluation for previously suggested splenic contusion is limited by patient motion, however no contusions definitely seen. No new or enlarged organ injury or intraperitoneal hemorrhage is seen. 2. Redemonstration of cirrhosis. ACT 112: Negative or not required by law. Electronically signed by: Tyron Dhillon M.D. 08/09/2022 12:14 PM ECHOCARDIOGRAM 08/09/2022 Study technically limited. LV systolic function is normal. LV wall motion is normal. Chest X-Ray 08/10/22 01:04 XR chest 1V portable CLINICAL HISTORY: Shortness of breath COMPARISON STUDY: Chest CT June 22, 2022. Chest radiograph August 08, 2022. FINDINGS: Right internal jugular central venous catheter remains in place. Cardiomegaly is unchanged. There is no evidence for pulmonary edema. No consolidation is identified to suggest pneumonia. Opacity at the right cardiophrenic angle favors epicardial fat pad. Left upper lobe density is unchanged and favors scarring. IMPRESSION: No acute cardiopulmonary findings. No significant change in appearance of the chest. ACT 112: Negative or not required by law. Electronically signed by: Grupo Castro M.D. 08/10/2022 7:17 AM Chest X-Ray 08/12/22 12:11 XR chest 1V portable HISTORY: hypoxia, eval overload COMPARISON: Chest 08/10/2022. FINDINGS: Right jugular central venous catheter terminates at the distal SVC. This remains unchanged. No pneumothorax. Small left pleural effusion and patchy left basilar densities have progressed. Stable small left apical density remains stable and may represent scarring. This is better appreciated on a prior chest CT. The heart remains enlarged. No evidence for pulmonary edema. IMPRESSION: 1. Interval progression of a small left pleural effusion and left base airspace opacities. This may represent a pneumonia. 2. Stable cardiomegaly. ACT 112: Negative or not required by law. Electronically signed by: Jatin Barbour M.D. 08/12/2022 12:42 PM Chest X-Ray 08/13/22 08:16 XR chest 2V PA/lateral CLINICAL HISTORY: f/u L opacity COMPARISON STUDY: Chest CT June 22, 2022. Chest radiograph August 12, 2022. FINDINGS: There is no pneumothorax. A small left pleural effusion has slightly i ncreased. Left basilar opacity is again noted. Several displaced left lower rib fractures are present. There is pulmonary vascular congestion with suspected mild pulmonary edema. Cardiomegaly is unchanged. IMPRESSION: 1. Persistent left basilar opacity which could reflect atelectasis or pneumonia. Slight increase in a small left pleural effusion. 2. Several displaced acute to subacute left lower rib fractures. No pneumothorax. 3. Mild pulmonary edema. ACT 112: Negative or not required by law. Electronically signed by: Grupo Castro M.D. 08/13/2022 10:19 AM Chest X-Ray 08/14/22 09:39 XR chest 1V portable HISTORY: Shortness of breath. f/u overload COMPARISON: Chest 08/13/2022. FINDINGS: No pneumothorax. Small left pleural effusion and left basilar densities persist. Left sided rib fractures are again noted. There is mild central pulmonary vascular congestion without overt edema. This has improved. The heart remains mildly enlarged. A right jugular central venous catheter terminates at the distal SVC. IMPRESSION: 1. No change in the small left pleural effusion and left basilar densities. 2. Left lower rib fractures again noted. No pneumothorax. 3. Mild pulmonary vascular congestion has slightly improved. ACT 112: Negative or not required by law. Electronically signed by: Jatin Barbour M.D. 08/14/2022 10:09 AM Hospital Course (1) Fall: Fell at assisted living facility, unclear duration, some say 2hours, possibly up to 8hrs (wears O2 at night, this was also reported to be off when found) Denies LOC/trauma to head No fractures on imaging, possible occult fracture to L elbow not excluded however Wound RN consulted for multiple skin issues -- see imaging/documentation CTAP w/ concerns given "hyperdensities in the lateral aspect of the spleen and liver. These may represent grade 1 hematomas or represent artifact secondary to patient motion." She is without signs of bleeding on inspection of her abdomen. Repeat CTAP 08/09 unchanged however hgb stable on continuous IVF for rhabdo as below Discussed w/ surgery, can get up/ambulate as tolerated, should improve over time/supportive care Copious IVF provided, CK trending down Overnight 08/09 became increasingly short of breath and concerns for volume overload, IVF was stopped and patient provided dose of IV lasix -- additional 20mg IV lasix ordered last evening 08/11 and BUN/Cr 20/.6--> 18/0.56 Additional dose of lasix for AM 08/12, and total 40mg IV lasix AM 08/13 given mild pulmonary edema on CXR/O2 requirement and decision to continue 40mg PO daily w/ oncoming provider at [facility] and they will monitor labs/status CK almost resolved, LFTs trending down likely from rhabdo Tx UTI w/ Cefepime initially given prior ecoli resistant to FLQ, transitioned to Cefdinir to complete 10 day course which should also cover pulm WBC normalized, no further temps since admit. BCx NGTD after 5 days Of note, patient complaining of L sided/flank/rib discomfort. Reviewed CT imaging again from 08/09 w/ radiology and patient w/ acute rib fractures on the left 5-8. Lidocaine patch ordered, oxycodone prn. To continue incentive spirometer, nebs, cough/deep breathing techniques. Patient w/ ID at baseline and encouraged use recommened to prevent pneumonia. Will need outpt f/u imaging to ensure healing in follow up PT/OT consulted -- planning [facility], able to take today. Discussed patient w/ Dr Navarro and decision to continue lasix 40mg PO daily and they will continue to monitor/repeat labs as needed given discussion patient likely benefit from low dose lasix at baseline (2) Rhabdomyolysis: CK 19k on admit with Cr 1.05, No anion gap (baseline Cr 0.5-0.7 however of note). TSH wnl 1L in ER, additional 2L NSS provided and was on continuous IVF and developed worsening pulm edema/shortness of breath and multiple doses IV lasix provided CK continued to improved w/ diuretics and pushing oral fluids CK down to 446 prior to discharge Monitor labs on repeat at [facility] (3) UTI (urinary tract infection): WBC elevation on admit, falls Blood cultures NGTD x 48 hours (procal was 4.39 on admit) Cefepime for UTI initially --> Cx w/ ecoli resistant to FLQ --> switched to cefdinir 08/10 for coverage, planning 10 day course, end date 08/18 (4) Ribs, multiple fractures: reviewed on CTAP w/ supervising provider, contacted radiology evening 08/10, confirmed acute/subacute rib fractures 5-8 on the LEFT Lidocaine patch, pain control -- reports improving No PTX on imaging 2L with sleep/ambulation at baseline per pulm noted Breathing improved w/ lasix. Resumed her spironolactone as well but continued w/ pulm edema CXR w/ improvement in edema, decision to continue daily lasix at discharge per discussion w/ Dr Navarro at [facility] given concerns patient req low dose diuretic to regimen for her chronic diastolic HF/pulm HTN as well Encouraged continued use of incentive spirometer, added turn/cough/deep breathing- not great effort at taking deep breath at times. Given pillow 08/12 to use to brace and encouraged coughing Improvement in use w/ IS but difficult at times w/ her intellectual disability and continued encouragement recommended Repeat imaging to ensure ribs healing in 3-4 weeks, sooner if issues NO FLAIL CHEST (5) Elevated troponin: Initial trop elevated at 1314, patient is asymptomatic as her left lower chest/rib pain is reproducible on palpation, she is also without acute ST segment or T-wave changes ECG Likely multifactorial including demand from being down for multiple hours, her acute illness, and current Rhabdo Repeat EKG unchanged NSR/sinus tach on monitor (suspect aspect of pain, given her pain to LUQ/chest, reproducible to palpation, contributing -- RIB FRACTURES ABOVE) Trop 1314--> 1078--> 828--> 549--> 255 Cards consulted -- did not feel cardiac in nature ECHO w/o wall motion abnormality Suspect demand ischemia from acute illness/UTI/rhabdo, no chest pain reported Started low dose metoprolol 12.5mg, monitor response -- HRs improved and continued this medication at discharge. Could consider f/u for R heart cath as outpatient (6) Diabetes mellitus, type 2: Noted to be in the 300's on presentation to the ED A1c 7.7 On dulaglutide weekly, metformin 1gm BID outpatient -- held while inpatient BSGs to 300s 08/09 during downtime without administration of insulin until after lunch given unable to access MARs and consultation placed for pharmacy for glycemic management BSGs had been decently controlled following this/a little on the higher side in the mid 200s, and further adjustments made 08/13 Patient had her basal insulin increased by 20% to 35u and tightened novolog on 08/13 and patient dropped BSGs to 60-70s overnight ==>These were further adjusted to ensure not dropping and BSGs 183/189 morning 08/14 but requesting multiple Bengali ice and snacks/crackers and BSGs into 3-500 and pharmacy contacted, additional insulin provided but patient still snacking and they recommend no further insulin to be provided and for her to check BSGs once she gets home Message received prior to discharge about patient BSGs elevated (requesting MULTIPLE Bengali ice after finishing breakfast as well) "For Fred Lewis in S237-1 - pharmacy is following for glycemic. It looks like you are getting ready to discharge patient. The nurse had called with elevated blood sugars but had told me patient was snacking at lunch when blood sugar was taken. We gave insulin around noon and nurse had checked the blood sugar an hour after and patient is still eating so it is high again. I told her not to give any more insulin and have patient check blood sugar when they get home. Just wanted to relay to you what was going on in case you saw those sugars! thanks, pharmacy" Thankfully, patient going to [facility], they will be able to further manages her sugars STRONGLY encouraged watching carbohydrates/limit snacking (7) Hypertension: BP elevations felt 2nd to pain reported -- medications ordered for pain control, had improvement but had only gotten Tylenol this AM and asked RN to provide oxycodone x 1 INitially held losartan/sprinolactone given rhabdo/UTI (noted cirrhotic morphology of liver on imaging w/o ascites) Added low dose metoprolol 12.5mg for HR, continued at discharge Resumed her sprironolactone 25mg BID, losartan 25mg daily, BPs 153/65 with with lasix as well To continue metoprolol 12.5mg daily, losartan 25mg, sprinolactone 25mg BID and lasix 40mg PO daily -- further titrations of lasix based on needs to maintain fluid balance (8) Dyspnea on exertion: Patient has a history of mixed lung disease, on HS 2L NC RIB FRACTURES ABOVE On supplemental O2 when sleeping/ambulation Reports improving, but still w/ edema on cxr, weights still up ~ 2kg from admit titrated to room air w/ lasix and continuing lasix as above Continue IS, flutter valve, nebs/inhalers at discharge, tx for ribs as outlined (9) Cirrhosis: Cirrhotic morphology of the liver noted on CT LFT elevation could also be from Rhabdo as above 2nd to fall --> continues to trend down on repeat, almost normalized No RUQ pain, imaging reviewed by surgery, signed off Resumed spironolactone 25mg BID, lasix 40mg PO at discharge and to prevent hyperK given spirnolactone/losartan use Titrate as needed outpatient to maintain volume status Consider f/u GI outpatient/hepatology after d/c [facility] (10) Intellectual disability: Patient is a resident at the [facility] in [place] Alert and oriented X 3 , intellectual disability noted (11) Breast cancer: Hx L breast lumpectomy 2017 On letrozole 2.5mg daily Mammogram most recently completed Jul 2022, no evidence for malignancy Plan planning d/c to [facility] this afternoon Called and spoke w/ Dr Navarro regarding diuretics and continued use Will continue abx to complete course for UTI Repeat imaging in f/u for rib fractures and continue pulmonary toilet to prevent pneumonia Total Time Total Time Spent Total Time Spent (In Minutes): 60 Discharge Plan Discharge Items Patient Disposition: Transfer Inpatient Rehab Fac Reason For Visit: FALL AT HOME Discharge Diagnosis: Fall, Rhabdomyolysis, Urinary Tract Infection, Rib Fractures Goals: You have been hospitalized for an acute medical problem. During your stay at [facility], we have made an effort to correct the problem that brought you to the hospital while keeping you as comfortable as possible. Medications were used to bring your condition under control and your discharge instructions will include directions for any medications you should take after leaving the hospital. Please make sure you see your Primary Care Provider as part of your follow up plan. Activity: As commented below Non-emergency contact: Primary Care Provider and Gold Cutter Call non-emergency contact if: you have any medication questions Follow-up/Referrals: Supa Reynoso, [Primary Care Provider] - Diet: Heart Healthy and Low Sodium (2gm) Addtl Attending Provider Instructions: You have been hospitalized for a fall and found to have elevation in muscle enzymes from being down for so long. We treated you with antibiotics for a urinary tract infection and IV fluids to help with the elevated muscle enzymes and these have improved. You are to continue cefdinir 300mg by mouth TWICE daily until 2/3/23 to complete course of antibiotics for the urinary tract infection. You were also found to have multiple rib fractures on the left side from falls, and you should continue incentive spirometer and deep breathing/cough to prevent pneumonia. We are continuing Lasix (water pill) 40mg by mouth daily for the next 2-3 days, and they can assess if you should continue this after this period of time to ensure no fluid accumulation which can make you more short of breath. I spoke with Dr Navarro at [facility] and they are going to check repeat labs while you are on this medication to ensure they remain stable. Your troponin level was elevated on admission in the setting of infection/muscle breakdown and this was improved on repeat and ultrasound of the heart did not show any evidence for heart attack and you were see by cardiology and they felt this was not cardiac related. We did start you on metoprolol 12.5mg daily for elevated heart rate. You should follow up with primary care and pulmonology in the next week to monitor your status and you will need repeat chest xrays to ensure your ribs are healing. You should return to the ER with any increased shortness of breath, fever, chest pain, or for any other symptoms concerning for you. Take care! Addtl Production Supervisor Provider Instructions: Call 911 and go to the Emergency Room if: * You have tightness or pain in your chest that does not go away with rest or Nitroglycerin * You are very short of breath even with rest Call your doctor if any of the following symptoms or problems start or get worse: * Shortness of breath or difficulty breathing * Wake up at night short of breath * Chest pain * Cough * Swelling of your hands, fee, or legs * More fatigued or tired with your normal activity * Palpitations - sudden fast heart beats WEIGHT * Weigh yourself every morning after using the bathroom. * Use the same scale. * Wear the same amount of clothing. * Write your weight down on your chart. * Call your doctor if you gain more than 2-3 pounds in 1-2 days. MEDICATIONS * Use this discharge instruction sheet for instructions. * Take your medications at the time your doctor ordered. * Do not skip a dose of your medicines. * If you miss a dose of medicine, take as soon as possible, but DO NOT DOUBLE A DOSE. * Read your medicine information when you get home. * Know all of the side effects of your medicine. * Call your doctor's office if you have any side effects. * Be sure all of your doctors know what medicine and herbs you take (including cold, flu, and herbal medicine). * Pain Medicine: If you do not get relief from your pain, please call your doctor for help. Take the following with you to your follow-up doctor appointments: * Weight Chart * Medication List * List of questions Do not drink excessive alcohol, beer or wine. Pending Studies at Discharge: No Stand-Alone Forms: My [facility] Skilled Items Patient informed of condition?: Yes DNR: No Discharge Level of Care: Acute rehab Communicable Disease: No Discharge Prognosis: Stable Lines: None Urinary Catheter: No Medications and DC Order Prescriptions: New cefdinir 300 mg Capsule 300 mg PO BID Qty: 9 0RF metoprolol tartrate 25 mg Tablet 12.5 mg PO QAM Qty: 30 0RF oxycodone 5 mg Tablet 5 mg PO Q4H PRN (Reason: pain) Qty: 7 0RF lidocaine 5 % Adhesive Patch,Medicated 1 patch transdermal QAM Qty: 15 0RF guaifenesin [Mucinex] 600 mg Tablet Extended Release 12hr 1,200 mg PO Q12 Qty: 14 0RF furosemide 40 mg tablet 40 mg PO DAILY Qty: 30 0RF Continued letrozole 2.5 mg tablet 2.5 mg PO QAM cranberry 500 mg capsule 1,500 mg PO BID Trip4real 1.5 billion cell capsule 1 cap PO QAM Prolia 60 mg/mL syringe 60 mg subcut .Q 6 months Tresiba FlexTouch U-200 200 unit/mL (3 mL) insulin pen 22 unit subcut .DAILY AT NOON (DME) pen needle, diabetic [Lite Touch Insulin Pen Clements] 31 gauge x 3/16" needle See Dose Instructions .ROUTE .MEDSUPPLY Qty: 300 3RF Dose Instruction: As directed Rx Instructions: Use 3 needles daily albuterol sulfate [Ventolin HFA] 90 mcg/actuation HFA aerosol inhaler 2 puff inhalation Q4 PRN (Reason: Shortness Of Breath Or Wheezing) Qty: 1 2RF (DME) Oxygen Home Liters Per Minute See Rx Instructions .ROUTE .MEDSUPPLY Qty: 2 0RF Rx Instructions: 2L/min to be used with exertion and while sleeping (DME) Portable Oxygen Misc See Rx Instructions .Route Qty: 1 0RF Rx Instructions: home O2 concentrator and portability via nasal cannula spironolactone [Aldactone] 25 mg tablet 25 mg PO BID Qty: 180 3RF Anoro Ellipta 62.5-25 mcg/actuation blister with device 1 inh inhalation DAILY Qty: 60 5RF dulaglutide 3 mg/0.5 mL pen injector 3 mg subcut Q7D Qty: 2 2RF Rx Instructions: wednesdays methenamine hippurate 1 gram tablet 1 g PO Q12H Qty: 180 3RF insulin asp prt-insulin aspart [Novolog Mix 70-30FlexPen U-100] 100 unit/mL (70-30) insulin pen 120 unit subcut UD Rx Instructions: Inject 55 units with breakfast and 50 units with dinner; TDD 105 cholecalciferol (vitamin D3) [Vitamin D3] 25 mcg (1,000 unit) tablet 2,000 unit PO BID (DME) Dexcom G6 Sugar Presser Misc See Rx Instructions .Route Rx Instructions: As directed (DME) syringe with needle 3 mL 25 x 5/8" syringe See Dose Instructions .ROUTE .MEDSUPPLY Qty: 1 Rx Instructions: USE ONE PER MONTH cyanocobalamin (vitamin B-12) [Vitamin B-12] 1,000 mcg Tablet 1,000 mcg PO DAILY metformin 1,000 mg tablet extended release 24 hr 1,000 mg PO BIDM Rx Instructions: Take with meals. cyanocobalamin (vitamin B-12) 1,000 mcg/mL solution 1,000 mcg subcut MONTHLY Rx Instructions: 100 mcg subcut once monthly; losartan [Cozaar] 25 mg tablet 25 mg PO QPM oxybutynin chloride 10 mg tablet extended release 24hr 10 mg PO QPM ammonium lactate 12 % cream 1 applic TOPICAL DAILY Rx Instructions: apply to feet ezetimibe [Zetia] 10 mg tablet 10 mg PO HS vitamins A,C,Q-jjdm-rywreg 2,148 mcg-113 mg-45 mg-17.4mg Tablet 1 tab PO QPM Rx Instructions: administer with PM meal Discharge Orders: Discharge Order- CHF (Routine); Ordered 08/14/22 Ordered By: January Gonzalez Admission Data Admit Date/Time: 08/08/22 20:14 Attending Provider: Javier Valadez Admit Provider: Hailee Cole Primary Care Provider: Supa Reynoso Other Providers: Hailee Cole ; Tito Chris ; Juan Christianson ; [facility] Supervising Physician Co-Signing Physician Notes The patient was seen by me prior to discharge. Chart reviewed. Discussed with January Gonzalez, physicians funeral assistant. Agree with assessment and plan Coding Level of Care Code HOSP INP/OBS DISCH >30 MIN Diagnoses Fall W19.XXXA Rhabdomyolysis M62.82 UTI (urinary tract infection) N39.0 Ribs, multiple fractures S22.49XA Elevated troponin R77.8 Diabetes mellitus, type 2 E11.9 Hypertension I10 Dyspnea on exertion R06.00 Cirrhosis K74.60 Intellectual disability F79 Breast cancer C50.919
[2022-08-14 11:52] VITALS: BP 153/65; PULSE 90; TEMP 97.9; O2SAT 94
[2022-08-14] MEDS: LANTUS PER UNIT CHARGE SQ SCH (11:58)
== END 2022-08-14 15:27 | DRG 558 ==
LOC: ED 16:40 → SUATTDRO 20:14 → EDINP 20:14 → 2S 22:48

== ENCOUNTER 2023-01-13 21:30 | Inpatient (IN) ==
[2023-01-13 22:15] LABS: Basophils # (auto) 0.03 K/uL (0-0.2); Basophils % (auto) 0.3 %; Eosinophils # (auto) 0.01 K/uL (0-0.50); Eosinophils % (auto) 0.1 %; Hematocrit (blood only) 41.9 % (37.0-47.0); Immature Granulocytes # (auto) 0.07 K/uL (0.01-0.20); Immature Granulocytes % (auto) 0.6 %; Lymphocytes # (auto) 1.03 K/uL (1.2-3.4); Lymphocytes % (auto) 9.3 %; Mean Corpuscular Hemoglobin 29.5 pg (25.0-34.0); Mean Corpuscular Hgb Conc 33.4 g/dL (32.0-36.0); Mean Corpuscular Volume 88.2 fL (80.0-100.0); Monocytes # (auto) 1.16 K/uL (0.11-0.59); Monocytes % (auto) 10.5 %; Neutrophils # (auto) 8.77 K/uL (1.40-6.50); Neutrophils % (auto) 79.2 %; Platelet Count 260 K/uL (130-400); RDW Coefficient of Variation 14.8 % (11.5-14.5); RDW Standard Deviation 48.1 fL (36.4-46.3); Red Blood Count 4.75 M/uL (4.20-5.40); White Blood Count 11.07 K/ul (4.8-10.8)
[2023-01-13 22:25] LABS: Alanine Aminotransferase 28 U/L (7-52); Albumin Globulin Ratio 1.1 (0.9-2); Albumin Level 4.1 gm/dl (3.4-5.0); Alkaline Phosphatase 73 U/L (34-104); Anion Gap 12 (3-11); Aspartate Aminotransferase 33 U/L (13-39); Bilirubin,Total 0.6 mg/dl (0.2-1.0); Blood Urea Nitrogen 18 mg/dl (6-23); Calcium 10.1 mg/dl (8.6-10.3); Carbon Dioxide 25 mmol/L (21-32); Chloride 100 mmol/L (98-107); Est GFR (African American) 91.7 ml/min; Est GFR (Non-African American) 79.1 ml/min; Globulin 3.9 gm/dl (2.5-4.0); Glucose 117 mg/dl (70-99(Fasting)); Magnesium 1.9 mg/dl (1.7-2.4); Potassium 2.9 mmol/L (3.5-5.1); Sodium 137 mmol/L (136-145)
[2023-01-13] MEDS ORDERED: POTASSIUM CHLORIDE CRTAB 20 MEQ TABCR PO STA (22:30)
[2023-01-13 23:59] LABS: Appearance Urine Cloudy (Clear); Bacteria Urine Automated 2+ (Negative); Bilirubin Urine Negative (Negative); Blood Urine Negative (Negative); Color Urine Dark Yellow; Epithelial Cell Urine Auto 20-30 /lpf (0-5); Glucose Urine UA Negative (Negative); Ketones Urine Trace (Negative); Leukocyte Esterase Urine 2+ (Negative); Nitrite Urine Positive (Negative); Protein Urine 1+ (Negative); Urobilinogen Urine Negative (Negative); WBC Urine Automated >30 /hpf (0-5)
[2023-01-14] MEDS ORDERED: cefTRIAXone SODIUM 2,000 MG/70 ML BAG IV STA (00:27)
[2023-01-14] MEDS ORDERED: SODIUM CHLORIDE 0.9% 1000ML 1,000 ML IV SCH (00:45)
--- NOTE | 2023-01-14 00:58 | CT Scan Report ---
Exam(s): CT HEAD Without Contrast EXAM: CT Head Without Intravenous Contrast CLINICAL HISTORY: Reason for exam: AMS. TECHNIQUE: Axial computed tomography images of the head/brain without intravenous contrast. Automated exposure control was utilized for the study. A dose lowering technique was utilized adhering to the principles of ALARA. COMPARISON: No relevant prior studies available. FINDINGS: No acute intracranial hemorrhage. No midline shift or mass effect. The territorial torrez-white matter differentiation is maintained throughout. Age-related cerebral volume loss. Periventricular and subcortical white matter hypoattenuation, consistent with chronic microangiopathy. The visualized orbits appear grossly unremarkable. The calvarium is intact. The visualized paranasal sinuses and mastoid air cells are grossly clear. IMPRESSION: No acute intracranial hemorrhage, midline shift, or mass effect. Electronically signed by: Cesar Davis MD 01/14/23 00:58 AM
--- NOTE | 2023-01-14 01:15 | History & Physical Report ---
Date of Service January 14, 2023 Assessment & Plan (1) Hypoglycemia: Plan: Due to possible accidental insulin overdose, patient did not eat. Likely took at least 45 units of insulin 70/30. Administered Dextrose by EMS. BSG has been stable. -Hold insulin -Cover with sliding scale (2) Hypokalemia: Plan: K=2.9. Administered 80mEq PO -Repeat BMP in AM -Continue repletion as needed (3) Hypertension: Plan: Blood pressure stable -Continue Spironolactone -Continue Metoprolol -Continue Losartan -Monitor (4) Hyperlipidemia: Plan: Chronic. Stable -Continue Zetia (5) Breast cancer: Plan: Remote history of breast cancer -Continue Letrozole (6) Recurrent UTI: Plan: Patient denies urinary complaints. HD stable. Does not appear to have active UTI -Continue Methenamine Hippurate History of Present Illness Chief Complaint: hypoglycemia Primary Care Provider: Supa Reynoso, 82yo female with DM, HTN, HLP and intellectual disability presenting with hypoglycemia. Patient does not fully recall the events prior to arrival. She recalls taking her medication - 45 units of insulin or "maybe more". She meant to eat a peanut butter sandwich but got distracted and didn't eat. She was at her neighbors house and became altered. Neighbor called EMS. Patient hypoglycemic by EMS with BSG of 31. She was administered dextrose IV and brought to the ER. No complaints at present. She feels very thirsty otherwise is doing well. She denies recent illness, chest pain, cough, SOB, abdominal pain, nausea, vomiting, diarrhea or constipation. No falls or urinary complaints. She resides at [facility] in [place] and has home nursing. Allergies Allergy/AdvReac Type Severity Reaction Status Date / Time erythromycin base AdvReac Intermediate Nausea Verified 01/13/23 23:11 Penicillins AdvReac Mild GI UPSET Verified 01/13/23 23:11 Home Medications Medication Instructions Recorded Confirmed Type cyanocobalamin (vitamin B-12) 1,000 mcg PO DAILY 10/18/18 01/13/23 History 1,000 mcg tablet (Vitamin B-12) syringe with needle 3 mL 25 x 5/8" #1 ea 01/21/19 12/28/22 History Lactobacills gasseri-Bifidobac 1 cap PO QAM 05/02/19 01/13/23 History bifidum,longum 1.5 billion cell capsule ([employer]) cranberry 500 mg capsule 1,500 mg PO BID 05/02/19 01/13/23 History letrozole 2.5 mg tablet 2.5 mg PO QAM 05/02/19 01/13/23 History Lite Touch Insulin Pen Grandin 31 #300 ea 07/22/20 12/28/22 Rx gauge x 3/16" (pen needle, diabetic) albuterol sulfate 90 mcg/actuation 2 puff inhalation Q4 PRN Shortness 08/12/20 01/13/23 Rx aerosol inhaler (Ventolin HFA) Of Breath Or Wheezing #1 ea denosumab 60 mg/mL subcutaneous 60 mg subcut .Q 6 months 05/11/21 01/13/23 History syringe (Prolia) Oxygen Home #2 L 05/13/21 12/28/22 Rx Portable Oxygen #1 ea 05/25/21 12/28/22 Rx cholecalciferol (vitamin D3) 25 2,000 unit PO BID 06/28/21 01/13/23 History mcg (1,000 unit) tablet (Vitamin D3) umeclidinium 62.5 mcg-vilanterol 1 inh inhalation DAILY #60 ea 01/30/22 01/13/23 Rx 25 mcg/actuation powdr for inhalation (Anoro Ellipta) ammonium lactate 12 % topical cream 1 applic topical DAILY 08/08/22 01/13/23 History cyanocobalamin (vitamin B-12) 1,000 mcg subcut MONTHLY 08/08/22 01/13/23 History 1,000 mcg/mL injection solution ezetimibe 10 mg tablet (Zetia) 10 mg PO HS 08/08/22 01/13/23 History losartan 25 mg tablet (Cozaar) 25 mg PO QPM 08/08/22 01/13/23 History guaifenesin 600 mg tablet, 1,200 mg PO Q12 #14 tabs 08/14/22 01/13/23 Rx extended release 12 hr (Mucinex) qb-muke-fhxh-iron 8 mg-folic acid 1 tab PO DAILY 08/30/22 01/13/23 History 400 mcg-vit K1 50 mcg-lutein tablet ([facility]) spironolactone 25 mg tablet 25 mg PO BID #180 tabs 09/08/22 01/13/23 Rx (Aldactone) methenamine hippurate 1 gram tablet 1 g PO Q12H #180 tabs 10/10/22 01/13/23 Rx oxybutynin chloride 10 mg 10 mg PO QPM #90 tabs 10/10/22 01/13/23 Rx tablet,extended release 24 hr furosemide 40 mg tablet 40 mg PO DAILY #90 tabs 11/08/22 01/13/23 Rx dulaglutide 3 mg/0.5 mL 3 mg (0.5 mL) subcut Q7D #2 mL 11/13/22 01/13/23 Rx subcutaneous pen injector insulin aspar prot-insulin aspart 90 unit subcut UD 11/13/22 01/13/23 History 100 unit/mL (70-30) subcutaneous pen (Novolog Mix 70-30FlexPen U-100) insulin degludec 200 unit/mL (3 26 unit subcut .DAILY AT NOON 11/13/22 01/13/23 History mL) subcutaneous pen (Tresiba FlexTouch U-200 insulin) metformin 1,000 mg tablet,extended 1,000 mg PO BIDM #360 tabs 11/13/22 01/13/23 Rx release 24hr metoprolol tartrate 25 mg tablet 12.5 mg PO QAM #45 tabs 12/13/22 01/13/23 Rx Walking Cane #1 ea 12/28/22 12/28/22 Rx Wheelchair (Manual) (Manual #1 ea 12/28/22 12/28/22 Rx Wheelchair) blood-glucose meter,continuous #1 ea 12/28/22 12/28/22 Rx (Dexcom G6 Timing Inspector) Past Med/Surg History Medical History AMD (age related macular degeneration) Asthma STABLE Atrial septal defect Bilateral nephrolithiasis Calcium nephrolithiasis Cirrhosis HX ETOH ABUSE- "STABLE" Diabetes mellitus, type 2 Dyspnea on exertion Elevated troponin Ex-smoker Hx of sepsis Hydronephrosis of left kidney Hyperlipidemia Hypertension Hypoxia Lower extremity edema Malignant neoplasm of central portion of left breast in female, estrogen receptor positive (04/18/18) Mental retardation Morbid obesity due to excess calories Multiple pulmonary nodules determined by computed tomography of lung Nephrolithiasis Non-ST elevation [place] (NSTEMI) Osteoarthritis Osteopenia Rhabdomyolysis Ribs, multiple fractures Solitary pulmonary nodule last Ct 11/2018,03/2020, 06/[address] and PET/CT. No further f/u recommended. Urinary incontinence UTI (urinary tract infection) Varicose vein of leg Vitamin B12 deficiency Vitamin D deficiency Surgical History History of cholecystectomy 2010- gr I atraumatic History of lithotripsy History of surgery of liver HEPATIC PORT PLACEMENT 2/2 CIRRHOSIS S/P colonoscopy S/P ureteral stent placement Status post left breast lumpectomy surgery 05-15-2018 [place] with LMA #4 Family History Mother , at a young age , not sure cause No problems noted. Father , age 109 / " old age " No problems noted. Sister , age 51 Breast cancer Sister , very young ,, hit by a truck Accident Sister No problems noted. Brother , age 55 Liver failure Brother , age 4-5 ys old , not sure cause Colon cancer Unknown Breast cancer Other Asthma Cancer Diabetes Denies family history of Heart disease Lung disease Social History Smoking Status: Former smoker Tobacco Type: Cigarettes Age Started Using Tobacco: 22; Age Quit Using Tobacco: 52; packs per day: 1; Second Hand Exposure: No; Do You Dip or Chew Tobacco: Yes; Hx Alcohol Use: No Hx Substance Use: No Preferred Language: Jordanian Communication Ability: Effective Visual Impairment: Limited Hearing Ability: Normal Senior Courtroom Clerk Required: No Beliefs That Will Affect Care: None marital status: / Current Living Situation: Alone Current Living Situation Comment: [facility] involved in care current occupational 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 How many Children do You have: 3 Other Information That Helps Us Care for You: No Feels Safe at Home: Yes Safety Concerns: Feels Safe At This Time Childhood Exposure to Second-Hand Smoke: Yes caffeine: Yes (drinks coffee tea and soda) Dental Care, Regularly: Yes Physical Activity Frequency: 3-4 Times per Week Physical Activity Frequency Comment: walks throughout the week Seatbelt Use: always Sunscreen Use: Yes Assistive Devices: Cane, Glasses and Walker Review of Systems Review of Systems: All systems reviewed & are unremarkable except as noted in HPI & below Physical Exam Physical Exam: General: patient resting comfortably, NAD, non-toxic in appearance, AA&O x 4 Skin: warm, dry, intact, no rashes or lesions HEENT: NC/AT, PERRL, EOMI, anicteric sclera, conjunctiva without injection, external ear normal to inspection and nontender, nares patent, moist mucus membranes, dentition intact, no oropharyngeal lesions, neck supple, trachea midline, no LAD, no thyromegaly, no JVD Heart: +S1/S2, regular, no m/r/g Lungs: equal air entry bilaterally, no rales/rhonchi/wheezes Abd: +BS, soft, NT/ND, no masses/organomegaly/ascites Ext: warm, 2+ pulses in UE/LE bilaterally, no clubbing/cyanosis or edema Neuro: nonfocal, patient AA&O x 4, speech intact, no facial droop, moving all extremities on command with equal strength 5/5 Results & Data Results & Data Vital Signs (Past 12 Hours) Vital Signs Temp Pulse Resp BP Pulse Ox O2 Del Method 01/13/23 23:00 75 21 151/63 H 93 Room Air 01/13/23 21:59 95 01/13/23 21:36 86 01/13/23 21:40 86 18 01/13/23 21:37 84 24 01/13/23 21:37 156/60 H 01/13/23 21:36 85 15 01/13/23 21:34 Room Air 01/13/23 21:34 36 C L 85 24 156/60 H 94 Room Air Laboratory Results Laboratory Results WBC 11.07 K/ul (4.8-10.8) H 01/13/23 21:38 RBC 4.75 M/uL (4.20-5.40) 01/13/23 21:38 Hgb 14.0 g/dl (12.0-16.0) 01/13/23 21:38 Hct 41.9 % (37.0-47.0) 01/13/23 21:38 MCV 88.2 fL (80.0-100.0) 01/13/23 21:38 MCH 29.5 pg (25.0-34.0) 01/13/23 21:38 MCHC 33.4 g/dL (32.0-36.0) 01/13/23 21:38 RDW Std Deviation 48.1 fL (36.4-46.3) H 01/13/23 21:38 RDW Coeff of Vignesh 14.8 % (11.5-14.5) H 01/13/23 21:38 Plt Count 260 K/uL (130-400) 01/13/23 21:38 MPV 11.0 fL (9.4-12.4) 01/13/23 21:38 Immature Gran % (Auto) 0.6 % 01/13/23 21:38 Neut % (Auto) 79.2 % 01/13/23 21:38 Lymph % (Auto) 9.3 % 01/13/23 21:38 Dane % (Auto) 10.5 % 01/13/23 21:38 Eos % (Auto) 0.1 % 01/13/23 21:38 Baso % (Auto) 0.3 % 01/13/23 21:38 Neut # (Auto) 8.77 K/uL (1.40-6.50) H 01/13/23 21:38 Lymph # (Auto) 1.03 K/uL (1.2-3.4) L 01/13/23 21:38 Dane # (Auto) 1.16 K/uL (0.11-0.59) H 01/13/23 21:38 Eos # (Auto) 0.01 K/uL (0-0.50) 01/13/23 21:38 Baso # (Auto) 0.03 K/uL (0-0.2) 01/13/23 21:38 Immature Gran # (Auto) 0.07 K/uL (0.01-0.20) 01/13/23 21:38 Sodium 137 mmol/L (136-145) 01/13/23 21:38 Potassium 2.9 mmol/L (3.5-5.1) L 01/13/23 21:38 Chloride 100 mmol/L (98-107) 01/13/23 21:38 Carbon Dioxide 25 mmol/L (21-32) 01/13/23 21:38 Anion Gap 12 (3-11) H 01/13/23 21:38 BUN 18 mg/dl (6-23) 01/13/23 21:38 Creatinine 0.72 mg/dl (0.6-1.2) 01/13/23 21:38 Est Cr Clr Drug Dosing Not Reportable 01/13/23 21:38 Est GFR ( Amer) 91.7 ml/min 01/13/23 21:38 Est GFR (Non-Af Amer) 79.1 ml/min 01/13/23 21:38 BUN/Creatinine Ratio 25.0 (10-20) H 01/13/23 21:38 Glucose 117 mg/dl (70-99(Fasting)) H 01/13/23 21:38 POC Glucose 189 mg/dl (70-99) H 01/14/23 02:42 Calcium 10.1 mg/dl (8.6-10.3) 01/13/23 21:38 Magnesium 1.9 mg/dl (1.7-2.4) 01/13/23 21:38 Total Bilirubin 0.6 mg/dl (0.2-1.0) 01/13/23 21:38 AST 33 U/L (13-39) 01/13/23 21:38 ALT 28 U/L (7-52) 01/13/23 21:38 Alkaline Phosphatase 73 U/L (34-104) 01/13/23 21:38 Total Protein 8.0 gm/dl (6.0-8.3) 01/13/23 21:38 Albumin 4.1 gm/dl (3.4-5.0) 01/13/23 21:38 Globulin 3.9 gm/dl (2.5-4.0) 01/13/23 21:38 Albumin/Globulin Ratio 1.1 (0.9-2) 01/13/23 21:38 TSH 3.596 uIu/ml (0.300-4.500) 01/13/23 21:38 Urine Color Dark Yellow 01/13/23 23:42 Urine Appearance Cloudy (Clear) A 01/13/23 23:42 Urine pH 5.0 (4.5-7.5) 01/13/23 23:42 Ur Specific [place] 1.020 (1.000-1.030) 01/13/23 23:42 Urine Protein 1+ (Negative) H 01/13/23 23:42 Urine Glucose (UA) Negative (Negative) 01/13/23 23:42 Urine Ketones Trace (Negative) H 01/13/23 23:42 Urine Blood Negative (Negative) 01/13/23 23:42 Urine Nitrite Positive (Negative) A 01/13/23 23:42 Urine Bilirubin Negative (Negative) 01/13/23 23:42 Urine Urobilinogen Negative (Negative) 01/13/23 23:42 Ur Leukocyte Esterase 2+ (Negative) H 01/13/23 23:42 Urine WBC (Auto) >30 /hpf (0-5) H 01/13/23 23:42 Urine RBC (Auto) 10-30 /hpf (0-4) H 01/13/23 23:42 U Hyaline Cast (Auto) 10-30 /lpf (0-5) H 01/13/23 23:42 U Epithel Cells (Auto) 20-30 /lpf (0-5) H 01/13/23 23:42 Urine Bacteria (Auto) 2+ (Negative) H 01/13/23 23:42 SARS-CoV-2, RNA, NAAT NEGATIVE (NEGATIVE) 01/13/23 22:[address] 01/13/23 23:38 Exam(s): CT HEAD Without Contrast EXAM: CT Head Without Intravenous Contrast CLINICAL HISTORY: Reason for exam: AMS. TECHNIQUE: Axial computed tomography images of the head/brain without intravenous contrast. Automated exposure control was utilized for the study. A dose lowering technique was utilized adhering to the principles of ALARA. COMPARISON: No relevant prior studies available. FINDINGS: No acute intracranial hemorrhage. No midline shift or mass effect. The territorial torrez-white matter differentiation is maintained throughout. Age-related cerebral volume loss. Periventricular and subcortical white matter hypoattenuation, consistent with chronic microangiopathy. The visualized orbits appear grossly unremarkable. The calvarium is intact. The visualized paranasal sinuses and mastoid air cells are grossly clear. IMPRESSION: No acute intracranial hemorrhage, midline shift, or mass effect. Electronically signed by: Cesar Davis MD 01/14/23 00:58 AM PG Care Time/CCT Total # of Minutes Spent Total Time Spent with Patient: Total time spent is greater than 50% in coordination of care (as documented) at patient's floor/unit and/or counseling patient: Coding Level of Care Code 42585 INT INP/OBS CARE MIN Diagnoses Hypoglycemia E16.2 Hypokalemia E87.6 Hypertension I10 Hyperlipidemia E78.5 Breast cancer C50.919 Recurrent UTI N39.0
[2023-01-14] MEDS ORDERED: GLUCAGON FOR INJ 1 MG VIAL SQ PRN (02:30)
[2023-01-14] MEDS ORDERED: CARBOHYDRATES FOR HYPOGLYCEMIA PO PRN (02:30)
[2023-01-14] MEDS ORDERED: POTASSIUM CHLORIDE CRTAB 20 MEQ TABCR PO STA (02:30)
[2023-01-14] MEDS ORDERED: GLUCOSE 40% GEL 15 GM TUBE PO PRN (02:30)
[2023-01-14] MEDS ORDERED: ALBUTEROL HFA 8 GM INHALER INH PRN (02:30)
[2023-01-14] MEDS ORDERED: ACETAMINOPHEN 325 MG TAB PO PRN (02:30)
[2023-01-14] MEDS ORDERED: GLUCOSE 10 TAB/TUBE PO PRN (02:30)
[2023-01-14] MEDS ORDERED: DEXTROSE 50% 50 ML SYRINGE IV PRN (02:30)
[2023-01-14] MEDS: INSULIN ASPART PER UNIT CHARGE SC SCH ×5 (02:46→21:55)
--- NOTE | 2023-01-14 02:54 | Emergency Department Note ---
Impression & Plan Acute UTI, Hypokalemia, Hypoglycemia ED Provider Note CHIEF COMPLAINT: Low blood sugar HISTORY OF PRESENT ILLNESS: This 82-year-old patient with past medical history of insulin-dependent diabetes, cirrhosis, morbid obesity, breast cancer UTI presents to the emergency department by ambulance after being found altered by a neighbor. The patient is not sure if she pushed her life alert button or if her neighbor called the ambulance. She states she did not eat dinner tonight. She was feeling tired and decided to sit down in her chair. She was found to have a blood glucose of 31 by EMS and was given IV dextrose. Patient has returned to her baseline. Speech is somewhat garbled but per the patient this is her usual speech. REVIEW OF SYSTEMS: A review of systems was performed with positives and pertinent negatives listed in the history of present illness. 10 systems were reviewed and are otherwise negative. ALLERGIES: see below MEDICATIONS: see below PMH: see below SOCIAL HISTORY: see below DDx: Infectious etiology, dehydration, metabolic abnormality, hypo/hypergly cemia, electrolyte disturbance, anemia, hypoxia, cardiac arrhythmia, intracranial hemorrhage, stroke, toxicologic, as well as other pathologies. PHYSICAL EXAM: Vital signs reviewed. General: Well-appearing 82 yo female, in no significant distress. HEENT: No scleral icterus, PERRLA, neck supple. Atraumatic. Cardiovascular: Regular rate and rhythm, no extra sounds. Pulmonary: Clear to auscultation bilaterally, normal work of breathing. Abdomen: Soft, nontender, nondistended, positive bowel sounds. Musculoskeletal: Atraumatic, no peripheral edema. Neurologic: Patient awake alert and oriented x 3, speech is slightly difficult to understand however clear. Suspect this is the patient's baseline. Skin: Warm, dry, no rash EMERGENCY DEPARTMENT COURSE/MDM: This patient was evaluated and appeared to be in no significant distress. IV access was obtained and laboratory work was drawn. Patient was placed on the shelter monitor noted to be in a sinus rhythm. Vital signs are stable. Glucose was repeated upon arrival at 131. Patient's potassium is noted to be 2.9. She was given food including peanut butter crackers and a drink. The remainder of the patient's evaluation is fairly reass uring. Patient's urinalysis is indicative of infection. She was given 2 g of IV ceftriaxone. Given the patient's hyperglycemia with altered mental status, UTI and the fact that she lives alone, she will be evaluated by the hospitalist service for further management. MONITORING: An order for cardiac monitoring was placed and the patient is noted to be in a NSR at 75 beats per minute. RADIOLOGY: CXR to my interpretation reveals no focal consolidation or failure. Otherwise defer to radiology. Head CT to my review reveals no evidence of intracranial abnormality otherwise defer to radiology. EKG: To my interpretation reveals a sinus rhythm with occasional PVCs. [address] abnormality, prolonged QTc 492. When compared to previous dated August 08, 2022, PVCs are now present. DISPOSITION: Admission Past Med/Surg History Medical History AMD (age related macular degeneration) Asthma STABLE Atrial septal defect Bilateral nephrolithiasis Calcium nephrolithiasis Cirrhosis HX ETOH ABUSE- "STABLE" Diabetes mellitus, type 2 Dyspnea on exertion Elevated troponin Ex-smoker Hx of sepsis Hydronephrosis of left kidney Hyperlipidemia Hypertension Hypoxia Lower extremity edema Malignant neoplasm of central portion of left breast in female, estrogen receptor positive (04/18/18) Mental retardation Morbid obesity due to excess calories Multiple pulmonary nodules determined by computed tomography of lung Nephrolithiasis Non-ST elevation CT (NSTEMI) Osteoarthritis Osteopenia Rhabdomyolysis Ribs, multiple fractures Solitary pulmonary nodule last Ct 11/2018,03/2020, 06/[address] and PET/CT. No further f/u recommended. Urinary incontinence UTI (urinary tract infection) Varicose vein of leg Vitamin B12 deficiency Vitamin D deficiency Surgical History History of cholecystectomy 2010- gr I atraumatic History of lithotripsy History of surgery of liver HEPATIC PORT PLACEMENT 2/2 CIRRHOSIS S/P colonoscopy S/P ureteral stent placement Status post left breast lumpectomy surgery 05-15-2018 [place] with LMA #4 Family History Mother , at a young age , not sure cause No problems noted. Father , age 109 / " old age " No problems noted. Sister , age 51 Breast cancer Sister , very young ,, hit by a truck Accident Sister No problems noted. Brother , age 55 Liver failure Brother , age 4-5 ys old , not sure cause Colon cancer Unknown Breast cancer Other Asthma Cancer Diabetes Denies family history of Heart disease Lung disease Social History Smoking Status: Former smoker Tobacco Type: Cigarettes Age Started Using Tobacco: 22; Age Quit Using Tobacco: 52; packs per day: 1; Second Hand Exposure: No; Do You Dip or Chew Tobacco: Yes; Hx Alcohol Use: No Hx Substance Use: No Preferred Language: Congolese Communication Ability: Effective Visual Impairment: Limited Hearing Ability: Normal Hospitality Workers Required: No Beliefs That Will Affect Care: None marital status: / Current Living Situation: Alone Current Living Situation Comment: [facility] involved in care current occupational 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 How many Children do You have: 3 Other Information That Helps Us Care for You: No Feels Safe at Home: Yes Safety Concerns: Feels Safe At This Time Childhood Exposure to Second-Hand Smoke: Yes caffeine: Yes (drinks coffee tea and soda) Dental Care, Regularly: Yes Physical Activity Frequency: 3-4 Times per Week Physical Activity Frequency Comment: walks throughout the week Seatbelt Use: always Sunscreen Use: Yes Assistive Devices: Cane, Glasses, Walker and Wheelchair Allergies Allergies Allergy/AdvReac Type Severity Reaction Status Date / Time erythromycin base AdvReac Intermediate Nausea Verified 01/13/23 23:11 Penicillins AdvReac Mild GI UPSET Verified 01/13/23 23:11 Home Meds Home Medications Medication Instructions Recorded Confirmed cyanocobalamin (vitamin B-12) 1,000 mcg PO DAILY 10/18/18 01/13/23 1,000 mcg tablet (Vitamin B-12) syringe with needle 3 mL 25 x 5/8" #1 ea 01/21/19 12/28/22 Lactobacills gasseri-Bifidobac 1 cap PO QAM 05/02/19 01/13/23 bifidum,longum 1.5 billion cell capsule (Acsendo) cranberry 500 mg capsule 1,500 mg PO BID 05/02/19 01/13/23 letrozole 2.5 mg tablet 2.5 mg PO QAM 05/02/19 01/13/23 denosumab 60 mg/mL subcutaneous 60 mg subcut .Q 6 months 05/11/21 01/13/23 syringe (Prolia) cholecalciferol (vitamin D3) 25 2,000 unit PO BID 06/28/21 01/13/23 mcg (1,000 unit) tablet (Vitamin D3) ammonium lactate 12 % topical cream 1 applic topical DAILY 08/08/22 01/13/23 cyanocobalamin (vitamin B-12) 1,000 mcg subcut MONTHLY 08/08/22 01/13/23 1,000 mcg/mL injection solution ezetimibe 10 mg tablet (Zetia) 10 mg PO HS 08/08/22 01/13/23 losartan 25 mg tablet (Cozaar) 25 mg PO QPM 08/08/22 01/13/23 lr-bmtp-dfbv-iron 8 mg-folic acid 1 tab PO DAILY 08/30/22 01/13/23 400 mcg-vit K1 50 mcg-lutein tablet (ABC Complete Senior Women's) insulin aspar prot-insulin aspart 90 unit subcut UD 11/13/22 01/13/23 100 unit/mL (70-30) subcutaneous pen (Novolog Mix 70-30FlexPen U-100) insulin degludec 200 unit/mL (3 26 unit subcut .DAILY AT NOON 11/13/22 01/13/23 mL) subcutaneous pen (Tresiba FlexTouch U-200 insulin) Previous Rx's Medication Instructions Recorded Lite Touch Insulin Pen [place] 31 #300 ea 07/22/20 gauge x 3/16" (pen needle, diabetic) albuterol sulfate 90 mcg/actuation 2 puff inhalation Q4 PRN Shortness 08/12/20 aerosol inhaler (Ventolin HFA) Of Breath Or Wheezing #1 ea Oxygen Home #2 L 05/13/21 Portable Oxygen #1 ea 05/25/21 umeclidinium 62.5 mcg-vilanterol 1 inh inhalation DAILY #60 ea 01/30/22 25 mcg/actuation powdr for inhalation (Anoro Ellipta) guaifenesin 600 mg tablet, 1,200 mg PO Q12 #14 tabs 08/14/22 extended release 12 hr (Mucinex) spironolactone 25 mg tablet 25 mg PO BID #180 tabs 09/08/22 (Aldactone) methenamine hippurate 1 gram tablet 1 g PO Q12H #180 tabs 10/10/22 oxybutynin chloride 10 mg 10 mg PO QPM #90 tabs 10/10/22 tablet,extended release 24 hr furosemide 40 mg tablet 40 mg PO DAILY #90 tabs 11/08/22 dulaglutide 3 mg/0.5 mL 3 mg (0.5 mL) subcut Q7D #2 mL 11/13/22 subcutaneous pen injector metformin 1,000 mg tablet,extended 1,000 mg PO BIDM #360 tabs 11/13/22 release 24hr metoprolol tartrate 25 mg tablet 12.5 mg PO QAM #45 tabs 12/13/22 Walking Cane #1 ea 12/28/22 Wheelchair (Manual) (Manual #1 ea 12/28/22 Wheelchair) blood-glucose meter,continuous #1 ea 12/28/22 ([employer] G6 Desizing Machine Back Tender) Results & Data (ED) Vital Signs Vital Signs - 24 hr 01/13/23 21:34 01/13/23 21:34 01/13/23 21:36 Temperature 36 C L Temperature Source Temporal Artery Scan Oral Pulse Rate 85 85 Pulse Rate from SpO2 Sensor Pulse Rhythm Regular Respiratory Rate 24 15 Respiratory Effort / Characteristics Non-Labored Non-Labored Respiratory Depth Normal Normal Blood Pressure 156/60 H Blood Pressure Mean 92 Pulse Oximetry 94 Oxygen Delivery Method Room Air Room Air Sepsis Recent Fever Within 48 Hours No Sepsis New/Unexplained Change in Mental Status No Sepsis Action Taken by Nursing No Action Required 01/13/23 21:37 01/13/23 21:37 01/13/23 21:40 Temperature Temperature Source Pulse Rate 84 86 Pulse Rate from SpO2 Sensor Pulse Rhythm Respiratory Rate 24 18 Respiratory Effort / Characteristics Respiratory Depth Blood Pressure 156/60 H Blood Pressure Mean 93 Pulse Oximetry Oxygen Delivery Method Sepsis Recent Fever Within 48 Hours Sepsis New/Unexplained Change in Mental Status Sepsis Action Taken by Nursing 01/13/23 21:36 01/13/23 21:59 01/13/23 23:00 Temperature Temperature Source Pulse Rate 86 75 Pulse Rate from SpO2 Sensor Pulse Rhythm Respiratory Rate 21 Respiratory Effort / Characteristics Respiratory Depth Blood Pressure 151/63 H Blood Pressure Mean 92 Pulse Oximetry 95 93 Oxygen Delivery Method Room Air Sepsis Recent Fever Within 48 Hours Sepsis New/Unexplained Change in Mental Status Sepsis Action Taken by Nursing 01/14/23 00:12 01/14/23 01:00 Temperature Temperature Source Pulse Rate 82 77 Pulse Rate from SpO2 Sensor 83 75 Pulse Rhythm Respiratory Rate 17 16 Respiratory Effort / Characteristics Respiratory Depth Blood Pressure 157/97 H 133/68 Blood Pressure Mean 117 89 Pulse Oximetry 97 97 Oxygen Delivery Method Room Air Room Air Sepsis Recent Fever Within 48 Hours Sepsis New/Unexplained Change in Mental Status Sepsis Action Taken by [facility] Medications Current Medication List: was personally reviewed by me Laboratory Data Attestation: I reviewed the patient's lab results. 01/13/23 21:38 01/13/23 21:38 Lab Results 01/13/23 01/13/23 01/13/23 Range/Units 21:36 21:38 21:38 WBC 11.07 H (4.8-10.8) K/ul RBC 4.75 (4.20-5.40) M/uL Hgb 14.0 (12.0-16.0) g/dl Hct 41.9 (37.0-47.0) % MCV 88.2 (80.0-100.0) fL MCH 29.5 (25.0-34.0) pg MCHC 33.4 (32.0-36.0) g/dL RDW Std Deviation 48.1 H (36.4-46.3) fL RDW Coeff of Vignesh 14.8 H (11.5-14.5) % Plt Count 260 (130-400) K/uL MPV 11.0 (9.4-12.4) fL Immature Gran % (Auto) 0.6 % Neut % (Auto) 79.2 % Lymph % (Auto) 9.3 % Mobile % (Auto) 10.5 % Eos % (Auto) 0.1 % Baso % (Auto) 0.3 % Neut # (Auto) 8.77 H (1.40-6.50) K/uL Lymph # (Auto) 1.03 L (1.2-3.4) K/uL Mobile # (Auto) 1.16 H (0.11-0.59) K/uL Eos # (Auto) 0.01 (0-0.50) K/uL Baso # (Auto) 0.03 (0-0.2) K/uL Immature Gran # (Auto) 0.07 (0.01-0.20) K/uL Sodium 137 (136-145) mmol/L Potassium 2.9 L (3.5-5.1) mmol/L Chloride 100 (98-107) mmol/L Carbon Dioxide 25 (21-32) mmol/L Anion Gap 12 H (3-11) BUN 18 (6-23) mg/dl Creatinine 0.72 (0.6-1.2) mg/dl Est Cr Clr Drug Dosing Not Reportable Est GFR ( Amer) 91.7 ml/min Est GFR (Non-Af Amer) 79.1 ml/min BUN/Creatinine Ratio 25.0 H (10-20) Glucose 117 H (70-99(Fasting)) mg/dl POC Glucose 117 H (70-99) mg/dl Calcium 10.1 (8.6-10.3) mg/dl Magnesium 1.9 (1.7-2.4) mg/dl Total Bilirubin 0.6 (0.2-1.0) mg/dl AST 33 (13-39) U/L ALT 28 (7-52) U/L Alkaline Phosphatase 73 (34-104) U/L Total Protein 8.0 (6.0-8.3) gm/dl Albumin 4.1 (3.4-5.0) gm/dl Globulin 3.9 (2.5-4.0) gm/dl Albumin/Globulin Ratio 1.1 (0.9-2) TSH (0.300-4.500) uIu/ml Urine Color Urine Appearance (Clear) Urine pH (4.5-7.5) Ur Specific [place] (1.000-1.030) Urine Protein (Negative) Urine Glucose (UA) (Negative) Urine Ketones (Negative) Urine Blood (Negative) Urine Nitrite (Negative) Urine Bilirubin (Negative) Urine Urobilinogen (Negative) Ur Leukocyte Esterase (Negative) Urine WBC (Auto) (0-5) /hpf Urine RBC (Auto) (0-4) /hpf U Hyaline Cast (Auto) (0-5) /lpf U Epithel Cells (Auto) (0-5) /lpf Urine Bacteria (Auto) (Negative) SARS-CoV-2, RNA, NAAT (NEGATIVE) 01/13/23 01/13/23 01/13/23 Range/Units 21:38 22:25 22:31 WBC (4.8-10.8) K/ul RBC (4.20-5.40) M/uL Hgb (12.0-16.0) g/dl Hct (37.0-47.0) % MCV (80.0-100.0) fL MCH (25.0-34.0) pg MCHC (32.0-36.0) g/dL RDW Std Deviation (36.4-46.3) fL RDW Coeff of Vignesh (11.5-14.5) % Plt Count (130-400) K/uL MPV (9.4-12.4) fL Immature Gran % (Auto) % Neut % (Auto) % Lymph % (Auto) % Mobile % (Auto) % Eos % (Auto) % Baso % (Auto) % Neut # (Auto) (1.40-6.50) K/uL Lymph # (Auto) (1.2-3.4) K/uL Mobile # (Auto) (0.11-0.59) K/uL Eos # (Auto) (0-0.50) K/uL Baso # (Auto) (0-0.2) K/uL Immature Gran # (Auto) (0.01-0.20) K/uL Sodium (136-145) mmol/L Potassium (3.5-5.1) mmol/L Chloride (98-107) mmol/L Carbon Dioxide (21-32) mmol/L Anion Gap (3-11) BUN (6-23) mg/dl Creatinine (0.6-1.2) mg/dl Est Cr Clr Drug Dosing Est GFR ( Amer) ml/min Est GFR (Non-Af Amer) ml/min BUN/Creatinine Ratio (10-20) Glucose (70-99(Fasting)) mg/dl POC Glucose 131 H (70-99) mg/dl Calcium (8.6-10.3) mg/dl Magnesium (1.7-2.4) mg/dl Total Bilirubin (0.2-1.0) mg/dl AST (13-39) U/L ALT (7-52) U/L Alkaline Phosphatase (34-104) U/L Total Protein (6.0-8.3) gm/dl Albumin (3.4-5.0) gm/dl Globulin (2.5-4.0) gm/dl Albumin/Globulin Ratio (0.9-2) TSH 3.596 (0.300-4.500) uIu/ml Urine Color Urine Appearance (Clear) Urine pH (4.5-7.5) Ur Specific [place] (1.000-1.030) Urine Protein (Negative) Urine Glucose (UA) (Negative) Urine Ketones (Negative) Urine Blood (Negative) Urine Nitrite (Negative) Urine Bilirubin (Negative) Urine Urobilinogen (Negative) Ur Leukocyte Esterase (Negative) Urine WBC (Auto) (0-5) /hpf Urine RBC (Auto) (0-4) /hpf U Hyaline Cast (Auto) (0-5) /lpf U Epithel Cells (Auto) (0-5) /lpf Urine Bacteria (Auto) (Negative) SARS-CoV-2, RNA, NAAT NEGATIVE (NEGATIVE) 01/13/23 01/13/23 Range/Units 23:24 23:42 WBC (4.8-10.8) K/ul RBC (4.20-5.40) M/uL Hgb (12.0-16.0) g/dl Hct (37.0-47.0) % MCV (80.0-100.0) fL MCH (25.0-34.0) pg MCHC (32.0-36.0) g/dL RDW Std Deviation (36.4-46.3) fL RDW Coeff of Vignesh (11.5-14.5) % Plt Count (130-400) K/uL MPV (9.4-12.4) fL Immature Gran % (Auto) % Neut % (Auto) % Lymph % (Auto) % Mobile % (Auto) % Eos % (Auto) % Baso % (Auto) % Neut # (Auto) (1.40-6.50) K/uL Lymph # (Auto) (1.2-3.4) K/uL Mobile # (Auto) (0.11-0.59) K/uL Eos # (Auto) (0-0.50) K/uL Baso # (Auto) (0-0.2) K/uL Immature Gran # (Auto) (0.01-0.20) K/uL Sodium (136-145) mmol/L Potassium (3.5-5.1) mmol/L Chloride (98-107) mmol/L Carbon Dioxide (21-32) mmol/L Anion Gap (3-11) BUN (6-23) mg/dl Creatinine (0.6-1.2) mg/dl Est Cr Clr Drug Dosing Est GFR ( Amer) ml/min Est GFR (Non-Af Amer) ml/min BUN/Creatinine Ratio (10-20) Glucose (70-99(Fasting)) mg/dl POC Glucose 195 H (70-99) mg/dl Calcium (8.6-10.3) mg/dl Magnesium (1.7-2.4) mg/dl Total Bilirubin (0.2-1.0) mg/dl AST (13-39) U/L ALT (7-52) U/L Alkaline Phosphatase (34-104) U/L Total Protein (6.0-8.3) gm/dl Albumin (3.4-5.0) gm/dl Globulin (2.5-4.0) gm/dl Albumin/Globulin Ratio (0.9-2) TSH (0.300-4.500) uIu/ml Urine Color Dark Yellow Urine Appearance Cloudy A (Clear) Urine pH 5.0 (4.5-7.5) Ur Specific [place] 1.020 (1.000-1.030) Urine Protein 1+ H (Negative) Urine Glucose (UA) Negative (Negative) Urine Ketones Trace H (Negative) Urine Blood Negative (Negative) Urine Nitrite Positive A (Negative) Urine Bilirubin Negative (Negative) Urine Urobilinogen Negative (Negative) Ur Leukocyte Esterase 2+ H (Negative) Urine WBC (Auto) >30 H (0-5) /hpf Urine RBC (Auto) 10-30 H (0-4) /hpf U Hyaline Cast (Auto) 10-30 H (0-5) /lpf U Epithel Cells (Auto) 20-30 H (0-5) /lpf Urine Bacteria (Auto) 2+ H (Negative) SARS-CoV-2, RNA, NAAT (NEGATIVE) Administered Medications Furosemide (Furosemide 40 Mg Tab) 40 mg PO DAILY LORELEI Stop: 02/13/23 08:59 Last Admin: 01/14/23 08:23 Dose: 40 mg Documented By: BASILIO Guaifenesin (Guaifenesin 600 Mg Tabcr) 1,200 mg PO Q12 LORELEI Stop: 02/13/23 08:59 Last Admin: 01/14/23 08:23 Dose: 1,200 mg Documented By: BASILIO Ertapenem 1,000 mg/ Syringe 10 mls @ 2 mls/min IV Q24H LORELEI Stop: 01/19/23 09:29 Last Admin: 01/14/23 10:49 Dose: 2 mls/min Documented By: BASILIO Insulin Aspart (Insulin Aspart Per Unit Charge) 0 units SC ACHS LORELEI Stop: 02/13/23 02:44 Last Admin: 01/14/23 17:38 Dose: 6 units Documented By: BASILIO Co-signed By: MICHELLE Admin: 01/14/23 12:32 Dose: 5 units Documented By: BAISLIO Co-signed By: MICHELLE Admin: 01/14/23 08:26 Dose: 5 units Documented By: BASILIO Co-signed By: FLACO Admin: 01/14/23 02:46 Dose: 1 units Documented By: VILMA Co-signed By: RIO Letrozole (Letrozole 2.5 Mg Tab) 2.5 mg PO QAM LORELEI Stop: 02/13/23 08:59 Last Admin: 01/14/23 08:23 Dose: 2.5 mg Documented By: BASILIO Co-signed By: FLACO Methenamine Hippurate (Methenamine Hippurate 1 Gm Tab) 1 gm PO Q12H LORELEI Stop: 02/13/23 08:59 Last Admin: 01/14/23 08:23 Dose: 1 gm Documented By: BASILIO Metoprolol Tartrate (Metoprolol Tartrate 25 Mg Tab) 12.5 mg PO QAM LORELEI Stop: 02/13/23 08:59 Last Admin: 01/14/23 08:23 Dose: 12.5 mg Documented By: BASILIO Spironolactone (Spironolactone 25 Mg Tab) 25 mg PO BID17 LORELEI Stop: 02/13/23 08:59 Last Admin: 01/14/23 17:38 Dose: 25 mg Documented By: Admin: 01/14/23 08:23 Dose: 25 mg Documented By: BASILIO Umeclidinium/Vilanterol (Umeclidinium/Vilanterol 62.5/25mcg 7 Puffs/Inhaler) 1 puffs INH DAILY LORELEI Stop: 02/13/23 08:59 Last Admin: 01/14/23 08:25 Dose: 1 puffs Documented By: BASILIO Discontinued Medications Ceftriaxone Sodium (Rocephin) 2,000 mg in 70 mls @ 140 mls/hr IV NOW STA Stop: 01/14/23 00:56 Last Infusion: 01/14/23 01:36 Dose: 0 mls/hr Documented By: Admin: 01/14/23 00:57 Dose: 140 mls/hr Documented By: JORGE Sodium Chloride (Nss 1000ml) 1,000 mls @ 150 mls/hr IV .Q6H40M LORELEI Stop: 02/13/23 00:44 Last Infusion: 01/14/23 06:05 Dose: 0 mls/hr Documented By: Admin: 01/14/23 00:57 Dose: 150 mls/hr Documented By: JORGE Insulin Glargine (Lantus Per Unit Charge) 20 units SQ ONCE ONE Stop: 01/14/23 10:34 Last Admin: 01/14/23 10:49 Dose: 20 units Documented By: BASILIO Co-signed By: TLSreedhar Potassium Chloride (Potassium Chloride Crtab 20 Meq Tabcr) 40 meq PO NOW STA Stop: 01/13/23 22:31 Last Admin: 01/13/23 22:35 Dose: 40 meq Documented By: DILSHAD Potassium Chloride (Potassium Chloride Crtab 20 Meq Tabcr) 40 meq PO NOW STA Stop: 01/14/23 02:31 Last Admin: 01/14/23 02:47 Dose: 40 meq Documented By: VILMA Imaging Data Radiologist's Impression: Chest X-Ray 01/13/23 21:58 SINGLE VIEW CHEST CLINICAL HISTORY: Generalized weakness. FINDINGS: An AP, portable, upright chest radiograph is compared to study dated 08/14/2022. Correlation is made with chest CT dated 06/22/2022. The examination is degraded by portable technique and apical lordotic positioning. A right internal jugular central venous infusion port is unchanged in position. The reservoir is located in the right upper quadrant of the abdomen. The cardiomediastinal silhouette is unremarkable noting atherosclerotic calcification of the thoracic aorta. Emphysema and chronic interstitial thickening is similar to previous. No airspace consolidation or large pleural effusion is identified. Scarring/atelectasis is noted at the lung bases. No pneumothorax is seen. The skeletal structures are osteopenic. The bony thorax is grossly intact. IMPRESSION: Emphysematous change with no active disease in the chest. ACT 112: Negative or not required by law. Electronically signed by: Abdias Bae M.D. 01/14/2023 7:41 AM Exam(s): CT HEAD Without Contrast EXAM: CT Head Without Intravenous Contrast CLINICAL HISTORY: Reason for exam: AMS. TECHNIQUE: Axial computed tomography images of the head/brain without intravenous contrast. Automated exposure control was utilized for the study. A dose lowering technique was utilized adhering to the principles of ALARA. COMPARISON: No relevant prior studies available. FINDINGS: No acute intracranial hemorrhage. No midline shift or mass effect. The territorial torrez-white matter differentiation is maintained throughout. Age-related cerebral volume loss. Periventricular and subcortical white matter hypoattenuation, consistent with chronic microangiopathy. The visualized orbits appear grossly unremarkable. The calvarium is intact. The visualized paranasal sinuses and mastoid air cells are grossly clear. IMPRESSION: No acute intracranial hemorrhage, midline shift, or mass effect. Electronically signed by: Cesar Davis MD 01/14/23 00:58 AM Dictated:01/14/2357 Transcribed: 01/14/2357 Discharge Plan Visit Data Chief Complaint: Hypoglycemia Stated Complaint: HYPOGLYCEMIA ED Provider: Violet Angulo Discharge Problem: Acute UTI, Hypokalemia, Hypoglycemia Patient Disposition: Admitted As Inpatient Discharge Instructions Interventions: ED Discharge Assessment Last Done: 01/14/23 02:15
--- NOTE | 2023-01-14 07:42 | XRay Report ---
SINGLE VIEW CHEST CLINICAL HISTORY: Generalized weakness. FINDINGS: An AP, portable, upright chest radiograph is compared to study dated 08/14/2022. Correlation is made with chest CT dated 06/22/2022. The examination is degraded by portable technique and apical lordotic positioning. A right internal jugular central venous infusion port is unchanged in position. The reservoir is located in the right upper quadrant of the abdomen. The cardiomediastinal silhouett e is unremarkable noting atherosclerotic calcification of the thoracic aorta. Emphysema and chronic i nterstitial thickening is similar to previous. No airspace consolidation or large pleural effusion is identified. Scarring/atelectasis is noted at the lung bases. No pneumothorax is seen. The skeletal s tructures are osteopenic. The bony thorax is grossly intact. IMPRESSION: Emphysematous change with no active disease in the chest. ACT 112: Negative or not required by law. Electronically signed by: Abdias Bae M.D. 01/14/2023 7:41 AM
[2023-01-14] MEDS: METOPROLOL TARTRATE 25 MG TAB PO SCH (08:23)
[2023-01-14] MEDS: LETROZOLE 2.5 MG TAB PO SCH (08:23)
[2023-01-14] MEDS: SPIRONOLACTONE 25 MG TAB PO SCH ×2 (08:23→17:38)
[2023-01-14] MEDS: METHENAMINE HIPPURATE 1 GM TAB PO SCH ×2 (08:23→21:59)
[2023-01-14] MEDS: guaiFENesin 600 MG TABCR PO SCH ×2 (08:23→21:58)
[2023-01-14] MEDS: FUROSEMIDE 40 MG TAB PO SCH (08:23)
[2023-01-14] MEDS: UMECLIDINIUM/VILANTEROL 62.5/25MCG 7 PUFFS/INHALER INH SCH (08:25)
[2023-01-14 10:09] LABS: BUN Creatinine Ratio 23.8 (10-20); Calcium 9.6 mg/dl (8.6-10.3); Creatinine Clr Calc Pharmacy 84.5 ml/min; Est GFR (African American) 98.2 ml/min; Est GFR (Non-African American) 84.7 ml/min; Potassium 4.7 mmol/L (3.5-5.1)
[2023-01-14] MEDS ORDERED: LANTUS PER UNIT CHARGE SQ ONE (10:33)
[2023-01-14] MEDS: ERTAPENEM SODIUM 1,000 MG in SYRINGE 0 ML IV SCH (10:49)
--- NOTE | 2023-01-14 21:14 | Hospitalist Progress Note ---
Date of Service January 14, 2023 Assessment & Plan (1) Hypoglycemia: Plan: Patient confirms she didn't eat normally yesterday, skipping much of her dinner meal last night. She took her usual doses of insulin last evening (70/30) despite the limited PO intake. She also appears to have UTI which could have contributed. Low BSGs resolved; glycemic control stable today. (2) Recurrent UTI: Plan: u/a suggestive of UTI review of her record shows numerous UTIs several of her UTIs have been due to multi-drug resistant pathogens requiring IV ertapenem will start IV ertapenem follow culture repeat labs am (3) Acute UTI: Plan: see above (4) Diabetes mellitus, type 2: Plan: a1c 7.1% earlier in December excellent control TDD of his 70/30 + degludec = 116 units will err on side of caution -- start lantus 20 units am, 15 units pm, and novolog correction/carb coverage adjust as needed (5) Hypokalemia: Plan: repleted resolved (6) Hypertension: Plan: Blood pressure stable -Continue Spironolactone -Continue Metoprolol -Continue Losartan (7) Hyperlipidemia: Plan: Continue Zetia (8) Breast cancer: Plan: Remote history of breast cancer Continue Letrozole (9) Cirrhosis: Plan: no signs of hepatic encephalopathy (10) Intellectual disability: Admission and Anticipated Discharge Date Admission Date: January 14, 2023 Subjective patient resting comfortably in bed uneventful day since her admission early this am eating and drinking well she confirms she takes 3 shots of insulin daily she self-administers all insulin when asked what her BSGs have been on her Dexcom she is very vague cannot provide any specific numbers she does state "I haven't had a low sugar in a long time" Physical Exam Physical Exam: gen - NAD mouth - MMM neck - no JVD heart - RRR, s1 s2 lungs - CTA b/l abd - soft NT ND BS+ ext - no edema, pulses 2+ b/l Results & Data Results & Data Vital Signs (Past 12 Hours) Vital Signs Temp Pulse Resp BP Pulse Ox O2 Del Method 01/14/23 21:11 36.6 C 90 20 164/81 H 93 Room Air 01/14/23 15:03 36.6 C 77 18 123/76 95 Room Air Laboratory Results u/a suggestive of UTI PG Care Time/CCT Total # of Minutes Spent Total Time Spent with Patient: Total time spent is greater than 50% in coordination of care (as documented) at patient's floor/unit and/or counseling patient: Coding Level of Care Code None Diagnoses Hypoglycemia E16.2 Recurrent UTI N39.0 Acute UTI N39.0 Diabetes mellitus, type 2 E11.9 Hypokalemia E87.6 Hypertension I10 Hyperlipidemia E78.5 Breast cancer C50.919 Cirrhosis K74.60 Intellectual disability F79
[2023-01-14] MEDS: LANTUS PER UNIT CHARGE SQ SCH (21:55)
[2023-01-14] MEDS: OXYBUTYNIN CHLORIDE XL 5 MG TABCR PO SCH (21:58)
[2023-01-14] MEDS: LOSARTAN POTASSIUM 25 MG TAB PO SCH (21:59)
[2023-01-14] MEDS: EZETIMIBE 10 MG TABLET PO SCH (22:00)
[2023-01-15 07:44] LABS: Hemoglobin 13.6 g/dl (12.0-16.0); Mean Corpuscular Hemoglobin 29.3 pg (25.0-34.0); Mean Corpuscular Hgb Conc 32.4 g/dL (32.0-36.0); Mean Corpuscular Volume 90.5 fL (80.0-100.0); Mean Platelet Volume 10.7 fL (9.4-12.4); Platelet Count 255 K/uL (130-400); RDW Standard Deviation 49.5 fL (36.4-46.3); Red Blood Count 4.64 M/uL (4.20-5.40); White Blood Count 7.35 K/ul (4.8-10.8)
[2023-01-15 08:10] LABS: Potassium 4.8 mmol/L (3.5-5.1)
[2023-01-15 08:11] LABS: BUN Creatinine Ratio 21.2 (10-20); Creatinine Clr Calc Pharmacy 80.7 ml/min; Est GFR (African American) 96.7 ml/min; Est GFR (Non-African American) 83.4 ml/min
[2023-01-15] MEDS: METHENAMINE HIPPURATE 1 GM TAB PO SCH ×2 (08:30→21:27)
[2023-01-15] MEDS: UMECLIDINIUM/VILANTEROL 62.5/25MCG 7 PUFFS/INHALER INH SCH (08:30)
[2023-01-15] MEDS: guaiFENesin 600 MG TABCR PO SCH ×2 (08:31→21:26)
[2023-01-15] MEDS: LETROZOLE 2.5 MG TAB PO SCH (08:31)
[2023-01-15] MEDS: METOPROLOL TARTRATE 25 MG TAB PO SCH (08:31)
[2023-01-15] MEDS: SPIRONOLACTONE 25 MG TAB PO SCH ×2 (08:31→18:05)
[2023-01-15] MEDS: FUROSEMIDE 40 MG TAB PO SCH (08:32)
[2023-01-15] MEDS: LANTUS PER UNIT CHARGE SQ SCH ×2 (08:43→21:27)
[2023-01-15] MEDS: INSULIN ASPART PER UNIT CHARGE SC SCH ×4 (08:44→21:27)
[2023-01-15] MEDS: ERTAPENEM SODIUM 1,000 MG in SYRINGE 0 ML IV SCH (09:50)
--- NOTE | 2023-01-15 11:08 | Hospitalist Progress Note ---
Date of Service January 15, 2023 Assessment & Plan (1) Hypoglycemia: Plan: Patient confirms she didn't eat normally yesterday, skipping much of her dinner meal last night. She took her usual doses of insulin last evening (70/30) despite the limited PO intake. It is difficult to ascertain if this is turly a urinary tract infection vs asymptomatic bacteruria. Patient did present with hypoglycemia and an elevated WBC which could be explained by a UTI. However, the hypoglycemia could also be from the limited PO intake. At this point, will continue with antibiotics, will await urine culture. Low BSGs resolved; glycemic control stable today. (2) Recurrent UTI: Plan: u/a suggestive of UTI review of her record shows numerous UTIs several of her UTIs have been due to multi-drug resistant pathogens requiring IV ertapenem will start IV ertapenem follow culture repeat labs am (3) Acute UTI: Plan: see above (4) Diabetes mellitus, type 2: Plan: a1c 7.1% earlier in December excellent control TDD of his 70/30 + degludec = 116 units will err on side of caution -- start lantus 20 units am, 15 units pm, and novolog correction/carb coverage adjust as needed (5) Hypokalemia: Plan: repleted resolved (6) Hypertension: Plan: Blood pressure stable -Continue Spironolactone -Continue Metoprolol -Continue Losartan (7) Hyperlipidemia: Plan: Continue Zetia (8) Breast cancer: Plan: Remote history of breast cancer Continue Letrozole (9) Cirrhosis: Plan: no signs of hepatic encephalopathy (10) Intellectual disability: Admission and Anticipated Discharge Date Admission Date: January 14, 2023 Subjective Patient reports no new symptoms. Patient denies any dysuria. Review of Systems Review of Systems: All systems reviewed & are unremarkable except as noted in HPI & below Physical Exam Physical Exam: gen - NAD mouth - MMM neck - no JVD heart - RRR, s1 s2 lungs - CTA b/l abd - soft NT ND BS+ ext - no edema, pulses 2+ b/l Results & Data Results & Data Vital Signs (Past 12 Hours) Vital Signs Temp Pulse Resp BP Pulse Ox O2 Del Method 01/15/23 07:22 36.8 C 71 16 123/60 95 Room Air PG Care Time/CCT Total # of Minutes Spent Total Time Spent with Patient: Total time spent is greater than 50% in coordination of care (as documented) at patient's floor/unit and/or counseling patient: Coding Level of Care Code 70212 SUB INP/OBS CARE 2/35MIN Diagnoses Hypoglycemia E16.2 Recurrent UTI N39.0 Acute UTI N39.0 Diabetes mellitus, type 2 E11.9 Hypokalemia E87.6 Hypertension I10 Hyperlipidemia E78.5 Breast cancer C50.919 Cirrhosis K74.60 Intellectual disability F79
[2023-01-15] MEDS: OXYBUTYNIN CHLORIDE XL 5 MG TABCR PO SCH (21:25)
[2023-01-15] MEDS: EZETIMIBE 10 MG TABLET PO SCH (21:25)
[2023-01-15] MEDS: LOSARTAN POTASSIUM 25 MG TAB PO SCH (21:25)
--- NOTE | 2023-01-16 06:57 | Electrocardiogram Report ---
Test Reason : Blood Pressure : / mmHG Vent. Rate : 081 BPM Atrial Rate : 081 BPM P-R Int : 192 ms QRS Dur : 098 ms QT Int : 424 ms P-R-T Axes : 022 -07 076 degrees QTc Int : 492 ms Sinus rhythm with occasional Premature ventricular complexes Nonspecific ST abnormality Prolonged QT Abnormal ECG When compared with ECG of 08-AUG-2022 18:09, Premature ventricular complexes are now Present Confirmed by Matthew Barnett ([id number]) on 01/16/2023 6:57:10 AM Referred By: REFERRED SELF Confirmed By:Matthew Barnett
[2023-01-16 07:28] LABS: Hematocrit (blood only) 40.2 % (37.0-47.0); Hemoglobin 13.5 g/dl (12.0-16.0); Mean Corpuscular Hemoglobin 29.6 pg (25.0-34.0); Mean Corpuscular Hgb Conc 33.6 g/dL (32.0-36.0); Mean Corpuscular Volume 88.2 fL (80.0-100.0); Mean Platelet Volume 10.9 fL (9.4-12.4); Platelet Count 256 K/uL (130-400); RDW Coefficient of Variation 14.8 % (11.5-14.5); RDW Standard Deviation 47.6 fL (36.4-46.3); Red Blood Count 4.56 M/uL (4.20-5.40); White Blood Count 6.86 K/ul (4.8-10.8)
[2023-01-16 07:31] LABS: BUN Creatinine Ratio 24.2 (10-20); Calcium 9.8 mg/dl (8.6-10.3); Creatinine Clr Calc Pharmacy 80.7 ml/min; Est GFR (African American) 96.7 ml/min; Est GFR (Non-African American) 83.4 ml/min; Potassium 4.3 mmol/L (3.5-5.1)
[2023-01-16 08:19] VITALS: BP 94/54; PULSE 89; TEMP 97.9; O2SAT 95
[2023-01-16] MEDS: METHENAMINE HIPPURATE 1 GM TAB PO SCH (08:58)
[2023-01-16] MEDS: INSULIN ASPART PER UNIT CHARGE SC SCH ×2 (08:58→12:42)
[2023-01-16] MEDS: METOPROLOL TARTRATE 25 MG TAB PO SCH (08:59)
[2023-01-16] MEDS: FUROSEMIDE 40 MG TAB PO SCH (08:59)
[2023-01-16] MEDS: guaiFENesin 600 MG TABCR PO SCH (08:59)
[2023-01-16] MEDS: SPIRONOLACTONE 25 MG TAB PO SCH (08:59)
[2023-01-16] MEDS: LETROZOLE 2.5 MG TAB PO SCH (08:59)
[2023-01-16] MEDS: UMECLIDINIUM/VILANTEROL 62.5/25MCG 7 PUFFS/INHALER INH SCH (09:00)
[2023-01-16] MEDS: LANTUS PER UNIT CHARGE SQ SCH (09:04)
[2023-01-16] MEDS: ERTAPENEM SODIUM 1,000 MG in SYRINGE 0 ML IV SCH (10:33)
--- NOTE | 2023-01-16 13:54 | Discharge Summary ---
Date of Service January 16, 2023 Admission HPI Per Admitting Provider 82yo female with DM, HTN, HLP and intellectual disability presenting with hypoglycemia. Patient does not fully recall the events prior to arrival. She recalls taking her medication - 45 units of insulin or "maybe more". She meant to eat a peanut butter sandwich but got distracted and didn't eat. She was at her neighbors house and became altered. Neighbor called EMS. Patient hypoglycemic by EMS with BSG of 31. She was administered dextrose IV and brought to the ER. No complaints at present. She feels very thirsty otherwise is doing well. She denies recent illness, chest pain, cough, SOB, abdominal pain, nausea, vomiting, diarrhea or constipation. No falls or urinary complaints. She resides at [facility] in [place] and has home nursing. Principal Diagnosis hypoglycemia Discharge Exam gen - NAD mouth - MMM neck - no JVD heart - RRR, s1 s2 lungs - CTA b/l abd - soft NT ND BS+ ext - no edema, pulses 2+ b/l Discharge Data Allergies Allergy/AdvReac Type Severity Reaction Status Date / Time erythromycin base AdvReac Intermediate Nausea Verified 01/13/23 23:11 Penicillins AdvReac Mild GI UPSET Verified 01/13/23 23:11 Ordered Studies 01/13/23 23:38 CT head/brain wo con Stat Hospital Course (1) Hypoglycemia: Patient confirms she didn't eat normally yesterday, skipping much of her dinner meal last night. She took her usual doses of insulin last evening (70/30) despite the limited PO intake. It is difficult to ascertain if this is turly a urinary tract infection vs asymptomatic bacteruria. Patient did present with hypoglycemia and an elevated WBC which could be explained by a UTI. However, the hypoglycemia could also be from the limited PO intake. At this point, will continue with antibiotics,. Culture showed E. coli only resistant to FQ will complete 7 day course of antibiotics with 4 days of cefpodoxime. Blood sugar has been stable (2) Recurrent UTI: u/a suggestive of UTI review of her record shows numerous UTIs several of her UTIs have been due to multi-drug resistant pathogens requiring IV ertapenem will start IV ertapenem transition to PO antibiotic as above. (3) Acute UTI: see above (4) Diabetes mellitus, type 2: a1c 7.1% earlier in December excellent control TDD of his 70/30 + degludec = 116 units will err on side of caution -- start lantus 20 units am, 15 units pm, and novolog correction/carb coverage adjust as needed (5) Hypokalemia: repleted resolved (6) Hypertension: Blood pressure stable -Continue Spironolactone -Continue Metoprolol -Continue Losartan (7) Hyperlipidemia: Continue Zetia (8) Breast cancer: Remote history of breast cancer Continue Letrozole (9) Cirrhosis: no signs of hepatic encephalopathy (10) Intellectual disability: Total Time Total Time Spent Total Time Spent (In Minutes): 32 Discharge Plan Discharge Items Patient Disposition: Home - Self-Care Reason For Visit: HYPOGLYCEMIA Discharge Diagnosis: hypoglycemia Activity: Resume your previous activity Non-emergency contact: Primary Care Provider Call non-emergency contact if: you have any medication questions Follow-up/Referrals: Supa Reynoso DO [Primary Care Provider] - Diet: Carb Consistent or DM2 Addtl Attending Provider Instructions: Start antibiotic on 01/17/23 Cnntinue for 4 more days. Recommend followup with PCP in 1-2 weeks. Pending Studies at Discharge: No Stand-Alone Forms: My [employer], Smoking Cessation Medications and DC Order Prescriptions: New cefpodoxime 100 mg tablet 100 mg PO BID Qty: 8 0RF Rx Instructions: must administer with a meal/food Start on 01/17/23 Continued letrozole 2.5 mg tablet 2.5 mg PO QAM cranberry 500 mg capsule 1,500 mg PO BID OQO 1.5 billion cell capsule 1 cap PO QAM Prolia 60 mg/mL syringe 60 mg subcut .Q 6 months insulin degludec [Tresiba FlexTouch U-200] 200 unit/mL (3 mL) insulin pen 26 unit subcut .DAILY AT NOON (DME) pen needle, diabetic [Lite Touch Insulin Pen Griffin] 31 gauge x 3/16" needle See Dose Instructions .ROUTE .MEDSUPPLY Qty: 300 3RF Dose Instruction: As directed Rx Instructions: Use 3 needles daily albuterol sulfate [Ventolin HFA] 90 mcg/actuation HFA aerosol inhaler 2 puff inhalation Q4 PRN (Reason: Shortness Of Breath Or Wheezing) Qty: 1 2RF (DME) Oxygen Home Liters Per Minute See Rx Instructions .ROUTE .MEDSUPPLY Qty: 2 0RF Rx Instructions: 2L/min to be used with exertion and while sleeping (DME) Portable Oxygen Misc See Rx Instructions .Route Qty: 1 0RF Rx Instructions: home O2 concentrator and portability via nasal cannula Anoro Ellipta 62.5-25 mcg/actuation blister with device 1 inh inhalation DAILY Qty: 60 5RF spironolactone [Aldactone] 25 mg tablet 25 mg PO BID Qty: 180 3RF furosemide 40 mg tablet 40 mg PO DAILY Qty: 90 3RF metformin 1,000 mg tablet extended release 24 hr 1,000 mg PO BIDM Qty: 360 3RF Rx Instructions: Take with meals. metoprolol tartrate 25 mg tablet 12.5 mg PO QAM Qty: 45 3RF insulin asp prt-insulin aspart [Novolog Mix 70-30FlexPen U-100] 100 unit/mL (70-30) insulin pen 90 unit subcut UD Rx Instructions: Inject 45 units with breakfast and 45 units with dinner; TDD 90 cholecalciferol (vitamin D3) [Vitamin D3] 25 mcg (1,000 unit) tablet 2,000 unit PO BID ABC Complete Senior Women's 8 mg iron- 400 mcg-50 mcg tablet 1 tab PO DAILY dulaglutide 3 mg/0.5 mL pen injector 3 mg subcut Q7D Qty: 2 2RF Rx Instructions: wednesdays oxybutynin chloride 10 mg tablet extended release 24hr 10 mg PO QPM Qty: 90 3RF methenamine hippurate 1 gram tablet 1 g PO Q12H Qty: 180 3RF (DME) syringe with needle 3 mL 25 x 5/8" syringe See Dose Instructions .ROUTE .MEDSUPPLY Qty: 1 Rx Instructions: USE ONE PER MONTH (DME) Dexcom G6 Flight Test Data Acquisition Technician Misc See Rx Instructions .Route Qty: 1 0RF Rx Instructions: As directed (DME) Manual Wheelchair Device See Rx Instructions .Route Qty: 1 0RF Rx Instructions: As directed (DME) Walking Cane Misc See Rx Instructions .Route Qty: 1 0RF Rx Instructions: 4 point cane cyanocobalamin (vitamin B-12) [Vitamin B-12] 1,000 mcg Tablet 1,000 mcg PO DAILY cyanocobalamin (vitamin B-12) 1,000 mcg/mL solution 1,000 mcg subcut MONTHLY Rx Instructions: 100 mcg subcut once monthly; losartan [Cozaar] 25 mg tablet 25 mg PO QPM ammonium lactate 12 % cream 1 applic TOPICAL DAILY Rx Instructions: apply to feet ezetimibe [Zetia] 10 mg tablet 10 mg PO HS guaifenesin [Mucinex] 600 mg Tablet Extended Release 12hr 1,200 mg PO Q12 Qty: 14 0RF Discharge Orders: Discharge Order (Routine); Ordered 01/16/23 Ordered By: Louie Juarez/Other Patient Handouts: Diabetes: Keeping Feet Healthy, Diabetes: Living Your Life, Diabetes Support, Diabetes- Know Your Goal Numbers, Blood Sugar Check Steps, Diabetes- Measuring Glucose at Home, Diabetes Control Without Meds Admission Data Admit Date/Time: 01/15/23 11:08 Attending Provider: Louie Lopez Admit Provider: Hailee Cole Primary Care Provider: Supa Reynoso Other Interventions: Discharge Summary Assessment (RN) Last Done: 01/16/23 14:18 Coding Level of Care Code 67784 INP/OBS DISCH >30 MIN Diagnoses Hypoglycemia E16.2 Recurrent UTI N39.0 Acute UTI N39.0 Diabetes mellitus, type 2 E11.9 Hypokalemia E87.6 Hypertension I10 Hyperlipidemia E78.5 Breast cancer C50.919 Cirrhosis K74.60 Intellectual disability F79
== END 2023-01-16 16:02 | disposition home or self-care (01) | DRG 638 ==
LOC: ED 21:30 → 3E 21:30 → SUATTDRO 01-14 01:34 → 3E 01-14 02:15